=== PATIENT | female | born 1935 | race Caucasian/White ===

== ENCOUNTER 2020-04-02 10:42 | Inpatient (IN) | payer MEDICARE, SELFPAY ==
[2020-04-02] VITALS (7 sets, daily range): BP systolic 108–185; BP diastolic 61–108; PULSE 68–91; RESP 15–19; TEMP 36.6–37.2; O2SAT 91–98; BMI 17.7
--- NOTE | 2020-04-02 11:45 | CT_ITS ---
WS: [id number] CT HEAD NONCONTRAST HISTORY: hypertensive crisis TECHNIQUE: Contiguous axial imaging performed through the brain in 2.5 mm imaging. Bone and soft tiss ue windows. Sagittal and coronal reformats reviewed. All CT scans at [facility] use at ast one of these dose optimization techniques: automated exposure control; mA and/or kV adjustment pe r patient size (includes targeted exams where dose is matched to clinical indication); or iterative r econstruction. DLP: 862.72 mGy.cm COMPARISON: None available. No acute intracranial hemorrhage, midline shift or mass effect. Moderate to severe atrophy and chronic ischemic disease. Scattered areas of decreased attenuation in the white matter are probably from microvascular disease. Ventricles: Ventricles and extra-axial spaces are prominent on the basis of atrophy. Paranasal sinuses: As visualized are clear. Mastoid air cells: Well pneumatized. Calvarium and scalp: Skull is intact with no soft tissue edema or swelling. CT/CT head wo con* [id number] IMPRESSION: 1. No acute intracranial hemorrhage or edema. 2. Moderate to severe atrophy and chronic ischemic disease.
--- NOTE | 2020-04-02 11:46 | ECG_ITS ---
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1935 Requested By: Russell Chavez I Order Number: [id number] Reading MD: JETT MOLINA Measurements Intervals [place] Rate: 75 P: 60 FL: 118 QRS: 54 QRSD: 104 T: 67 QT: 371 QTc: 415 Interpretive Statements SINUS RHYTHM WITH SHORT FL INTERVAL WITH OCCASIONAL SUPRAVENTRICULAR PREMATURE COMPLEXES VOLTAGE CRITERIA FOR LVH [MEETS CRITERIA IN ONE OF: R(aVL), S(V1), R(V5), R(V5/V6)+S(V1)] Compared to ECG 07/04/2014 20:06:51 Short FL interval now present Left ventricular hypertrophy now present Prolonged QT interval no longer present Possible ischemia no longer present Left anterior fascicular block no longer present Electronically Signed On 04-02-2020 19:37:16 MANAGER WIND by JETT MOLINA [id number]
--- NOTE | 2020-04-02 11:46 | XR_ITS ---
WS: [id number] Exam: XR chest 2V* [id number] Date/Time of Exam: 04/02/2020 11:46 AM Reason For Exam: elevated BP Comparison 07/04/2014. The lungs are clear and hyperinflated. Normal cardiomediastinal silhouette. No pleural effusions. Exa ggerated thoracic kyphosis with numerous insufficiency compression deformities of the thoracic and alexandra mbar spine. XR/XR chest 2V* [id number] IMPRESSION: 1. No acute cardiopulmonary finding. 2. Pulmonary hyperinflation.
--- NOTE | 2020-04-02 11:47 | W.ED.RECABL ---
HPI - Recheck/Abnormal Lab/Rx General: Chief Complaint: Recheck/Abnormal Lab/Rx Stated Complaint: BP IS 208/196 Time Seen by Provider: 04/02/20 11:21 Source: patient and family (daughter) Mode of arrival: ambulatory History of Present Illness: HPI narrative: 85-year-old female patient who was brought in by her daughter with concerns for elevated blood pressure. According to her daughter her blood pressure has been elevated over the last few days going as high as 208 systolic. She also had some shortness of breath and chest pain yesterday but those have resolved now. The patient is currently asymptomatic. She denies a headache, dizziness, neck pain. She also denies chest pain, difficulty breathing. Denies urinary symptoms. Because her blood pressure was still elevated they called her primary care provider who advised her to come to the emergency department for evaluation. Review of Systems General: Reports: 10 or more systems reviewed and unremarkable except in HPI and below Const: Denies: fever(s), chills or body aches Eyes: Denies: change in vision or blurry vision ENMT: Denies: throat pain, enlarged tonsils, odynophagia, hoarseness, mouth pain or swelling of lips/tongue Card: Denies: palpitations, irregular heart rhythm, edema or swelling of feet/ankles Resp: Denies: dyspnea, productive cough or non-productive cough GI: Denies: abdominal pain, nausea or vomiting : Denies: flank pain, difficulty voiding, dysuria, urinary frequency, urinary urgency or urinary hesitancy Musc: Denies: neck pain, back pain or extremity swelling Skin/Breast: Denies: rash, pruritus or erythema Neuro: Denies: headache(s), numbness in extremities or weakness in extremities Endo: Denies: polyuria, polydipsia or tired all the time PFSH ED PFSH: Medical History CAD (coronary artery disease) Chronic back pain HTN (hypertension) Kyphosis deformity of spine Surgical History H/O coronary angiogram Family History Mother CAD (coronary artery disease) Father CAD (coronary artery disease) Social History Smoking and tobacco status: former smoker Quit status (tobacco): has quit using tobacco Former quit date comment: 25 ya Alcohol intake: never Substance/Drug Use: never Lives independently: Yes Household members: children and other Details: Son Current occupational status: retired Physical Exam Const: COMMON NORMALS: no acute distress, average body habitus, patient oriented x3, no limitations, healthy appearing, alert and well nourished HENMT: COMMON NORMALS: normocephalic, atraumatic and moist oral mucous membranes HEAD & SCALP: normocephalic and atraumatic Eye: COMMON NORMALS: Equal, round and reactive pupils present, EOMs intact bilaterally, conjunctivae normal and no scleral icterus CONJUNCTIVA: Yes conjunctivae normal PUPIL: Yes Equal, round and reactive pupils present Neck/C-Spine: COMMON NORMALS: full ROM, supple, no meningeal signs, no JVD and No carotid bruits Resp: COMMON NORMALS: normal respiratory effort, No retractions, No use of accessory muscles, clear to auscultation bilaterally and percussion normal AUSCULTATION: clear to auscultation bilaterally PERCUSSION: percussion normal Cardio: COMMON NORMALS: no JVD, regular rate, regular rhythm, S1 normal heart sound present, S2 normal heart sound present, No gallops present (Cardio), No clicks present (Cardio), No murmurs present (Cardio), No rub (Cardio) and Peripheral pulses 2+ throughout RATE: regular rate RHYTHM: regular rhythm HEART SOUNDS: S1 normal heart sound present and S2 normal heart sound present PERIPHERAL PULSES: Peripheral pulses 2+ throughout GI: COMMON NORMALS: Normal to inspection, nondistended, normoactive bowel sounds present, Soft to palpation, non-tender, No hepatosplenomegaly present, no masses and no bruits PALPATION: Yes Soft to palpation and Yes No hepatosplenomegaly present Extremity: COMMON NORMALS: normal to inspection, full ROM, capillary refill normal, no calf tenderness and no pedal edema Neuro: COMMON NORMALS: patient oriented x3 SENSORIUM/ORIENTATION: Yes alert MENINGEAL SIGNS: Yes no meningeal signs Skin: COMMON NORMALS: no rashes or lesions noted, no wounds, turgor normal, no jaundice, no petechiae and no mottling GENERAL SKIN EXAM: no rashes or lesions noted and turgor normal Course Reevaluation(s): Reevaluation #1: Discussed the patient's lab and imaging findings with her and her daughter. Advised that with her delta troponin she likely has had a non-STEMI and would benefit from hospital admission. She will likely need further work-up including a stress test. They voiced understanding and are in agreement with the plan. Time: 15:00 Consultations: Consultation #1: Discussed the patient with Dr. Murillo, hospitalist. He kindly accepted the patient to his service. Time: 15:10 Vital Signs: Vital signs: Vital Signs Temperature 98 F 04/02/20 19:37 Pulse Rate 80 04/02/20 19:37 Respiratory Rate 15 04/02/20 19:37 Blood Pressure 130/76 04/02/20 19:37 Pulse Oximetry 96 04/02/20 19:37 MDM - Recheck/Abnormal Lab/Rx MDM Narrative: Medical decision making narrative: This 85 year old female patient presents to the ED with markedly elevated BP. She also had chest pain and shortness of breath yesterday. In the emergency department she was asymptomatic, however 2-hour delta troponin was significantly elevated, delta was more than 100. Because of this she is admitted to the hospital for acute coronary syndrome. Medical Records: Attestation: I reviewed the patient's medical records. Lab Data: Attestation: I reviewed the patient's lab results. Labs: Lab Results 04/02/20 04/02/20 04/02/20 Range/Units 11:34 11:34 11:34 WBC 6.9 (4.0-10.0) 10^3/ uL RBC 4.97 (4.1-5.3) 10^6/u L Hgb 14.6 (11.5-15.3) g/dL Hct 45.6 (37.0-47.0) % MCV 91.8 (81-99) fL MCH 29.4 (28.0-34.0) pg MCHC 32.0 (30.0-36.0) g/dL RDW 13.1 (12.1-15.1) % Plt Count 189 (130-400) 10^3/c mm MPV 10.4 (7.4-10.4) fL Neut % (Auto) 63.7 % Lymph % (Auto) 28.8 % Gaston % (Auto) 6.2 % Eos % (Auto) 0.4 % Baso % (Auto) 0.6 % Neut # (Auto) 4.39 (1.8-7.7) 10^3/u L Lymph # (Auto) 2.0 (0.8-4.8) 10^3/u L Gaston # (Auto) 0.4 (0.2-0.9) 10^3/u L Eos # (Auto) 0.0 (0.0-0.8) 10^3/u L Baso # (Auto) 0.0 (0.0-0.1) 10^3/u L Nucleated RBC % (a uto) 0 % Nucleated RBCs # 0.0 /100WBC Sodium 136 (136-145) mmol/L Potassium 4.6 (3.5-5.1) mmol/L Chloride 100 (98-107) mmol/L Carbon Dioxide 27 (22-29) mmol/L Anion Gap 13.6 (5-19) BUN 12 (8-23) mg/dL Creatinine 0.4 L (0.5-0.9) mg/dL GFR Calculation Not Reportable Glucose 106 (65-115) mg/dL Calculated Osmolal ity 282 L (285-295) mOsm/k g Calcium 9.4 (8.5-10.5) mg/dL Total Bilirubin 0.3 (0.15-1.2) mg/dL AST 22 (0-32) U/L ALT 13 (0-33) U/L Alkaline Phosphata se 117 H (35-105) IU/L Troponin T Baselin e 12 H (0-10) ng/L Troponin T 120 Min knik (0-10) ng/L Delta Troponin T (0-10) ABS# NT-Pro-B Natriuret Pep 586 H (0-450) pg/mL Total Protein 6.8 (6.6-8.7) g/dL Albumin 4.2 (3.5-5.2) g/dL Globulin 2.6 (1.3-4.6) g/dL TSH 1.47 (0.27-4.20) uIU/ mL Urine Color (Yellow) Urine Appearance (CLEAR) Urine pH (5-7) Ur Specific Gravit y (1.005-1.030) Urine Protein (Negative) Urine Glucose (UA) (Normal) Urine Ketones (Negative) Urine Blood (Negative) Urine Nitrate (Negative) Urine Bilirubin (Negative) Urine Urobilinogen (Negative) mg/dL Ur Leukocyte Mikaela ase (Negative) Urine RBC (0-2) /hpf Urine WBC (0-5) /hpf Ur Squamous Epith Cells (0-5) /hpf Amorphous Sediment Urine Bacteria (NONE) /hpf 04/02/20 04/02/20 Range/Units 13:09 13:45 WBC (4.0-10.0) 10^3/ uL RBC (4.1-5.3) 10^6/u L Hgb (11.5-15.3) g/dL Hct (37.0-47.0) % MCV (81-99) fL MCH (28.0-34.0) pg MCHC (30.0-36.0) g/dL RDW (12.1-15.1) % Plt Count (130-400) 10^3/c mm MPV (7.4-10.4) fL Neut % (Auto) % Lymph % (Auto) % Gaston % (Auto) % Eos % (Auto) % Baso % (Auto) % Neut # (Auto) (1.8-7.7) 10^3/u L Lymph # (Auto) (0.8-4.8) 10^3/u L Gaston # (Auto) (0.2-0.9) 10^3/u L Eos # (Auto) (0.0-0.8) 10^3/u L Baso # (Auto) (0.0-0.1) 10^3/u L Nucleated RBC % (a uto) % Nucleated RBCs # /100WBC Sodium (136-145) mmol/L Potassium (3.5-5.1) mmol/L Chloride (98-107) mmol/L Carbon Dioxide (22-29) mmol/L Anion Gap (5-19) BUN (8-23) mg/dL Creatinine (0.5-0.9) mg/dL GFR Calculation Glucose (65-115) mg/dL Calculated Osmolal ity (285-295) mOsm/k g Calcium (8.5-10.5) mg/dL Total Bilirubin (0.15-1.2) mg/dL AST (0-32) U/L ALT (0-33) U/L Alkaline Phosphata se (35-105) IU/L Troponin T Baselin e (0-10) ng/L Troponin T 120 Min knik 126.1 H (0-10) ng/L Delta Troponin T 114.1 H* (0-10) ABS# NT-Pro-B Natriuret Pep (0-450) pg/mL Total Protein (6.6-8.7) g/dL Albumin (3.5-5.2) g/dL Globulin (1.3-4.6) g/dL TSH (0.27-4.20) uIU/ mL Urine Color Yellow (Yellow) Urine Appearance Sl hazy (CLEAR) Urine pH 7.0 (5-7) Ur Specific Gravit y 1.015 (1.005-1.030) Urine Protein Neg (Negative) Urine Glucose (UA) Norm (Normal) Urine Ketones 1+ H (Negative) Urine Blood 2+ H (Negative) Urine Nitrate Negative (Negative) Urine Bilirubin Neg (Negative) Urine Urobilinogen Norm (Negative) mg/dL Ur Leukocyte Mikaela ase Negative (Negative) Urine RBC 5-10 H (0-2) /hpf Urine WBC 0-4 H (0-5) /hpf Ur Squamous Epith Cells 0-4 H (0-5) /hpf Amorphous Sediment Not Reportable Urine Bacteria 2+ H (NONE) /hpf Imaging Data^: CXR: Attestation: I personally reviewed and interpreted this imaging study as follows: Radiologist's impression: [address] [address] XRay Report Signed Patient: Aguilar Rodrigez #: [id number] : 7Acct#:[id number] Age/Sex: 85 / FADM Date: 04/02/20 Loc: ERRoom/Bed: Attending Dr: Ordering Provider/Ordering MD: Russell Chavez [place], [facility] [place] of Service: 04/02/20 Procedure(s): XR chest 2V* [id number] Accession Number(s): [id number] Report Number: [id number] WS: [id number] Exam: XR chest 2V* [id number] Date/Time of Exam: 04/02/2020 11:46 AM Reason For Exam: elevated BP Comparison 07/04/2014. The lungs are clear and hyperinflated. Normal cardiomediastinal silhouette. No pleural effusions. Exaggerated thoracic kyphosis with numerous insufficiency compression deformities of the thoracic and lumbar spine. XR/XR chest 2V* [id number] IMPRESSION: 1. No acute cardiopulmonary finding. 2. Pulmonary hyperinflation. Dictated By:Bill Chase DO Signed By:Carmen Ferreira Date/Time:04/02/20 1221 DD/ 1220 CT Head: Attestation: I personally reviewed and interpreted this imaging study as follows: Radiologist's impression: [address] [place] [address] CT Scan Report Signed Patient: Aguilar Rodrigez #: [id number] : 1935cct#:[id number] Age/Sex: 85 / FADM Date: 04/02/20 Loc: ERRoom/Bed: Attending Dr: Ordering Provider/Ordering MD: Russell Chavez MD, [facility] [place] of Service: 04/02/20 Procedure(s): CT head wo con* [id number] Accession Number(s): [id number] Report Number: [id number] WS: [id number] CT HEAD NONCONTRAST HISTORY: hypertensive crisis TECHNIQUE: Contiguous axial imaging performed through the brain in 2.5 mm imaging. Bone and soft tissue windows. Sagittal and coronal reformats reviewed. All CT scans at [facility] use at least one of these dose optimization techniques: automated exposure control; mA and/or kV adjustment per patient size (includes targeted exams where dose is matched to clinical indication); or iterative reconstruction. DLP: 862.72 mGy.cm COMPARISON: None available. No acute intracranial hemorrhage, midline shift or mass effect. Moderate to severe atrophy and chronic ischemic disease. Scattered areas of decreased attenuation in the white matter are probably from microvascular disease. Ventricles: Ventricles and extra-axial spaces are prominent on the basis of atrophy. Paranasal sinuses: As visualized are clear. Mastoid air cells: Well pneumatized. Calvarium and scalp: Skull is intact with no soft tissue edema or swelling. CT/CT head wo con* [id number] IMPRESSION: 1. No acute intracranial hemorrhage or edema. 2. Moderate to severe atrophy and chronic ischemic disease. Dictated By:Ayah Sherman DO Signed By:Ayah Sherman DOSigned Date/Time:04/02/20 1223 DD/ 1222 EKG Data^: EKG 1: Attestation: I personally reviewed and interpreted this EKG as follows: EKG interpretation date: 04/02/20 EKG interpretation time: 12:20 Prior EKG tracings: not available for review Interpretation: Sinus rhythm with short IN interval. Heart rate 75 bpm. Occasional supraventricular premature complexes. No ST changes. LVH. Discharge Plan Discharge Patient Disposition: Admitted As Inpatient Admit Provider: Kevin Eden Clinical Impression: ACS (acute coronary syndrome), NSTEMI (non-ST elevated myocardial infarction) Condition: Stable Coding Level of Care Code ED Physical Biochemist for Chg Fwd Exam Comprehensive
[2020-04-02 11:57] LABS: Basophils % 0.6 %; Eosinophils % 0.4 %; Hematocrit 45.6 % (37.0-47.0); Hemoglobin 14.6 g/dL (11.5-15.3); Lymphocytes % 28.8 %; Mean Corpuscular Hemoglobin 29.4 pg (28.0-34.0); Mean Corpuscular Volume 91.8 fL (81-99); Mean Platelet Volume 10.4 fL (7.4-10.4); Monocytes # 0.4 10^3/uL (0.2-0.9); Monocytes % 6.2 %; Neutrophils # 4.39 10^3/uL (1.8-7.7); Neutrophils % 63.7 %; Nucleated Red Blood Cells % 0 %; Platelet Count 189 10^3/cmm (130-400); Red Blood Count 4.97 10^6/uL (4.1-5.3); Red Cell Distribution Width 13.1 % (12.1-15.1); White Blood Count 6.9 10^3/uL (4.0-10.0)
[2020-04-02 12:08] LABS: Troponin(5th) Baseline 12 ng/L (0-10)
[2020-04-02 12:18] LABS: Alanine Aminotransferase 13 U/L (0-33); Albumin Level 4.2 g/dL (3.5-5.2); Alkaline Phosphatase 117 IU/L (35-105); Anion Gap 13.6 (5-19); Aspartate Amino Transferase 22 U/L (0-32); Blood Urea Nitrogen 12 mg/dL (8-23); Calcium 9.4 mg/dL (8.5-10.5); Carbon Dioxide 27 mmol/L (22-29); Chloride 100 mmol/L (98-107); Creatinine Clr Calc Pharmacy 33.5752; Globulin 2.6 g/dL (1.3-4.6); Glucose 106 mg/dL (65-115); NT Pro B Type Natriuretic Pept 586 pg/mL (0-450); Osmolality Calculated 282 mOsm/kg (285-295); Potassium 4.6 mmol/L (3.5-5.1); Sodium 136 mmol/L (136-145); Total Bilirubin 0.3 mg/dL (0.15-1.2); Total Protein 6.8 g/dL (6.6-8.7)
[2020-04-02 12:19] LABS: Thyroid Stimulating Hormone 1.47 uIU/mL (0.27-4.20)
[2020-04-02 13:28] LABS: Add Urine Culture? Yes; Add Urine Microscopic? YES; Bacteria Urine 2+ /hpf; Bilirubin Urine Neg (Negative); Blood Urine 2+ (Negative); Glucose Urine UA Norm (Normal); Ketones Urine 1+ (Negative); Leukocyte Esterase Urine Negative (Negative); Nitrate Urine Negative (Negative); Protein Urine Neg (Negative); Specific Gravity, Urine 1.015 (1.005-1.030); Squamous Epithelial Cell Urine 0-4 /hpf (0-5); Urine Appearance SL Hazy (CLEAR); Urine Color Yellow (Yellow); Urobilinogen Urine Norm (Negative); WBC Urine 0-4 /hpf (0-5)
[2020-04-02 14:30] LABS: Troponin 5 2HR 126.1 ng/L (0-10); Troponin 5 2HR Delta 114.1 ABS# (0-10)
[2020-04-02] MEDS: aspirin 81 mg Chew Tablet 324 MG PO (15:58)
[2020-04-02] MEDS: enoxaparin 40 mg/0.4 mL Syringe SUBCUT (15:58)
--- NOTE | 2020-04-02 17:46 | ECG_ITS ---
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1935 Requested By: Russell Chavez I Order Number: [id number] Reading MD: JETT MOLINA Measurements Intervals [place] Rate: 88 P: 48 [place]: 125 QRS: -48 QRSD: 94 T: 66 QT: 377 QTc: 458 Interpretive Statements SINUS RHYTHM WITH OCCASIONAL SUPRAVENTRICULAR PREMATURE COMPLEXES POSSIBLE RIGHT VENTRICULAR CONDUCTION DELAY [RSR (QR) IN V1/V2] LEFT ANTERIOR FASCICULAR BLOCK [QRS AXIS <= -45, QR IN I, RS IN II] SEPTAL MYOCARDIAL INFARCTION [40+ ms Q WAVE IN V1/V2], OF INDETERMINATE AGE Compared to ECG 04/02/2020 12:20:09 Left anterior fascicular block now present Myocardial infarct finding now present Short [place] interval no longer present Left ventricular hypertrophy no longer present Electronically Signed On 04-02-2020 19:39:32 CYLINDER MACHINE OPERATOR PULP DRIER by JETT MOLINA [id number]
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
[2020-04-02 19:10] LABS: Troponin 5 6HR 296.1 ng/L (0-10); Troponin 5 6HR Delta 284.1 ng/L (0-12)
--- NOTE | 2020-04-02 19:16 | PC.NURSE ---
Received report from SILVIA Lynne. Patient resting in bed with eyes closed. Eyes open spontaneously with touch. Patient is [place]. Patient has dinner tray at bedside and wanted it removed. Patient stated, I am just not hungry. I usually eat dinner at 3:00pm . Milk on tray was open with very small amount gone. Patient appears very frail and emaciated. Denies pain or other needs at this time. No other distress observed. Instructed patient on medication times and plan for the night. Patient verbalized complete understanding.
--- NOTE | 2020-04-02 19:56 | P.CONIM_ITS ---
Providers/Reason For Consult Consulting Physican/Specialty*: MARIA E Khan MD/cardiology Reason for Consult*: Patient with uncontrolled blood pressure/elevated troponin T Attending Physician: Kevin Eden Primary Care Provider: Romeo Anaya History of Present Illness History of Present Illness Rosemary Rodrigez is a 85 year old female who is admitted to the hospital through the emergency room where she presented with complaints of uncontrolled blood pressure. She was found to have elevated troponin T. Had a 2-hour delta was 114 and the 6-hour delta was 284. She is admitted to the hospital for further evaluation management. Patient is a poor historian. According to her, her blood pressure was found to be elevated in the 180-200 range yesterday. She might have had some shortness of breath. This morning, as she woke up, she was not feeling that great. Her blood pressure was still found to be elevated in the 180 range. Her daughter told her to call her primary care provider. So she was evaluated by the primary care provider today. Subsequently she was sent to the emergency room, for further evaluation. Patient denies any chest pain or chest tightness. She denies any nausea vomiting. No dizziness. No other specific complaints. She has a history of high blood pressure for the last many years. She had possibly 2 cardiac catheterization in the past, the most recent one was done at the [facility]. This was done approximately 7 or 8 years ago. She was complaining of nausea, vomiting, right arm numbness and some weakness at that time. After the cardiac catheterization, she was told to continue medical treatment. She never had any coronary intervention. Prior to this, she was evaluated at the [facility] and had the first cardiac catheterization. Details of these are not available. She lives alone. She has no previous history for any CVA or peripheral arterial disease. She has a history of chronic back pain. Currently she is being followed by a optical manufacturing technician, once a year, from the [facility] in [place]. Review of Systems Narrative: CONSTITUTIONAL: No fever or chills. EYES: No blurring of vision or other visual disturbances lately. ENT: No hoarseness of voice, auditory disturbances or sore throat. CARDIOVASCULAR: As mentioned above. RESPIRATORY: No significant cough. GASTROINTESTINAL: No hematemesis or melena. GENITOURINARY: No dysuria or hematuria. INTEGUMENTARY: No skin rashes or history of skin cancer. NEURO: No transient ischemic attacks or amaurosis. PSYCHIATRIC: No history of psychosis or major depression. HEMATOLOGIC: No bleeding disorders or significant anemia. ENDOCRINE: No history of polyuria or polydipsia. MUSCULOSKELETAL: No recent joint pain or swelling. ALLERGY/IMMUNOLOGY: As mentioned above. Meds/Allergies Home Medications and Allergies Home Medications Medication Instructions Recorded Confirmed Last Taken Type ascorbic acid (vitamin C) [Vitamin 1,000 mg PO DAILY 04/02/20 04/02/20 04/01/20 History C] aspirin 81 mg PO DAILY 04/02/20 04/02/20 04/01/20 History carvedilol 6.25 mg PO BID 04/02/20 04/02/20 04/01/20 History lisinopril 10 mg PO DAILY 04/02/20 04/02/20 04/01/20 History multivitamin 1 tab PO DAILY 04/02/20 04/02/20 04/01/20 History omeprazole 20 mg PO DAILY PRN 04/02/20 04/02/20 Unknown History potassium gluconate 600 mg PO DAILY 04/02/20 04/02/20 04/01/20 History Allergies Allergy/AdvReac Type Severity Reaction Status Date / Time No Known Allergies Allergy Verified 04/02/20 11:13 PFSH Acute PFSH: Medical History CAD (coronary artery disease) Chronic back pain HTN (hypertension) Kyphosis deformity of spine Surgical History H/O coronary angiogram Family History Mother CAD (coronary artery disease) Father CAD (coronary artery disease) Social History Smoking and tobacco status: former smoker Quit status (tobacco): has quit using tobacco Former quit date comment: 25 ya Alcohol intake: never Substance/Drug Use: never Lives independently: Yes Household members: children and other Details: Son Current occupational status: retired Vitals/I&O/Wt Last Vital Signs Temp 98 F 04/02/20 19:37 Pulse 80 04/02/20 19:37 Resp 15 04/02/20 19:37 BP 130/76 04/02/20 19:37 Pulse Ox 96 04/02/20 19:37 Weight last 48 hrs Weight 88 lb Physical Exam Narrative: EXAM NARRATIVE: GENERAL: The patient is alert and oriented times three. Not in any acute distress. Patient is lean and short frame HEENT: No significant pallor, icterus or lymphadenopathy. The pupils are symmetrical. Oral cavity: There are no mucous membrane lesions. Funduscopic examination: Fundus is not visualized NECK: Trachea appears to be central. No masses noted. No JVD or thyromegaly appreciated. No carotid bruit. RESPIRATORY: Chest is symmetrical. Emphysematous/barrel-shaped chest. No intercostals muscle retraction or any accessory muscle activation. There is no chest wall tenderness. Breath sounds are heard bilaterally. No rales or rhonchi heard. No evidence of any consolidation. BREASTS: Deferred. HEART: T PMI could not be palpated. No other palpable precordial events. First and second heart sounds are normal. Short systolic murmur at the base of the heart. No diastolic murmurs. No pericardial rub. ABDOMEN: No vessel pulsations or distention. No tenderness. No organomegaly appreciated. No abdominal bruit. Bowel sounds are normally heard. : Deferred. RECTAL: Deferred. LYMPHATIC: No lymphadenopathy noted in the neck or groin. EXTREMITIES: No edema or cyanosis. No clubbing. The pulses are symmetrical bilaterally. The radial, femoral, dorsalis pedis and the posterior tibial pulses are palpated and found to be in good volume and amplitude. Bilateral spider veins. MUSCULOSKELETAL: No acute joint deformities or swelling SKIN: There are no significant scars or skin rash noted. NEUROPSYCHIATRIC: The patient is alert and oriented x3. Appears to be in a good mood. The higher functions are grossly within normal limits. No tremors or rigidity noted. Data Labs: Other Labs: Laboratory Last Values WBC 6.9 10^3/uL (4.0- 10.0) 04/02/20 11:34 RBC 4.97 10^6/uL (4.1 -5.3) 04/02/20 11:34 Hgb 14.6 g/dL (11.5-1 5.3) 04/02/20 11:34 Hct 45.6 % (37.0-47.0 ) 04/02/20 11:34 MCV 91.8 fL (81-99) 04/02/20 11:34 MCH 29.4 pg (28.0-34. 0) 04/02/20 11:34 MCHC 32.0 g/dL (30.0-3 6.0) 04/02/20 11:34 RDW 13.1 % (12.1-15.1 ) 04/02/20 11:34 Plt Count 189 10^3/cmm (130 -400) 04/02/20 11:34 MPV 10.4 fL (7.4-10.4 ) 04/02/20 11:34 Neut % (Auto) 63.7 % 04/02/20 11:34 Lymph % (Auto) 28.8 % 04/02/20 11:34 Upson % (Auto) 6.2 % 04/02/20 11:34 Eos % (Auto) 0.4 % 04/02/20 11:34 Baso % (Auto) 0.6 % 04/02/20 11:34 Neut # (Auto) 4.39 10^3/uL (1.8 -7.7) 04/02/20 11:34 Lymph # (Auto) 2.0 10^3/uL (0.8- 4.8) 04/02/20 11:34 Upson # (Auto) 0.4 10^3/uL (0.2- 0.9) 04/02/20 11:34 Eos # (Auto) 0.0 10^3/uL (0.0- 0.8) 04/02/20 11:34 Baso # (Auto) 0.0 10^3/uL (0.0- 0.1) 04/02/20 11:34 Nucleated RBC % (a uto) 0 % 04/02/20 11:34 Nucleated RBCs # 0.0 /100WBC 04/02/20 11:34 Sodium 136 mmol/L (136-1 45) 04/02/20 11:34 Potassium 4.6 mmol/L (3.5-5 .1) 04/02/20 11:34 Chloride 100 mmol/L (98-10 7) 04/02/20 11:34 Carbon Dioxide 27 mmol/L (22-29) 04/02/20 11:34 Anion Gap 13.6 (5-19) 04/02/20 11:34 BUN 12 mg/dL (8-23) 04/02/20 11:34 Creatinine 0.4 mg/dL (0.5-0. 9) L 04/02/20 11:34 GFR Calculation Not Reportable 04/02/20 11:34 Glucose 106 mg/dL (65-115 ) 04/02/20 11:34 Calculated Osmolal ity 282 mOsm/kg (285- 295) L 04/02/20 11:34 Calcium 9.4 mg/dL (8.5-10 .5) 04/02/20 11:34 Total Bilirubin 0.3 mg/dL (0.15-1 .2) 04/02/20 11:34 AST 22 U/L (0-32) 04/02/20 11:34 ALT 13 U/L (0-33) 04/02/20 11:34 Alkaline Phosphata se 117 IU/L (35-105) H 04/02/20 11:34 Troponin T Baselin e 12 ng/L (0-10) H 04/02/20 11:34 Troponin T 120 Min [place] 126.1 ng/L (0-10) H 04/02/20 13:45 Delta Troponin T 114.1 ABS# (0-10) H* 04/02/20 13:45 Troponin T Hi Sens 6Hr 296.1 ng/L (0-10) H 04/02/20 17:43 Troponin T Hi Sens 6Hr Delta 284.1 ng/L (0-12) H* 04/02/20 17:43 NT-Pro-B Natriuret Pep 586 pg/mL (0-450) H 04/02/20 11:34 Total Protein 6.8 g/dL (6.6-8.7 ) 04/02/20 11:34 Albumin 4.2 g/dL (3.5-5.2 ) 04/02/20 11:34 Globulin 2.6 g/dL (1.3-4.6 ) 04/02/20 11:34 TSH 1.47 uIU/mL (0.27 -4.20) 04/02/20 11:34 Urine Color Yellow (Yellow) 04/02/20 13:09 Urine Appearance Sl hazy (CLEAR) 04/02/20 13:09 Urine pH 7.0 (5-7) 04/02/20 13:09 Ur Specific Gravit y 1.015 (1.005-1.0 30) 04/02/20 13:09 Urine Protein Neg (Negative) 04/02/20 13:09 Urine Glucose (UA) Norm (Normal) 04/02/20 13:09 Urine Ketones 1+ (Negative) H 04/02/20 13:09 Urine Blood 2+ (Negative) H 04/02/20 13:09 Urine Nitrate Negative (Negati ve) 04/02/20 13:09 Urine Bilirubin Neg (Negative) 04/02/20 13:09 Urine Urobilinogen Norm mg/dL (Negat milana) 04/02/20 13:09 Ur Leukocyte Mikaela ase Negative (Negati ve) 04/02/20 13:09 Urine RBC 5-10 /hpf (0-2) H 04/02/20 13:09 Urine WBC 0-4 /hpf (0-5) H 04/02/20 13:09 Ur Squamous Epith Cells 0-4 /hpf (0-5) H 04/02/20 13:09 Amorphous Sediment Not Reportable 04/02/20 13:09 Urine Bacteria 2+ /hpf (NONE) H 04/02/20 13:09 The EKG shows sinus rhythm PACs. Left axis deviation. Poor R wave progression with features of possible old septal NH Chest x-ray shows borderline cardiac related with no lung infiltrate. No acute pathology noted. CT of the head revealed moderate atrophy and chronic ischemic changes. A&P Assessment and plan (1) NSTEMI (non-ST elevated myocardial infarction): Patient has clinical features suggestive of a non-ST elevation myocardial infarction. EKG changes are nonspecific. No acute findings. I may go ahead and start her on subcu Lovenox. She also may be given aspirin, beta-barbara and a statin drug. Her lipid profile need to be checked on the blood in the lab. An echocardiogram be helpful to evaluate LV function and rule out other pathology. Status: Acute (2) HTN (hypertension): Patient may be continued on her home medication. Also may start her on topical nitrates. We will optimize the antihypertensives by titrating up on the current medications. Status: Acute Qualifiers: Hypertension type: essential hypertension Qualified Code(s): I10 - Essential (primary) hypertension Additional A&P Information Her other problems are Chronic back pain Possible UTI Kyphosis Emphysema Consult Attestations Medical Necessity Statement: Based on the patient's clinical progress and the results of the above, further recommendations will be made. Since she has no chest pain, in the absence of any acute ischemic changes, it may be appropriate to do a myocardial perfusion imaging, if the troponin T is trending down. Coding Level of Care Code Acute Manager Power for [facility] Diagnoses NSTEMI (non-ST elevated myocardial infarction) I21.4 HTN (hypertension) I10 Hypertension type: essential hypertension
[2020-04-02] MEDS: metoprolol tartrate 25 mg Tablet 12.5 MG PO (20:15)
[2020-04-02] MEDS: atorvastatin 40 mg Tablet PO (20:15)
--- NOTE | 2020-04-02 20:18 | PC.NURSE ---
Dr Khan in to see patient. Plan to proceed with scheduled stress test in the am. Patient expressed understanding.
[2020-04-03] VITALS (7 sets, daily range): BP systolic 91–142; BP diastolic 52–89; PULSE 64–100; RESP 18–29; TEMP 35.9–37.3; O2SAT 94–98
[2020-04-03] MEDS: enoxaparin 100 mg/mL Syringe 40 MG SUBCUT ×2 (03:48→17:07)
[2020-04-03 05:05] LABS: Basophils % 0.6 %; Eosinophils % 0.4 %; Hematocrit 42.9 % (37.0-47.0); Hemoglobin 13.9 g/dL (11.5-15.3); Lymphocytes # 1.8 10^3/uL (0.8-4.8); Lymphocytes % 26.6 %; Mean Corpuscular HGB Conc 32.4 g/dL (30.0-36.0); Mean Corpuscular Hemoglobin 29.5 pg (28.0-34.0); Mean Corpuscular Volume 91.1 fL (81-99); Monocytes # 0.5 10^3/uL (0.2-0.9); Monocytes % 7.3 %; Neutrophils # 4.38 10^3/uL (1.8-7.7); Nucleated Red Blood Cells % 0 %; Platelet Count 172 10^3/cmm (130-400); Red Blood Count 4.71 10^6/uL (4.1-5.3); White Blood Count 6.7 10^3/uL (4.0-10.0)
[2020-04-03 05:24] LABS: Alanine Aminotransferase 10 U/L (0-33); Albumin Level 3.3 g/dL (3.5-5.2); Alkaline Phosphatase 92 IU/L (35-105); Anion Gap 14.1 (5-19); Aspartate Amino Transferase 22 U/L (0-32); Blood Urea Nitrogen 10 mg/dL (8-23); Calcium 9.1 mg/dL (8.5-10.5); Carbon Dioxide 26 mmol/L (22-29); Chloride 103 mmol/L (98-107); Globulin 2.6 g/dL (1.3-4.6); Glucose 84 mg/dL (65-115); Osmolality Calculated 286 mOsm/kg (285-295); Potassium 4.1 mmol/L (3.5-5.1); Sodium 139 mmol/L (136-145); Total Bilirubin 0.5 mg/dL (0.15-1.2); Total Protein 5.9 g/dL (6.6-8.7)
--- NOTE | 2020-04-03 07:30 | PC.NURSE ---
Patient off unit for nuclear stress test.
[2020-04-03] MEDS: regadenoson 0.4 Mg/5 ml Syringe IVP (08:18)
[2020-04-03] MEDS: aminophylline 25 mg/mL SDV 10 mL IVP (08:20)
--- NOTE | 2020-04-03 09:00 | ECG_ITS ---
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 Interpretive Statements NAME OF STUDY: LEXISCAN SESTAMIBI STRESS TEST INDICATION: Chest Pain, PROCEDURE: At the baseline, the EKG revealed sinus rhythm with nonspecific T wave changes. Possible old lateral wall MT. Poor R wave progression.. The baseline blood pressure was 141/87 mm Hg with a heart rate of 75 beats/min. Lexiscan was infused over a period of 20 seconds. A total of 0.4 milligrams of Lexiscan was infused. The stress phase was continued for a total of 5 minutes. Heart rate at the end of the stress phase was 112 with a blood pressure 141/93. The EKG at the peak infusion revealed no significant changes. Sestamibi was injected 20 seconds after the Lexiscan infusion. Blood pressure at the end of the recovery phase was 127/89 with a heart rate of 100 per minute. CONCLUSION: 1. No significant EKG changes with the LexiScan infusion 2. No LexiScan induced chest pain or cardiac arrhythmia 3. Normal blood pressure and heart rate response 4. Sestamibi/sestamibi perfusion scan pending; see separate report. Electronically Signed On 04-03-2020 20:03:16 SPECIAL SERVICE REPRESENTATIVE by Evelina Khan M.D. [email or web address]
--- NOTE | 2020-04-03 09:38 | P.PN_ITS ---
Subjective Subjective: Interval history: Meeting today. She was found to have small areas of reversible defect in the mid inferior, inferolateral and anterolateral segments.Patient is doing okay. Arrival echocardiogram revealed some features of apical ballooning and an ejection fraction of 30%. Medications: Reviewed: Yes Medication Review Details: Current Medications Acetaminophen (Acetaminophen 325 Mg Tablet) 650 mg PO Q6H PRN PRN Reason: Mild/Mod Pain Or Temp >/= 101 Aminophylline (Aminophylline 25 Mg/Ml Sdv 10 Ml) 25 mg IVP Q2M PRN PRN Reason: see dose instructions Stop: 04/04/20 05:52 Last Admin: 04/03/20 08:20 Dose: 25 mg Documented by: Aspirin (Aspirin 325 Mg Tablet) 325 mg PO DAILY [facility] Atorvastatin Calcium (Atorvastatin 40 Mg Tablet) 40 mg PO BEDTIME [facility] Last Admin: 04/02/20 20:15 Dose: 40 mg Documented by: Enoxaparin Sodium (Enoxaparin 100 Mg/Ml Syringe) 40 mg 1 mg/kg (40 mg) SUBCUT Q12H [facility] Last Admin: 04/03/20 03:48 Dose: 40 mg Documented by: Lisinopril (Lisinopril 10 Mg Tablet) 10 mg PO DAILY [facility] Metoprolol Tartrate (Metoprolol Tartrate 25 Mg Tablet) 12.5 mg PO BID [facility] Last Admin: 04/02/20 20:15 Dose: 12.5 mg Documented by: Nitroglycerin (Nitroglycerin 0.4 Mg Sublingual Tablet) 0.4 mg SUBLINGUAL Q5M PRN PRN Reason: CHEST PAIN Stop: 04/04/20 05:52 Ondansetron HCl (Ondansetron 2 Mg/Ml Sdv 2 Ml) 4 mg IVP Q2M PRN PRN Reason: NAUSEA Pantoprazole Sodium (Pantoprazole Dr 40 Mg Tablet) 40 mg PO DAILY PRN PRN Reason: ACID REFLUX Vitals/I&O/Wt Last Vital Signs Temp 99.2 F 04/03/20 07:03 Pulse 100 04/03/20 08:20 Resp 29 H 04/03/20 07:03 BP 111/89 04/03/20 08:20 Pulse Ox 98 04/03/20 07:03 04/02/20 04/03/20 04/03/20 22:59 06:59 14:59 Intake Total 120 / 120 Balance 120 / 120 Weight last 48 hrs Weight 90 lb Weight 88 lb Physical Exam Narrative: EXAM NARRATIVE: GENERAL: The patient is alert and oriented times three. Not in any acute distress. Patient is lean and short frame HEENT: No significant pallor, icterus or lymphadenopathy. T NECK: Trachea appears to be central. No masses noted. No JVD or thyromegaly appreciated. No carotid bruit. RESPIRATORY: Chest is symmetrical. Emphysematous/barrel-shaped chest. No intercostals muscle retraction or any accessory muscle activation. There is no chest wall tenderness. Breath sounds are heard bilaterally. No rales or rhonchi heard. No evidence of any consolidation. BREASTS: Deferred. HEART: T PMI could not be palpated. No other palpable precordial events. First and second heart sounds are normal. Short systolic murmur at the base of the heart. No diastolic murmurs. No pericardial rub. ABDOMEN: No vessel pulsations or distention. No tenderness. No organomegaly appreciated. No abdominal bruit. Bowel sounds are normally heard. : Deferred. RECTAL: Deferred. LYMPHATIC: No lymphadenopathy noted in the neck or groin. EXTREMITIES: No edema or cyanosis. No clubbing. The pulses are symmetrical bilaterally. The radial, femoral, dorsalis pedis and the posterior tibial pulses are palpated and found to be in good volume and amplitude. Bilateral spider veins. MUSCULOSKELETAL: No acute joint deformities or swelling SKIN: There are no significant scars or skin rash noted. NEUROPSYCHIATRIC: The patient is alert and oriented x3. Appears to be in a good mood. The higher functions are grossly within normal limits. No tremors or rigidity noted. Data : 04/03/20 04:39 04/03/20 04:39 Other Labs: Laboratory Last Values WBC 6.7 10^3/uL (4.0-10.0) 04/03/20 04:39 RBC 4.71 10^6/uL (4.1-5.3) 04/03/20 04:39 Hgb 13.9 g/dL (11.5-15.3) 04/03/20 04:39 Hct 42.9 % (37.0-47.0) 04/03/20 04:39 MCV 91.1 fL (81-99) 04/03/20 04:39 MCH 29.5 pg (28.0-34.0) 04/03/20 04:39 MCHC 32.4 g/dL (30.0-36.0) 04/03/20 04:39 RDW 13.0 % (12.1-15.1) 04/03/20 04:39 Plt Count 172 10^3/cmm (130-400) 04/03/20 04:39 MPV 10.0 fL (7.4-10.4) 04/03/20 04:39 Neut % (Auto) 65.0 % 04/03/20 04:39 Lymph % (Auto) 26.6 % 04/03/20 04:39 [place] % (Auto) 7.3 % 04/03/20 04:39 Eos % (Auto) 0.4 % 04/03/20 04:39 Baso % (Auto) 0.6 % 04/03/20 04:39 Neut # (Auto) 4.38 10^3/uL (1.8-7.7) 04/03/20 04:39 Lymph # (Auto) 1.8 10^3/uL (0.8-4.8) 04/03/20 04:39 [place] # (Auto) 0.5 10^3/uL (0.2-0.9) 04/03/20 04:39 Eos # (Auto) 0.0 10^3/uL (0.0-0.8) 04/03/20 04:39 Baso # (Auto) 0.0 10^3/uL (0.0-0.1) 04/03/20 04:39 Nucleated RBC % (auto) 0 % 04/03/20 04:39 Nucleated RBCs # 0.0 /100WBC 04/03/20 04:39 Sodium 139 mmol/L (136-145) 04/03/20 04:39 Potassium 4.1 mmol/L (3.5-5.1) 04/03/20 04:39 Chloride 103 mmol/L (98-107) 04/03/20 04:39 Carbon Dioxide 26 mmol/L (22-29) 04/03/20 04:39 Anion Gap 14.1 (5-19) 04/03/20 04:39 BUN 10 mg/dL (8-23) 04/03/20 04:39 Creatinine 0.4 mg/dL (0.5-0.9) L 04/03/20 04:39 GFR Calculation Not Reportable 04/03/20 04:39 Glucose 84 mg/dL (65-115) 04/03/20 04:39 Calculated Osmolality 286 mOsm/kg (285-295) 04/03/20 04:39 Calcium 9.1 mg/dL (8.5-10.5) 04/03/20 04:39 Total Bilirubin 0.5 mg/dL (0.15-1.2) 04/03/20 04:39 AST 22 U/L (0-32) 04/03/20 04:39 ALT 10 U/L (0-33) 04/03/20 04:39 Alkaline Phosphatase 92 IU/L (35-105) 04/03/20 04:39 Troponin T Baseline 12 ng/L (0-10) H 04/02/20 11:34 Troponin T 120 Minute 126.1 ng/L (0-10) H 04/02/20 13:45 Delta Troponin T 114.1 ABS# (0-10) H* 04/02/20 13:45 Troponin T Hi Sens 6Hr 296.1 ng/L (0-10) H 04/02/20 17:43 Troponin T Hi Sens 6Hr Delta 284.1 ng/L (0-12) H* 04/02/20 17:43 NT-Pro-B Natriuret Pep 586 pg/mL (0-450) H 04/02/20 11:34 Total Protein 5.9 g/dL (6.6-8.7) L 04/03/20 04:39 Albumin 3.3 g/dL (3.5-5.2) L 04/03/20 04:39 Globulin 2.6 g/dL (1.3-4.6) 04/03/20 04:39 TSH 1.47 uIU/mL (0.27-4.20) 04/02/20 11:34 Urine Color Yellow (Yellow) 04/02/20 13:09 Urine Appearance Sl hazy (CLEAR) 04/02/20 13:09 Urine pH 7.0 (5-7) 04/02/20 13:09 Ur Specific [place] 1.015 (1.005-1.030) 04/02/20 13:09 Urine Protein Neg (Negative) 04/02/20 13:09 Urine Glucose (UA) Norm (Normal) 04/02/20 13:09 Urine Ketones 1+ (Negative) H 04/02/20 13:09 Urine Blood 2+ (Negative) H 04/02/20 13:09 Urine Nitrate Negative (Negative) 04/02/20 13:09 Urine Bilirubin Neg (Negative) 04/02/20 13:09 Urine Urobilinogen Norm mg/dL (Negative) 04/02/20 13:09 Ur Leukocyte Esterase Negative (Negative) 04/02/20 13:09 Urine RBC 5-10 /hpf (0-2) H 04/02/20 13:09 Urine WBC 0-4 /hpf (0-5) H 04/02/20 13:09 Ur Squamous Epith Cells 0-4 /hpf (0-5) H 04/02/20 13:09 Amorphous Sediment Not Reportable 04/02/20 13:09 Urine Bacteria 2+ /hpf (NONE) H 04/02/20 13:09 A&P Assessment and plan (1) NSTEMI (non-ST elevated myocardial infarction): Patient has clinical features suggestive of a non-ST elevation myocardial infarction. EKG changes are nonspecific. No acute findings. The echocardiogram revealed severe diffuse hypokinesia of the LV apex. Myocardial perfusion imaging revealing small areas of ischemia in the distribution of all the 3 coronary arteries. I discussed with the patient in detail the implications of the test findings. For further evaluation of her coronary status, a cardiac catheterization would be appropriate.The option of continuing the medical treatment versus the in vasive strategy were discussed. The patient and the family want to go ahead with the cardiac colorization to find out the coronary status and that decide on further management. The risk of bleeding, hematoma, vascular injury, myocardial infarction, CVA, renal failure and other concomitant complications were explained in detail. Patient understood this well and consented to proceed. Status: Acute (2) HTN (hypertension): The blood pressure seems to be under control at this time. Continue monitoring the blood pressure and optimize the medical treatment. Status: Acute Qualifiers: Hypertension type: essential hypertension Qualified Code(s): I10 - Essential (primary) hypertension (3) Cardiomyopathy: Possibly ischemic. 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 After reviewing the cardiac catheterization data, further recommendations will be made. Status: Acute Qualifiers: Cardiomyopathy type: other Qualified Code(s): I42.8 - Other ca rdiomyopathies Additional A&P Information Her other problems are Chronic back pain Possible UTI Kyphosis Emphysema Based on the clinical response and the results of the above, further management decisions will be made. I may go ahead and give her 300 mg of Plavix today. Subcu Lovenox may be continued Attestations Medical Necessity Statement*: Patient requires continued hospital stay for close monitoring and further management Coding Level of Care Code Acute Home Day Care Provider for [facility] Fwd Diagnoses NSTEMI (non-ST elevated myocardial infarction) I21.4 HTN (hypertension) I10 Hypertension type: essential hypertension Cardiomyopathy I42.8 Cardiomyopathy type: other
--- NOTE | 2020-04-03 10:03 | PC.CHAP ---
Pastoral Care Encounter/Spiritual Assessment Type of Contact [] Declined manager of case visit [] Patient/Family/Request visit [] Outpatient visit [X] Follow-up visit [] Physician referral [] Code/Alert [] Routine visit [] Staff referral [] Actively dying [] Patient sleeping [] Family support [] [] Out of room [] Palliative care [] [] Receiving care in room [] Pre-surgical visit [] Trauma [] Long length of stay [] ICU visit [] Other: Relational/Emotional Strength [] Patient feels connected with others/family/visitors/staff [] Distress [] Loneliness/isolation [] Abandonment Spirituality of Patient [] Person of Marry [] Attends Restorationism of their Marry [] Believes in Prayer [] Reads Bible or Roman Catholic materials [] There are 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 [] Prayer [] Active listening [] Non-anxious presence [] Spiritual/emotional support [] Crisis/trauma care [] Spiritual counseling [] Bereavement support [] Provided bereavement packet [] Provided Bible/devotional materials [] Provided toy/stuffed animal, coloring book to patient or family member [] Provided Communion [] Anointing/[place] [] Salvation [] Completed spiritual assessment [] Other: Impact on Illness or Injury [] Angry [] Fearful [] Anxious [] Often cries [] Exhaustion [] Unable to work [] Unable to attend scientology [] Unable to walk/stand [] Unable to read [] Unable to drive [] Unable to eat/drink [] Unable to sleep [] Unable to be with family [] Patient intubated [] Other: Summary Follow-up visit Time spent with patient 5 mins
--- NOTE | 2020-04-03 10:08 | PC.CHAP ---
Pastoral Care Encounter/Spiritual Assessment Type of Contact [] Declined physical therapy supervisor visit [] Patient/Family/Request visit [] Outpatient visit [x] Follow-up visit [] Physician referral [] Code/Alert [] Routine visit [] Staff referral [] Actively dying [] Patient sleeping [] Family support [] [] Out of room [] Palliative care [] [] Receiving care in room [] Pre-surgical visit [] Trauma [] Long length of stay [] ICU visit [] Other: Relational/Emotional Strength [] Patient feels connected with others/family/visitors/staff [] Distress [] Loneliness/isolation [] Abandonment Spirituality of Patient [] Person of Marry [] Attends Alevism of their Marry [] Believes in Prayer [] Reads Bible or Lutheran materials [] There are Spiritual issues 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 [] Prayer [] Active listening [] Non-anxious presence [] Spiritual/emotional support [] Crisis/trauma care [] Spiritual counseling [] Bereavement support [] Provided bereavement packet [] Provided Bible/devotional materials [] Provided toy/stuffed animal, coloring book to patient or family member [] Provided Communion [] Anointing/[place] [] Salvation [] Completed spiritual assessment [] Other: Impact on Illness or Injury [] Angry [] Fearful [] Anxious [] Often cries [] Exhaustion [] Unable to work [] Unable to attend taoist [] Unable to walk/stand [] Unable to read [] Unable to drive [] Unable to eat/drink [] Unable to sleep [] Unable to be with family [] Patient intubated [] Other: Summary Follow-up visit Time spent with patient 5 mins
--- NOTE | 2020-04-03 10:15 | PC.NURSE ---
Patient back in room.
[2020-04-03] MEDS: metoprolol tartrate 25 mg Tablet 12.5 MG PO ×2 (10:44→17:52)
[2020-04-03] MEDS: lisinopril 10 mg Tablet PO (10:44)
[2020-04-03] MEDS: aspirin 325 mg Tablet PO (10:44)
--- NOTE | 2020-04-03 12:00 | NMCV_ITS ---
NM shelley perf SPECT r/s* [id number] Rosemary Rodrigez Age: 85 Gender: F : 1935 Exam Date: 04/03/2020 06:06 Ordering Phys: Kevin Eden MD Technologist: IVELISSE Stewart Exam Location: [facility] Indications: ELEVATED BLOOD PRESSURE STRESS TEST Please [facility] IMAGE PROTOCOL Rest/Stress 1 Lexiscan Day Radiopharmaceutical Dose (mCi) Administration Site Administered by Rest: Tc-99m 10.7 IV IVELISSE Nieto Sestamibi Stress:Tc-99m 32.4 IV IVELISSE Nieto Sestamibi Rest: 03-Apr-2020 60 Discovery 630 Stress: 03-Apr-2020 30 Discovery 630 0.4mg Lexiscan. Supine position only as patient was unable to lay prone. SPECT RESULTS Technical Quality: Good Raw Data Analysis: Normal Image Corrections: No attenuation or motion correction applied Summed Stress Score: 7 Summed Rest Score: 4 Summed Difference Score: 3 PERFUSION FINDINGS Moderate area of moderately severe decreased tracer uptake in the mid anterior, anterolateral, inferolateral and inferior regions. Some reversibility was noted in these regions at rest FUNCTIONAL RESULTS (calculated via Gated SPECT) Stress Image LV EF (%): 41 Stress EDV (mL):71 TID: 1 Stress ESV (mL):42 FUNCTIONAL FINDINGS: Segmental wall motion analysis revealed diffuse hypokinesia of the septum and LV apex IMPRESSIONS 1. Myocardial perfusion imaging revealing moderate area of persistent decreases uptake in the anterior, anterolateral, inferolateral and inferior regions with some reversibility, suggestive of myocardial scarring in the distribution of all the 3 coronary arteries some small areas of kathia-infarction ischemia 2. Diminished LV ejection fraction 41%. 3. LV wall motion analysis revealing diffuse hypokinesia of the septum and the LV apex. 4. Mildly dilated LV cavity. 5. The LV volume, upper limit of normal No similar previous studies are available for comparison Dr Evelina Khan MD LOCATED WITHIN [facility] (Electronically Signed) Final Date: 03 April 2020 14:59 S
--- NOTE | 2020-04-03 17:37 | PC.NURSE ---
Patient states she is still not quite ready to get up to commode r to eat dinner. Patient did alow nrse to check pressure. Patient replies are coherent and appropriate to conversation. Patient does become irritable when questioned about lack of urination durig this shift.
--- NOTE | 2020-04-03 18:21 | USCV_ITS ---
Elia Rosemary Age: 85 Gender: F : 1935 Exam Date: 04/03/2020 06:14 Ordering Phys: Evelina Khan MD ([email or web address]) Technologist: Kemal Kumar Exam Location: [facility] Indication: VT BP: 120 / 75 HR: 76 Rhythm: Sinus Technical Quality: Good MEASUREMENTS (Male / Female) Normal Values 2D ECHO LV Diastolic Diameter PLAX 3.5 cm 4.2 - 5.9 / 3.9 - 5.3 cm LV Systolic Diameter PLAX 3.5 cm IVS Diastolic Thickness 0.9 cm 0.6 - 1.0 / 0.6 - 0.9 cm IVS Systolic Thickness 1.1 cm LVPW Diastolic Thickness 0.9 cm 0.6 - 1.0 / 0.6 - 0.9 cm LVPW Systolic Thickness 1.0 cm LVOT Diameter 2.0 cm LV Ejection Fraction 2D Teich 4.9 % LV Ejection Fraction MOD 2C 38.6 % LV Ejection Fraction 2C AL 38.5 % LA Diameter 3.6 cm LA Width 3.2 cm LA Height 4.2 cm RA Width 3.5 cm RA Height 4.3 cm M-MODE LV Diastolic Diameter MM 3.5 cm 4.2 - 5.9 / 3.9 - 5.3 cm LV Systolic Diameter MM 2.7 cm LV Ejection Fraction MM Teich 47.3 % IVS Diastolic Thickness MM 0.8 cm 0.6 - 1.0 / 0.6 - 0.9 cm IVS Systolic Thickness MM 0.9 cm LVPW Diastolic Thickness MM 0.9 cm 0.6 - 1.0 / 0.6 - 0.9 cm LVPW Systolic Thickness MM 1.2 cm RV Diastolic Diameter MM 1.8 cm Aortic Annulus Diameter 3.3 cm LA Ao Ratio MM 1.1 MV E Point Septal Separation 1.5 cm DOPPLER AV Peak Velocity 158.0 cm/s LVOT Peak Velocity 103.0 cm/s AV Area Cont Eq vti 2.2 cm squared AV Area Cont Eq pk 2.1 cm squared MV Area PHT 5.0 cm squared Mitral E to A Ratio 0.8 MV E' Velocity 41.0 cm/s Mitral E to MV E' Ratio 4.0 Mitral E to LV E' Lateral Ratio 4.8 Mitral E to LV E' Septal Ratio 3.5 TR Peak Velocity 270.3 cm/s TR Peak Gradient 29.2 mmHg TV Peak E Velocity 80.0 cm/s Right Atrial Pressure 3.0 mmHg Pulmonary Artery Systolic Pressu 32.2 mmHg FINDINGS Left Ventricle Severe diffuse hypokinesia of the LV apex with apical ballooning. Ejection fraction around 38%.Grade I/IV diastolic dysfunction (abnormal relaxation filling pattern), normal to mildly elevated filling pressures. Right Ventricle The right ventricle is normal in size and function. Right Atrium The right atrium is normal in size. Left Atrium The left atrium is normal in size. Mitral Valve Thickened mitral valve. Trace mitral valve regurgitation. Aortic Valve Thickened aortic valve. Tricuspid Valve Moderate tricuspid valve regurgitation. Estimated pulmonary artery peak systolic pressure of 32 mmHg Pulmonic Valve No gross abnormalities noted Pericardium Normal pericardium without effusion. Aorta Normal ascending aorta dimension. CONCLUSIONS Severe diffuse hypokinesia of the LV apex with apical ballooning. Features suggestive of Takotsubo syndrome Ejection fraction around 38%. Grade I/IV diastolic dysfunction (abnormal relaxation filling pattern), normal to mildly elevated filling pressures. Moderate tricuspid valve regurgitation. Estimated pulmonary artery peak systolic pressure of 32 mmHg. Thickened mitral valve. Trace mitral valve regurgitation. Thickened aortic valve, with features of aortic valve sclerosis There is no pericardial effusion. There are no intracardiac masses. No previous study is available for comparison. Dr Evelina Khan MD FAC (Electronically Signed) Final Date: 03 April 2020 08:25 S
--- NOTE | 2020-04-03 18:54 | PM.PN ---
Subjective Subjective: Interval history: Feeling cold, otherwise denying chest pain or pressure. Denies trouble breathing. Vitals/I&O/Wt Last Vital Signs Temp 98.4 F 04/03/20 14:59 Pulse 66 04/03/20 14:59 Resp 18 04/03/20 14:59 BP 104/60 04/03/20 14:59 Pulse Ox 97 04/03/20 14:59 04/03/20 04/03/20 04/03/20 06:59 14:59 22:59 Intake Total 120 / 120 120 / 240 Balance 120 / 120 120 / 240 Weight last 48 hrs Weight 40.823 kg Weight 39.916 kg Physical Exam Const: COMMON NORMALS: no acute distress, patient oriented x3 and alert GENERAL APPEARANCE: comfortable ORIENTATION/CONSCIOUSNESS: Yes awake OTHER: Pleasant elderly lady. Conversant. HENMT: COMMON NORMALS: oropharynx normal Neck/C-Spine: COMMON NORMALS: no JVD Resp: COMMON NORMALS: normal respiratory effort and clear to auscultation bilaterally AUSCULTATION: clear to auscultation bilaterally Cardio: COMMON NORMALS: no JVD, regular rhythm, S1 normal heart sound present, S2 normal heart sound present and No murmurs present (Cardio) RHYTHM: regular rhythm HEART SOUNDS: S1 normal heart sound present and S2 normal heart sound present GI: COMMON NORMALS: Normal to inspection, nondistended, normoactive bowel sounds present, Soft to palpation and non-tender PALPATION: Yes Soft to palpation Extremity: COMMON NORMALS: no joint enlargement and no pedal edema Neuro: COMMON NORMALS: patient oriented x3 and moves all extremities SENSORIUM/ORIENTATION: Yes alert Skin: COMMON NORMALS: no rashes or lesions noted GENERAL SKIN EXAM: no rashes or lesions noted Data : 04/03/20 04:39 04/03/20 04:39 Micro: Microbiology 04/02/20 13:09 Urine Culture - Preliminary Urine,Clean Catch Gram Negative Rods A&P Assessment and plan (1) NSTEMI (non-ST elevated myocardial infarction): Myocardial perfusion imaging with moderate area of persistent decreased tracer uptake in anterior, anterolateral, inferior lateral and inferior regions with some reversibility, suggestive of myocardial scarring and distribution of all 3 coronary arteries with small areas of kathia-infarction ischemia. With decreased ejection fraction, 38%, possible Takotsubo morphology. With abnormal stress test, history of coronary disease, symptoms and abnormal troponin cardiology had extensive discussion with patient and family resulting in decision for additional evaluation by coronary angiography tomorrow. Continue aspirin, beta-barbara, statin. Plavix. Lovenox. Lisinopril. Monitor on telemetry. N.p.o. after midnight. Status: Acute (2) Poorly-controlled hypertension: Blood pressure no longer elevated. Currently soft. Monitor. Discussed with her to monitor blood pressure at least 3 times daily. She may have episodic hypertension. Daughter is wondering whether her chronic back pain episodes may be contributing to hypertension. Currently blood pressure is better, 143/98. Beta-barbara started. Otherwise for now hold off on additional intervention. Status: Acute (3) CAD (coronary artery disease): History of CAD, reported prior stent. Daughter reports [place] about 5-6 years ago. Continue aspirin, beta-barbara, statin. Lisinopril. Additional assessment and management of non-STEMI as above. Status: Acute (4) HTN (hypertension): Status: Acute Qualifiers: Hypertension type: essential hypertension Qualified Code(s): I10 - Essential (primary) hypertension (5) Chronic back pain: Daughter reports chronic back pain. Noted kyphosis with multiple insufficiency fractures on chest x-ray. Symptomatic management at this time. Currently not in pain. If having any severe pain, persistent hypertension, especially association of upper back or chest pain, low threshold for additional imaging with CT angiogram to exclude dissection, etc. Status: Acute (6) Kyphosis deformity of spine: As discussed with daughter she would benefit from bone density scan if this has not been done to assess for osteoporosis, and may need treatment if this is found. If pain is persistent, discussed also speaking with primary care provider about referral to pain clinic, possible consideration of vertebral augmentation. Status: Acute (7) Microscopic hematuria: Incidentally noted on UA, minimal, 5-10 RBC. Possibly related to hypertension, perhaps postural. Will need follow-up to document resolution, or additional assessment if persistent. Has history of smoking but very remote, about 25 years ago. Status: Acute Attestations Medical Necessity Statement*: Continue admission for assessment management of non-STEMI. 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
[2020-04-03] MEDS: clopidogrel 300 mg Tablet PO (20:06)
[2020-04-03] MEDS: atorvastatin 40 mg Tablet PO (20:06)
[2020-04-04] VITALS (66 sets, daily range): BP systolic 91–152; BP diastolic 55–102; PULSE 62–105; RESP 0–38; TEMP 36.4–36.8; O2SAT 84–100
[2020-04-04 03:54] LABS: Basophils % 0.6 %; Eosinophils % 0.4 %; Hematocrit 42.4 % (37.0-47.0); Hemoglobin 13.9 g/dL (11.5-15.3); Lymphocytes # 2.4 10^3/uL (0.8-4.8); Lymphocytes % 32.9 %; Mean Corpuscular HGB Conc 32.8 g/dL (30.0-36.0); Mean Corpuscular Hemoglobin 29.4 pg (28.0-34.0); Mean Corpuscular Volume 89.8 fL (81-99); Mean Platelet Volume 10.5 fL (7.4-10.4); Monocytes # 0.6 10^3/uL (0.2-0.9); Monocytes % 7.7 %; Neutrophils # 4.19 10^3/uL (1.8-7.7); Neutrophils % 58.3 %; Nucleated Red Blood Cells % 0 %; Platelet Count 176 10^3/cmm (130-400); Red Blood Count 4.72 10^6/uL (4.1-5.3); Red Cell Distribution Width 12.8 % (12.1-15.1); White Blood Count 7.2 10^3/uL (4.0-10.0)
[2020-04-04 04:25] LABS: Alanine Aminotransferase 10 U/L (0-33); Albumin Level 3.2 g/dL (3.5-5.2); Alkaline Phosphatase 86 IU/L (35-105); Anion Gap 12.7 (5-19); Aspartate Amino Transferase 22 U/L (0-32); Blood Urea Nitrogen 12 mg/dL (8-23); Calcium 8.9 mg/dL (8.5-10.5); Carbon Dioxide 26 mmol/L (22-29); Chloride 100 mmol/L (98-107); Globulin 2.4 g/dL (1.3-4.6); Glucose 83 mg/dL (65-115); Osmolality Calculated 279 mOsm/kg (285-295); Potassium 3.7 mmol/L (3.5-5.1); Sodium 135 mmol/L (136-145); Total Bilirubin 0.6 mg/dL (0.15-1.2); Total Protein 5.6 g/dL (6.6-8.7)
[2020-04-04] MEDS: enoxaparin 100 mg/mL Syringe 40 MG SUBCUT (04:29)
[2020-04-04] MEDS: sodium chloride 0.9% 1,000 ML 50 ML IV (04:40)
[2020-04-04] MEDS: clopidogrel 75 mg Tablet PO (08:49)
[2020-04-04] MEDS: aspirin 325 mg Tablet PO (08:58)
--- NOTE | 2020-04-04 09:13 | XACV_ITS ---
Exam Room: [facility] Ht: 150 cm Wt: 40 kg BSA: 1.28 m2 Gender: Female : 1935 Any Known Allergies: No known allergies Exam Priority: Routine Procedure(s): Procedure Description: Diagnostic procedure Diagnostic Cath Status: Urgent Diagnostic Findings * The left main is a medium caliber vessel with no significant stenotic lesions. * The left anterior descending artery is a medium caliber vessel which appears to have mild to moderate diffuse calcification in the proximal segment. The artery appears to wrap around the LV apex. The mid segment of the artery was found to have mild diffuse narrowing. The first diagonal branch was found to have around 50% narrowing of the mid segment. The first and the second diagonal branches were found to have around 50% ostial narrowing. No other significant stenotic lesions were noted. * The left circumflex artery is a medium caliber vessel which has around 40% segmental narrowing, after the second obtuse marginal branch. No other significant stenotic lesions were noted.. * The right coronary artery was found to be a medium caliber vessel which has a long stented segment proximally which was widely open. Just beyond the stented segment, there was a napkin ring type of lesion of around 50%. The PLV branch of the right coronary artery was found to have around 50% stenosis in the proximal segment. Conclusions 1. No significant disease noted in the Left Main, LAD, Circumflex, or RCA coronary arteries. 2. Mild left ventricular systolic dysfunction. Ejection fraction of 40%. 3. This is an 85-year-old white female, is admitted to the hospital with complaints of atypical chest pain and uncontrolled blood pressure. She was found to have significantly elevated troponin T. The echocardiogram revealed severe diffuse hypokinesia of the LV apex. The myocardial perfusion imaging revealed small areas of ischemia in the distribution of the right coronary artery and left circumflex artery predominantly. In view of her clinical presentation and the abnormal objective findings, in order to further evaluate the coronary status, a cardiac catheterization was recommended. Patient underwent left heart catheterization with a left and right coronary angiogram and LV angiogram today. The findings are as follows.. 4. Patent stented segment of the right coronary artery. Around 50% peristent stenosis in the right coronary artery. Mild to moderate diffuse disease in the other vessels. Mild to moderate proximal coronary artery calcification LV ejection fraction of 40%. Wall motion abnormality of the left ventricle is suggestive of a variant of Takotsubo syndrome. LVEDP of 3 mmHg. Recommendations * Continue current medical management and risk factor modification. Diagnostic RX Recommendation: medical therapy and/or counseling LV EDP: 3 mmHg Ventriculography Ejection Fraction: 40.0 % Left Ventriculography Findings: * LV gram was performed in the GIL projection. The left ventricle has a vertical disposition. The mid segment of the ventricle was found to be hypokinetic and somewhat dilated. There was mild hypokinesia of the apex. No filling defects were noted. No severe mitral valve prolapse or mitral regurgitation. * The thoracic and abdominal aorta were found to be very tortuous. Pressures Phase:Rest AO : 141 / 73 ( 98 ) @ 6:55:00 AM 134 / 68 ( 93 ) @ 7:01:00 AM 148 / 59 ( 97 ) @ 7:11:00 AM 143 / 56 ( 96 ) @ 7:11:00 AM LV : 137 / -17 / @ 7:10:00 AM 133 / -22 / @ 7:11:00 AM 133 / -19 / @ 7:11:00 AM Valves Phase:DefaultPhase AV : 0.0 @ 1:18:39 PM AV Mean Gradient: 0.0 @ 1:18:39 PM Clinical Evaluation EBL: 5mL-10mL Procedural Details Procedure Consent Obtained. Pre-Procedure Time Out. Identified patient by full name and date of as verbalized by the patient/guarantor. Does the consent match the physician's order: Yes. Accurate & Complete Informed Consent: Yes. Inpatient/Outpatient History & Physical on Chart: Yes. If H&P is completed, is and addenduem needed: No; If yes, is the addendum complete: N/A. Visualize and Verify Site with Patient/Guarantor: N/A. Relevant Radiology Images available: N/A. Pre-op teaching completed and patient verbalized understanding. The risks, benefits, and alternatives of sedation and/or procedure were discussed by physician. The patient agrees to continue. Procedure started. [facility] Clinical Fraility Score: 4: Vulnerable. Lacquer Coater Indications: Worsening Angina. Chest Pain Symptom Assessment: Typical Angina Symptoms. Cardiovascular Instability: No. Correct patient, site and procedure confirmed by cath team. PERRLA. Strong, equal hand desktop analyst bilaterally. Lungs clear x 5 lobes. IV Site on Arrival: 20 gauge in the right anticubital. IV Fluids: 0.9% NaCl at KVO. 500 mL infused prior to parking lot laborer. Pre Procedural Pulses: bilateral dorsalis pedis was Doppled. Pre Procedural Pulses: bilateral posterior tibial was Doppled. Oxygen started at 2liters/min via nasal canula. bilateral groins was prepped with chloroprep then draped in the usual sterile fashion. Baseline sample Acquired. HR: 94 BPM. Equipment: 6F - Femoral. Cardiac Cath Pack. ACIST Manifold Kit Model BT 2000. Heparinized Saline (2 units/mL), 1000 mL bag. Kit, Micropuncture. Physician notified. Physician arrived. Physician scrubbed in. Immediate Pre-Procedure Time Out. Correct Patient: Yes; Correct Procedure: Yes; Correct Site: Yes; Correct Patient Position: Yes; Correct Supplies: Yes; Dried Flammable Prep: Yes; Blood Products Available: N/A;. Lidocaine 1% infiltrated to the right groin. Arterial access obtained with micropuncture set. A 5 ukrainian JL4 catheter in over wire. Multiple views taken of left coronary artery. Catheter out. A 5 ukrainian JR4 catheter in over wire. Multiple views taken of right coronary artery. Catheter out. A 5 ukrainian Angled Pig catheter in over wire. EDP Sample taken: LV 137/-18,3; HR: 87 BPM; SpO2: 99%. EDP Sample taken: LV 133/-23,-5; HR: 89 BPM; SpO2: 96%. Pullback taken: LV 133/-20,-7; AO 148/59(97); Mean: 0mmHg, Peak to Peak: 0mmHg, SEP: 9sec/min; HR: 87 BPM; SpO2: 98%. Catheter out. Physician scrubbed out. A Suture was successful obtaining hemostatsis at the Right Femoral artery insertion site. Sheath(s) sutured into position with 2-0 silk and sterile 4x4's and Op-site applied over the site. No oozing or signs and symptoms of hematoma noted. Arterial sheath flushed and connected to tranducer and pressure bag with heparinized saline. Post Procedure: Pulses reassessed and unchanged. PERRLA. Strong, equal hand desktop analyst bilaterally. No VTE prophylaxis required. Medication's Wasted: Lidocaine 1% = 10 mg. Total IV fluids: 250 mL. Post-op diagnosis: patent RCA stent, takotsubo. Complications: none. Estimated blood loss: 5mL-10mL. Procedure completed. Patient transferred by bed to 1st floor. Vital chart was stopped. Access Site Site: Right Femoral artery Sheath Size: 5 Fr Hemostasis Method: Suture Hemostasis Success: Successful Procedure Medications Start: 12:46 PM Stop: 12:46 PM Medication: Versed Amount: 1 mg Route: I.V. Start: 12:47 PM Stop: 12:47 PM Medication: Fentanyl Amount: 25 mcg Route: I.V. Start: 1:10 PM Stop: 1:10 PM Medication: 0.9% Saline Amount: 250 ml Route: I.V. bolus I, the attending physician, have reviewed and verified all procedure medications. Yes, all medications given per verbal order History/Risk Factors Hypertension: No Dyslipidemia: No Peripheral Arterial Disease (PAD): No Myocardial Infarction (MN): No Obesity: No Renal Disease: No Tobacco Use: Former Prior Interventions PCI: No CABG: No Valve Surgery: No Report Signatures Finalized by Dr Evelina Khan MD [facility] on 04/04/2020 06:26 PM
--- NOTE | 2020-04-04 09:56 | P.PN_ITS ---
Subjective Subjective: Interval history: She is feeling well this morning. Currently no chest pain. No shortness of breath. Vitals/I&O/Wt Last Vital Signs Temp 97.6 F 04/04/20 07:50 Pulse 86 04/04/20 07:50 Resp 16 04/04/20 07:50 BP 143/78 04/04/20 07:50 Pulse Ox 91 04/04/20 07:50 04/03/20 04/04/20 04/04/20 22:59 06:59 14:59 Intake Total 130 / 250 Balance 130 / 250 Weight last 48 hrs Weight 40.098 kg Weight 40.823 kg Weight 39.916 kg Physical Exam 2 Const: COMMON NORMALS: no acute distress, patient oriented x3 and alert GENERAL APPEARANCE: cooperative and comfortable ORIENTATION/CONSCIOUSNESS: Yes awake OTHER: She is asleep, wakes up easily, pleasant, conversant. HENMT: COMMON NORMALS: oropharynx normal Neck/C-Spine: COMMON NORMALS: no JVD Resp: COMMON NORMALS: normal respiratory effort and clear to auscultation bilaterally AUSCULTATION: clear to auscultation bilaterally Cardio: COMMON NORMALS: no JVD, regular rhythm, S1 normal heart sound present, S2 normal heart sound present and No murmurs present (Cardio) RHYTHM: regular rhythm HEART SOUNDS: S1 normal heart sound present and S2 normal heart sound present GI: COMMON NORMALS: Normal to inspection, nondistended, normoactive bowel sounds present, Soft to palpation and non-tender PALPATION: Yes Soft to palpation Extremity: COMMON NORMALS: no joint enlargement and no pedal edema Neuro: COMMON NORMALS: patient oriented x3 and moves all extremities SENSORIUM/ORIENTATION: Yes alert Skin: COMMON NORMALS: no rashes or lesions noted GENERAL SKIN EXAM: no rashes or lesions noted Data : 04/04/20 03:30 04/04/20 03:30 Micro: Microbiology 04/02/20 13:09 Urine Culture - Preliminary Urine,Clean Catch Gram Negative Rods A&P Assessment and plan (1) NSTEMI (non-ST elevated myocardial infarction): Coronary angiogram planned for today per discussion of patient and family with cardiology. Myocardial perfusion imaging with moderate area of persistent decreased tracer uptake in anterior, anterolateral, inferior lateral and inferior regions with some reversibility, suggestive of myocardial scarring and distribution of all 3 coronary arteries with small areas of kathia-infarction ischemia. With decreased ejection fraction, 38%, possible Takotsubo morphology. Continue aspirin, beta-barbara at minimal dose due to slow heart rates down into 50s occasionally, statin. Plavix. Lovenox. Lisinopril. Monitor on telemetry. N.p.o. after midnight. Status: Acute (2) Poorly-controlled hypertension: Blood pressure is better. 143/78. Discussed with her to monitor blood pressure at least 3 times daily. She may have episodic hypertension. Daughter is wondering whether her chronic back pain episodes may be contributing to hypertension. Status: Acute (3) CAD (coronary artery disease): History of CAD, reported prior stent. Daughter reports [place] about 5-6 years ago. Continue aspirin, beta-barbara, statin. Lisinopril. Additional assessment and management of non-STEMI as above. Status: Acute (4) HTN (hypertension): Status: Acute Qualifiers: Hypertension type: essential hypertension Qualified Code(s): I10 - Essential (primary) hypertension (5) Chronic back pain: Daughter reports chronic back pain. Noted kyphosis with multiple insufficiency fractures on chest x-ray. Symptomatic management at this time. Currently not in pain. If having any severe pain, persistent hypertension, especially association of upper back or chest pain, low threshold for additional imaging with CT angiogram to exclude dissection, etc. Status: Acute (6) Kyphosis deformity of spine: As discussed with daughter she would benefit from bone density scan if this has not been done to assess for osteoporosis, and may need treatment if this is found. If pain is persistent, discussed also speaking with primary care provider about referral to pain clinic, possible consideration of vertebral augmentation. Status: Acute (7) Microscopic hematuria: Incidentally noted on UA, minimal, 5-10 RBC. Possibly related to hypertension, perhaps postural. Will need follow-up to document resolution, or additional assessment if persistent. Has history of smoking but very remote, about 25 years ago. Status: Acute Attestations Medical Necessity Statement*: Continue admission for assessment management of non-STEMI. 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
--- NOTE | 2020-04-04 10:45 | PC.CHAP ---
Pastoral Care Encounter/Spiritual Assessment Type of Contact [] Declined hims manager visit [] Patient/Family/Request visit [] Outpatient visit [xx] Follow-up visit [] Physician referral [] Code/Alert [xx] Routine visit [] Staff referral [] Actively dying [] Patient sleeping [] Family support [] [] Out of room [] Palliative care [] [] Receiving care in room [] Pre-surgical visit [] Trauma [] Long length of stay [] ICU visit [] Other: Relational/Emotional Strength [xx] Patient feels connected with others/family/visitors/staff [] Distress [] Loneliness/isolation [] Abandonment Spirituality of Patient [xx] Person of Marry [] Attends Synagogue of their Marry [xx] Believes in Prayer [] Reads Bible or Denominational materials [] There are Spiritual issues to be addressed Lead Military Analyst Interventions [xx] Prayer [xx] Active listening [xx] Non-anxious presence [] Spiritual/emotional support [] Crisis/trauma care [] Spiritual counseling [] Bereavement support [] Provided bereavement packet [] Provided Bible/devotional materials [] Provided toy/stuffed animal, coloring book to patient or family member [] Provided Communion [] Anointing/[place] [] Salvation [xx] Completed spiritual assessment [] Other: Impact on Illness or Injury [] Angry [] Fearful [] Anxious [] Often cries [] Exhaustion [] Unable to work [] Unable to attend protestant [] Unable to walk/stand [] Unable to read [] Unable to drive [] Unable to eat/drink [] Unable to sleep [] Unable to be with family [] Patient intubated [] Other: Summary Elderly lady with limited mobility. She was very pleasant to talk to about her son going deer hunting this week but has not yet got one. Time spent with patient 8 minutes
--- NOTE | 2020-04-04 10:53 | P.PN_ITS ---
Subjective Subjective: Interval history: Patient is feeling okay with no chest pain or shortness of breath. No palpitation or dizziness. Telemetry shows sinus rhythm. No new arrhythmias. Vital signs remained stable. Blood pressure is in the low normal side. Remains afebrile. Medications: Reviewed: Yes Medication Review Details: Current Medications Acetaminophen (Acetaminophen 325 Mg Tablet) 650 mg PO Q6H PRN PRN Reason: Mild/Mod Pain Or Temp >/= 101 Aspirin (Aspirin 325 Mg Tablet) 325 mg PO DAILY [facility] Last Admin: 04/04/20 08:58 Dose: 325 mg Documented by: Atorvastatin Calcium (Atorvastatin 40 Mg Tablet) 40 mg PO BEDTIME [facility] Last Admin: 04/03/20 20:06 Dose: 40 mg Documented by: Clopidogrel Bisulfate (Clopidogrel 75 Mg Tablet) 75 mg PO DAILY [facility] Last Admin: 04/04/20 08:49 Dose: 75 mg Documented by: Enoxaparin Sodium (Enoxaparin 100 Mg/Ml Syringe) 40 mg 1 mg/kg (40 mg) SUBCUT Q12H [facility] Last Admin: 04/04/20 04:29 Dose: 40 mg Documented by: Sodium Chloride (Sodium Chloride 0.9%) 1,000 mls @ 50 mls/hr IV .Q20H ONE Stop: 04/04/20 13:56 Last Admin: 04/04/20 04:40 Dose: 50 mls/hr Documented by: Lisinopril (Lisinopril 10 Mg Tablet) 10 mg PO DAILY [facility] Last Admin: 04/04/20 08:57 Dose: Not Given Documented by: Metoprolol Tartrate (Metoprolol Tartrate 25 Mg Tablet) 12.5 mg PO BID [facility] Last Admin: 04/04/20 08:57 Dose: Not Given Documented by: Ondansetron HCl (Ondansetron 2 Mg/Ml Sdv 2 Ml) 4 mg IVP Q2M PRN PRN Reason: NAUSEA Pantoprazole Sodium (Pantoprazole Dr 40 Mg Tablet) 40 mg PO DAILY PRN PRN Reason: ACID REFLUX Vitals/I&O/Wt Last Vital Signs Temp 97.6 F 04/04/20 07:50 Pulse 86 04/04/20 07:50 Resp 16 04/04/20 07:50 BP 143/78 04/04/20 07:50 Pulse Ox 91 04/04/20 07:50 04/03/20 04/04/20 04/04/20 22:59 06:59 14:59 Intake Total 130 / 250 Balance 130 / 250 Weight last 48 hrs Weight 88 lb 6.4 oz Weight 90 lb Weight 88 lb Physical Exam Narrative: EXAM NARRATIVE: GENERAL: The patient is alert and oriented times three. Not in any acute distress. Patient is lean and short frame HEENT: No significant pallor, icterus or lymphadenopathy. NECK: Trachea appears to be central. No masses noted. No JVD or thyromegaly ap preciated. No carotid bruit. RESPIRATORY: Chest is symmetrical. Emphysematous/barrel-shaped chest. No intercostals muscle retraction or any accessory muscle activation. There is no chest wall tenderness. Breath sounds are heard bilaterally. No rales or rhonchi heard. No evidence of any consolidation. BREASTS: Deferred. HEART: T PMI could not be palpated. No other palpable precordial events. First and second heart sounds are normal. Short systolic murmur at the base of the heart. No diastolic murmurs. No pericardial rub. ABDOMEN: No vessel pulsations or distention. No tenderness. No organomegaly appreciated. No abdominal bruit. Bowel sounds are normally heard. : Deferred. RECTAL: Deferred. LYMPHATIC: No lymphadenopathy noted in the neck or groin. EXTREMITIES: No edema or cyanosis. No clubbing. The pulses are symmetrical bilaterally. The radial, femoral, dorsalis pedis and the posterior tibial pulses are palpated and found to be in good volume and amplitude. Bilateral spider ve ins. MUSCULOSKELETAL: No acute joint deformities or swelling SKIN: There are no significant scars or skin rash noted. NEUROPSYCHIATRIC: The patient is alert and oriented x3. Appears to be in a good mood. The higher functions are grossly within normal limits. No tremors or rigidity noted. Data : 04/04/20 03:30 04/04/20 03:30 Micro: Microbiology 04/02/20 13:09 Urine Culture - Final Urine,Clean Catch Escherichia coli A&P Assessment and plan (1) NSTEMI (non-ST elevated myocardial infarction): Patient has clinical features suggestive of a non-ST elevation myocardial infarction. EKG changes are nonspecific. No acute findings. The echocardiogram revealed severe diffuse hypokinesia of the LV apex. Myocardial perfusion imaging revealing small areas of ischemia in the distribution of all the 3 coronary arteries. I discussed with the patient in detail the implications of the test findings. For further evaluation of her coronary status, a cardiac catheterization would be appropriate.The option of continuing the medical treatment versus the invasive strategy were discussed. The patient and the family want to go ahead with the cardiac colorization to find out the coronary status and that decide on further management. The risk of bleeding, hematoma, vascular injury, myocardial infarction, CVA, renal failure and other concomitant complications were explained in detail. Patient understood this well and consented to proceed. We are planning to have this angiogram done this afternoon. Patient will be kept n.p.o. Status: Acute (2) HTN (hypertension): The blood pressure seems to be somewhat low this morning, in the upper 90s. Continue monitoring the blood pressure and optimize the medical treatment. Status: Acute Qualifiers: Hypertension type: essential hypertension Qualified Code(s): I10 - Essential (primary) hypertension (3) Cardiomyopathy: Possibly ischemic. 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 After reviewing the cardiac catheterization data, further recommendations will be made. Status: Acute Qualifiers: Cardiomyopathy type: other Qualified Code(s): I42.8 - Other cardiomyopathies Additional A&P Information Her other problems are Chronic back pain Possible UTI Kyphosis Emphysema After reviewing the cardiac colorization data, further recommendations will be made. 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
[2020-04-04 11:41] LABS: Troponin T (5th) Once 58 ng/L (0-10)
--- NOTE | 2020-04-04 12:08 | PC.NURSE ---
Patient transfers to Disability Rater for [facility]
--- NOTE | 2020-04-04 12:23 | W.PM.OPSUD ---
Surgery/Procedure H&P Update DATE OF PROCEDURE: April 04, 2020 DATE H&P PERFORMED: 04/02/20 H&P UPDATE INFORMATION: I have reviewed H&P completed within last 30 days, I have examined patient prior to procedure and No changes to prior documentation PRIMARY INDICATION FOR PROCEDURE: Non-ST relation myocardial infarction/abnormal stress test/cardiomyopathy PLANNED PROCEDURE: Left heart catheterization with left and right coronary angiogram and possible PCI PATIENT REASSESSED PRIOR TO SEDATION, WITH NO CHANGE NOTED: Yes PHYSICAL EXAM: alert, oriented x 3, clear to auscultation bilaterally and regular rate & rhythm AIRWAY EVAL/ANESTHESIA PLAN: normal airway, see other exam findings, ASA III, Monitored Anesthesia, Local Anesthesia, Risks, benefits & alternatives of sedation and/or procedure discussed and Patient agrees to continue as planned
--- NOTE | 2020-04-04 16:32 | PC.NURSE ---
fern lai per order. pressure applied.
--- NOTE | 2020-04-04 17:15 | PC.NURSE ---
bleeding persist to right groin site.with pressure being appled. called for assit of charge Nurse Silvia. Dr Harvey notified and arrived. Bleeding stopped at 1715. wound cleaned and dressed with 2x2 gauze with tegraderm. Small hematoma but soft noted distal to sheath wound site. Dr Harvey aware.
--- NOTE | 2020-04-04 17:31 | PC.NURSE ---
Sheath dc'd to right groin. pressure held for 20 min.
[2020-04-04] MEDS: metoprolol tartrate 25 mg Tablet 12.5 MG PO (17:59)
[2020-04-04] MEDS: sodium chlor 0.45% +KCl 20 mEq 20 MEQ/1,000 ML BAG 100 MEQ IV ×2 (17:59→23:25)
--- NOTE | 2020-04-04 18:49 | PC.NURSE ---
Dr Khan notified of patient bleeding and pressure held for 45 min as well as Dr Blackmon arrived at bedside to assist. Small hematoma noted distal to sheath insertion site.
--- NOTE | 2020-04-04 19:01 | PC.NURSE ---
5lb sand bag applied to right groin per Dr Bill cabral.
[2020-04-04] MEDS: atorvastatin 40 mg Tablet PO (20:24)
--- NOTE | 2020-04-04 23:26 | PC.NURSE ---
pt ambulated to restroom, groin site soft, no bleeding or hematoma noted
[2020-04-05 03:40] LABS: Basophils % 0.3 %; Eosinophils % 0.4 %; Hematocrit 37.7 % (37.0-47.0); Hemoglobin 12.3 g/dL (11.5-15.3); Lymphocytes # 1.9 10^3/uL (0.8-4.8); Lymphocytes % 25.4 %; Mean Corpuscular HGB Conc 32.6 g/dL (30.0-36.0); Mean Corpuscular Hemoglobin 29.4 pg (28.0-34.0); Mean Corpuscular Volume 90.2 fL (81-99); Mean Platelet Volume 10.8 fL (7.4-10.4); Monocytes # 0.6 10^3/uL (0.2-0.9); Monocytes % 7.5 %; Neutrophils # 4.92 10^3/uL (1.8-7.7); Neutrophils % 66.1 %; Nucleated Red Blood Cells % 0 %; Platelet Count 148 10^3/cmm (130-400); Red Blood Count 4.18 10^6/uL (4.1-5.3); Red Cell Distribution Width 13.2 % (12.1-15.1); White Blood Count 7.4 10^3/uL (4.0-10.0)
[2020-04-05 04:00] VITALS: BP 119/63; PULSE 74; RESP 19; TEMP 37; O2SAT 97
[2020-04-05 04:11] LABS: Anion Gap 12.9 (5-19); Blood Urea Nitrogen 7 mg/dL (8-23); Calcium 8.5 mg/dL (8.5-10.5); Carbon Dioxide 25 mmol/L (22-29); Chloride 100 mmol/L (98-107); Glucose 75 mg/dL (65-115); Osmolality Calculated 273 mOsm/kg (285-295); Potassium 4.9 mmol/L (3.5-5.1); Sodium 133 mmol/L (136-145)
[2020-04-05 07:24] VITALS: BP 100/57; PULSE 89; RESP 16; TEMP 37.1; O2SAT 97
[2020-04-05] MEDS: metoprolol tartrate 25 mg Tablet 12.5 MG PO (09:40)
[2020-04-05] MEDS: aspirin 325 mg Tablet PO (09:40)
[2020-04-05] MEDS: clopidogrel 75 mg Tablet PO (09:40)
[2020-04-05] MEDS: lisinopril 10 mg Tablet PO (09:40)
[2020-04-05] MEDS: sodium chlor 0.45% +KCl 20 mEq 20 MEQ/1,000 ML BAG 100 MEQ IV (09:41)
[2020-04-05 10:46] VITALS: BP 111/57; PULSE 75; RESP 10; TEMP 36.7; O2SAT 95
--- NOTE | 2020-04-05 11:12 | P.PN_ITS ---
Subjective Subjective: Interval history: Patient is feeling well. Denies complaints of chest pain, shortness of breath or palpitations.She underwent cardiac cath yesterday that showed non obstructive CAD and patent RCA stent. ECHO pattern consistent with Takotsubo cardiomyopathy. Vitals/I&O/Wt Last Vital Signs Temp 98.1 F 04/05/20 10:46 Pulse 75 04/05/20 10:46 Resp 10 L 04/05/20 10:46 BP 111/57 04/05/20 10:46 Pulse Ox 95 04/05/20 10:46 04/04/20 04/05/20 04/05/20 22:59 06:59 14:59 Intake Total 696 / 696 1286.333 / 5128.375 2214 / 1240 Balance 696 / 696 1286.333 / 4639.389 7464 / 1240 Weight last 48 hrs Weight 94 lb 4.8 oz Weight 88 lb 6.4 oz Physical Exam Narrative: EXAM NARRATIVE: GENERAL: The patient is alert and oriented times three. Not in any acute distress. Patient is lean and short frame HEENT: No significant pallor, icterus or lymphadenopathy. NECK: Trachea appears to be central. No masses noted. No JVD or thyromegaly appreciated. No carotid bruit. RESPIRATORY: Chest is symmetrical. Emphysematous/barrel-shaped chest. No intercostals muscle retraction or any accessory muscle activation. There is no chest wall tenderness. Breath sounds are heard bilaterally. No rales or rhonchi heard. No evidence of any consolidation. BREASTS: Deferred. HEART: T PMI could not be palpated. No other palpable precordial events. First and second heart sounds are normal. Short systolic murmur at the base of the heart. No diastolic murmurs. No pericardial rub. ABDOMEN: No vessel pulsations or distention. No tenderness. No organomegaly appreciated. No abdominal bruit. Bowel sounds are normally heard. : Deferred. RECTAL: Deferred. LYMPHATIC: No lymphadenopathy noted in the neck or groin. EXTREMITIES: No edema or cyanosis. No clubbing. The pulses are symmetrical bilaterally. The radial, femoral, dorsalis pedis and the posterior tibial pulses are palpated and found to be in good volume and amplitude. Bilateral spider veins. MUSCULOSKELETAL: No acute joint deformities or swelling SKIN: There are no significant scars or skin rash noted. NEUROPSYCHIATRIC: The patient is alert and oriented x3. Appears to be in a good mood. The higher functions are grossly within normal limits. No tremors or rigidity noted. Data : 04/05/20 02:50 04/05/20 02:50 Micro: Microbiology 04/02/20 13:09 Urine Culture - Final Urine,Clean Catch Escherichia coli A&P Assessment and plan (1) NSTEMI (non-ST elevated myocardial infarction): Troponin elevation likely secondary to Takotsubo and demand ischemia from hypertension. The echocardiogram revealed severe diffuse hypokinesia of the LV apex. Myocardial perfusion imaging revealing small areas of ischemia in the distribution of all the 3 coronary arteries. Patient's cardiac cath showed non obstructive coronary artery disease with patent prior RCA stent. Continue aspirin, plavix, atorvastatin, Coreg and Lisinopril. Patient is stable to be discharged from cardiology standpoint. Status: Resolved (2) HTN (hypertension): The blood pressure seems to be somewhat low this morning, in the upper 90s. Continue monitoring the blood pressure and optimize the medical treatment. Qualifiers: Hypertension type: essential hypertension Qualified Code(s): I10 - Essential (primary) hypertension (3) Cardiomyopathy: There is an appearance of Takotsubo syndrome. After reviewing the cardiac catheterization data, further recommendations will be made. Status: Acute Qualifiers: Cardiomyopathy type: other Qualified Code(s): I42.8 - Other cardiomyopathies Additional A&P Information Her other problems are Chronic back pain Possible UTI Kyphosis Emphysema After reviewing the cardiac colorization data, further recommendations will be made. Attestations Medical Necessity Statement*: Care expected to cross 2 midnights Coding Level of Care Code Acute [place] for [facility] Diagnoses NSTEMI (non-ST elevated myocardial infarction) I21.4 HTN (hypertension) I10 Hypertension type: essential hypertension Cardiomyopathy I42.8 Cardiomyopathy type: other
--- NOTE | 2020-04-05 21:09 | P.DS_ITS ---
Discharge Providers Date of Admission: 04/02/20 15:16 Date of Discharge: April 05, 2020 Attending Provider at Admission: Kevin Eden Attending Provider at Discharge: Kevin Eden Primary Care Provider: Romeo Anaya Diagnoses at Discharge Discharge Diagnosis (1) NSTEMI (non-ST elevated myocardial infarction): Status: Acute (2) HTN (hypertension): Status: Acute Qualifiers: Hypertension type: essential hypertension Qualified Code(s): I10 - Essential (primary) hypertension (3) Cardiomyopathy: Status: Acute Qualifiers: Cardiomyopathy type: other Qualified Code(s): I42.8 - Other cardiomyopathies Reason for Visit Reason for Visit: SAYS BP IS 208/196 Hospital Course Hospital Course Pleasant 85-year-old lady was brought in for assessment by her daughter due to elevated blood pressure and episode of chest pain night prior to admission. Blood pressure remained elevated, and with history of OR and chest pain she and her family were concerned about possibly another OR. On presentation she initially had very high blood pressure, as high as 280 systolic, which subsequently spontaneously improved to 143/98. Subsequently remained more on the soft side. He did not show any focal abnormalities. CT of the head showed severe atrophy and microvascular volume loss. UA showed microscopic hematuria, not suggestive of UTI. This will need to be followed up for resolution. Her troponin in ER initially was normal at 12, however, janes quite significantly with positive delta initially up to 126, and subsequently up to 296. She re ceived treatment for non-STEMI, was assessed by cardiology. Was assessed by coronary angiography with finding of patent coronary arteries and patent RCA stent. Her echocardiogram did reveal cardiomyopathy with Takotsubo morphology, and without acute coronary ischemia/significant blockage noted on angiography her symptoms may likely be explained by Takotsubo syndrome. She was monitored in the hospital, was not found to be in heart failure. She is discharged home on medications for coronary artery disease, Lasix as needed. She is asked to follow-up with cardiology in office. Cardiology recommend she continue aspirin, Plavix, atorvastatin, lisinopril, carvedilol. Please discuss with her also referral for bone mineral density testing given progressive kyphosis and chronic back pain. Chest x-ray in the hospital showed pulmonary hyperinflation, as well as exaggerated thoracic kyphosis with numerous insufficiency compression deformities of the thoracic and lumbar spine. Perhaps referral for vertebral augmentation may be considered. Please follow-up microscopic hematuria for resolution. This may be secondary to UTI for which she receives a course of cefdinir on discharge due to finding of pansensitive E. coli more than 100,000 CFU in urine culture. Physical Exam Const: COMMON NORMALS: no acute distress, patient oriented x3 and alert GENERAL APPEARANCE: cooperative and comfortable ORIENTATION/CONSCIOUSNESS: Yes awake OTHER: Pleasant, conversant, reports she is feeling very well, and eager to return home. HENMT: COMMON NORMALS: oropharynx normal Neck/C-Spine: COMMON NORMALS: no JVD Resp: COMMON NORMALS: normal respiratory effort and clear to auscultation bilaterally AUSCULTATION: clear to auscultation bilaterally Cardio: COMMON NORMALS: no JVD, regular rhythm, S1 normal heart sound present, S2 normal heart sound present and No murmurs present (Cardio) RHYTHM: regular rhythm HEART SOUNDS: S1 normal heart sound present and S2 normal heart sound present GI: COMMON NORMALS: Normal to inspection, nondistended, normoactive bowel sounds present, Soft to palpation and non-tender PALPATION: Yes Soft to palpation Extremity: COMMON NORMALS: no joint enlargement and no pedal edema Neuro: COMMON NORMALS: patient oriented x3 and moves all extremities SENSORIUM/ORIENTATION: Yes alert Skin: COMMON NORMALS: no rashes or lesions noted GENERAL SKIN EXAM: no rashes or lesions noted Discharge Data Data Completed and Pending: Completed Studies During Hospitalization Category Date Time Status CT head wo con* 7 0450 Urgent Cat Scan 04/02/20 11:45 Completed OPERATING SYSTEMS PROGRAMMER request for service Routin e Exams 04/04/20 09:13 Completed Sestamibi Stress Test Request Routi ne Exams 04/03/20 09:00 Completed XR chest 2V* [id number] Urgent Exams 04/02/20 11:46 Completed NM shelley perf SPECT r/s* [id number] Routin e Nuc Med 04/03/20 12:00 Completed CV echo complete* [id number] Routine Ultrasound 04/03/20 18:21 Completed Pending at discharge Category Date Time Status Sestamibi Stress Test Request Routi ne Exams 04/03/20 12:00 Stop Req Labs from last 24 hours 04/05/20 04/05/20 02:50 02:50 WBC 7.4 RBC 4.18 Hgb 12.3 Hct 37.7 MCV 90.2 MCH 29.4 MCHC 32.6 RDW 13.2 Plt Count 148 MPV 10.8 H Neut % (Auto) 66.1 Lymph % (Auto) 25.4 [place] % (Auto) 7.5 Eos % (Auto) 0.4 Baso % (Auto) 0.3 Neut # (Auto) 4.92 Lymph # (Auto) 1.9 [place] # (Auto) 0.6 Eos # (Auto) 0.0 Baso # (Auto) 0.0 Nucleated RBC % (a uto) 0 Nucleated RBCs # 0.0 Sodium 133 L Potassium 4.9 Chloride 100 Carbon Dioxide 25 Anion Gap 12.9 BUN 7 L Creatinine 0.4 L GFR Calculation Not Reportable Glucose 75 Calculated Osmolal ity 273 L Calcium 8.5 Vitals: Last Vital Signs Temp 98.1 F 04/05/20 10:46 Pulse 75 04/05/20 10:46 Resp 10 L 04/05/20 10:46 BP 111/57 04/05/20 10:46 Pulse Ox 95 04/05/20 10:46 Discharge Plan Discharge Patient Disposition: Home Condition: Stable Prescriptions: New atorvastatin 40 mg Tablet 40 mg PO BEDTIME Qty: 30 RF: 0 amlodipine 5 mg tablet 5 mg PO DAILY PRN (Reason: blood pressure) Qty: 30 RF: 0 Lasix 20 mg tablet 20 mg PO DAILY PRN (Reason: edema) Qty: 30 RF: 0 cefdinir 300 mg capsule 300 mg PO BID 5 Days Qty: 10 RF: 0 Plavix 75 mg tablet 75 mg PO DAILY Qty: 30 RF: 0 Continued multivitamin Tablet 1 tab PO DAILY RF: 0 Vitamin C 1,000 mg Tablet 1,000 mg PO DAILY RF: 0 carvedilol 6.25 mg tablet 6.25 mg PO BID RF: 0 lisinopril 10 mg tablet 10 mg PO DAILY RF: 0 omeprazole 20 mg capsule,delayed release(DR/EC) 20 mg PO DAILY PRN (Reason: ACID REFLUX) RF: 0 aspirin 81 mg Tablet 81 mg PO DAILY RF: 0 potassium gluconate 600 mg (99 mg) Tablet 600 mg PO DAILY RF: 0 Discharge Orders: Discharge Order (Routine); Ordered 04/05/20 Ordered By: Kevin Eden Referrals: Romeo Anaya [Primary Care Provider] - 4-7 days (Dr. Mcdowell's office will be calling to set up a hospital followup to be seen in 4 to 7 days. If you don't hear from them by Tuesday afternoon, please give them a call. Thank you) Mary Ricks FNP [Nurse Practitioner] - 7-10 days Discharge Diet: Cardiac Discharge Activity: Increase activity as tolerated Patient Instructions: Furosemide (By mouth), Amlodipine (By mouth), Atorvastatin (By mouth), Cefdinir (By mouth), Dilated Cardiomyopathy (GEN), [place] [facility] Pain Stoplight, Post Angiogram Home Care Instructions Activity Restrictions/Additional Instructions: Please discuss with your primary care doctor regarding Takotsubo cardiomyopathy. Take Lasix as needed in case you develop lower extremity edema, shortness of breath while lying flat or on exertion. If you experience any severe chest pain, any progressive shortness of breath, or other concerning symptoms, please seek medical attention without delay. Please monitor your blood pressures 3 times daily, record values to bring to your appointment. In case your blood pressure is elevated after you already have taken your usual medications including carvedilol, lisinopril, and blood pressure is still above 150 top number or 90 bottom number, please take amlodipine 5 mg and recheck in several hours. If blood pressure is very high, higher than 190 systolic or 110 diastolic persistently, please seek medical attention without delay. You are given a prescription of cefdinir for urinary tract infection. Please discuss with your primary care doctor regarding microscopic hematuria (small amount of blood found in your urine), have your primary care doctor recheck your urine to make sure that this resolves since this may be due to the urinary tract infection, or your primary care doctor may refer you for additional assessment if this continues to exclude any more dangerous causes including malignancy with history of smoking. Please discuss with your primary care doctor with regards to chronic back pain. Please request referral for bone density scan to assess for osteoporosis or osteopenia. Please discuss also in case you continue having back pain referral to pain clinic, consideration of possible vertebral augmentation. Discharge Attestations Time Spent in Discharge Care*: greater than 30 min Quality Metrics Clinical Quality Measures During this hospital stay, did patient experience: None Coding Level of Care Code Acute Bad Work Gatherer for [facility] Diagnoses NSTEMI (non-ST elevated myocardial infarction) I21.4 HTN (hypertension) I10 Hypertension type: essential hypertension Cardiomyopathy I42.8 Cardiomyopathy type: other
== END 2020-04-05 12:10 | disposition home or self-care (01) | DRG 281 ==
LOC: ER 11:21 → CSU 16:23
PROVIDERS: Internal Medicine Cardiovascular Disease; Admitting Provider Internal Medicine; Emergency Provider Family Medicine; PCP Family Medicine; Visit Provider Internal Medicine
PROC: 4A023N7 Measurement of Cardiac Sampling and Pressure, Left Heart, Percutaneous Approach (ICD-10-PCS; principal; 2020-04-04 12:00)
DX: I21.4 Non-ST elevation (NSTEMI) myocardial infarction (principal); I51.81 Takotsubo syndrome; I25.10 Atherosclerotic heart disease of native coronary artery without angina pectoris; Z95.5 Presence of coronary angioplasty implant and graft; G89.29 Other chronic pain; M54.9 Dorsalgia, unspecified; I10 Essential (primary) hypertension; Z87.891 Personal history of nicotine dependence; M40.209 Unspecified kyphosis, site unspecified; R31.29 Other microscopic hematuria; J43.9 Emphysema, unspecified; I25.2 Old myocardial infarction; Z79.82 Long term (current) use of aspirin
CPT/HCPCS: 12345; 36415; 70450; 71046; 78452; 80048; 80053; 81001; 83880; 84443; 84484; 85025; 87077; 87086; 87186; 93005; 93017; 93306; 93452; 96372; 99283; A9500; C1769; C1887; C1894; J0280; J1644; J1650; J2250; J2785; J3010; J7030; Q9967

== ENCOUNTER 2020-07-24 12:15 | Outpatient (CLI) | payer MEDICARE, SELFPAY ==
--- NOTE | 2020-07-24 12:28 | USCV_ITS ---
Rosemary Rodrigez Age: 85 Gender: F : 1935 Exam Date: 07/24/2020 12:49 Ordering Phys: Evelina Khan MD ([email or web address]) Technologist: Kemal Kumar Exam Location: [facility] [place] Indication: CARDIOMYOPATHIES BP: 135 / 70 HR: 60 Rhythm: Sinus Technical Quality: Adequate MEASUREMENTS (Male / Female) Normal Values 2D ECHO LV Diastolic Diameter PLAX 2.6 cm 4.2 - 5.9 / 3.9 - 5.3 cm LV Systolic Diameter PLAX 2.2 cm IVS Diastolic Thickness 1.6 cm 0.6 - 1.0 / 0.6 - 0.9 cm IVS Systolic Thickness 1.9 cm LVPW Diastolic Thickness 1.4 cm 0.6 - 1.0 / 0.6 - 0.9 cm LVPW Systolic Thickness 1.5 cm LVOT Diameter 2.1 cm LV Ejection Fraction 2D Teich 33.9 % LV Ejection Fraction MOD 2C 67.3 % LV Ejection Fraction 2C AL 65.0 % LA Diameter 3.1 cm LA Width 3.5 cm LA Height 3.7 cm RA Width 3.9 cm RA Height 3.6 cm Aorta at Sinotubular Diameter 2.6 cm M-MODE LV Diastolic Diameter MM 4.4 cm 4.2 - 5.9 / 3.9 - 5.3 cm LV Systolic Diameter MM 2.9 cm LV Ejection Fraction MM Teich 64.2 % IVS Diastolic Thickness MM 0.9 cm 0.6 - 1.0 / 0.6 - 0.9 cm IVS Systolic Thickness MM 1.3 cm LVPW Diastolic Thickness MM 1.3 cm 0.6 - 1.0 / 0.6 - 0.9 cm LVPW Systolic Thickness MM 1.7 cm Aortic Annulus Diameter 2.8 cm LA Ao Ratio MM 1.1 MV E Point Septal Separation 0.8 cm DOPPLER Right Atrial Pressure 3.0 mmHg FINDINGS Left Ventricle Normal left ventricular size with a borderline normal ejection fraction of 50 to 55%. Mild left ventricular hypertrophy. Mild hypokinesia of the mid and apical septum Right Ventricle The right ventricle is normal in size and function. Right Atrium The right atrium is normal in size. Left Atrium Normal left atrial size. Mitral Valve Minimally thickened mitral valve Aortic Valve Thickened noncoronary cusp of the aortic valve Tricuspid Valve No gross abnormalities noted Pulmonic Valve No gross abnormalities noted . Pericardium Normal pericardium without effusion. Aorta Normal ascending aorta dimension. CONCLUSIONS Normal left ventricular size with a borderline normal ejection fraction of 50 to 55%. Mild left ventricular hypertrophy. Mild hypokinesia of the mid and apical septum. Minimally thickened aortic and mitral valves. There is no pericardial effusion. There are no intracardiac masses. Compared to the previous study from 04/03/2020, there is significant improvement of the LV ejection fraction Dr Evelina Khan MD [facility] (Electronically Signed) Final Date: 24 July 2020 17:28 S
== END 2020-07-24 12:16 | disposition home or self-care (01) ==
LOC: RAD 12:22
PROVIDERS: PCP Nurse Practitioner; Visit Provider Internal Medicine Cardiovascular Disease
DX: I42.8 Other cardiomyopathies (principal); I08.0 Rheumatic disorders of both mitral and aortic valves
CPT/HCPCS: 93308

== ENCOUNTER 2021-02-07 10:35 | Emergency (ER) | payer MEDICARE, SELFPAY ==
[2021-02-07 10:35] VITALS: BP 111/79; PULSE 84; RESP 16; TEMP 36.5; O2SAT 96; BMI 17.4
--- NOTE | 2021-02-07 10:46 | ECG_ITS ---
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 Measurements Intervals [place] Rate: 99 P: MS: QRS: -26 QRSD: 97 T: 80 QT: 360 QTc: 462 Interpretive Statements ATRIAL FIBRILLATION SEPTAL MYOCARDIAL INFARCTION , OF INDETERMINATE AGE [40+ ms Q WAVE IN V1/V2] Compared to ECG 04/02/2020 18:04:36 Sinus rhythm no longer present Left anterior fascicular block no longer present Myocardial infarct finding still present Electronically Signed On 02-07-2021 21:07:54 CDT by Andrew Kaye M.D. [email or web address]
--- NOTE | 2021-02-07 10:46 | XRR_ITS ---
PROCEDURE INFORMATION: Exam: XR Chest Exam date and time: 02/07/2021 10:46 AM Age: 85 years old Clinical indication: Cough and dyspnea; Additional info: Dyspnea/cough TECHNIQUE: Imaging protocol: XR of the chest. Views: 1 view. COMPARISON: CR XR chest 2V* [id number] 04/02/2020 12:04 PM FINDINGS: Lungs: There is bibasilar opacity consistent with lower lobe infiltration/atelectasis and pleural effusions. Pleural spaces: Small bilateral pleural effusions. No pneumothorax. Heart/Mediastinum: The cardiac silhouette is enlarged. There is calcification and tortuosity of the aorta. Bones/joints: Unremarkable. XR/XR chest 1V portable [id number] IMPRESSION: There is opacification of the lung bases greater on the right side consistent with lower lobe infiltration/atelectasis and pleural effusions.
--- NOTE | 2021-02-07 10:50 | CTR_ITS ---
PROCEDURE INFORMATION: Exam: CT Abdomen And Pelvis With Contrast Exam date and time: 02/07/2021 10:50 AM Age: 85 years old Clinical indication: Abdominal pain; Generalized; Additional info: Abd mass TECHNIQUE: Imaging protocol: Computed tomography of the abdomen and pelvis with contrast. Radiation optimization: All CT scans at this facility use at least one of these dose optimization techniques: automated exposure control; mA and/or kV adjustment per patient size (includes targeted exams where dose is matched to clinical indication); or iterative reconstruction. Contrast material: OMNIPAQUE 300; Contrast volume: 95 ml; Contrast route: INTRAVENOUS (IV); COMPARISON: CT abdomen pelvis w con* [id number] 07/04/2014 9:51 PM RADIATION DOSE METRICS: Total DLP (mGy-cm): 580.2 FINDINGS: Lungs: There is compressive atelectasis in the lung bases. Pleural spaces: There are bilateral pleural effusions larger on the right side. Heart: The heart is enlarged. There is prominent right atrial dilatation. There is calcification of the coronary arteries. Liver: Hepatomegaly. No liver masses. The inferior vena cava and hepatic veins are distended which can be seen with heart failure. Gallbladder and bile ducts: Normal. No calcified stones. No ductal dilation. Pancreas: Normal. No ductal dilation. Spleen: Normal. No splenomegaly. Adrenal glands: Normal. No mass. Kidneys and ureters: Normal. No hydronephrosis. Stomach and bowel: Unremarkable. No obstruction. No mucosal thickening. Appendix: No evidence of appendicitis. Intraperitoneal space: There is small ascites with some fluid in these subhepatic region and in the cul-de-sac of the pelvis. No free air seen. Vasculature: The abdominal aorta and iliac arteries are calcified. There is no aneurysm. Lymph nodes: Unremarkable. No enlarged lymph nodes. Urinary bladder: Unremarkable as visualized. Reproductive: Unremarkable as visualized. Bones/joints: There are multiple compression fractures in the visible spine which are probably old. No significant spinal stenosis is seen. Soft tissues: Unremarkable. CT/CT abdomen pelvis w con* [id number] IMPRESSION: 1. There findings consistent with congestive heart failure with cardiomegaly, bilateral pleural effusions and dilatation of the inferior vena cava and hepatic veins. 2. Coronary artery calcification. 3. Hepatomegaly. 4. Calcified atherosclerotic aorta. 5. Minimal ascites. 6. No abdominal masses are seen. Radiation Dose CTDIVOL = (mGy): DLP = 580.2 (mGy-cm)
[2021-02-07 10:52] LABS: Basophils % 0.2 %; Eosinophils % 0.4 %; Hematocrit 39.8 % (37.0-47.0); Hemoglobin 12.6 g/dL (11.5-15.3); Lymphocytes # 2.8 10^3/uL (0.8-4.8); Lymphocytes % 32.6 %; Mean Corpuscular HGB Conc 31.7 g/dL (30.0-36.0); Mean Corpuscular Hemoglobin 27.8 pg (28.0-34.0); Mean Corpuscular Volume 87.9 fl (81-99); Mean Platelet Volume 11.1 fL (7.4-10.4); Monocytes # 0.6 10^3/uL (0.2-0.9); Monocytes % 7.4 %; Neutrophils # 4.99 10^3/uL (1.8-7.7); Neutrophils % 59.2 %; Nucleated Red Blood Cells % 0 %; Platelet Count 193 10^3/cmm (130-400); Red Blood Count 4.53 10^6/uL (4.1-5.3); Red Cell Distribution Width 15.7 % (12.1-15.1); White Blood Count 8.4 10^3/uL (4.0-10.0)
--- NOTE | 2021-02-07 11:06 | PC.NURSE ---
Received report from SILVIA Menjivar. Provider at bedside
[2021-02-07 11:21] LABS: Alanine Aminotransferase 18 U/L (0-33); Albumin Level 3.8 g/dL (3.5-5.2); Alkaline Phosphatase 126 IU/L (35-105); Anion Gap 17.4 (5-19); Aspartate Amino Transferase 29 U/L (0-32); Blood Urea Nitrogen 16 mg/dL (8-23); Carbon Dioxide 22 mmol/L (22-29); Chloride 97 mmol/L (98-107); Globulin 3.3 g/dL (1.3-4.6); Glucose 112 mg/dL (65-115); Osmolality Calculated 276 mOsm/kg (285-295); Potassium 4.4 mmol/L (3.5-5.1); Sodium 132 mmol/L (136-145); Total Bilirubin 0.4 mg/dL (0.15-1.2); Total Protein 7.1 g/dL (6.6-8.7)
[2021-02-07 11:27] VITALS: BP 128/95; PULSE 87; RESP 15; O2SAT 97
[2021-02-07 11:30] VITALS: PULSE 63
[2021-02-07 11:34] LABS: Troponin(5th) Baseline 16 ng/L (0-10)
--- NOTE | 2021-02-07 11:50 | ED_ITS ---
HPI - Arrhythmia/Palpitations General: Chief Complaint: Shortness of Breath/Dyspnea Stated Complaint: AFIB WITH RVR; SOB Time Seen by Provider: 02/07/21 10:38 History of Present Illness: HPI narrative: 85-year-old female came in complaining of shortness of breath. She had shortness of breath while at rest. On arrival EMS found her to be in atrial fibrillation with a single dose of Cardizem she converted on arrival here her rate was well controlled. She is not having any further symptoms have completely resolved. She denies any chest pain she is usually on carvedilol 6.25 mg twice daily. She is not sure if she took it last night but she knows she did not take it this morning. No fever sweats chills myalgias. complaint: rapid heart beat, heart racing and palpitations Onset (ago): hour(s) Duration: intermittent Severity: moderate Context: occurred during rest Arrhythmia history: atrial fibrillation Associated symptoms: Deny anxiety, cough, diaphoresis, muscle cramps, nausea, paresthesias, pre-syncope, sense of impending doom, short of breath, syncope or vomiting Treatments prior to arrival: calcium channel barbara Review of Systems Const: Denies: diaphoresis ENMT: Denies: throat pain, ear or mastoid pain, nasal discharge or nasal congestion Card: Denies: syncope or pre-syncope Resp: Denies: dyspnea, productive cough or non-productive cough GI: Denies: nausea or vomiting : Denies: flank pain, difficulty voiding, dysuria, urinary frequency or urinary urgency Musc: Denies: muscle cramps Skin/Breast: Denies: rash or pruritus Psych: Denies: anxiety FORMERLY [facility], 1928–1983 ED PFSH: Medical History (Updated 02/08/21 @ 13:58 by Scott Upton MD) Atherosclerotic heart disease of [place] coronary artery without angina pectoris CAD (coronary artery disease) Chronic back pain COPD (chronic obstructive pulmonary disease) Dyslipidemia (high LDL; low HDL) HTN (hypertension) Hx of completed stroke Hx of myocardial infarction Kyphosis deformity of spine Takotsubo syndrome Surgical History H/O coronary angiogram Family History Mother CAD (coronary artery disease) Father CAD (coronary artery disease) Daughter CAD (coronary artery disease) Denies family history of Diabetes Clotting disorder Dementia Chronic kidney disease (CKD) Suicide Anesthesia complication Bleeding disorder Lung disease Cancer Stroke Social History Smoking and tobacco status: former smoker Quit status (tobacco): has quit using tobacco Former quit date comment: 25 ya Alcohol intake: never Lives independently: Yes Household members: children and other Details: Son Current occupational status: retired Physical Exam Const: COMMON NORMALS: no acute distress GENERAL APPEARANCE: cooperative and comfortable ORIENTATION/CONSCIOUSNESS: Yes awake, Yes oriented to person, Yes oriented to place and Yes oriented to time HENMT: COMMON NORMALS: normocephalic, atraumatic and hearing grossly normal bilaterally HEAD & SCALP: normocephalic and atraumatic Neck/C-Spine: COMMON NORMALS: no JVD Resp: COMMON NORMALS: normal respiratory effort, No retractions, No use of accessory muscles and clear to auscultation bilaterally AUSCULTATION: clear to auscultation bilaterally Cardio: COMMON NORMALS: no JVD, regular rate, regular rhythm and No murmurs present (Cardio) RATE: regular rate RHYTHM: regular rhythm GI: COMMON NORMALS: Soft to palpation and No hepatosplenomegaly present AUSCULTATION: Yes normoactive bowel sounds PALPATION: Yes Soft to palpation, No Tenderness to palpation present (GI), No Guarding due to palpation present (GI), Yes No hepatosplenomegaly present and Yes Palpable mass present RLQ mobile and firm; nontender Extremity: COMMON NORMALS: normal to inspection, capillary refill normal, no clubbing, cyanosis or edema, no calf tenderness and no pedal edema Neuro: SENSORIUM/ORIENTATION: Yes oriented to person, Yes oriented to place and Yes oriented to time Skin: COMMON NORMALS: no rashes or lesions noted GENERAL SKIN EXAM: no rashes or lesions noted Course Vital Signs: Vital signs: Vital Signs Temperature 97.8 F 02/07/21 12:00 Pulse Rate 104 H 02/07/21 12:00 Respiratory Rate 20 H 02/07/21 12:00 Blood Pressure 140/88 02/07/21 12:00 Pulse Oximetry 95 02/07/21 12:00 MDM - Arrhythmia/Palpitations MDM Narrative: Medical decision making narrative: Atrial fibrillation prior to arrival on arrival here she is in A. fib with a rate is well controlled we gave her oral Cardizem started to bump up a little bit again we are going to go ahead and still discharge her home she is asymptomatic we will increase her carvedilol to 9.375 twice daily. She will take 1-1/2 tablets of the 6-1/4 mg twice a day and then follow-up with cardiology early next week if she has any recurrence or change symptoms return to the emergency Lab Data: Labs: Lab Results 02/07/21 02/07/21 02/07/21 10:43 10:43 10:43 WBC 8.4 10^3/uL 10^3/ uL (4.0-10.0) RBC 4.53 10^6/uL 10^6 /uL (4.1-5.3) Hgb 12.6 g/dL g/dL (11.5-15.3) Hct 39.8 % % (37.0-47.0) MCV 87.9 fl fl (81-99) MCH 27.8 pg L pg (28.0-34.0) MCHC 31.7 g/dL g/dL (30.0-36.0) RDW 15.7 % H % (12.1-15.1) Plt Count 193 10^3/cmm 10^3 /cmm (130-400) MPV 11.1 fL H fL (7.4-10.4) Neut % (Auto) 59.2 % % Lymph % (Auto) 32.6 % % [place] % (Auto) 7.4 % % Eos % (Auto) 0.4 % % Baso % (Auto) 0.2 % % Neut # (Auto) 4.99 10^3/uL 10^3 /uL (1.8-7.7) Lymph # (Auto) 2.8 10^3/uL 10^3/ uL (0.8-4.8) [place] # (Auto) 0.6 10^3/uL 10^3/ uL (0.2-0.9) Eos # (Auto) 0.0 10^3/uL 10^3/ uL (0.0-0.8) Baso # (Auto) 0.0 10^3/uL 10^3/ uL (0.0-0.1) Nucleated RBC % (a uto) 0 % % Nucleated RBCs # 0.0 /100WBC /100W BC Sodium 132 mmol/L L mmol /L (136-145) Potassium 4.4 mmol/L mmol/L (3.5-5.1) Chloride 97 mmol/L L mmol/ L (98-107) Carbon Dioxide 22 mmol/L mmol/L (22-29) Anion Gap 17.4 (5-19) BUN 16 mg/dL mg/dL (8-23) Creatinine 0.5 mg/dL mg/dL (0.5-0.9) GFR Calculation Not Reportable Glucose 112 mg/dL mg/dL (65-115) Calculated Osmolal ity 276 mOsm/kg L mOs m/kg (285-295) Calcium 9.0 mg/dL mg/dL (8.5-10.5) Magnesium 2.0 mg/dL mg/dL (1.7-2.3) Total Bilirubin 0.4 mg/dL mg/dL (0.15-1.2) AST 29 U/L U/L (0-32) ALT 18 U/L U/L (0-33) Alkaline Phosphata se 126 IU/L H IU/L (35-105) Troponin T Baselin e 16 ng/L H ng/L (0-10) Troponin T 120 Min [place] Delta Troponin T Total Protein 7.1 g/dL g/dL (6.6-8.7) Albumin 3.8 g/dL g/dL (3.5-5.2) Globulin 3.3 g/dL g/dL (1.3-4.6) 02/07/21 13:24 WBC RBC Hgb Hct MCV MCH MCHC RDW Plt Count MPV Neut % (Auto) Lymph % (Auto) [place] % (Auto) Eos % (Auto) Baso % (Auto) Neut # (Auto) Lymph # (Auto) [place] # (Auto) Eos # (Auto) Baso # (Auto) Nucleated RBC % (a uto) Nucleated RBCs # Sodium Potassium Chloride Carbon Dioxide Anion Gap BUN Creatinine GFR Calculation Glucose Calculated Osmolal ity Calcium Magnesium Total Bilirubin AST ALT Alkaline Phosphata se Troponin T Baselin e Troponin T 120 Min [place] 15.19 ng/L H ng/L (0-10) Delta Troponin T -0.81 ABS# L ABS# (0-10) Total Protein Albumin Globulin Discharge Plan Discharge Patient Disposition: Home Clinical Impression: Atrial fibrillation Condition: Stable Prescriptions: New carvedilol [Coreg] 6.25 mg tablet 9.375 mg PO BID Qty: 90 RF: 0 Discontinued carvedilol 6.25 mg tablet 6.25 mg PO BID RF: 0 No Action lisinopril 20 mg tablet 20 mg PO DAILY Qty: 90 RF: 3 multivitamin Tablet 1 tab PO DAILY RF: 0 ascorbic acid (vitamin C) [Vitamin C] 1,000 mg Tablet 1,000 mg PO DAILY RF: 0 aspirin 81 mg Tablet 81 mg PO DAILY RF: 0 potassium gluconate 600 mg (99 mg) Tablet 600 mg PO DAILY RF: 0 atorvastatin 40 mg Tablet 40 mg PO BEDTIME Qty: 30 RF: 0 Discharge Orders: Discharge ED (Routine); Ordered 02/07/21 Ordered By: James Macias Referrals: Huyen Thompson APN [Primary Care Provider] - Discharge Diet: Usual diet Discharge Activity: Limit activity as instructed Patient Instructions: Opioid Safety Activity Restrictions/Additional Instructions: Follow-up with your director project management early next week. Coding Level of Care Code ED Denture Technician for Meghann Fwd Exam Comprehensive
[2021-02-07] MEDS: iohexol 300 mg/mL 100 mL Btl IV (11:53)
[2021-02-07 12:00] VITALS: BP 140/88; PULSE 104; RESP 20; TEMP 36.6; O2SAT 95
[2021-02-07] MEDS: carvedilol 6.25 mg Tablet PO (12:07)
--- NOTE | 2021-02-07 12:46 | ECG_ITS ---
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 Measurements Intervals [place] Rate: 114 P: [place]: QRS: -27 QRSD: 93 T: 81 QT: 327 QTc: 452 Interpretive Statements ATRIAL FIBRILLATION WITH RAPID VENTRICULAR RESPONSE POSSIBLE ANTERIOR MYOCARDIAL INFARCTION , OF INDETERMINATE AGE [30 ms Q WAVE IN V3/V4, OR R < 0.2 mV IN V4] Compared to ECG 02/07/2021 10:54:02 No significant changes Electronically Signed On 02-07-2021 21:12:49 CDT by Andrew Kaye M.D. [id number]
[2021-02-07 13:57] LABS: Troponin 5 2HR 15.19 ng/L (0-10)
[2021-02-07 14:02] LABS: Troponin 5 2HR Delta -0.81 ABS# (0-10)
== END 2021-02-07 14:09 | disposition home or self-care (01) ==
PROVIDERS: Emergency Provider Family Medicine; PCP Nurse Practitioner
DX: I48.91 Unspecified atrial fibrillation (principal); Z79.82 Long term (current) use of aspirin; I25.10 Atherosclerotic heart disease of native coronary artery without angina pectoris; J44.9 Chronic obstructive pulmonary disease, unspecified; E78.5 Hyperlipidemia, unspecified; I10 Essential (primary) hypertension; I25.2 Old myocardial infarction; Z87.891 Personal history of nicotine dependence
CPT/HCPCS: 36415; 71045; 74177; 80053; 83735; 84484; 85025; 93005; 99284; Q9967

== ENCOUNTER 2021-02-07 19:58 | Inpatient (IN) | payer MEDICARE, SELFPAY ==
[2021-02-07 19:25] VITALS: BP 119/83; PULSE 169; RESP 24; O2SAT 95; BMI 17.4
[2021-02-07 20:00] VITALS: BP 120/70; PULSE 88; RESP 20; O2SAT 96
[2021-02-07 20:54] VITALS: BP 118/71; PULSE 100; RESP 21; O2SAT 93
--- NOTE | 2021-02-07 21:05 | ECG_ITS ---
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 Measurements Intervals [place] Rate: 117 P: [place]: QRS: -9 QRSD: 94 T: 47 QT: 329 QTc: 460 Interpretive Statements ATRIAL FIBRILLATION WITH RAPID VENTRICULAR RESPONSE WITH ABERRANT CONDUCTION OR VENTRICULAR PREMATURE COMPLEXES POSSIBLE ANTERIOR MYOCARDIAL INFARCTION , OF INDETERMINATE AGE [30 ms Q WAVE IN V3/V4, OR R < 0.2 mV IN V4] Compared to ECG 02/07/2021 13:29:17 Aberrant conduction of supraventricular beat(s) now present Ventricular premature complex(es) now present Myocardial infarct finding still present Electronically Signed On 02-08-2021 21:43:27 CDT by Andrew Kaye M.D. [id number] f
[2021-02-07 21:26] LABS: Troponin(5th) Baseline 14 ng/L (0-10)
--- NOTE | 2021-02-07 21:50 | ED_ITS ---
HPI - Chest Pain General: Chief Complaint: Chest Pain Stated Complaint: Afib History of Present Illness: HPI narrative: The patient is an 85-year-old female seen here earlier today for A. fib with RVR. She comes in today complaining of episodes of shortness of breath after she was discharged she got home and had episodes of A. fib with RVR. EMS brought her in and they noticed her heart rate on scene was 140s to 170s. They gave her 5 of Cardizem in route with good lowering of her heart rate to the 110s. She was given another 5 on arrival and is now asymptomatic in the ED. Timing of current episode: episodic Onset: during rest and during exertion Severity: moderate Associated symptoms: Reports dyspnea; Deny abdominal pain or palpitations Review of Systems General: Reports: 10 or more systems reviewed and unremarkable except in HPI and below Const: Denies: fatigue Eyes: Denies: change in vision, blurry vision or eye redness ENMT: Denies: throat pain, swelling of lips/tongue, ear or mastoid pain or nasal congestion Card: Denies: chest pain, palpitations, irregular heart rhythm, edema, dyspnea on exertion or orthopnea Resp: Reports: dyspnea GI: Denies: abdominal pain, diarrhea or GI cramping : Denies: flank pain, difficulty voiding, urinary frequency or urinary urgency Musc: Denies: neck pain, back pain, extremity pain, joint pain, joint redness, limited range of motion or muscle weakness Skin/Breast: Denies: rash, pruritus, erythema, skin pain or skin tenderness Neuro: Denies: headache(s), numbness in extremities, weakness in extremities, sensory changes, difficulty walking, dizziness, confusion or Slurred speech present Psych: Denies: anxiety or depression Endo: Denies: polyuria All/Imm: Denies: urticaria, throat swelling or tongue swelling PFSH ED PFSH: Medical History Atherosclerotic heart disease of [place] coronary artery without angina pectoris CAD (coronary artery disease) Chronic back pain Dyslipidemia (high LDL; low HDL) HTN (hypertension) Kyphosis deformity of spine Takotsubo syndrome Surgical History H/O coronary angiogram Family History Mother CAD (coronary artery disease) Father CAD (coronary artery disease) Daughter CAD (coronary artery disease) Denies family history of Diabetes Clotting disorder Dementia Chronic kidney disease (CKD) Suicide Anesthesia complication Bleeding disorder Lung disease Cancer Stroke Social History Smoking and tobacco status: former smoker Quit status (tobacco): has quit using tobacco Former quit date comment: 25 ya Alcohol intake: never Lives independently: Yes Household members: children and other Details: Son Current occupational status: retired Physical Exam Const: COMMON NORMALS: no acute distress, average body habitus, patient oriented x3, no limitations, healthy appearing, alert and well nourished GENERAL APPEARANCE: cooperative, comfortable, well kempt and well developed ORIENTATION/CONSCIOUSNESS: Yes awake, Yes oriented to person, Yes oriented to place and Yes oriented to time HENMT: COMMON NORMALS: normocephalic, external ears normal and Normal external nose present HEAD & SCALP: normal to inspection and normocephalic NOSE: Normal external nose present EXTERNAL EAR: Yes external ears normal MOUTH: Normal oral and palatal mucosa present THROAT: posterior oropharynx normal Eye: COMMON NORMALS: Equal, round and reactive pupils present and EOMs intact bilaterally GENERAL EYE: appearance normal, both eyes and all related structures PUPIL: Yes Equal, round and reactive pupils present Neck/C-Spine: COMMON NORMALS: full ROM, no lymphadenopathy, no meningeal signs and no JVD GENERAL: Yes normal visual inspection Lymph: LYMPHATIC: no lymphadenopathy noted Chest: COMMONS NORMALS: normal inspection of the chest and normal palpation of entire chest wall Resp: COMMON NORMALS: normal respiratory effort, No retractions, No use of accessory muscles, clear to auscultation bilaterally and percussion normal EFFORT & INSPECTION: Yes able to speak in complete sentences AUSCULTATION: clear to auscultation bilaterally PERCUSSION: percussion normal Cardio: COMMON NORMALS: no JVD, S1 normal heart sound present, S2 normal heart sound present and Peripheral pulses 2+ throughout RATE: tachycardic RHYTHM: abnormal rhythm irregularly irregular HEART SOUNDS: S1 normal heart sound present and S2 normal heart sound present PERIPHERAL PULSES: Peripheral pulses 2+ throughout GI: COMMON NORMALS: Normal to inspection, nondistended, normoactive bowel sounds present, Soft to palpation, non-tender and no masses INSPECTION: Yes normal to inspection PALPATION: Yes Soft to palpation : COMMON NORMALS: Yes no CVA tenderness BLADDER/KIDNEY EXAM: Yes no CVA tenderness Back/Pelvis: COMMON NORMALS: no CVA tenderness, thoracic and lumbar spine normal to inspection, no thoracic nor lumbar tenderness and thoraco-lumbar ROM normal Extremity: COMMON NORMALS: normal to inspection, full ROM, capillary refill normal, no joint enlargement and no pedal edema GENERAL: Yes normal exam except as noted Neuro: COMMON NORMALS: patient oriented x3, CN's II-XII intact bilaterally, moves all extremities, no focal motor deficits, no sensory deficits noted and gait normal SENSORIUM/ORIENTATION: Yes alert, Yes oriented to person, Yes oriented to place and Yes oriented to time MENINGEAL SIGNS: Yes no meningeal signs Psych: COMMON NORMALS: mental status grossly normal, Normal thought process present, cooperative, normal affect and speech normal APPEARANCE: Yes well kempt ATTITUDE: Yes calm SPEECH: Yes normal speech THOUGHT PROCESS: Normal thought process present Skin: COMMON NORMALS: no rashes or lesions noted GENERAL SKIN EXAM: no rashes or lesions noted Course Vital Signs: Vital signs: Vital Signs Pulse Rate 100 02/07/21 20:54 Respiratory Rate 21 H 02/07/21 20:54 Blood Pressure 118/71 02/07/21 20:54 Pulse Oximetry 93 02/07/21 20:54 MDM - Chest Pain MDM Narrative: Medical decision making narrative: The patient return to the ED soon after she was discharged again with Isra arceo RVR. She was given diltiazem with good effect and admitted to the [facility] on a drip. Dr. Velázquez accepted. 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
--- NOTE | 2021-02-07 22:12 | PM.HP ---
Providers/Chief Complaint Admitting Physician: Joie Velázquez MD Primary Care Provider: Huyen Thompson APN Chief Complaint: Afib History of Present Illness Rosemary Rodrigez is a 85 year old female, CAD, Takosubo cardiomyopathy, hypertension, follows with cardiology as outpatient, presenting today with 3 weeks of worsening dyspnea on exertion. Patient states initially dyspnea started on walking less than usual distances, however now she is unable to go to the bathroom without getting short of breath. Associated symptoms include dizziness, which he describes as a feeling of lightheadedness, almost as if she is about to fall, which has restricted her activity. Also associated with palpitations and chest discomfort. Patient attributed these symptoms to COVID initially, was tested by her PCP on Tuesday (today is tuesday), reportedly negative on rapid test. She has completed 2 dose mRNA vaccine series in August/September 2020. Diagnostic sin ER today notable for A fib with RVR, HR 170s-180s, 02 sat 93% on RA, CXR with signs of pulmonary congestion. no fever, cough, sputum production, URI symptoms, NVD. Review of Systems General: Reports: 10 or more systems reviewed and unremarkable except in HPI and below Const: Denies: fever(s), chills or body aches Eyes: Denies: change in vision, blurry vision or photophobia ENMT: Reports: hoarseness; Denies: throat pain, enlarged tonsils, odynophagia or nasal congestion Card: Denies: chest pain, palpitations, irregular heart rhythm, edema, swelling of feet/ankles, lightheadedness, pre-syncope, dyspnea on exertion or orthopnea Resp: Denies: dyspnea, productive cough, non-productive cough, wheezing, stridor, pain on inspiration, change in phlegm color, hemoptysis or chest congestion GI: Denies: abdominal pain, nausea, vomiting, hematemesis, coffee ground emesis, dysphagia, heartburn, diarrhea, constipation, GI cramping, change in stool character, hematochezia or melena : Denies: flank pain, difficulty voiding, dysuria, urinary frequency, urinary urgency, urinary hesitancy or hematuria Musc: Denies: neck pain, back pain, extremity pain, joint swelling, joint warmth or deformity Neuro: Denies: headache(s), numbness in extremities, weakness in extremities, sensory changes, difficulty walking, frequent falls, dizziness, vertigo, behavioral changes, Slurred speech present or seizure-like activity Psych: Denies: anxiety, depression, suicidal ideation or homicidal ideation Endo: Denies: polyuria, polydipsia, tired all the time, cold intolerance or hot flashes Dheeraj/Lymph: Denies: easy bruising or easy bleeding Medications/Allergies Home Medications Medication Instructions Recorded Confirmed Last Taken Type ascorbic acid (vitamin C) [Vitamin 1,000 mg PO DAILY 04/02/20 02/07/21 02/06/21 History C] aspirin 81 mg PO DAILY 04/02/20 02/07/21 02/07/21 History 4 tabs multivitamin 1 tab PO DAILY 04/02/20 02/07/21 02/06/21 History potassium gluconate 600 mg PO DAILY 04/02/20 02/07/21 02/06/21 History atorvastatin 40 mg PO BEDTIME #30 tab 04/05/20 02/07/21 02/06/21 Rx lisinopril 20 mg tablet 20 mg PO DAILY #90 tab 10/15/20 02/07/21 02/06/21 Rx carvedilol [Coreg] 9.375 mg PO BID #90 tab 02/07/21 Unknown Rx Allergies Allergy/AdvReac Type Severity Reaction Status Date / Time No Known Allergies Allergy Verified 10/15/20 09:14 PFSH Acute PFSH: Medical History (Updated 02/08/21 @ 01:25 by Joie Velázquez MD) Atherosclerotic heart disease of [place] coronary artery without angina pectoris CAD (coronary artery disease) Chronic back pain Dyslipidemia (high LDL; low HDL) HTN (hypertension) Hx of completed stroke Hx of myocardial infarction Kyphosis deformity of spine Takotsubo syndrome Surgical History H/O coronary angiogram Family History Mother CAD (coronary artery disease) Father CAD (coronary artery disease) Daughter CAD (coronary artery disease) Denies family history of Diabetes Clotting disorder Dementia Chronic kidney disease (CKD) Suicide Anesthesia complication Bleeding disorder Lung disease Cancer Stroke Social History Smoking and tobacco status: former smoker Quit status (tobacco): has quit using tobacco Former quit date comment: 25 ya Alcohol intake: never Lives independently: Yes Household members: children and other Details: Son Current occupational status: retired Vitals/I&O/Wt Last Vital Signs Pulse 100 02/07/21 20:54 Resp 21 H 02/07/21 20:54 BP 118/71 02/07/21 20:54 Pulse Ox 93 02/07/21 20:54 Weight last 48 hrs Weight 39.009 kg Physical Exam Narrative: EXAM NARRATIVE: General: No acute distress, AO x3 HEENT: PERRLA, pupils bilaterally equal and reactive, pallors not present Chest: Normal vesicular breath sounds, no added sounds, equal good air entry bilaterally CVS: S1-S2 regular, no murmurs, no tachycardia, no gallops, no rubs Abdomen: Soft, nontender, no organomegaly, bowel sounds present Neuro: No focal deficits, no facial deformity, AO x3, power 5/5 in all limbs Extremities: 1+ pitting edema B/l LE A&P Assessment and plan (1) Atrial fibrillation: Patient presenting today with A. fib with RVR with heart rate 170s to 180s. Thus far she has received Cardizem 10 mg IV push after which heart rate is between 1 20-1 30, thereafter started on Cardizem infusion. At home takes carvedilol 6.25 twice daily, will increase this to 12.5 mg p.o. twice daily Atrial fibrillation appears to be new per review of patient's chart, however suspect this to be going on at least 3-4 weeks per patient's description if symptoms. May be related to underlying Takotsubo cardiomyopathy. We will additionally screen with D-dimer to evaluate for possibility of PE. She has received a contrast abdomen study earlier today, avoiding CTA for now. Status: Acute (2) CHF (congestive heart failure): Likely precipitated by rapid A fib Lasix 20mg iv now , lower dose as lasix naive monitor I/O, urine output Status: Acute (3) Cardiomyopathy: Last known EF 50% Status: Acute Qualifiers: Cardiomyopathy type: other Qualified Code(s): I42.8 - Other cardiomyopathies Additional A&P Information DVT ppx: lovenox FUll code Attestations Medical Necessity Statement*: >2midnight admission anticipated for above care Coding Level of Care Code Acute Government Relations Analyst for Chg Fwd Diagnoses Atrial fibrillation I48.91 CHF (congestive heart failure) I50.9 Cardiomyopathy I42.8 Cardiomyopathy type: other
[2021-02-07 22:21] LABS: NT Pro B Type Natriuretic Pept 4525 pg/mL (0-450)
[2021-02-07 22:24] VITALS: BP 101/58; PULSE 107; PULSE 94; RESP 25; O2SAT 97
--- NOTE | 2021-02-07 23:05 | ECG_ITS ---
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 Measurements Intervals [place] Rate: 133 P: [place]: QRS: -22 QRSD: 92 T: 60 QT: 319 QTc: 476 Interpretive Statements ATRIAL FIBRILLATION WITH RAPID VENTRICULAR RESPONSE BORDERLINE LEFT AXIS DEVIATION [QRS AXIS < -20] NONSPECIFIC T-WAVE ABNORMALITY ABNORMAL RHYTHM ECG Compared to ECG 02/07/2021 19:34:28 T-wave abnormality now present Aberrant conduction of supraventricular beat(s) no longer present Ventricular premature complex(es) no longer present Myocardial infarct finding no longer present Electronically Signed On 02-08-2021 21:50:32 CDT by Andrew Kaye M.D. [id number]
[2021-02-07 23:06] VITALS: BP 115/67; PULSE 108; RESP 29; O2SAT 96
[2021-02-07 23:20] VITALS: BP 101/65; PULSE 90; RESP 21; O2SAT 97
[2021-02-07 23:20] LABS: Thyroid Stimulating Hormone 2.07 uIU/mL (0.27-4.20)
[2021-02-07] MEDS: FUROsemide 10 mg/mL SDV 2mL 20 MG IVP (23:26)
[2021-02-07] MEDS: enoxaparin 40 mg/0.4 mL Syringe SUBCUT (23:29)
[2021-02-08] VITALS (14 sets, daily range): BP systolic 90–138; BP diastolic 56–90; PULSE 75–120; RESP 17–25; TEMP 36.6–37.2; O2SAT 93–100
[2021-02-08 01:19] LABS: D Dimer 1.98 ug/mIFEU (0-0.59)
[2021-02-08] MEDS: carvedilol 6.25 mg Tablet PO (02:08)
[2021-02-08 02:10] LABS: Troponin 5 6HR 15.15 ng/L (0-10); Troponin 5 6HR Delta 1.15 ng/L (0-12)
[2021-02-08 02:12] LABS: Alanine Aminotransferase 17 U/L (0-33); Albumin Level 3.1 g/dL (3.5-5.2); Alkaline Phosphatase 112 IU/L (35-105); Anion Gap 14.8 (5-19); Aspartate Amino Transferase 23 U/L (0-32); Blood Urea Nitrogen 11 mg/dL (8-23); Calcium 8.3 mg/dL (8.5-10.5); Carbon Dioxide 21 mmol/L (22-29); Chloride 101 mmol/L (98-107); Globulin 2.5 g/dL (1.3-4.6); Glucose 99 mg/dL (65-115); Magnesium 1.7 mg/dL (1.7-2.3); Osmolality Calculated 275 mOsm/kg (285-295); Potassium 3.8 mmol/L (3.5-5.1); Sodium 133 mmol/L (136-145); Total Bilirubin 0.3 mg/dL (0.15-1.2); Total Protein 5.6 g/dL (6.6-8.7)
--- NOTE | 2021-02-08 03:05 | ECG_ITS ---
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 Measurements Intervals [place] Rate: 103 P: MI: QRS: -20 QRSD: 104 T: 72 QT: 358 QTc: 470 Interpretive Statements ATRIAL FIBRILLATION WITH RAPID VENTRICULAR RESPONSE POSSIBLE ANTERIOR MYOCARDIAL INFARCTION , OF INDETERMINATE AGE [30 ms Q WAVE IN V3/V4, OR R < 0.2 mV IN V4] Compared to ECG 02/07/2021 21:20:10 Myocardial infarct finding now present T-wave abnormality no longer present Electronically Signed On 02-08-2021 21:50:00 CDT by Andrew Kaye M.D. [id number]
--- NOTE | 2021-02-08 08:05 | PC.NURSE ---
Initial Rounding Pt stated it is hard to breath. HR in 120s to 130s. BP 138/90, Spo2- 89-95% on room air. 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 Cardizem drip restarted at 10 mls/hr.
--- NOTE | 2021-02-08 08:45 | USCV_ITS ---
Elia Rosemary Age: 85 Gender: F : 1935 Exam Date: 02/08/2021 12:39 Ordering Phys: Scott Upton MD Technologist: Rin Snider Exam Location: [facility] Indication: Takotsubo, cad, afib, chf BP: 138 / 90 HR: 37 Rhythm: Sinus Technical Quality: Adequate MEASUREMENTS (Male / Female) Normal Values 2D ECHO LV Diastolic Diameter PLAX 2.9 cm 4.2 - 5.9 / 3.9 - 5.3 cm LV Systolic Diameter PLAX 1.9 cm LV Chamber Size 3.8 cm IVS Diastolic Thickness 1.1 cm 0.6 - 1.0 / 0.6 - 0.9 cm IVS Systolic Thickness 1.4 cm LVPW Diastolic Thickness 0.8 cm 0.6 - 1.0 / 0.6 - 0.9 cm LVPW Systolic Thickness 1.1 cm RV Chamber Size 3.3 cm LVOT Diameter 2.0 cm LV Ejection Fraction 2D Teich 65.8 % LV Ejection Fraction MOD 2C 47.3 % LV Ejection Fraction 2C AL 49.4 % LA Diameter 3.0 cm LA Width 3.5 cm LA Height 5.5 cm RA Width 3.5 cm RA Height 4.9 cm Aorta at Sinotubular Diameter 2.1 cm M-MODE LV Diastolic Diameter MM 3.3 cm 4.2 - 5.9 / 3.9 - 5.3 cm LV Systolic Diameter MM 2.5 cm LV Ejection Fraction MM Teich 52.9 % IVS Diastolic Thickness MM 0.8 cm 0.6 - 1.0 / 0.6 - 0.9 cm IVS Systolic Thickness MM 1.0 cm LVPW Diastolic Thickness MM 0.8 cm 0.6 - 1.0 / 0.6 - 0.9 cm LVPW Systolic Thickness MM 1.1 cm RV Diastolic Diameter MM 1.8 cm Aortic Annulus Diameter 2.8 cm LA Ao Ratio MM 1.2 MV E Point Septal Separation 0.6 cm DOPPLER AV Peak Velocity 113.0 cm/s LVOT Peak Velocity 65.0 cm/s AV Area Cont Eq vti 1.7 cm squared AV Area Cont Eq pk 1.7 cm squared MV Area PHT 4.5 cm squared MV E' Velocity 106.0 cm/s TR Peak Velocity 236.8 cm/s TR Peak Gradient 22.4 mmHg TR Mean Velocity 167.9 cm/s TR Mean Gradient 11.6 mmHg TR Velocity Time Integral 62.3 cm TV Peak E Velocity 53.0 cm/s Right Atrial Pressure 8.0 mmHg Pulmonary Artery Systolic Pressu 30.4 mmHg PV Peak Velocity 48.0 cm/s RV Acceleration Time 0.1 s RV Ejection Time 0.2 s RV AcT/ET 0.4 FINDINGS Left Ventricle Normal left ventricular size.LV systolic function is borderline normal with EF of 50%. Borderline global hypokinesis is noted. Diastolic function is indeterminate Right Ventricle The right ventricle is normal in size and function. Right Atrium The right atrium is severely dilated Left Atrium The left atrium is dilated Mitral Valve Thickened mitral valve without significant stenosis or prolapse. There is moderate mitral regurgitation. Aortic Valve Thickened aortic valve without stenosis. There is no aortic regurgitation. Tricuspid Valve Structurally normal tricuspid valve without significant stenosis. Moderate tricuspid regurgitation. RVSP is 45-50mmHg. This is consistent with moderate pulmonary hypertension Pulmonic Valve Structurally normal pulmonic valve without significant stenosis. There is mild to moderate pulmonic regurgitation. Pericardium Normal pericardium without effusion. Aorta Normal ascending aorta dimension. CONCLUSIONS LV systolic function is borderline normal with EF of 50% Moderate mitral regurgitation Moderate tricuspid regurgitation. Moderate pulmonary hypertension is noted Biatrial enlargement Mild to moderate pulmonic regurgitation Compared to prior echocardiogram from 03/2020, LV systolic function has improved and mitral and tricuspid regurgitation has worsened. Andrew Kaye MD (Electronically Signed) Final Date: 09 February 2021 08:26 S
--- NOTE | 2021-02-08 08:50 | USR_ITS ---
PROCEDURE INFORMATION: Exam: US Duplex Lower Extremity Veins, Bilateral Exam date and time: 02/08/2021 8:50 AM Age: 85 years old Clinical indication: Abnormal findings; Abnormal lab test; Elevated d-dimer; Additional info: R/O dvt TECHNIQUE: Imaging protocol: Real-time duplex ultrasound of the extremities with 2-D dhaliwal scale, color Doppler flow and spectral waveform analysis with image documentation. Complete exam focused on the bilateral lower extremity veins. COMPARISON: CT abdomen pelvis w con* [id number] 02/07/2021 11:50 AM FINDINGS: Right deep veins: Unremarkable. The common femoral, femoral, proximal profunda femoral and popliteal veins are patent without thrombus. Normal Doppler waveforms. Normal compressibility and/or augmentation response. Right superficial veins: Saphenofemoral junction is patent without thrombus. Left deep veins: Unremarkable. The common femoral, femoral, proximal profunda femoral and popliteal veins are patent without thrombus. Normal Doppler waveforms. Normal compressibility and/or augmentation response. Left superficial veins: Saphenofemoral junction is patent without thrombus. Soft tissues: Unremarkable. US/CV venous duplex [facility] [id number] IMPRESSION: No evidence of deep vein thrombosis.
[2021-02-08] MEDS: pantoprazole DR 40 mg Tablet PO (08:54)
[2021-02-08] MEDS: metoprolol tartrate 50 mg Tablet PO (08:54)
[2021-02-08] MEDS: FUROsemide 40 mg Tablet PO (08:54)
[2021-02-08] MEDS: aspirin 81 mg EC Tablet PO (08:54)
[2021-02-08] MEDS: lisinopril 10 mg Tablet PO (08:54)
[2021-02-08] MEDS: apixaban 5 mg Tablet PO ×2 (09:05→21:03)
[2021-02-08] MEDS: metoprolol tartrate 1 mg/1 mL SDV 5 mL 5 MG IVP ×2 (09:05→16:53)
[2021-02-08 09:30] LABS: Iron 28 ug/dL (37-145); Percent Saturation 8.6 % (20-50); Total Iron Binding Capacity 325 mcg/dl; Unsaturated Iron Binding 297 ug/dL (112-347)
--- NOTE | 2021-02-08 11:51 | PC.CHAP ---
Pastoral Care Encounter/Spiritual Assessment Type of Contact [] Declined naturopathic oncology provider visit [] Patient/Family/Request visit [] Outpatient visit [] Follow-up visit [] Physician referral [] Code/Alert [XX] Routine visit [] Staff referral [] Actively dying [] Patient sleeping [] Family support [] [] Out of room [] Palliative care [] [] Receiving care in room [] Pre-surgical visit [] Trauma [] Long length of stay [] ICU visit [] Other: Relational/Emotional Strength [XX] Patient feels connected with others/family/visitors/staff [] Distress [] Loneliness/isolation [] Abandonment Spirituality of Patient [] Person of Marry [] Attends Taoism of their Marry [XX] Believes in Prayer [] Reads Bible or Adventism materials [] There are Spiritual issues to be addressed Archeologist Classical Interventions [XX] Prayer [XX] Active listening [XX] Non-anxious presence [] Spiritual/emotional support [] Crisis/trauma care [] Spiritual counseling [] Bereavement support [] Provided bereavement packet [] Provided Bible/devotional materials [] Provided toy/stuffed animal, coloring book to patient or family member [] Provided Communion [] Anointing/[place] [] Salvation [XX] Completed spiritual assessment [] Other: Impact on Illness or Injury [] Angry [] Fearful [] Anxious [] Often cries [XX] Exhaustion [] Unable to work [] Unable to attend mormonism [] Unable to walk/stand [] Unable to read [] Unable to drive [] Unable to eat/drink [] Unable to sleep [] Unable to be with family [] Patient intubated [] Other: Summary: Pt has several children who are supporting her. Pt is frustrated at being sick and so worn out. Pt welcomed prayer. Time spent with patient: 10 mins
--- NOTE | 2021-02-08 13:53 | PM.PN ---
Subjective Subjective: Interval history: Admitted last night. H&P and labs appreciated. Examination today patient on 2 L oxygen supplementation up in bed. Stating she is extremely short of breath and feels as if not able to get too much air into her lungs. Saturating 94%. Denies any nausea vomiting, headache. Denies any palpitations at home. Currently on pain off IV Cardizem drip. Heart rate running in 110s to 114 bpm. Complaining of swelling in her legs. States she has been anxious at home and she has been hearing the news regarding Covid. Vitals/I&O/Wt Last Vital Signs Temp 97.9 F 02/08/21 12:00 Pulse 75 02/08/21 12:00 Resp 20 H 02/08/21 12:00 BP 100/66 02/08/21 12:00 Pulse Ox 93 02/08/21 12:00 02/07/21 02/08/21 02/08/21 22:59 06:59 14:59 Intake Total 174.5 / 174.5 515.008 / 515.008 Output Total 650 / 650 1000 / 1000 Balance -475.5 / -475.5 -484.992 / -484.992 Weight last 48 hrs Weight 45.541 kg Weight 39.009 kg Physical Exam Narrative: EXAM NARRATIVE: General: No acute distress, AO x3, anxious, on 2 L oxygen supplementation HEENT: PERRLA, pupils bilaterally equal and reactive Chest: Bronchial breath sounds, occasional rhonchi all over the lung leon, fine crackles in lower zones, equal good air entry bilaterally CVS: S1-S2 irregularly irregular, pansystolic murmur in fourth intercostal space left parasternal region, 2/6,, S3 gallop, no tachycardia, JVP elevated Abdomen: Soft, nontender, no organomegaly, bowel sounds present Neuro: No focal deficits, no facial deformity, AO x3, power 5/5 in all limbs Urinary Catheter Management^: Forbes: Cath Placed During This Visit: yes Urinary Catheter Date of Insertion: 02/08/21 Urinary Catheter Time of Insertion: 10:30 Data : 02/08/21 01:35 A&P Assessment and plan (1) Atrial fibrillation: Status: Acute (2) CHF (congestive heart failure): Status: Acute (3) Cardiomyopathy: Last known EF 50% Status: Acute Qualifiers: Cardiomyopathy type: other Qualified Code(s): I42.8 - Other cardiomyopathies (4) Takotsubo syndrome: Status: Acute (5) Atherosclerotic heart disease of [place] coronary artery without angina pectoris: Status: Acute Qualifiers: [place] vs. transplanted heart: [place] heart Qualified Code(s): I25.10 - Atherosclerotic heart disease of [place] coronary artery without angina pectoris (6) COPD (chronic obstructive pulmonary disease): Status: Acute Additional A&P Information Atrial fibrillation with rapid ventricular response: New diagnosis. Continue with Cardizem drip. We will try to wean keeping her heart rate less than 100. Switch from oral Coreg to metoprolol 50 mg twice daily. For now hold off on oral Cardizem. Pierre vas score: 6. Patient agreeable for anticoagulation. Switch to Eliquis 5 mg twice daily. Hypoxia: Most likely is a combination of COPD exacerbation and congestive heart failure. Cannot rule out PE. D-dimer elevated. Patient did have a CTA abdomen pelvis done yesterday so for now hold off on CTA chest. We will plan for CTA chest tomorrow. Lower limb Dopplers. Start patient on oral Lasix 40 mg daily. Patient is Lasix na?ve. Strict input output charting. Daily weights. Forbes catheterization. Fluid restriction up to 1500 cc. Start patient on Advair, Spiriva. For now hold off on starting steroids. Last echocardiogram done in July shows an EF 50% which is an improvement from echo in March 2020 which had an EF 38% with grade 1 diastolic dysfunction, moderate TR, moderate pulmonary hypertension. Repeat complete echocardiogram. Echo EF low again might consider stress test given history of CAD. History of Takotsubo. History of CAD: Questionable history of chest pain. Continue with statin, aspirin. Check HbA1c, lipid panel. Hypertension: Goal blood pressure less than 140/90 mmHg. Switching Coreg to metoprolol for better rate control. Lisinopril 10 mg oral daily. DVT ppx: Eliquis will help with DVT prophylaxis. Cardiac diet. CODE STATUS: Discussed in detail again. Patient would not want any kind of chest compressions or heroic measures like intubation but is okay with medical treatment. Limited resuscitation Attestations Medical Necessity Statement*: management of hypoxia secondary congestive heart failure, COPD exacerbation, atrial fibrillation with rapid ventricular response in setting of baseline Takotsubo and CAD Time Spent in Patient Care: Greater than 35 minutes (>than 50% of time spent in counselling and/or direct pt care on unit). Coding Level of Care Code Acute Field Mechanic/Site Lead for Chg Fwd Diagnoses Atrial fibrillation I48.91 CHF (congestive heart failure) I50.9 Cardiomyopathy I42.8 Cardiomyopathy type: other Takotsubo syndrome I51.81 Atherosclerotic heart disease of [place] coronary artery without angina pectoris I25.10 [place] vs. transplanted heart: [place] heart COPD (chronic obstructive pulmonary disease) J44.9
[2021-02-08] MEDS: ALPRAZolam 0.5 mg Tablet PO (16:53)
--- NOTE | 2021-02-08 19:51 | PC.NURSE ---
Shift Note Frequent safety and comfort rounds continue. Orders and/or nursing care completed as indicated. Patient monitored for response to intervention and treatment(s). Education provided includes new meds, breathing treatments and wills catheter placement reason and education on cauti. Patient and/or contact representative verbalizes understanding. Informed and discuss to doctor that pt gets very short of breath when she is up and ambulating to bathroom. HR- ranges between 120s to 130s during activity, left lung diminished upon auscultation, at rest pt is in between 80s to 100s. Will continue to monitor.
[2021-02-08] MEDS: metoprolol tartrate 50 mg Tablet 75 MG PO (19:54)
[2021-02-08] MEDS: atorvastatin 40 mg Tablet PO (21:03)
[2021-02-09] VITALS (17 sets, daily range): BP systolic 79–105; BP diastolic 48–67; PULSE 60–130; RESP 18–24; TEMP 36.5–37.1; O2SAT 91–99
[2021-02-09 05:14] LABS: Basophils % 0.3 %; Eosinophils % 0.4 %; Hematocrit 37.1 % (37.0-47.0); Hemoglobin 11.8 g/dL (11.5-15.3); Lymphocytes # 1.2 10^3/uL (0.8-4.8); Lymphocytes % 16.6 %; Mean Corpuscular HGB Conc 31.8 g/dL (30.0-36.0); Mean Corpuscular Hemoglobin 27.6 pg (28.0-34.0); Mean Corpuscular Volume 86.9 fl (81-99); Mean Platelet Volume 11.4 fL (7.4-10.4); Monocytes # 0.5 10^3/uL (0.2-0.9); Neutrophils # 5.51 10^3/uL (1.8-7.7); Neutrophils % 75.4 %; Nucleated Red Blood Cells % 0 %; Platelet Count 143 10^3/cmm (130-400); Red Blood Count 4.27 10^6/uL (4.1-5.3); Red Cell Distribution Width 15.6 % (12.1-15.1); White Blood Count 7.3 10^3/uL (4.0-10.0)
[2021-02-09 05:39] LABS: Alanine Aminotransferase 15 U/L (0-33); Albumin Level 2.8 g/dL (3.5-5.2); Alkaline Phosphatase 102 IU/L (35-105); Blood Urea Nitrogen 12 mg/dL (8-23); Calcium 8.4 mg/dL (8.5-10.5); Carbon Dioxide 26 mmol/L (22-29); Chloride 97 mmol/L (98-107); Globulin 2.7 g/dL (1.3-4.6); Glucose 79 mg/dL (65-115); Osmolality Calculated 271 mOsm/kg (285-295); Sodium 131 mmol/L (136-145); Total Bilirubin 0.6 mg/dL (0.15-1.2); Total Protein 5.5 g/dL (6.6-8.7)
[2021-02-09 05:45] LABS: Chol HDL Ratio 3.03 mg/dL (0.0-4.40); Cholesterol 118 mg/dL (0-200); HDL Cholesterol 39 mg/dL (60-100); LDL Cholesterol Calculated 66 mg/dL (50-129); Triglycerides 64 mg/dL (0-150); VLDL Cholestrol Calculation 13 mg/dL (0-30)
[2021-02-09 05:48] LABS: Estmated Average Glucose 111; Hemoglobin A1C 5.5 % (4.0-6.0)
[2021-02-09] MEDS: metoprolol tartrate 50 mg Tablet 75 MG PO (06:12)
[2021-02-09 06:20] LABS: Anion Gap 11.8 (5-19); Aspartate Amino Transferase 19 U/L (0-32); Potassium 3.8 mmol/L (3.5-5.1)
[2021-02-09] MEDS: lisinopril 10 mg Tablet PO (08:31)
[2021-02-09] MEDS: FUROsemide 40 mg Tablet PO (08:31)
[2021-02-09] MEDS: apixaban 5 mg Tablet PO ×2 (08:31→20:22)
[2021-02-09] MEDS: aspirin 81 mg EC Tablet PO (08:31)
[2021-02-09] MEDS: pantoprazole DR 40 mg Tablet PO (08:31)
--- NOTE | 2021-02-09 11:40 | XR_ITS ---
WS: [id number] Exam: XR chest 1V portable [id number] Date/Time of Exam: 02/09/2021 11:57 AM Reason For Exam: for V/Q scan Comparison 02/07/2021. Increasing consolidating infiltrates noted in the mid and lower right lung and the left lung base. Bi basal pleural effusions. The heart is enlarged. Pulmonary vascularity is increased. The mediastinum i s not widened. Regional bony structures are intact. Bilateral carotid artery calcifications noted. XR/XR chest 1V portable [id number] IMPRESSION: 1. Increasing bibasal pulmonary infiltrates and pleural effusions since prior s tudy. 2. Cardiac enlargement with pulmonary vascular congestion suggesting superimpos ed CHF.
--- NOTE | 2021-02-09 12:10 | PC.NUTR ---
Rosemary does not open her boost nutritional drinks and says she does not plan to. She asked if you guys can not send them again because she hates for them to keep going to waste.
[2021-02-09] MEDS: digoxin 250 mcg/ml INJ 2 mL IVP ×2 (12:30→15:48)
--- NOTE | 2021-02-09 14:55 | PC.RESP ---
PULMONARY REHAB INFORMATION SENT TO PATIENT.
--- NOTE | 2021-02-09 15:29 | PM.PN ---
Subjective Subjective: Interval history: States she is doing all right today. Denies chest pain or pressure. Is not short of breath. She is currently on room air. Has walked to the restroom today. Heart rates for the most part stayed in the 90s, occasionally to low 100s, however, later in the morning reported to have heart rates 120s-130s. Soft blood pressure. Vitals/I&O/Wt Last Vital Signs Temp 98.8 F 02/09/21 11:29 Pulse 130 H 02/09/21 11:29 Resp 24 H 02/09/21 11:29 BP 86/54 02/09/21 11:29 Pulse Ox 95 02/09/21 11:29 02/09/21 02/09/21 02/09/21 06:59 14:59 22:59 Intake Total 60 / 706.500 360 / 360 Output Total 550 / 1550 650 / 650 Balance -490 / -843.500 -290 / -290 Weight last 48 hrs Weight 44.497 kg Weight 45.541 kg Weight 39.009 kg Physical Exam Const: COMMON NORMALS: no acute distress and patient oriented x3 GENERAL APPEARANCE: cooperative and comfortable HENMT: COMMON NORMALS: oropharynx normal Neck/C-Spine: COMMON NORMALS: no JVD Resp: COMMON NORMALS: normal respiratory effort and clear to auscultation bilaterally AUSCULTATION: clear to auscultation bilaterally Cardio: COMMON NORMALS: no JVD, regular rhythm, S1 normal heart sound present, S2 normal heart sound present and No murmurs present (Cardio) RHYTHM: regular rhythm HEART SOUNDS: S1 normal heart sound present and S2 normal heart sound present GI: COMMON NORMALS: Normal to inspection, nondistended, normoactive bowel sounds present, Soft to palpation and non-tender PALPATION: Yes Soft to palpation Extremity: COMMON NORMALS: no joint enlargement and no pedal edema Neuro: COMMON NORMALS: patient oriented x3 and moves all extremities Skin: COMMON NORMALS: no rashes or lesions noted GENERAL SKIN EXAM: no rashes or lesions noted Urinary Catheter Management^: Forbes: Cath Placed During This Visit: yes Reason for Continuing Indwelling Catheter: Accurate Measurement of Urinary Output in Critically Ill Patients Urinary Catheter Date of Insertion: 02/08/21 Urinary Catheter Time of Insertion: 10:30 Data : 02/09/21 04:02/09/21 04:22 A&P Assessment and plan (1) Atrial fibrillation: Overnight did better, this morning heart rates mostly 90s, up to low 100s, was feeling well because her consideration was that it may be possible for her to return home, however, later in the morning heart rates 120s-130s, blood pressure soft. She is off Cardizem drip. Received metoprolol earlier in the morning. Unable to give more Cardizem due to soft blood pressure. Received 0.25 digoxin IV push, monitor heart rate. Repeat additional 0.25mg IV. Eliquis. Status: Acute (2) CHF (congestive heart failure): Acute diastolic congestive heart failure, low normal ejection fraction, also with underlying MVR, TVR, pulmonary hypertension. Lasix 40 mg daily Status: Acute (3) Cardiomyopathy: Last known EF 50% Status: Acute Qualifiers: Cardiomyopathy type: other Qualified Code(s): I42.8 - Other cardiomyopathies (4) Takotsubo syndrome: Improving. Status: Acute (5) Atherosclerotic heart disease of [place] coronary artery without angina pectoris: Status: Acute Qualifiers: [place] vs. transplanted heart: [place] heart Qualified Code(s): I25.10 - Atherosclerotic heart disease of [place] coronary artery without angina pectoris (6) COPD (chronic obstructive pulmonary disease): Status: Acute Additional A&P Information Hypoxia: Most likely is a combination of COPD exacerbation and congestive heart failure. Improved. Continue Lasix p.o. 40 mg daily. Will assess VQ scan. Continue Eliquis. Lower limb Dopplers negative. No chest pain, no hemoptysis. Hypoxia resolving. Strict input output charting. Daily weights. Forbes catheterization. Fluid restriction up to 1500 cc. For COPD started on Advair, Spiriva. Hypertension: Hold lisinopril as blood pressure is soft with metoprolol Attestations Medical Necessity Statement*: Continue admission for optimization of control of A. fib with RVR. Coding Level of Care Code Acute Kinesiologist for Chg Fwd Diagnoses Atrial fibrillation I48.91 CHF (congestive heart failure) I50.9 Cardiomyopathy I42.8 Cardiomyopathy type: other Takotsubo syndrome I51.81 Atherosclerotic heart disease of [place] coronary artery without angina pectoris I25.10 [place] vs. transplanted heart: [place] heart COPD (chronic obstructive pulmonary disease) J44.9
--- NOTE | 2021-02-09 18:30 | PC.NURSE ---
Dr Montero called, holding dose of 75 mg metoprolol due to low bp and pulse of 84 sinus rhythm. Order received for one time dose of 25mg metoprolol.
[2021-02-09] MEDS: metoprolol tartrate 25 mg Tablet PO (18:59)
[2021-02-09] MEDS: atorvastatin 40 mg Tablet PO (20:22)
[2021-02-10] VITALS (11 sets, daily range): BP systolic 120–138; BP diastolic 61–83; PULSE 63–87; RESP 18–24; TEMP 36.2–36.6; O2SAT 89–97
[2021-02-10 04:46] LABS: Basophils % 0.3 %; Eosinophils # 0.1 10^3/uL (0.0-0.8); Eosinophils % 0.9 %; Hematocrit 36.1 % (37.0-47.0); Hemoglobin 11.6 g/dL (11.5-15.3); Lymphocytes # 1.5 10^3/uL (0.8-4.8); Lymphocytes % 22.8 %; Mean Corpuscular HGB Conc 32.1 g/dL (30.0-36.0); Mean Corpuscular Hemoglobin 27.7 pg (28.0-34.0); Mean Corpuscular Volume 86.2 fl (81-99); Mean Platelet Volume 11.1 fL (7.4-10.4); Monocytes # 0.6 10^3/uL (0.2-0.9); Monocytes % 9.1 %; Neutrophils # 4.27 10^3/uL (1.8-7.7); Neutrophils % 66.7 %; Nucleated Red Blood Cells % 0 %; Platelet Count 150 10^3/cmm (130-400); Red Blood Count 4.19 10^6/uL (4.1-5.3); Red Cell Distribution Width 15.5 % (12.1-15.1); White Blood Count 6.4 10^3/uL (4.0-10.0)
[2021-02-10 05:08] LABS: Anion Gap 11.6 (5-19); Blood Urea Nitrogen 12 mg/dL (8-23); Carbon Dioxide 26 mmol/L (22-29); Chloride 101 mmol/L (98-107); Glucose 81 mg/dL (65-115); Magnesium 1.6 mg/dL (1.7-2.3); Osmolality Calculated 279 mOsm/kg (285-295); Potassium 3.6 mmol/L (3.5-5.1); Sodium 135 mmol/L (136-145)
[2021-02-10 06:10] LABS: Digoxin 1.4 ng/mL (0.6-1.2)
[2021-02-10] MEDS: metoprolol tartrate 50 mg Tablet 75 MG PO (06:12)
[2021-02-10] MEDS: pantoprazole DR 40 mg Tablet PO (09:34)
[2021-02-10] MEDS: aspirin 81 mg EC Tablet PO (09:34)
[2021-02-10] MEDS: apixaban 5 mg Tablet PO (09:35)
[2021-02-10] MEDS: FUROsemide 40 mg Tablet PO (09:35)
--- NOTE | 2021-02-10 09:50 | PC.SOCIAL ---
IMM Update Pg. 2 of IMM updated and reviewed with patient, who verbalized understanding. Copy provided.
--- NOTE | 2021-02-10 10:08 | NM_ITS ---
WS: [id number] NUCLEAR MEDICINE VENTILATION/PERFUSION LUNG SCAN HISTORY: dyspnea, tachycardia, assess for PE COMPARISON: Chest radiograph 02/09/2021 TECHNIQUE: Ventilation: 31.1 mCi of Technetium 99 DTPA aerosol inhaled. Perfusion: 4.7 mCi of technetium 99m MAA IV. Significant heterogeneous deposition of radionuclide on the ventilatory portion of the examination du e to underlying lung disease. Lungs are hyperexpanded. Poor visualization of the lower lung leon on the perfusion examination is matched. Heart is enlarged. Mediastinal widening is matched. NM/NM pul vent and perfus* [id number] IMPRESSION: Extensive matched defects bilaterally with slightly better perfusion than aerat ion. Findings are indeterminate for pulmonary embolism. Quality of this examina tion is limited due to extensive opacifications in the lungs and chronic emphys north.
[2021-02-10] MEDS: magnesium sulfate premix 2 GM/50 ML PIGGYBACK IV (10:42)
[2021-02-10 15:09] LABS: Procalcitonin 0.05 ng/mL (0-0.5)
--- NOTE | 2021-02-10 22:22 | P.DS_ITS ---
Discharge Providers Date of Admission: 02/07/21 21:47 Date of Discharge: February 10, 2021 Attending Provider at Admission: Joie Velázquez MD Attending Provider at Discharge: Kevin Eden Primary Care Provider: Huyen Thompson APN Diagnoses at Discharge Discharge Diagnosis (1) Atrial fibrillation: Status: Acute (2) CHF (congestive heart failure): Status: Acute (3) Cardiomyopathy: Status: Acute Qualifiers: Cardiomyopathy type: other Qualified Code(s): I42.8 - Other cardiomyopathies (4) Takotsubo syndrome: Status: Acute (5) Atherosclerotic heart disease of [place] coronary artery without angina pectoris: Status: Acute Qualifiers: [place] vs. transplanted heart: [place] heart Qualified Code(s): I25.10 - Atherosclerotic heart disease of [place] coronary artery without angina pectoris (6) COPD (chronic obstructive pulmonary disease): Status: Acute Reason for Visit Reason for Visit: Afib Hospital Course Hospital Course 85-year-old lady with history of Takotsubo cardiomyopathy with low ejection fraction, was admitted for assessment management due to worsening shortness of breath with exertion, PND, lower extremity edema, noted to be in atrial fibrillation with RVR on presentation, with also known underlying COPD, dyspnea was found to be combination secondary to CHF, also with underlying MVR, TVR, pulmonary hypertension as per echo, as well as COPD. She was treated with diuretics, rate control achieved with Cardizem drip, subsequently transitioned to metoprolol, required addition of digoxin due to recurrence of A. fib with RVR with soft blood pressures, not able to tolerate additional Cardizem. On r eassessment echocardiography overall noted improvement in ejection fraction up to 50%, noted moderate MVR, noted moderate TVR, moderate pulmonary hypertension. Given improvement in EF, significant provement in volume status, Lasix at discharge discontinued as needed as per discussion with her and her daughter. She is asked to maintain fluid restriction of 1500 mL/day. With dyspnea, A. fib with RVR, was assessed additionally by venous duplex which was negative for DVT, as well as VQ scan which was indeterminate for pulmonary embolism. Due to atrial fibrillation she is started on anticoagulation, but as per discussion with her and her daughter due to difficulty to exclude possibility of PE, although certainly not large hemodynamically significant clot given normal right ventricle on echo, they are agreeable with discussion of risks of bleeding for empiric anticoagulation with 10 mg Eliquis initially as per possible presence of PE. Subsequently she is to transition to continue 5 mg twice daily for stroke prevention with atrial fibrillation which will give her coverage for possible PE as well. She is otherwise asked for follow-up with cardiology for reassessment of cardiomyopathy as well as assessment of new atrial fibrillation. Hypomagnesemia was replaced. She started on supplement. Please follow-up volume status, renal function, please reassess digoxin level. She did not need home oxygen on home O2 evaluation. Physical Exam Narrative: EXAM NARRATIVE: She reports she is feeling well today. She ambulated. Denies any complaints. Feels ready to return home. Const: COMMON NORMALS: no acute distress and patient oriented x3 GENERAL APPEARANCE: cooperative and comfortable HENMT: COMMON NORMALS: oropharynx normal Neck/C-Spine: COMMON NORMALS: no JVD Resp: COMMON NORMALS: normal respiratory effort and clear to auscultation bilaterally AUSCULTATION: clear to auscultation bilaterally Cardio: COMMON NORMALS: no JVD, regular rhythm, S1 normal heart sound present, S2 normal heart sound present and No murmurs present (Cardio) RHYTHM: regular rhythm HEART SOUNDS: S1 normal heart sound present and S2 normal heart sound present GI: COMMON NORMALS: Normal to inspection, nondistended, normoactive bowel sounds present, Soft to palpation and non-tender PALPATION: Yes Soft to palpation Extremity: COMMON NORMALS: no joint enlargement and no pedal edema Neuro: COMMON NORMALS: patient oriented x3 and moves all extremities Skin: COMMON NORMALS: no rashes or lesions noted GENERAL SKIN EXAM: no rashes or lesions noted Urinary Catheter Management^: Forbes: Cath Placed During This Visit: yes Reason for Continuing Indwelling Catheter: Accurate Measurement of Urinary Output in Critically Ill Patients Urinary Catheter Date of Insertion: 02/08/21 Urinary Catheter Time of Insertion: 10:30 Discharge Data Data Completed and Pending: Completed Studies During Hospitalization Category Date Time Status CXRP [XR chest 1V portable [id number]] R outine Exams 02/09/21 11:40 Completed NM pul vent and p erfus* [id number] Routi ne Nuc Med 02/10/21 10:08 [place] [id number] Urgent Ultrasound 02/08/21 08:50 Completed CV. echo complete * [id number] Routine Ultrasound 02/08/21 08:45 Completed Labs from last 24 hours 02/10/21 02/10/21 02/10/21 04:02 04:02 04:02 WBC 6.4 RBC 4.19 Hgb 11.6 Hct 36.1 L MCV 86.2 MCH 27.7 L MCHC 32.1 RDW 15.5 H Plt Count 150 MPV 11.1 H Neut % (Auto) 66.7 Lymph % (Auto) 22.8 [place] % (Auto) 9.1 Eos % (Auto) 0.9 Baso % (Auto) 0.3 Neut # (Auto) 4.27 Lymph # (Auto) 1.5 [place] # (Auto) 0.6 Eos # (Auto) 0.1 Baso # (Auto) 0.0 Nucleated RBC % (a uto) 0 Nucleated RBCs # 0.0 Sodium 135 L Potassium 3.6 Chloride 101 Carbon Dioxide 26 Anion Gap 11.6 BUN 12 Creatinine 0.3 L GFR Calculation Not Reportable Glucose 81 Calculated Osmolal ity 279 L Calcium 8.0 L Magnesium 1.6 L Procalcitonin 0.05 Digoxin 1.4 H Vitals: Last Vital Signs Temp 97.2 F L 02/10/21 16:37 Pulse 63 02/10/21 16:37 Resp 18 02/10/21 16:37 BP 126/72 02/10/21 16:37 Pulse Ox 94 02/10/21 16:37 Discharge Plan Discharge Patient Disposition: Home Condition: Stable Prescriptions: New metoprolol tartrate 50 mg Tablet 75 mg PO Q12H Qty: 90 RF: 0 apixaban 5 mg tablet 5 mg PO BID@0900,2100 Qty: 60 RF: 0 digoxin 125 mcg (0.125 mg) Tablet 125 mcg PO EVERY OTHER DAY Qty: 30 RF: 0 Spiriva with HandiHaler 18 mcg Capsule, W/Inhalation Device 18 mcg inhalation DAILY.RESPIRATORY Qty: 90 RF: 0 albuterol sulfate 90 mcg/actuation HFA aerosol inhaler 2 inh inhalation Q6H PRN (Reason: shortness of breath or wheezing) Qty: 8.5 RF: 0 Eliquis DVT-PE Treat 30D Start 5 mg (74 tabs) tablets,dose pack See Rx Instructions .ROUTE .COMPLEX Qty: 74 RF: 0 magnesium oxide 250 mg magnesium tablet 250 mg PO DAILY Qty: 90 RF: 0 Continued multivitamin Tablet 1 tab PO DAILY RF: 0 ascorbic acid (vitamin C) [Vitamin C] 1,000 mg Tablet 1,000 mg PO DAILY RF: 0 aspirin 81 mg Tablet 81 mg PO DAILY RF: 0 potassium gluconate 600 mg (99 mg) Tablet 600 mg PO DAILY RF: 0 atorvastatin 40 mg Tablet 40 mg PO BEDTIME Qty: 30 RF: 0 Discontinued lisinopril 20 mg tablet 20 mg PO DAILY Qty: 90 RF: 3 carvedilol [Coreg] 6.25 mg tablet 9.375 mg PO BID Qty: 90 RF: 0 Discharge Orders: Discharge Order (Routine); Ordered 02/10/21 Ordered By: Kevin Eden Referrals: Huyen Thompson APN [Primary Care Provider] - 4-7 days (Please follow-up with Huyen Thompson on Feb.18 at 9:00A.M. If youhave any questions or need to reschedule. Please call ) Evelina Khan MD [Physician] - (Please follow-up with Dr. Khan on Apr.16 at 10:00A.M. If you have any questions or need to reschedule. Please call ) Mary Ricks FNP [Nurse Practitioner] - 1 week (Please follow-up with Mary Ricks on Feb.17 at 1:45P.M. If youhave any questions or need to reschedule. Please call ) Discharge Diet: Cardiac Discharge Activity: Increase activity as tolerated Patient Instructions: Metoprolol (By mouth), Digoxin (By mouth), Albuterol (By breathing), Tiotropium (By breathing), Apixaban (By mouth), Atrial Fibrillation (GEN) Activity Restrictions/Additional Instructions: Please follow-up with your primary care doctor to discuss the problems that have been found in the hospital. Please discuss atrial fibrillation. For this you are started on metoprolol and digoxin, as well as Eliquis to help reduce risk of stroke. Please also discuss congestive heart failure. Please continue Lasix only on as- needed basis in case you notice leg swelling, gain more than 3 pounds in 2 days, or noticed worsening shortness of breath with lying down flat. Do not take Lasix otherwise. Maintain fluid restriction of total fluid of 1500 mL/day or less. Please have your primary care doctor recheck your volume status, as well as kidney function and digoxin level at next appointment. 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 Please take magnesium supplements daily, have your primary doctor recheck your magnesium level. Please note also due to indeterminate result on the nuclear lung scan (V/Q) for pulmonary embolism with concern for possible pulmonary embolism this should also be covered by the blood thinner as above. Temporarily this blood thinner dose will be 10 mg twice a day for a week, subsequently will continue 5 mg twice a day just as you would for atrial fibrillation. Please note blood thinner medications increase your risk of bleeding alongside aspirin as well, so please be extra cautious to avoid any injury or bleeding. If you notice bleeding stop the medication and seek medical attention. Similarly seek medical attention in case you notice worrisome symptoms including chest pain, worsening shortness of breath, low oxygen saturation (measured oxygen saturation with goal saturations at 90-92% on room air), or if you experience high fever, productive cough, or any other concerning symptoms, please seek medical attention immediately. Discharge Attestations Time Spent in Discharge Care*: greater than 30 min Quality Metrics Clinical Quality Measures During this hospital stay, did patient experience: VTE Contraindication to Overlap Therapy: Overlap therapy prescribed VTE Discharge Education: Education about anticoagulant therapy/Care Notes given and None Coding Level of Care Code Acute [facility] [place] note Diagnoses Atrial fibrillation I48.91 CHF (congestive heart failure) I50.9 Cardiomyopathy I42.8 Cardiomyopathy type: other Takotsubo syndrome I51.81 Atherosclerotic heart disease of [place] coronary artery without angina pectoris I25.10 [place] vs. transplanted heart: [place] heart COPD (chronic obstructive pulmonary disease) J44.9
--- NOTE | 2021-02-11 13:53 | PC.SOCIAL ---
discharge follow up call made, spoke with pts daughter, Zahra who cares for patient. she reports all medications were picked up from the pharmacy and patient is taking as prescribed. discussed the reasonings for taking eliquis to help reduce the chances of stroke and eliquis for the afib along with metroprolol and digoxin. daughter reports pt is taking lasix prn for swelling, or any increased shortness of breath. daughter is aware of follow up appointment dates and times and will transport patient to appointments.
== END 2021-02-10 17:20 | disposition home or self-care (01) | DRG 308 ==
LOC: ER 21:52 → CSU 21:55
PROVIDERS: Student in an Organized Health Care Education/Training Program; Admitting Provider Student in an Organized Health Care Education/Training Program; Emergency Provider Family Medicine; PCP Nurse Practitioner; Visit Provider Internal Medicine
DX: I48.91 Unspecified atrial fibrillation (principal); I50.31 Acute diastolic (congestive) heart failure; J44.1 Chronic obstructive pulmonary disease with (acute) exacerbation; I11.0 Hypertensive heart disease with heart failure; I42.8 Other cardiomyopathies; I25.10 Atherosclerotic heart disease of native coronary artery without angina pectoris; I27.20 Pulmonary hypertension, unspecified; I34.0 Nonrheumatic mitral (valve) insufficiency; I07.1 Rheumatic tricuspid insufficiency; E83.42 Hypomagnesemia; R09.02 Hypoxemia; E78.5 Hyperlipidemia, unspecified; I25.2 Old myocardial infarction; Z86.73 Personal history of transient ischemic attack (TIA), and cerebral infarction without residual deficits; Z82.49 Family history of ischemic heart disease and other diseases of the circulatory system; Z87.891 Personal history of nicotine dependence; Z86.79 Personal history of other diseases of the circulatory system
CPT/HCPCS: 36415; 51702; 71045; 74177; 78014; 80048; 80053; 80061; 80162; 83036; 83540; 83550; 83735; 83880; 84145; 84443; 84484; 85025; 85378; 85610; 93005; 93306; 93970; 94640; 96374; 96376; 99284; 99285; A9540; A9567; J1160; J1650; J1940; J3475; J3490; Q9967

== ENCOUNTER → 2021-04-16 11:15 | Outpatient (BNVA) | payer MEDICARE, SELFPAY | PROVIDERS: PCP Nurse Practitioner; Visit Provider Internal Medicine Cardiovascular Disease | DX: I50.33 Acute on chronic diastolic (congestive) heart failure (principal); I50.9 Heart failure, unspecified; R06.02 Shortness of breath | CPT/HCPCS: 80048; 80162; 83880 ==

== ENCOUNTER → 2021-09-08 09:22 | Outpatient (BNVA) | payer MEDICARE, SELFPAY | PROVIDERS: PCP Nurse Practitioner; Visit Provider Nurse Practitioner Family | DX: I48.0 Paroxysmal atrial fibrillation (principal); Z79.01 Long term (current) use of anticoagulants; I42.8 Other cardiomyopathies; Z87.891 Personal history of nicotine dependence | CPT/HCPCS: 99214 ==

== ENCOUNTER 2021-11-29 15:42 | Observation (INO) | payer MEDICARE, SELFPAY ==
[2021-11-29] VITALS (7 sets, daily range): BP systolic 130–200; BP diastolic 69–97; PULSE 63–86; RESP 15–16; TEMP 36.2–36.6; O2SAT 96–98; BMI 17.4
--- NOTE | 2021-11-29 16:08 | ECG_ITS ---
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 Measurements Intervals [place] Rate: 77 P: 79 [place]: 147 QRS: -30 QRSD: 96 T: 82 QT: 344 QTc: 390 Interpretive Statements SINUS RHYTHM WITH MARKED SINUS ARRHYTHMIA BORDERLINE LEFT AXIS DEVIATION [QRS AXIS < -20] LEFT VENTRICULAR HYPERTROPHY AND ST-T CHANGE [VOLTAGE CRITERIA PLUS ST/T ABNORMALITY] Compared to ECG 02/08/2021 00:31:25 Left ventricular hypertrophy now present ST (T wave) deviation now present Atrial fibrillation no longer present Myocardial infarct finding no longer present Electronically Signed On 11-30-2021 8:08:50 CDT by Andrew Kaye M.D. [email or web address]
--- NOTE | 2021-11-29 16:08 | XRR_ITS ---
PROCEDURE INFORMATION: Exam: XR Chest Exam date and time: 11/29/2021 4:17 PM Age: 86 years old Clinical indication: Pain; Angina pectoris; Additional info: Chest pain TECHNIQUE: Imaging protocol: Radiologic exam of the chest. Views: 1 view. COMPARISON: CR XR chest 1V portable [id number] 02/09/2021 11:54 AM FINDINGS: Lungs: Lungs are clear. Pleural spaces: There is no pleural effusion or pneumothorax. Heart/Mediastinum: Cardiomediastinal contours are unremarkable. Bones/joints: Bones are unremarkable. XR/XR chest 1V portable [id number] IMPRESSION: No acute findings.
[2021-11-29 16:30] LABS: Basophils % 0.4 %; Eosinophils % 0.1 %; Hematocrit 42.8 % (37.0-47.0); Hemoglobin 14.6 g/dL (11.5-15.3); Lymphocytes # 1.6 10^3/uL (0.8-4.8); Lymphocytes % 19.1 %; Mean Corpuscular HGB Conc 34.1 g/dL (30.0-36.0); Mean Corpuscular Hemoglobin 29.4 pg (28.0-34.0); Mean Corpuscular Volume 86.1 fl (81-99); Mean Platelet Volume 10.8 fL (7.4-10.4); Monocytes # 0.5 10^3/uL (0.2-0.9); Monocytes % 6.2 %; Neutrophils # 6.21 10^3/uL (1.8-7.7); Neutrophils % 73.8 %; Nucleated Red Blood Cells % 0 %; Platelet Count 188 10^3/cmm (130-400); Red Blood Count 4.97 10^6/uL (4.1-5.3); White Blood Count 8.4 10^3/uL (4.0-10.0)
--- NOTE | 2021-11-29 16:44 | ED_ITS ---
HPI - Chest Pain General: Chief Complaint: Chest Pain Stated Complaint: chest pain Time Seen by Provider: 11/29/21 16:08 PFSH ED PFSH: Medical History Atherosclerotic heart disease of [place] coronary artery without angina pectoris Atrial fibrillation CAD (coronary artery disease) Cardiomyopathy CHF (congestive heart failure) Chronic back pain COPD (chronic obstructive pulmonary disease) Dyslipidemia (high LDL; low HDL) HTN (hypertension) Hx of completed stroke Hx of myocardial infarction Kyphosis deformity of spine Takotsubo syndrome Surgical History H/O coronary angiogram Family History Mother CAD (coronary artery disease) Father CAD (coronary artery disease) Daughter CAD (coronary artery disease) Denies family history of Diabetes Clotting disorder Dementia Chronic kidney disease (CKD) Suicide Anesthesia complication Bleeding disorder Lung disease Cancer Stroke Social History Smoking and tobacco status: former smoker Quit status (tobacco): has quit using tobacco Former quit date comment: 25 ya Alcohol intake: never Lives independently: Yes Household members: children and other Details: Son Current occupational status: retired Course Vital Signs: Vital signs: Vital Signs Temperature 97.8 F 11/29/21 15:47 Pulse Rate 76 11/29/21 15:47 Respiratory Rate 16 11/29/21 15:47 Blood Pressure 200/91 11/29/21 15:47 Pulse Oximetry 96 11/29/21 15:47 MDM - Chest Pain Lab Data : 11/29/21 16:20 11/29/21 16:20 Laboratory Results WBC 8.4 10^3/uL (4.0-10.0) 11/29/21 16:20 RBC 4.97 10^6/uL (4.1-5.3) 11/29/21 16:20 Hgb 14.6 g/dL (11.5-15.3) 11/29/21 16:20 Hct 42.8 % (37.0-47.0) 11/29/21 16:20 MCV 86.1 fl (81-99) 11/29/21 16:20 MCH 29.4 pg (28.0-34.0) 11/29/21 16:20 MCHC 34.1 g/dL (30.0-36.0) 11/29/21 16:20 RDW 14.0 % (12.1-15.1) 11/29/21 16:20 Plt Count 188 10^3/cmm (130-400) 11/29/21 16:20 MPV 10.8 fL (7.4-10.4) H 11/29/21 16:20 Neut % (Auto) 73.8 % 11/29/21 16:20 Lymph % (Auto) 19.1 % 11/29/21 16:20 [place] % (Auto) 6.2 % 11/29/21 16:20 Eos % (Auto) 0.1 % 11/29/21 16:20 Baso % (Auto) 0.4 % 11/29/21 16:20 Neut # (Auto) 6.21 10^3/uL (1.8-7.7) 11/29/21 16:20 Lymph # (Auto) 1.6 10^3/uL (0.8-4.8) 11/29/21 16:20 [place] # (Auto) 0.5 10^3/uL (0.2-0.9) 11/29/21 16:20 Eos # (Auto) 0.0 10^3/uL (0.0-0.8) 11/29/21 16:20 Baso # (Auto) 0.0 10^3/uL (0.0-0.1) 11/29/21 16:20 Nucleated RBC % (auto) 0 % 11/29/21 16:20 Nucleated RBCs # 0.0 /100WBC 11/29/21 16:20 Discharge Plan Discharge Condition: Stable Prescriptions: No Action Eliquis 2.5 mg tablet 2.5 mg PO BID Qty: 60 5RF multivitamin Tablet 1 tab PO DAILY 0RF ascorbic acid (vitamin C) [Vitamin C] 1,000 mg Tablet 1,000 mg PO DAILY 0RF atorvastatin 40 mg Tablet 40 mg PO BEDTIME Qty: 30 0RF metoprolol tartrate 50 mg Tablet 75 mg PO Q12H Qty: 90 0RF digoxin 125 mcg (0.125 mg) Tablet 125 mcg PO EVERY OTHER DAY Qty: 30 0RF Spiriva with HandiHaler 18 mcg Capsule, W/Inhalation Device 18 mcg inhalation DAILY.RESPIRATORY Qty: 90 0RF albuterol sulfate 90 mcg/actuation HFA aerosol inhaler 2 inh inhalation Q6H PRN (Reason: shortness of breath or wheezing) Qty: 8.5 0RF magnesium oxide 250 mg magnesium tablet 250 mg PO DAILY Qty: 90 0RF aspirin 81 mg Tablet,Delayed Release (Dr/Ec) 81 mg PO DAILY 0RF Referrals: Huyen Thompson APN [Primary Care Provider] - Coding Level of Care Code ED Cost Accountant for Chg Marcie
--- NOTE | 2021-11-29 16:48 | W.ED.GENADLT ---
HPI - General Adult General: Chief complaint: Chest Pain Stated complaint: chest pain Time Seen by Provider: 11/29/21 16:08 History of Present Illness: CC: Chest Pain HPI: This is a [86] yo patient hx of [place]o cardiomyopathy with low EF, COPD, afib on eliquis, presenting to the ED complaining of acute sudden onset intermittent chest ache x 3 days she reports mild chest pressure with exertion. Pain is not tearing in nature and does not radiate to the back. Pain not associated with vomiting or PO intake. Denies any recent sympathomimetic drug use. Patient denies any cough. Denies palpitations, dysphagia, diaphoresis, radiation of pain to bilateral arms, jaw. Denies F/N/V/D. Patient has no any recent immobility, surgery, unilateral leg swelling, or prior PE. Patient denies any orthopnea. Onset: 3 days ago Duration: ongoing for the last 3 days Location: home Severity: moderate Associated symptoms: Reports chest pain and dyspnea; Deny nausea, rash, palpitations or vomiting Review of Systems Const: Denies: fever(s) or chills Eyes: Denies: change in vision ENMT: Denies: mouth pain Card: Reports: chest pain and dyspnea on exertion; Denies: palpitations Resp: Reports: dyspnea; Denies: non-productive cough GI: Denies: abdominal pain, nausea, vomiting or diarrhea : Denies: dysuria Musc: Denies: extremity pain Skin/Breast: Denies: rash or new lesions Neuro: Denies: weakness in extremities Psych: Reports: other (Normal mood) Dheeraj/Lymph: Denies: easy bruising PFS ED PFSH: Medical History Atherosclerotic heart disease of [place] coronary artery without angina pectoris Atrial fibrillation CAD (coronary artery disease) Cardiomyopathy CHF (congestive heart failure) Chronic back pain COPD (chronic obstructive pulmonary disease) Dyslipidemia (high LDL; low HDL) HTN (hypertension) Hx of completed stroke Hx of myocardial infarction Kyphosis deformity of spine Takotsubo syndrome Surgical History H/O coronary angiogram Family History Mother CAD (coronary artery disease) Father CAD (coronary artery disease) Daughter CAD (coronary artery disease) Denies family history of Diabetes Clotting disorder Dementia Chronic kidney disease (CKD) Suicide Anesthesia complication Bleeding disorder Lung disease Cancer Stroke Social History Smoking and tobacco status: former smoker Quit status (tobacco): has quit using tobacco Former quit date comment: 25 ya Alcohol intake: never Lives independently: Yes Household members: children and other Details: Son Current occupational status: retired Physical Exam Const: COMMON NORMALS: alert HENMT: COMMON NORMALS: atraumatic HEAD & SCALP: atraumatic MOUTH: moist mucous membranes not abnormal Eye: COMMON NORMALS: EOMs intact bilaterally and conjunctivae normal CONJUNCTIVA: Yes conjunctivae normal Neck/C-Spine: COMMON NORMALS: full ROM and supple Resp: COMMON NORMALS: normal respiratory effort and clear to auscultation bilaterally AUSCULTATION: clear to auscultation bilaterally Cardio: OTHER: 2+ radial pulses b/l +irregular irregular rhythm GI: COMMON NORMALS: Soft to palpation and non-tender PALPATION: Yes Soft to palpation OTHER: No focal TTP. NO guarding rebound, guarding, rigidity. No CVA tenderness to percussion. Neg Peace/Neg McBurney's point tenderness, no suprabupic tenderness to palpation. Extremity: COMMON NORMALS: full ROM Neuro: SENSORIUM/ORIENTATION: Yes alert MOTOR EXAM: No Abnormal motor strength present and Other motor observations present (no focal motor deficits) Psych: COMMON NORMALS: speech normal SPEECH: Yes normal speech MOOD & AFFECT: Yes euthymic mood Course Vital Signs: Vital signs: Vital Signs Temperature 98.5 F 12/04/21 04:00 Pulse Rate 72 12/04/21 12:05 Respiratory Rate 12 12/04/21 12:05 Blood Pressure 114/56 12/04/21 12:05 Pulse Oximetry 99 12/04/21 12:05 MDM - General Adult Medical Decision Making [86]yo patient w/ hx of CAD, afib presenting to the ED with evaluation of new onset of chest sore x 3 days. HDS, pulse 2+ radially bilaterally, no signs of fluid overload, AAOx3, neuro exam intact. Patient is currently chest pain free. Workup: ECG x 2, CXR, CBC, BMP, Troponin x 2 Interventions: ASA 325mg Findings: ECG: No overt evidence of STEMI, hyperacute T waves, localizable STD or T wave inversions. No evidence of Brugada?s sign, delta wave, epsilon wave, significantly prolonged QTc, or malignant arrhythmia. No Q waves. Troponin of 20. On reassessment, patient continues to have intermittent chest pain. Patient had 1 episode of emesis in the ED. Patient will be admitted to the hospital for chest pain work-up. Disposition: admission Lab Data : 12/04/21 10:27 12/04/21 04:10 Radiology Impressions Chest X-Ray 11/29/21 16:08 IMPRESSION: No acute findings. Laboratory Results WBC 8.4 10^3/uL (4.0-10.0) 11/29/21 16:20 RBC 4.97 10^6/uL (4.1-5.3) 11/29/21 16:20 Hgb 14.6 g/dL (11.5-15.3) 11/29/21 16:20 Hct 42.8 % (37.0-47.0) 11/29/21 16:20 MCV 86.1 fl (81-99) 11/29/21 16:20 MCH 29.4 pg (28.0-34.0) 11/29/21 16:20 MCHC 34.1 g/dL (30.0-36.0) 11/29/21 16:20 RDW 14.0 % (12.1-15.1) 11/29/21 16:20 Plt Count 188 10^3/cmm (130-400) 11/29/21 16:20 MPV 10.8 fL (7.4-10.4) H 11/29/21 16:20 Neut % (Auto) 73.8 % 11/29/21 16:20 Lymph % (Auto) 19.1 % 11/29/21 16:20 [place] % (Auto) 6.2 % 11/29/21 16:20 Eos % (Auto) 0.1 % 11/29/21 16:20 Baso % (Auto) 0.4 % 11/29/21 16:20 Neut # (Auto) 6.21 10^3/uL (1.8-7.7) 11/29/21 16:20 Lymph # (Auto) 1.6 10^3/uL (0.8-4.8) 11/29/21 16:20 [place] # (Auto) 0.5 10^3/uL (0.2-0.9) 11/29/21 16:20 Eos # (Auto) 0.0 10^3/uL (0.0-0.8) 11/29/21 16:20 Baso # (Auto) 0.0 10^3/uL (0.0-0.1) 11/29/21 16:20 Nucleated RBC % (auto) 0 % 11/29/21 16:20 Nucleated RBCs # 0.0 /100WBC 11/29/21 16:20 Sodium 132 mmol/L (136-145) L 11/29/21 16:20 Potassium 3.9 mmol/L (3.5-5.1) 11/29/21 16:20 Chloride 95 mmol/L (98-107) L 11/29/21 16:20 Carbon Dioxide 25 mmol/L (22-29) 11/29/21 16:20 Anion Gap 15.9 (5-19) 11/29/21 16:20 BUN 10 mg/dL (8-23) 11/29/21 16:20 Creatinine 0.4 mg/dL (0.5-0.9) L 11/29/21 16:20 GFR Calculation Not Reportable 11/29/21 16:20 Glucose 91 mg/dL (65-115) 11/29/21 16:20 Calculated Osmolality 273 mOsm/kg (285-295) L 11/29/21 16:20 Calcium 10.2 mg/dL (8.5-10.5) 11/29/21 16:20 Troponin T Baseline 7 ng/L (0-10) 11/29/21 16:20 Troponin T 120 Minute 10.08 ng/L (0-10) H 11/29/21 18:10 Delta Troponin T 3.08 ABS# (0-10) 11/29/21 18:10 Imaging Data Other Imaging: Radiologist's impression: [address] [place] [address] XRay Report Signed Patient: Rosemary Rodrigez Unit #: [id number] : 1935 Age/Sex: 86 / F ADM Date: 11/29/21 Loc: ER Room/Bed: Attending Dr: Ordering Provider/Ordering MD: Forrest Black MD Date of Service: 11/29/21 Procedure(s): XR chest 1V portable [id number] Accession Number(s): [id number] Report Number: [id number] PROCEDURE INFORMATION: Exam: XR Chest Exam date and time: 11/29/2021 4:17 PM Age: 86 years old Clinical indication: Pain; Angina pectoris; Additional info: Chest pain TECHNIQUE: Imaging protocol: Radiologic exam of the chest. Views: 1 view. COMPARISON: CR XR chest 1V portable [id number] 02/09/2021 11:54 AM FINDINGS: Lungs: Lungs are clear. Pleural spaces: There is no pleural effusion or pneumothorax. Heart/Mediastinum: Cardiomediastinal contours are unremarkable. Bones/joints: Bones are unremarkable. XR/XR chest 1V portable [id number] IMPRESSION: No acute findings. ? Dictated By: Gilberto Conrad MD Signed By: Gilberto Conrad MD Signed Date/Time: 11/29/21 1735 DD/ 1617 Discharge Plan Discharge Patient Disposition: Admitted As Inpatient Admit Provider: Joie Velázquez Clinical Impression: Chest pain Condition: Stable Discharge Diet: Cardiac Discharge Activity: Resume usual activity Coding Level of Care Code ED Sales Training Coordinator for Chg Fwd Exam Comprehensive
[2021-11-29 17:02] LABS: Troponin(5th) Baseline 7 ng/L (0-10)
[2021-11-29 17:05] LABS: Digoxin 0.8 ng/mL (0.6-1.2)
[2021-11-29 17:05] LABS: Blood Urea Nitrogen 10 mg/dL (8-23); Calcium 10.2 mg/dL (8.5-10.5); Carbon Dioxide 25 mmol/L (22-29); Chloride 95 mmol/L (98-107); Glucose 91 mg/dL (65-115); Osmolality Calculated 273 mOsm/kg (285-295); Sodium 132 mmol/L (136-145)
[2021-11-29 17:11] LABS: Anion Gap 15.9 (5-19); Potassium 3.9 mmol/L (3.5-5.1)
[2021-11-29] MEDS: aspirin 325 mg Tablet PO (17:15)
[2021-11-29] MEDS: amlodipine 5 mg Tablet PO (17:15)
--- NOTE | 2021-11-29 18:08 | ECG_ITS ---
[facility] Test Date: 2021-11-29 Pat Name: Rosemary Rodrigez Department: Room: Gender: Female Folder Operator: : 1935 Requested By: Forrest Black Order Number: [id number] Rach MD: Andrew Kaye M.D. Measurements Intervals [place] Rate: 71 P: 70 ME: 167 QRS: -35 QRSD: 105 T: 80 QT: 377 QTc: 411 Interpretive Statements SINUS RHYTHM WITH OCCASIONAL SUPRAVENTRICULAR PREMATURE COMPLEXES LEFT AXIS DEVIATION [QRS AXIS < -30] LEFT VENTRICULAR HYPERTROPHY AND ST-T CHANGE [VOLTAGE CRITERIA PLUS ST/T ABNORMALITY] POSSIBLE ANTERIOR MYOCARDIAL INFARCTION , OF INDETERMINATE AGE [30 ms Q WAVE IN V3/V4, OR R < 0.2 mV IN V4] Compared to ECG 11/29/2021 18:30:09 Left ventricular hypertrophy now present ST (T wave) deviation now present Sinus arrhythmia no longer present Incomplete right bundle-branch block no longer present Myocardial infarct finding still present Electronically Signed On 11-30-2021 18:12:42 CDT by Andrew Kaye M.D. [id number]
[2021-11-29 18:36] LABS: Troponin 5 2HR 10.08 ng/L (0-10)
[2021-11-29 18:42] LABS: Troponin 5 2HR Delta 3.08 ABS# (0-10)
--- NOTE | 2021-11-29 22:08 | ECG_ITS ---
[facility] Test Date: 2021-11-29 Pat Name: Rosemary Rodrigez Department: Room: Gender: Female Tattoo Designer: : 1935 Requested By: Forrest Black Order Number: [id number] Rach MD: Andrew Kaye M.D. Measurements Intervals [place] Rate: 81 P: 62 KS: 159 QRS: -39 QRSD: 98 T: 83 QT: 353 QTc: 410 Interpretive Statements SINUS RHYTHM WITH MARKED SINUS ARRHYTHMIA LEFT AXIS DEVIATION [QRS AXIS < -30] INCOMPLETE RIGHT BUNDLE BRANCH BLOCK [90+ ms QRS DURATION, TERMINAL R IN V1/V2, 40+ ms S IN I/aVL/V4/V5/V6] PROBABLE SEPTAL MYOCARDIAL INFARCTION , PROBABLY OLD [35 ms Q WAVE IN V1/V2] Compared to ECG 11/29/2021 15:46:13 Incomplete right bundle-branch block now present Myocardial infarct finding now present Left ventricular hypertrophy no longer present ST (T wave) deviation no longer present Electronically Signed On 11-30-2021 18:13:02 CDT by Andrew Kaye M.D. [id number]
[2021-11-29 23:12] LABS: Troponin 5 6HR 9.19 ng/L (0-10)
[2021-11-29 23:17] LABS: Troponin 5 6HR Delta 2.19 ng/L (0-12)
[2021-11-30] VITALS (12 sets, daily range): BP systolic 110–177; BP diastolic 62–97; PULSE 56–119; RESP 16–24; TEMP 36.3–36.7; O2SAT 95–99
--- NOTE | 2021-11-30 00:55 | ECG_ITS ---
[facility] Test Date: 2021-11-30 Pat Name: Rosemary Rodrigez Department: Room: 251 Gender: Female Visual Merchandiser: Alecia Cloud : 1935 Requested By: Joie Velázquez Order Number: [id number] Rach MD: Eevlina Khan M.D. Interpretive Statements NAME OF STUDY: LEXISCAN SESTAMIBI STRESS TEST INDICATION: Chest Pain, PROCEDURE: At the baseline, the EKG revealed normal sinus rhythm with nonspecific ST changes. Poor R wave progression. The baseline blood pressure was 178/98 mm Hg with a heart rate of 100 beats/min. Lexiscan was infused over a period of 20 seconds. A total of 0.4 milligrams of Lexiscan was infused. The stress phase was continued for a total of 5 minutes. Heart rate at the end of the stress phase was 148 with a blood pressure 166/99. The EKG at the peak infusion revealed [address] depression in leads 2, 3, aVF, V4 to V6. Sestamibi was injected 20 seconds after the Lexiscan infusion. Blood pressure at the end of the recovery phase was 168/93 with a heart rate of 108 per minute. The EKG reverted almost back to the baseline during the recovery phase CONCLUSION: 1. EKG changes with the Lexiscan infusion suggestive of inferolateral wall ischemia 2. No LexiScan induced chest pain or cardiac arrhythmia 3. Normal blood pressure and heart rate response 4. Sestamibi/sestamibi perfusion scan pending; see separate report. Electronically Signed On 11-30-2021 13:37:52 CDT by Evelina Khan M.D. [email or web address] [facility].[employer]/store/[id number]
--- NOTE | 2021-11-30 00:57 | NMCV_ITS ---
NM shelley perf SPECT r/s* [id number] Rosemary Rodrigez Age: 86 Gender: F : 1935 Exam Date: 11/30/2021 00:57 Ordering Phys: Joie Velázquez MD Technologist: IVELISSE Stewart Exam Location: [facility] Indications: CHEST PAIN STRESS TEST Please see separate stress test report in [facility] for full findings IMAGE PROTOCOL Rest/Stress 1 Lexiscan Day Radiopharmaceutical Dose (mCi) Administration Site Administered by Rest: Tc-99m 10.8 IV IVELISSE Nieto Sestamibi Stress:Tc-99m 32.6 IV IVELISSE Nieto Sestamibi Rest: 30-Nov-2021 60 Discovery 630 Stress: 30-Nov-2021 30 Discovery 630 0.4mg Lexiscan. Supine position only as patient was unable to lay prone. SPECT RESULTS Technical Quality: Excellent Raw Data Analysis: Normal Image Corrections: No attenuation or motion correction applied Summed Stress Score: 1 Summed Rest Score: 0 Summed Difference Score: 1 PERFUSION FINDINGS Small area of slightly decreased tracer uptake was noted in the basal inferior wall region with significant reversibility FUNCTIONAL RESULTS (calculated via Gated SPECT) Stress Image LV EF (%): 73 Stress EDV (mL):40 TID: 0.86 Stress ESV (mL):11 FUNCTIONAL FINDINGS: Segmental wall motion analysis revealing no gross wall motion abnormalities IMPRESSIONS 1. Myocardial perfusion imaging revealing a small area of reversible defect in the basal inferior wall region, suggestive of ischemia in the distribution of the right coronary artery. 2. Normal LV ejection fraction 73%. 3. LV wall motion analysis revealing no gross wall motion abnormalities. 4. Normal LV volume. No similar previous studies are available for comparison Dr Evelina Khan MD [facility] (Electronically Signed) Final Date: 30 November 2021 13:14 S
--- NOTE | 2021-11-30 01:02 | P.HP_ITS ---
Providers/Chief Complaint Admitting Physician: Joie Velázquez MD Primary Care Provider: Huyen Thompson APN Chief Complaint: chest pain History of Present Illness Rosemary Rodrigez is a 86 year old female with PMH non ischemic cardiomyopathy, A fib, CHF presented with chest pain, left sided non radiating, 3 out of 10 intensity relieved currently . denies dyspnea, NVD, abdominal pain, palpitations, syncope Review of Systems General: Reports: 10 or more systems reviewed and unremarkable except in HPI and below Const: Denies: fever(s), chills or body aches Eyes: Denies: change in vision, blurry vision or photophobia ENMT: Reports: hoarseness; Denies: throat pain, enlarged tonsils, odynophagia or nasal congestion Card: Denies: chest pain, palpitations, irregular heart rhythm, edema, swelling of feet/ankles, lightheadedness, pre-syncope, dyspnea on exertion or orthopnea Resp: Denies: dyspnea, productive cough, non-productive cough, wheezing, s tridor, pain on inspiration, change in phlegm color, hemoptysis or chest congestion GI: Denies: abdominal pain, nausea, vomiting, hematemesis, coffee ground emesis, dysphagia, heartburn, diarrhea, constipation, GI cramping, change in stool character, hematochezia or melena : Denies: flank pain, difficulty voiding, dysuria, urinary frequency, urinary urgency, urinary hesitancy or hematuria Musc: Denies: neck pain, back pain, extremity pain, joint swelling, joint warmth or deformity Neuro: Denies: headache(s), numbness in extremities, weakness in extremities, sensory changes, difficulty walking, frequent falls, dizziness, vertigo, behavioral changes, Slurred speech present or seizure-like activity Psych: Denies: anxiety, depression, suicidal ideation or homicidal ideation Endo: Denies: polyuria, polydipsia, tired all the time, cold intolerance or hot flashes Dheeraj/Lymph: Denies: easy bruising or easy bleeding Medications/Allergies Home Medications Medication Instructions Recorded Confirmed Last Taken Type ascorbic acid (vitamin C) 1,000 mg 1,000 mg PO DAILY 04/02/20 11/29/21 11/29/21 History tablet (Vitamin C) multivitamin 1 tab PO DAILY 04/02/20 11/29/21 11/29/21 History atorvastatin 40 mg tablet 40 mg PO BEDTIME #30 tab 04/05/20 11/29/21 11/28/21 Rx albuterol sulfate 90 mcg/actuation 2 inh INHALATION Q6H PRN #8.5 g 02/10/21 11/29/21 Unknown Rx aerosol inhaler digoxin 125 mcg (0.125 mg) tablet 125 mcg PO EVERY OTHER DAY #30 tab 02/10/21 11/29/21 11/28/21 Rx magnesium oxide 250 mg PO DAILY #90 tab 02/10/21 11/29/21 11/29/21 Rx metoprolol tartrate 50 mg tablet 75 mg PO Q12H #90 tab 02/10/21 11/29/21 11/29/21 Rx tiotropium bromide 18 mcg capsule 18 mcg INHALATION 02/10/21 11/29/21 11/29/21 Rx with inhalation device (Spiriva DAILY.RESPIRATORY #90 inh with HandiHaler) apixaban 2.5 mg tablet (Eliquis) 2.5 mg PO BID #60 tab 04/16/21 11/29/21 11/29/21 Rx aspirin 81 mg tablet,delayed 81 mg PO DAILY 11/29/21 11/29/21 11/29/21 History release Allergies Allergy/AdvReac Type Severity Reaction Status Date / Time No Known Allergies Allergy Verified 09/08/21 08:40 PFSH Acute PFSH: Medical History Atherosclerotic heart disease of [place] coronary artery without angina pectoris Atrial fibrillation CAD (coronary artery disease) Cardiomyopathy CHF (congestive heart failure) Chronic back pain COPD (chronic obstructive pulmonary disease) Dyslipidemia (high LDL; low HDL) HTN (hypertension) Hx of completed stroke Hx of myocardial infarction Kyphosis deformity of spine Takotsubo syndrome Surgical History H/O coronary angiogram Family History Mother CAD (coronary artery disease) Father CAD (coronary artery disease) Daughter CAD (coronary artery disease) Denies family history of Diabetes Clotting disorder Dementia Chronic kidney disease (CKD) Suicide Anesthesia complication Bleeding disorder Lung disease Cancer Stroke Social History Smoking and tobacco status: former smoker Quit status (tobacco): has quit using tobacco Former quit date comment: 25 ya Alcohol intake: never Lives independently: Yes Household members: children and other Details: Son Current occupational status: retired Vitals/I&O/Wt Last Vital Signs Temp 97.4 F L 11/30/21 00:00 Pulse 70 11/30/21 00:00 Resp 16 11/30/21 00:00 BP 129/70 11/30/21 00:00 Pulse Ox 95 11/30/21 00:00 Weight last 48 hrs Weight 39.054 kg Weight 38.102 kg Physical Exam Narrative: General: No acute distress, AO x3 HEENT: PERRLA, pupils bilaterally equal and reactive, pallors not present Chest: Normal vesicular breath sounds, no added sounds, equal good air entry bilaterally CVS: S1-S2 regular, no murmurs, no tachycardia, no gallops, no rubs Abdomen: Soft, nontender, no organomegaly, bowel sounds present Neuro: No focal deficits, no facial deformity, AO x3, power 5/5 in all limbs Data : 11/29/21 16:20 11/29/21 16:20 A&P Assessment and plan (1) Chest pain: 85-year-old lady with history of Takotsubo cardiomyopathy with low ejection fraction, h/o A fib admitted [facility] with c/o chest pain. No acute St- T wave changes on EKG Trop 7 at baseline, 10 at 2 hrs, delta of 3, awaiting 6 hr troponin Aspirin 325mg given Currently chest pain free Overnight episode may be related to angina cardiac stress test in am Status: Acute Attestations Medical Necessity Statement*: anticipate less than 2 midnight stay for evaluation of chest pain, possible stress test Coding Level of Care Code Acute Public Speaker for [facility] Marcie Diagnoses Chest pain R07.9
[2021-11-30] MEDS: regadenoson 0.4 Mg/5 ml Syringe IVP (07:44)
[2021-11-30] MEDS: ondansetron 2 mg/ML SDV 2 mL 4 MG IVP (07:45)
[2021-11-30] MEDS: aminophylline 25 mg/mL SDV 10 mL IVP (08:16)
--- NOTE | 2021-11-30 09:48 | P.MISC_ITS ---
Miscellaneous Note Purpose of Documentation: Mini progress note Note: Seen this AM. Daughter and son present at bedside. Patient states that she had a soreness in her chest. Patient's daughter is quite worried about her and states that patient lives with them at home. She has been complaining of chest pain and mid lower chest around epigastric region. Patient also complains of leg cramps. They state that she is on a blood thinner at this time. They follow with Dr. 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 Daughter states patient has had 2 heart attacks 1 last year March in the 1 year before that in March. Within the last 1 week she has been reporting on and off chest pain. Patient was seen after she was back from her stress test. Final result is pending at this time. Chest clear to auscultation bilaterally no wheezes no rhonchi Normal S1-S2, irregular irregular rhythm Abdomen soft, right calf mildly tender to palpation. Bilateral lower extremities symmetric #Chest pain most likely cardiac Stress test pending at this time Check echo If stress test abnormal will consult cardiology DNR/DNI If needs to be intubated for procedure patient is okay with it but otherwise does not want to be resuscitated. Daughter present at bedside and is in agreement. Rest of management as per history physical document from this morning.
--- NOTE | 2021-11-30 10:24 | USCV_ITS ---
Rosemary Rodrigez Age: 86 Gender: F : 1935 Exam Date: 11/30/2021 13:24 Ordering Phys: Trinidad Gonzalez MD Technologist: Kemal Kumar Exam Location: [facility] Indication: ? dvt PROCEDURES: The venous duplex Doppler examination of both lower extremities was performed in the standard fashion. The following venous structures were evaluated: common femoral vein, profunda vein, proximal portion of the greater saphenous vein, superficial femoral vein, and the popliteal vein. In addition, the posterior tibial and peroneal trunk were evaluated. FINDINGS: Normal 2-D Doppler and augmentation and compressibility throughout the lower extremity venous structures. Additional imaging through the proximal calf veins also reveals no thrombus. Limited evaluation of the greater saphenous vein is patent with no thrombus.. CONCLUSIONS No evidence of right lower extremity DVT. No evidence of left lower extremity DVT. Stevie Mcdonough MD (Electronically Signed) Final Date: 30 November 2021 15:17 S
[2021-11-30] MEDS: aspirin 81 mg EC Tablet PO (10:30)
[2021-11-30] MEDS: metoprolol tartrate 50 mg Tablet 75 MG PO ×2 (10:30→19:34)
[2021-11-30] MEDS: apixaban 5 mg Tablet 2.5 MG PO (10:31)
[2021-11-30] MEDS: digoxin 125 mcg Tablet PO (10:32)
--- NOTE | 2021-11-30 10:37 | PC.CHAP ---
Pastoral Care Encounter/Spiritual Assessment Type of Contact [] Declined military nurse visit [] Patient/Family/Request visit [] Outpatient visit [] Follow-up visit [] Physician referral [] Code/Alert [x] Routine visit [] Staff referral [] Actively dying [] Patient sleeping [] Family support [] [x] Out of room [] Palliative care [] [] Receiving care in room [] Pre-surgical visit [] Trauma [] Long length of stay [] ICU visit [] Other: Relational/Emotional Strength [] Patient feels connected with others/family/visitors/staff [] Distress [] Loneliness/isolation [] Abandonment Spirituality of Patient [] Person of Marry [] Attends Hinduism of their Marry [] Believes in Prayer [] Reads Bible or Synagogue materials [] There are Spiritual issues to be addressed Online Education Manager Interventions [] Prayer [] Active listening [] Non-anxious presence [] Spiritual/emotional support [] Crisis/trauma care [] Spiritual counseling [] Bereavement support [] Provided bereavement packet [] Provided Bible/devotional materials [] Provided toy/stuffed animal, coloring book to patient or family member [] Provided Communion [] Anointing/[place] [] Salvation [] Completed spiritual assessment [] Other: Impact on Illness or Injury [] Angry [] Fearful [] Anxious [] Often cries [] Exhaustion [] Unable to work [] Unable to attend protestant [] Unable to walk/stand [] Unable to read [] Unable to drive [] Unable to eat/drink [] Unable to sleep [] Unable to be with family [] Patient intubated [] Other: Summary Time spent with patient
--- NOTE | 2021-11-30 10:42 | PC.CHAP ---
Pastoral Care Encounter/Spiritual Assessment Type of Contact [] Declined an/sqq 89(v)15 sonar system journeyman visit [] Patient/Family/Request visit [] Outpatient visit [] Follow-up visit [] Physician referral [] Code/Alert [x] Routine visit [] Staff referral [] Actively dying [] Patient sleeping [] Family support [] [] Out of room [] Palliative care [] [] Receiving care in room [] Pre-surgical visit [] Trauma [] Long length of stay [] ICU visit [] Other: Relational/Emotional Strength [x] Patient feels connected with others/family/visitors/staff [] Distress [] Loneliness/isolation [] Abandonment Spirituality of Patient [x] Person of Marry [] Attends Christian of their Marry [x]x Believes in Prayer [] Reads Bible or Christianity materials [] There are Spiritual issues to be addressed Plant Anatomist Interventions [x] Prayer [x] Active listening [x] Non-anxious presence [x] Spiritual/emotional support [] Crisis/trauma care [] Spiritual counseling [] Bereavement support [] Provided bereavement packet [] Provided Bible/devotional materials [] Provided toy/stuffed animal, coloring book to patient or family member [] Provided Communion [] Anointing/[place] [] Salvation [x] Completed spiritual assessment [] Other: Impact on Illness or Injury [] Angry [] Fearful [] Anxious [] Often cries [] Exhaustion [] Unable to work [] Unable to attend scientology [] Unable to walk/stand [] Unable to read [] Unable to drive [] Unable to eat/drink [] Unable to sleep [] Unable to be with family [] Patient intubated [] Other: Summary Time spent with patient 10 mmin
[2021-11-30] MEDS: lidocaine 5% Patch 2 PATCH TOPICAL (11:00)
[2021-11-30 11:15] LABS: D Dimer 0.91 ug/mIFEU (0-0.59)
--- NOTE | 2021-11-30 13:54 | USCV_ITS ---
Rosemary Rodrigez Age: 86 Gender: F : 1935 Exam Date: 11/30/2021 14:27 Ordering Phys: Trinidad Gonzalez MD Technologist: Kemal Kumar Exam Location: [place] Indication: chest pain BP: 132 / 74 HR: 61 Rhythm: Sinus Technical Quality: Adequate MEASUREMENTS (Male / Female) Normal Values 2D ECHO LV Diastolic Diameter PLAX 4.1 cm 4.2 - 5.9 / 3.9 - 5.3 cm LV Systolic Diameter PLAX 2.4 cm IVS Diastolic Thickness 0.8 cm 0.6 - 1.0 / 0.6 - 0.9 cm IVS Systolic Thickness 1.4 cm LVPW Diastolic Thickness 1.0 cm 0.6 - 1.0 / 0.6 - 0.9 cm LVPW Systolic Thickness 1.3 cm LVOT Diameter 2.1 cm LV Ejection Fraction 2D Teich 72.3 % LV Ejection Fraction MOD 2C 64.6 % LV Ejection Fraction 2C AL 64.6 % LA Diameter 3.5 cm Aorta at Sinotubular Diameter 1.9 cm M-MODE Aortic Annulus Diameter 3.5 cm LA Ao Ratio MM 1.1 MV E Point Septal Separation 1.2 cm DOPPLER AV Peak Velocity 182.7 cm/s LVOT Peak Velocity 106.0 cm/s AV Area Cont Eq vti 2.3 cm squared AV Area Cont Eq pk 1.9 cm squared MV Area PHT 5.0 cm squared Mitral E to A Ratio 0.5 MV E' Velocity 29.5 cm/s Mitral E to MV E' Ratio 10.4 Mitral E to LV E' Lateral Ratio 7.7 Mitral E to LV E' Septal Ratio 16.2 TR Peak Velocity 326.3 cm/s TR Peak Gradient 42.6 mmHg TV Peak E Velocity 97.0 cm/s Right Atrial Pressure 3.0 mmHg Pulmonary Artery Systolic Pressu 45.6 mmHg PV Peak Velocity 87.0 cm/s FINDINGS Left Ventricle Normal left ventricular size. LV systolic function is normal with EF of 50-55%. No regional wall motion abnormalities. Grade 1 diastolic dysfunction Right Ventricle The right ventricle is normal in size and function. Right Atrium The right atrium is normal in size. Left Atrium The left atrium is normal in size. Mitral Valve Structurally normal mitral valve without significant stenosis or prolapse. There is mild to moderate mitral regurgitation. Aortic Valve Aortic valve is thickened without significant stenosis. There is no aortic regurgitation. Tricuspid Valve Structurally normal tricuspid valve without significant stenosis. Mild to moderate tricuspid regurgitation. RVSP is 45 to regional medical. This is consistent with moderate pulmonary hypertension Pulmonic Valve Not well visualized Pericardium Normal pericardium without effusion. Aorta Normal ascending aorta dimension. IVC CONCLUSIONS LV systolic function is normal with EF 50 to 55%. Grade 1 diastolic dysfunction. Mild mitral regurgitation. Aortic valve is thickened. Mild tricuspid regurgitation. Moderate pulmonary hypertension. Compared to prior echocardiogram from 02/08/2021, no significant changes are seen Andrew Kaye MD (Electronically Signed) Final Date: 01 December 2021 10:24 S
--- NOTE | 2021-11-30 16:41 | PM.CONSULT ---
Providers/Reason For Consult Consulting Physician/Specialty*: MARIA E Khan MD/cardiology Reason for Consult*: Patient with chest pain and abnormal Myocardial perfusion imaging Requesting Physician: Dr. Gonzalez Attending Physician: Trinidad Gonzalez MD Primary Care Provider: Huyen Thompson APN History of Present Illness History of Present Illness Rosemary Rodrigez is a 86 year old female with a history of atherosclerotic heart disease, high blood pressure, intermittent atrial fibrillation/flutter, heart failure, Takotsubo syndrome, dyslipidemia, present with complaints of chest soreness shortness of breath and weakness. According the patient, she has been doing okay, in her baseline state of health up until 3 days prior to admission when she started having the soreness in the chest and also elevated blood pressure. She had some radiation of the soreness to the left shoulder. She was feeling weak and tired. She also was getting nauseous and sick in the stomach as she tries to eat something. She was currently refusing to eat because of the symptoms. Since her symptoms were gradually getting worse, she decided to come to the hospital. She did not have any fever or chills. No cough. No palpitation, or syncopal episodes. She has some dizziness with the postural changes. She has intermittent atrial flutter/fibrillation and is on long-term oral anticoagulation. She has been taking Eliquis 2.5 mg p.o. twice daily. The last dose of this medication was around 10:00 this morning. She was admitted to the hospital in March 2020 with the features suggestive of a non-ST elevation myocardial infarction. Her clinical features turned out to be consistent with Takotsubo syndrome. She had a Myocardial perfusion imaging at that time which revealed some small areas of reversible defect. Subsequent cardiac catheterization revealed patent stented segment in the right coronary artery. She had around 50% kathia stent stenosis. Mild diffuse disease was noted in the other vessels. She has a history of accelerated hypertension. Blood pressure has been fluctuating a lot. Review of Systems Narrative: CONSTITUTIONAL: No fever or chills. Feeling lethargy/weakness and shortness of breath. EYES: No blurring of vision or other visual disturbances lately. ENT: No hoarseness of voice, auditory disturbances or sore throat. CARDIOVASCULAR: As mentioned above. RESPIRATORY: No significant cough. GASTROINTESTINAL: No hematemesis or melena. GENITOURINARY: No dysuria or hematuria. INTEGUMENTARY: No skin rashes or history of skin cancer. NEURO: No transient ischemic attacks or amaurosis. PSYCHIATRIC: No history of psychosis or major depression. HEMATOLOGIC: No bleeding disorders or significant anemia. ENDOCRINE: No history of polyuria or polydipsia. MUSCULOSKELETAL: No recent joint pain or swelling. ALLERGY/IMMUNOLOGY: As mentioned above. Medications/Allergies Home Medications Medication Instructions Recorded Confirmed Last Taken Type ascorbic acid (vitamin C) 1,000 mg 1,000 mg PO DAILY 04/02/20 11/29/21 11/29/21 History tablet (Vitamin C) multivitamin 1 tab PO DAILY 04/02/20 11/29/21 11/29/21 History atorvastatin 40 mg tablet 40 mg PO BEDTIME #30 tab 04/05/20 11/29/21 11/28/21 Rx albuterol sulfate 90 mcg/actuation 2 inh INHALATION Q6H PRN #8.5 g 02/10/21 11/29/21 Unknown Rx aerosol inhaler digoxin 125 mcg (0.125 mg) tablet 125 mcg PO EVERY OTHER DAY #30 tab 02/10/21 11/29/21 11/28/21 Rx magnesium oxide 250 mg PO DAILY #90 tab 02/10/21 11/29/21 11/29/21 Rx metoprolol tartrate 50 mg tablet 75 mg PO Q12H #90 tab 02/10/21 11/29/21 11/29/21 Rx tiotropium bromide 18 mcg capsule 18 mcg INHALATION 02/10/21 11/29/21 11/29/21 Rx with inhalation device (Spiriva DAILY.RESPIRATORY #90 inh with HandiHaler) apixaban 2.5 mg tablet (Eliquis) 2.5 mg PO BID #60 tab 04/16/21 11/29/21 11/29/21 Rx aspirin 81 mg tablet,delayed 81 mg PO DAILY 11/29/21 11/29/21 11/29/21 History release Allergies Allergy/AdvReac Type Severity Reaction Status Date / Time No Known Allergies Allergy Verified 09/08/21 08:40 Current Medications Generic Name Dose Route Start Last Admin Trade Name Freq PRN Reason Stop Dose Admin Aminophylline 25 mg 11/30/21 06:55 11/30/21 08:16 Aminophylline 25 Mg/Ml Sdv 10 Ml IVP 12/01/21 06:54 25 mg Q2M PRN Administration see dose instructions Apixaban 2.5 mg 11/30/21 09:00 11/30/21 10:31 Apixaban 5 Mg Tablet PO 2.5 mg BID MAX Administration Aspirin 81 mg 11/30/21 09:00 11/30/21 10:30 Aspirin 81 Mg Ec Tablet PO 81 mg DAILY MAX Administration Digoxin 125 mcg 11/30/21 09:00 11/30/21 10:32 Digoxin 125 Mcg Tablet PO 125 mcg EVERY OTHER DAY MAX Administration Lidocaine 2 patch 11/30/21 10:44 11/30/21 11:00 Lidocaine 5% Patch TOPICAL 2 patch [id number] MAX Administration Metoprolol Tartrate 75 mg 11/30/21 08:00 11/30/21 10:30 Metoprolol Tartrate 50 Mg Tablet PO 75 mg Q12H MAX Administration Ondansetron HCl 4 mg 11/30/21 06:55 11/30/21 07:45 Ondansetron 2 Mg/Ml Sdv 2 Ml IVP 4 mg Q2M PRN Administration NAUSEA PFSH Acute PFSH: Medical History Atherosclerotic heart disease of [place] coronary artery without angina pectoris Atrial fibrillation CAD (coronary artery disease) Cardiomyopathy CHF (congestive heart failure) Chronic back pain COPD (chronic obstructive pulmonary disease) Dyslipidemia (high LDL; low HDL) HTN (hypertension) Hx of completed stroke Hx of myocardial infarction Kyphosis deformity of spine Takotsubo syndrome Surgical History H/O coronary angiogram Family History Mother CAD (coronary artery disease) Father CAD (coronary artery disease) Daughter CAD (coronary artery disease) Denies family history of Diabetes Clotting disorder Dementia Chronic kidney disease (CKD) Suicide Anesthesia complication Bleeding disorder Lung disease Cancer Stroke Social History Smoking and tobacco status: former smoker Quit status (tobacco): has quit using tobacco Former quit date comment: 25 ya Alcohol intake: never Lives independently: Yes Household members: children and other Details: Son Current occupational status: retired Vitals/I&O/Wt Last Vital Signs Temp 98.0 F 11/30/21 15:34 Pulse 76 11/30/21 15:34 Resp 16 11/30/21 15:34 BP 177/97 11/30/21 15:34 Pulse Ox 98 11/30/21 15:34 11/30/21 11/30/21 11/30/21 06:59 14:59 22:59 Intake Total 240 / 240 Balance 240 / 240 Weight last 48 hrs Weight 86 lb 1.6 oz Weight 84 lb Physical Exam Narrative: GENERAL: The patient is alert and oriented times three. Not in any acute distress. Thin framed elderly female HEENT: No significant pallor, icterus or lymphadenopathy.Oral cavity: There are no mucous membrane lesions. NECK: Trachea appears to be central. No masses noted. No JVD or thyromegaly appreciated. RESPIRATORY: Chest is kyphotic, emphysematous; no intercostals muscle retraction or any accessory muscle activation. There is no chest wall tenderness. Breath sounds are heard bilaterally. No rales or rhonchi heard. No evidence of any consolidation. BREASTS: Deferred. HEART: The heart sounds are normal. No S3 or S4. Short systolic murmur the left sternal border. No diastolic murmurs. No pericardial rub. No pericardial rub ABDOMEN: No vessel pulsations or distention. No tenderness. No organomegaly appreciated. Bowel sounds are normally heard. : Deferred. RECTAL: Deferred. LYMPHATIC: No lymphadenopathy noted in the neck. EXTREMITIES: No edema or cyanosis. No clubbing. MUSCULOSKELETAL: No acute joint deformities or swelling SKIN: There are no significant rashes or ecchymosis NEUROPSYCHIATRIC: The patient is alert and oriented x3. Appears to be in a good mood. No tremors or rigidity noted. Data : 11/29/21 16:20 11/29/21 16:20 Other Labs: Laboratory Last Values WBC 8.4 10^3/uL (4.0-10.0) 11/29/21 16:20 RBC 4.97 10^6/uL (4.1-5.3) 11/29/21 16:20 Hgb 14.6 g/dL (11.5-15.3) 11/29/21 16:20 Hct 42.8 % (37.0-47.0) 11/29/21 16:20 MCV 86.1 fl (81-99) 11/29/21 16:20 MCH 29.4 pg (28.0-34.0) 11/29/21 16:20 MCHC 34.1 g/dL (30.0-36.0) 11/29/21 16:20 RDW 14.0 % (12.1-15.1) 11/29/21 16:20 Plt Count 188 10^3/cmm (130-400) 11/29/21 16:20 MPV 10.8 fL (7.4-10.4) H 11/29/21 16:20 Neut % (Auto) 73.8 % 11/29/21 16:20 Lymph % (Auto) 19.1 % 11/29/21 16:20 [place] % (Auto) 6.2 % 11/29/21 16:20 Eos % (Auto) 0.1 % 11/29/21 16:20 Baso % (Auto) 0.4 % 11/29/21 16:20 Neut # (Auto) 6.21 10^3/uL (1.8-7.7) 11/29/21 16:20 Lymph # (Auto) 1.6 10^3/uL (0.8-4.8) 11/29/21 16:20 [place] # (Auto) 0.5 10^3/uL (0.2-0.9) 11/29/21 16:20 Eos # (Auto) 0.0 10^3/uL (0.0-0.8) 11/29/21 16:20 Baso # (Auto) 0.0 10^3/uL (0.0-0.1) 11/29/21 16:20 Nucleated RBC % (auto) 0 % 11/29/21 16:20 Nucleated RBCs # 0.0 /100WBC 11/29/21 16:20 D-Dimer 0.91 ug/mIFEU (0-0.59) H 11/30/21 10:45 Sodium 132 mmol/L (136-145) L 11/29/21 16:20 Potassium 3.9 mmol/L (3.5-5.1) 11/29/21 16:20 Chloride 95 mmol/L (98-107) L 11/29/21 16:20 Carbon Dioxide 25 mmol/L (22-29) 11/29/21 16:20 Anion Gap 15.9 (5-19) 11/29/21 16:20 BUN 10 mg/dL (8-23) 11/29/21 16:20 Creatinine 0.4 mg/dL (0.5-0.9) L 11/29/21 16:20 GFR Calculation Not Reportable 11/29/21 16:20 Glucose 91 mg/dL (65-115) 11/29/21 16:20 Calculated Osmolality 273 mOsm/kg (285-295) L 11/29/21 16:20 Calcium 10.2 mg/dL (8.5-10.5) 11/29/21 16:20 Troponin T Baseline 7 ng/L (0-10) 11/29/21 16:20 Troponin T 120 Minute 10.08 ng/L (0-10) H 11/29/21 18:10 Delta Troponin T 3.08 ABS# (0-10) 11/29/21 18:10 Troponin T Hi Sens 6Hr 9.19 ng/L (0-10) 11/29/21 22:45 Troponin T Hi Sens 6Hr Delta 2.19 ng/L (0-12) 11/29/21 22:45 Digoxin 0.8 ng/mL (0.6-1.2) 11/29/21 Unknown Cardiac catheterization in March 2020: My impression: 1. No significant disease noted in the Left Main, LAD, Circumflex, or RCAcoronary arteries. ? 2. Mild left ventricular systolic dysfunction. Ejection fraction of 40%. ? 3. This is an 85-year-old white female, is admitted to the hospital withcomplaints of atypical chest pain and uncontrolled blood pressure.? She wasfound to have significantly elevated troponin T.? The echocardiogram revealedsevere diffuse hypokinesia of the LV apex. The myocardial perfusion imagingrevealed small areas of ischemia in the distribution of the right coronaryartery and left circumflex artery predominantly. In view of her clinicalpresentation and the abnormal objective findings, in order to further evaluatethe coronary status, a cardiac catheterization was recommended. Patient underwent left heart catheterization with a left and right coronary angiogramand LV angiogram today.? The findings are as follows.. ? 4. Patent stented segment of the right coronary artery.? Around 50%peristent stenosis in the right coronary artery.? Mild to moderate diffusedisease in the other vessels. Mild to moderate proximal coronary artery calcification LV ejection fraction of 40%.? Wall motion abnormality of theleft ventricle is suggestive of a variant of Takotsubo syndrome. LVEDP of 3 mmHg MPI: My impression: 1.? EKG changes with the Lexiscan infusion suggestive of inferolateral wall ischemia 2. No LexiScan induced chest pain or cardiac arrhythmia 3. Normal blood pressure and heart rate response 4. Sestamibi/sestamibi perfusion scan pending; see separate report. ?1.? Myocardial perfusion imaging revealing a small area of reversible defect in ?the basal inferior wall region, suggestive of ischemia in the distribution of ?the right coronary artery. ?2.? Normal LV ejection fraction 73%. ?3.? LV wall motion analysis revealing no gross wall motion abnormalities. ?4.? Normal LV volume. EKG 1: My Interpretation: The EKG revealed a sinus rhythm with occasional supraventricular ectopics. Diffuse nonspecific ST-T changes. Left axis deviation. Possible old septal myocardial infarction. EKG computer-generated impression: Chest X-Ray 11/29/21 16:08 IMPRESSION: No acute findings. A&P Assessment and plan (1) Abnormal myocardial perfusion study: The perfusion scan is suggestive of ischemia in the distribution of the right coronary artery. The area of ischemia is small. However in view of the patient's symptoms, in order to further evaluate her coronary status, she requires a cardiac catheterization. The option of optimizing medical treatment also was discussed. Patient and the family is wanting to go ahead with the angiogram and possible intervention. The risk of bleeding, hematoma, vascular injury, myocardial infarction, CVA, renal failure and other concomitant complications were explained in detail. Patient understood this well and consented to proceed. Status: Acute (2) Atherosclerotic heart disease of [place] coronary artery with other forms of angina pectoris: The patient's symptoms are somewhat atypical. However in view of the abnormal perfusion scan and the EKG changes, possibility of her having underlying coronary ischemia, causing this is a strong consideration. Based on the angiogram findings, further recommendations will be made. Status: Acute (3) Atrial fibrillation: Patient is currently in regular rhythm. May continue the current medications. Status: Acute Qualifiers: Atrial fibrillation type: paroxysmal Qualified Code(s): I48.0 - Paroxysmal atrial fibrillation (4) Cardiomyopathy: Since the patient has no evidence of any cardiac decompensation, is advised to continue on the current measures. The current medications were reviewed. I may do a repeat echocardiogram-limited 2D to further evaluate LV function and rule out any other pathology. Status: Acute Qualifiers: Cardiomyopathy type: other Qualified Code(s): I42.8 - Other cardiomyopathies (5) Dyslipidemia (high LDL; low HDL): Continue on the current management. Follow-up evaluation as scheduled. Status: Acute (6) Accelerated hypertension: I am started on amlodipine 5 mg p.o. daily for better control of the blood pressure. Her vital signs need to be closely monitored. Status: Acute Plan Based on the results of the above tests and the patient's clinical progress, further recommendations will be made. May start her on amlodipine 5 mg p.o. daily for better control of the blood pressure. I will hold off on the Eliquis at this point. Started on Lovenox 40 mg every 12 hours this evening. She may continue to assess, today and tomorrow. 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
[2021-11-30] MEDS: enoxaparin 40 mg/0.4 mL Syringe SUBCUT (18:16)
[2021-11-30] MEDS: temazepam 15 mg Capsule PO (19:36)
[2021-11-30] MEDS: atorvastatin 40 mg Tablet PO (21:06)
[2021-11-30] MEDS: acetaminophen 325 mg Tablet 650 MG PO (21:06)
[2021-12-01] VITALS (12 sets, daily range): BP systolic 91–145; BP diastolic 55–77; PULSE 54–84; RESP 12–20; TEMP 36.4–36.7; O2SAT 96–98
[2021-12-01 03:52] LABS: Anion Gap 14.9 (5-19); Blood Urea Nitrogen 45 mg/dL (8-23); Calcium 8.7 mg/dL (8.5-10.5); Carbon Dioxide 24 mmol/L (22-29); Chloride 89 mmol/L (98-107); Glucose 105 mg/dL (65-115); Magnesium 1.6 mg/dL (1.7-2.3); Osmolality Calculated 268 mOsm/kg (285-295); Potassium 4.9 mmol/L (3.5-5.1); Sodium 123 mmol/L (136-145)
[2021-12-01] MEDS: enoxaparin 40 mg/0.4 mL Syringe SUBCUT (05:11)
[2021-12-01] MEDS: amlodipine 5 mg Tablet PO (08:32)
[2021-12-01] MEDS: metoprolol tartrate 50 mg Tablet 75 MG PO ×2 (08:33→19:30)
[2021-12-01] MEDS: lidocaine 5% Patch 2 PATCH TOPICAL (08:34)
[2021-12-01] MEDS: sodium chloride 0.9% 1,000 ML 75 ML IV (08:37)
[2021-12-01] MEDS: aspirin 81 mg EC Tablet PO (08:37)
[2021-12-01 08:52] LABS: Digoxin 0.8 ng/mL (0.6-1.2)
[2021-12-01 10:10] LABS: Anion Gap 15.6 (5-19); Blood Urea Nitrogen 53 mg/dL (8-23); Calcium 8.9 mg/dL (8.5-10.5); Carbon Dioxide 23 mmol/L (22-29); Chloride 88 mmol/L (98-107); Glucose 101 mg/dL (65-115); Osmolality Calculated 269 mOsm/kg (285-295); Potassium 4.6 mmol/L (3.5-5.1); Sodium 122 mmol/L (136-145)
--- NOTE | 2021-12-01 12:46 | PM.PN ---
Subjective Subjective: Seen this morning. She says she is not had any more chest pain. However she did get trolamine topical cream yesterday on her lower extremities. Sodium 124 this AM. Test repeated sodium 122. She is asymptomatic. Mental status is okay. Alert oriented x3. Daughter at bedside. They were updated extensively. Mati is on hold. Dig level 0.8. Vitals/I&O/Wt Last Vital Signs Temp 97.5 F L 12/01/21 11:13 Pulse 58 L 12/01/21 11:13 Resp 16 12/01/21 11:13 BP 145/76 12/01/21 11:13 Pulse Ox 98 12/01/21 11:13 11/30/21 12/01/21 12/01/21 22:59 06:59 14:59 Intake Total 360 / 360 Balance 360 / 360 Weight last 48 hrs Weight 39.054 kg Weight 38.102 kg Physical Exam Narrative: General: Alert oriented x3, patient seen sitting up in recliner appearing comfortable. Frail-appearing elderly female HEENT: Normocephalic, atraumatic, EOMI, breathing normally on room air Cardio: Regular rate rhythm, normal S1-S2, no murmurs Respiratory: Good bilateral air entry, no wheezes no rhonchi appreciated GI: Abdomen soft, nontender, nondistended, bowel sounds + Extremities: Trace bilateral lower extremity edema, no cyanosis Data : 11/29/21 16:20 12/01/21 09:12 A&P Assessment and plan (1) Accelerated hypertension: Status: Acute (2) Atherosclerotic heart disease of [place] coronary artery with other forms of angina pectoris: Status: Acute (3) Abnormal myocardial perfusion study: Status: Acute (4) Chest pain: Status: Acute (5) Atrial fibrillation: Status: Acute Qualifiers: Atrial fibrillation type: paroxysmal Qualified Code(s): I48.0 - Paroxysmal atrial fibrillation (6) Cardiomyopathy: Status: Acute Qualifiers: Cardiomyopathy type: other Qualified Code(s): I42.8 - Other cardiomyopathies (7) CHF (congestive heart failure): Status: Acute Qualifiers: Heart failure type: diastolic Heart failure chronicity: acute on chronic Qualified Code(s): I50.33 - Acute on chronic diastolic (congestive) heart failure (8) COPD (chronic obstructive pulmonary disease): Status: Acute Qualifiers: COPD type: unspecified COPD Qualified Code(s): J44.9 - Chronic obstructive pulmonary disease, unspecified (9) Dyslipidemia (high LDL; low HDL): Status: Acute (10) Chronic back pain: Status: Acute (11) Poorly-controlled hypertension: Status: Acute (12) Kyphosis deformity of spine: Status: Acute Qualifiers: Kyphosis type: unspecified Spinal region: thoracolumbar Qualified Code(s): M40.205 - Unspecified kyphosis, thoracolumbar region Plan #Chest pain #History of nonischemic cardiomyopathy/Takotsubo cardiomyopathy #Atrial fibrillation?rate controlled #Hypertension #Chronic congestive heart failure, diastolic #Dyslipidemia #Acute hyponatremia, rule out SIADH, possibly drug-induced #COPD?stable not in exacerbation at this time -Troponins negative x3. Chest pain-free. Stress test abnormal. Area of reversible perfusion defect. ? Hold Eliquis in anticipation of cardiac angiogram in a.m. N.p.o. at midnight ? Continue metoprolol 75 twice daily, digoxin 125 daily, aspirin 81, atorvastatin 40, sublingual nitro as needed for chest pain. Continue newly started amlodipine 5 mg daily. ? Cardiology on board. Recommendations appreciated -Repeat echo ordered yesterday. Results pending. ? Unsure why she has acute hyponatremia. She did get trolamine topical NSAID cream yesterday for her lower extremities. There have been few instances of NSAID induced SIADH unsure if this is the case for this patient. I will place on fluid restriction check urine studies, serum osmolality, urine osmolality. We will recheck sodium in 6 to 8 hours and decide on further management. I will hold the trolamine topical NSAID cream for now. She is okay mental status brown and asymptomatic. DNR/DNI DVT prophylaxis: Lovenox 40 daily. Attestations Medical Necessity Statement*: Will need to stay in hospital for management of chest pain. Will go for cardiac angiogram in the morning. Coding Level of Care Code Acute [employer]cher for [facility] Diagnoses Accelerated hypertension I10 Atherosclerotic heart disease of [place] coronary artery with other forms of angina pectoris I25.118 Abnormal myocardial perfusion study R94.39 Chest pain R07.9 Atrial fibrillation I48.0 Atrial fibrillation type: paroxysmal Cardiomyopathy I42.8 Cardiomyopathy type: other CHF (congestive heart failure) I50.33 Heart failure type: diastolic Heart failure chronicity: acute on chronic COPD (chronic obstructive pulmonary disease) J44.9 COPD type: unspecified COPD Dyslipidemia (high LDL; low HDL) E78.5 Chronic back pain M54.9; G89.29 Poorly-controlled hypertension I10 Kyphosis deformity of spine M40.205 Kyphosis type: unspecified Spinal region: thoracolumbar
[2021-12-01] MEDS: magnesium sulfate premix 2 GM/50 ML PIGGYBACK IV (13:50)
[2021-12-01 15:50] LABS: Blood Urea Nitrogen 46 mg/dL (8-23); Calcium 8.7 mg/dL (8.5-10.5); Carbon Dioxide 22 mmol/L (22-29); Chloride 88 mmol/L (98-107); Glucose 104 mg/dL (65-115); Osmolality Calculated 266 mOsm/kg (285-295); Sodium 122 mmol/L (136-145)
[2021-12-01 15:55] LABS: Basophils % 0.2 %; Eosinophils % 0.2 %; Hematocrit 36.4 % (37.0-47.0); Lymphocytes # 2.5 10^3/uL (0.8-4.8); Lymphocytes % 21.1 %; Mean Corpuscular Hemoglobin 29.9 pg (28.0-34.0); Mean Corpuscular Volume 90.5 fl (81-99); Mean Platelet Volume 10.5 fL (7.4-10.4); Monocytes # 0.7 10^3/uL (0.2-0.9); Monocytes % 5.7 %; Neutrophils # 8.68 10^3/uL (1.8-7.7); Neutrophils % 72.3 %; Nucleated Red Blood Cells % 0 %; Platelet Count 180 10^3/cmm (130-400); Red Blood Count 4.02 10^6/uL (4.1-5.3); Red Cell Distribution Width 13.7 % (12.1-15.1)
--- NOTE | 2021-12-01 17:31 | P.PN_ITS ---
Subjective Subjective: Has episodes of soreness on the left side of the chest. She was found to have low sodium today. Etiology is not clear. She is undergoing work- up. Medications: Medication Review Details: Current Medications Acetaminophen (Acetaminophen 325 Mg Tablet) 650 mg PO Q4H PRN PRN Reason: MILD PAIN OR INCREASE TEMP Last Admin: 11/30/21 21:06 Dose: 650 mg Documented by: Albuterol Sulfate (Albuterol 8 Gm Mdi) 2 puff INHALATION Q6H PRN PRN Reason: shortness of breath or wheezing Amlodipine Besylate (Amlodipine 5 Mg Tablet) 5 mg PO DAILY MAX Last Admin: 12/01/21 08:32 Dose: 5 mg Documented by: Aspirin (Aspirin 81 Mg Ec Tablet) 81 mg PO DAILY MAX Last Admin: 12/01/21 08:37 Dose: 81 mg Documented by: Atorvastatin Calcium (Atorvastatin 40 Mg Tablet) 40 mg PO BEDTIME MAX Last Admin: 11/30/21 21:06 Dose: 40 mg Documented by: Digoxin (Digoxin 125 Mcg Tablet) 125 mcg PO EVERY OTHER DAY MAX Last Admin: 11/30/21 10:32 Dose: 125 mcg Documented by: Lidocaine (Lidocaine 5% Patch) 2 patch TOPICAL [id number] MAX Last Admin: 12/01/21 08:34 Dose: 2 patch Documented by: Metoprolol Tartrate (Metoprolol Tartrate 50 Mg Tablet) 75 mg PO Q12H MAX Last Admin: 12/01/21 08:33 Dose: 75 mg Documented by: Ondansetron HCl (Ondansetron 2 Mg/Ml Sdv 2 Ml) 4 mg IVP Q2M PRN PRN Reason: NAUSEA Last Admin: 11/30/21 07:45 Dose: 4 mg Documented by: Tiotropium [place] (Tiotropium 18 Mcg Mdi) 18 mcg INHALATION DAILY.RESPIRATORY MAX Last Admin: 12/01/21 08:36 Dose: 1 puff Documented by: Trolamine Salicylate (Trolamine Salicylate 10% 85 Gm Cream) 1 applic TOPICAL TID PRN PRN Reason: PAIN Last Admin: 11/30/21 19:35 Dose: 1 applic Documented by: Vitals/I&O/Wt Last Vital Signs Temp 97.9 F 12/01/21 15:10 Pulse 63 12/01/21 15:10 Resp 14 12/01/21 15:10 BP 129/77 12/01/21 16:09 Pulse Ox 97 12/01/21 15:10 12/01/21 12/01/21 12/01/21 06:59 14:59 22:59 Intake Total 360 / 360 50 / 410 Balance 360 / 360 50 / 410 Weight last 48 hrs Weight 86 lb 1.6 oz Physical Exam Narrative: GENERAL: The patient is alert and oriented times three. Not in any acute distress. Confirmed with the kyphosis HEENT: No significant pallor, icterus or lymphadenopathy.Oral cavity: There are no mucous membrane lesions. NECK: Trachea appears to be central. No masses noted. No JVD or thyromegaly appreciated. RESPIRATORY: Chest is symmetrical. No intercostals muscle retraction or any accessory muscle activation. There is no chest wall tenderness. Breath sounds are heard bilaterally. No rales or rhonchi heard. No evidence of any consolidation. Emphysematous chest. BREASTS: Deferred. HEART: The heart sounds are normal. No S3 or S4. No pericardial rub ABDOMEN: No vessel pulsations or distention. No tenderness. No organomegaly appreciated. Bowel sounds are normally heard. : Deferred. RECTAL: Deferred. LYMPHATIC: No lymphadenopathy noted in the neck. EXTREMITIES: No edema or cyanosis. No clubbing. MUSCULOSKELETAL: No acute joint deformities or swelling SKIN: There are no significant rashes or ecchymosis NEUROPSYCHIATRIC: The patient is alert and oriented x3. Appears to be in a good mood. No tremors or rigidity noted. Data : 12/01/21 15:49 12/01/21 15:26 Other Labs: Laboratory Last Values WBC 12.0 10^3/uL (4.0-10.0) H 12/01/21 15:49 RBC 4.02 10^6/uL (4.1-5.3) L 12/01/21 15:49 Hgb 12.0 g/dL (11.5-15.3) 12/01/21 15:49 Hct 36.4 % (37.0-47.0) L 12/01/21 15:49 MCV 90.5 fl (81-99) 12/01/21 15:49 MCH 29.9 pg (28.0-34.0) 12/01/21 15:49 MCHC 33.0 g/dL (30.0-36.0) 12/01/21 15:49 RDW 13.7 % (12.1-15.1) 12/01/21 15:49 Plt Count 180 10^3/cmm (130-400) 12/01/21 15:49 MPV 10.5 fL (7.4-10.4) H 12/01/21 15:49 Neut % (Auto) 72.3 % 12/01/21 15:49 Lymph % (Auto) 21.1 % 12/01/21 15:49 [place] % (Auto) 5.7 % 12/01/21 15:49 Eos % (Auto) 0.2 % 12/01/21 15:49 Baso % (Auto) 0.2 % 12/01/21 15:49 Neut # (Auto) 8.68 10^3/uL (1.8-7.7) H 12/01/21 15:49 Lymph # (Auto) 2.5 10^3/uL (0.8-4.8) 12/01/21 15:49 [place] # (Auto) 0.7 10^3/uL (0.2-0.9) 12/01/21 15:49 Eos # (Auto) 0.0 10^3/uL (0.0-0.8) 12/01/21 15:49 Baso # (Auto) 0.0 10^3/uL (0.0-0.1) 12/01/21 15:49 Nucleated RBC % (auto) 0 % 12/01/21 15:49 Nucleated RBCs # 0.0 /100WBC 12/01/21 15:49 D-Dimer 0.91 ug/mIFEU (0-0.59) H 11/30/21 10:45 Sodium 122 mmol/L (136-145) L 12/01/21 15:26 Potassium 4.0 mmol/L (3.5-5.1) 12/01/21 15:26 Chloride 88 mmol/L (98-107) L 12/01/21 15:26 Carbon Dioxide 22 mmol/L (22-29) 12/01/21 15:26 Anion Gap 16.0 (5-19) 12/01/21 15:26 BUN 46 mg/dL (8-23) H 12/01/21 15:26 Creatinine 0.4 mg/dL (0.5-0.9) L 12/01/21 15:26 GFR Calculation Not Reportable 12/01/21 15:26 Glucose 104 mg/dL (65-115) 12/01/21 15:26 Calculated Osmolality 266 mOsm/kg (285-295) L 12/01/21 15:26 Calcium 8.7 mg/dL (8.5-10.5) 12/01/21 15:26 Magnesium 1.6 mg/dL (1.7-2.3) L 12/01/21 03:21 Troponin T Baseline 7 ng/L (0-10) 11/29/21 16:20 Troponin T 120 Minute 10.08 ng/L (0-10) H 11/29/21 18:10 Delta Troponin T 3.08 ABS# (0-10) 11/29/21 18:10 Troponin T Hi Sens 6Hr 9.19 ng/L (0-10) 11/29/21 22:45 Troponin T Hi Sens 6Hr Delta 2.19 ng/L (0-12) 11/29/21 22:45 Digoxin 0.8 ng/mL (0.6-1.2) 12/01/21 03:21 MPI: My impression: 1.? Myocardial perfusion imaging revealing a small area of reversible defect in ?the basal inferior wall region, suggestive of ischemia in the distribution of ?the right coronary artery. ?2.? Normal LV ejection fraction 73%. ?3.? LV wall motion analysis revealing no gross wall motion abnormalities. ?4.? Normal LV volume. Echo: My impression: LV systolic function is normal with EF 50 to 55%. ?Grade 1 diastolic dysfunction. ?Mild mitral regurgitation. ?Aortic valve is thickened. ?Mild tricuspid regurgitation. ?Moderate pulmonary hypertension. ?Compared to prior echocardiogram from 02/08/2021, no significant ?changes are seen A&P Assessment and plan (1) Abnormal myocardial perfusion study: The perfusion scan is suggestive of ischemia in the distribution of the right coronary artery. The area of ischemia is small. However in view of the patient's symptoms, in order to further evaluate her coronary status, she requires a cardiac catheterization. The option of optimizing medical treatment also was discussed. Patient and the family is wanting to go ahead with the angiogram and possible intervention. The risk of bleeding, hematoma, vascular i njury, myocardial infarction, CVA, renal failure and other concomitant complications were explained in detail. Patient understood this well and consented to proceed. Because of the Eliquis, we had to postpone the test. We might be able to do it tomorrow. We will keep her n.p.o. after midnight Status: Acute (2) Atherosclerotic heart disease of [place] coronary artery with other forms of angina pectoris: The patient's symptoms are somewhat atypical. However in view of the abnormal perfusion scan and the EKG changes, possibility of her having underlying coronary ischemia, causing this is a strong consideration. Based on the angiogram findings, further recommendations will be made. Status: Acute (3) Atrial fibrillation: Patient is currently in regular rhythm. May continue the current medications. Status: Acute Qualifiers: Atrial fibrillation type: paroxysmal Qualified Code(s): I48.0 - Paroxysmal atrial fibrillation (4) Cardiomyopathy: Since the patient has no evidence of any cardiac decompensation, is advised to continue on the current measures. The current medications were reviewed. I may do a repeat echocardiogram-limited 2D to further evaluate LV function and rule out any other pathology. Status: Acute Qualifiers: Cardiomyopathy type: other Qualified Code(s): I42.8 - Other cardiomyopathies (5) Dyslipidemia (high LDL; low HDL): Continue on the current management. Follow-up evaluation as scheduled. Status: Acute (6) Accelerated hypertension: The blood pressure is under control at this time. We will continue on the current medications. Status: Acute (7) Hyponatremia: Etiology is not clear. Management as per Dr. Gonzalez Status: Acute Plan Based on the results of the above tests and the patient's clinical progress, further recommendations will be made. We will keep her n.p.o. after midnight. Possible cardiac catheterization in the morning. We will check the labs in the morning and then decide Attestations Medical Necessity Statement*: Patient requires continued hospital stay for close monitoring and further management Coding Level of Care Code Acute Mental Health Associate for Meghann Jack History Detailed Exam Detailed Medical Decision Making Moderate Complexity Diagnoses Abnormal myocardial perfusion study R94.39 Atherosclerotic heart disease of [place] coronary artery with other forms of angina pectoris I25.118 Atrial fibrillation I48.0 Atrial fibrillation type: paroxysmal Cardiomyopathy I42.8 Cardiomyopathy type: other Dyslipidemia (high LDL; low HDL) E78.5 Accelerated hypertension I10 Hyponatremia E87.1
--- NOTE | 2021-12-01 17:42 | PM.CONSULT ---
Providers/Reason For Consult Consulting Physician/Specialty*: diana kumar md /telenephrology Reason for Consult*: hyponatremia Requesting Physician: DR Gonzalez Attending Physician: Trinidad Gonzalez MD Primary Care Provider: Huyen Thompson APN History of Present Illness History of Present Illness Rosemary Rodrigez is a 86 year old female w/ h/o non-ischemic CM, a fib, HTN, takotsubo syndrome. Pt presented w/ weakness, cp, and SOB. Her sodium at baseline is approx 132. She presented on 11-29-21 w/ a sodium of 132. Today na was 122 and renal was called for hyponatremia. Review of Systems Narrative: weak, light headed, dizzy, palps, edema Medications/Allergies Home Medications Medication Instructions Recorded Confirmed Last Taken Type ascorbic acid (vitamin C) 1,000 mg 1,000 mg PO DAILY 04/02/20 11/29/21 11/29/21 History tablet (Vitamin C) multivitamin 1 tab PO DAILY 04/02/20 11/29/21 11/29/21 History atorvastatin 40 mg tablet 40 mg PO BEDTIME #30 tab 04/05/20 11/29/21 11/28/21 Rx albuterol sulfate 90 mcg/actuation 2 inh INHALATION Q6H PRN #8.5 g 02/10/21 11/29/21 Unknown Rx aerosol inhaler digoxin 125 mcg (0.125 mg) tablet 125 mcg PO EVERY OTHER DAY #30 tab 02/10/21 11/29/21 11/28/21 Rx magnesium oxide 250 mg PO DAILY #90 tab 02/10/21 11/29/21 11/29/21 Rx metoprolol tartrate 50 mg tablet 75 mg PO Q12H #90 tab 02/10/21 11/29/21 11/29/21 Rx tiotropium bromide 18 mcg capsule 18 mcg INHALATION 02/10/21 11/29/21 11/29/21 Rx with inhalation device (Spiriva DAILY.RESPIRATORY #90 inh with HandiHaler) apixaban 2.5 mg tablet (Eliquis) 2.5 mg PO BID #60 tab 04/16/21 11/29/21 11/29/21 Rx aspirin 81 mg tablet,delayed 81 mg PO DAILY 11/29/21 11/29/21 11/29/21 History release Allergies Allergy/AdvReac Type Severity Reaction Status Date / Time No Known Allergies Allergy Verified 09/08/21 08:40 Current Medications Generic Name Dose Route Start Last Admin Trade Name Freq PRN Reason Stop Dose Admin Acetaminophen 650 mg 11/30/21 09:47 11/30/21 21:06 Acetaminophen 325 Mg Tablet PO 650 mg Q4H PRN Administration MILD PAIN OR INCREASE TEMP Amlodipine Besylate 5 mg 12/01/21 09:00 12/01/21 08:32 Amlodipine 5 Mg Tablet PO 5 mg DAILY MAX Administration Aspirin 81 mg 11/30/21 09:00 12/01/21 08:37 Aspirin 81 Mg Ec Tablet PO 81 mg DAILY MAX Administration Atorvastatin Calcium 40 mg 11/30/21 21:00 11/30/21 21:06 Atorvastatin 40 Mg Tablet PO 40 mg BEDTIME MAX Administration Digoxin 125 mcg 11/30/21 09:00 11/30/21 10:32 Digoxin 125 Mcg Tablet PO 125 mcg EVERY OTHER DAY MXA Administration Lidocaine 2 patch 11/30/21 10:44 12/01/21 08:34 Lidocaine 5% Patch TOPICAL 2 patch [id number] MAX Administration Metoprolol Tartrate 75 mg 11/30/21 08:00 12/01/21 08:33 Metoprolol Tartrate 50 Mg Tablet PO 75 mg Q12H MAX Administration Ondansetron HCl 4 mg 11/30/21 06:55 11/30/21 07:45 Ondansetron 2 Mg/Ml Sdv 2 Ml IVP 4 mg Q2M PRN Administration NAUSEA Tiotropium [place] 18 mcg 11/30/21 08:00 12/01/21 08:36 Tiotropium 18 Mcg Mdi INHALATION 1 puff DAILY.RESPIRATORY MAX Administration Trolamine Salicylate 1 applic 11/30/21 17:15 11/30/21 19:35 Trolamine Salicylate 10% 85 Gm Cream TOPICAL 1 applic TID PRN Administration PAIN PFSH Acute PFSH: Medical History Atherosclerotic heart disease of [place] coronary artery without angina pectoris Atrial fibrillation CAD (coronary artery disease) Cardiomyopathy CHF (congestive heart failure) Chronic back pain COPD (chronic obstructive pulmonary disease) Dyslipidemia (high LDL; low HDL) HTN (hypertension) Hx of completed stroke Hx of myocardial infarction Kyphosis deformity of spine Takotsubo syndrome Surgical History H/O coronary angiogram Family History Mother CAD (coronary artery disease) Father CAD (coronary artery disease) Daughter CAD (coronary artery disease) Denies family history of Diabetes Clotting disorder Dementia Chronic kidney disease (CKD) Suicide Anesthesia complication Bleeding disorder Lung disease Cancer Stroke Social History Smoking and tobacco status: former smoker Quit status (tobacco): has quit using tobacco Former quit date comment: 25 ya Alcohol intake: never Lives independently: Yes Household members: children and other Details: Son Current occupational status: retired Vitals/I&O/Wt Last Vital Signs Temp 97.9 F 12/01/21 15:10 Pulse 63 12/01/21 15:10 Resp 14 12/01/21 15:10 BP 129/77 12/01/21 16:09 Pulse Ox 97 12/01/21 15:10 12/01/21 12/01/21 12/01/21 06:59 14:59 22:59 Intake Total 360 / 360 50 / 410 Balance 360 / 360 50 / 410 Weight last 48 hrs Weight 39.054 kg Physical Exam Narrative: seen and examined w/ rN- telehealth visit uncomfortable, NARD in bed vs noted and stable heent- nc/at, eomi, anicteric neck supple lungs wheezes heart irreg abd soft, nt, Nd, + bs ext 1+ edema neuro a,a, o x 2+ Data : 12/01/21 15:49 12/01/21 15:26 A&P Assessment and plan (1) Hyponatremia: 86 yr old female CP, +trop 1. chronic hyponatremia- na approx 132 2. acute hyponatremia, high bun/ cr ratio- fluid restrict check urine lytes, osm, cr start ns ivf -check tsh and am cortisol levels -normal cxr on admission seen and examined w/ rN- telehealth visit consent for telehealth obtained from pt. Status: Acute Consult Attestations Medical Necessity Statement: hyponatremia, + trop Time Spent in Patient Care: Greater than 35 minutes (>than 50% of time spent in counselling and/or direct pt care on unit). Coding Level of Care Code Acute Educational Paraprofessional for Chg Fwd Diagnoses Hyponatremia E87.1
[2021-12-01 18:34] LABS: Glucose Urine UA Norm (Normal); Ketones Urine Negative (Negative); Protein Urine Neg (Negative); Specific Gravity, Urine 1.015 (1.005-1.030); Urine Appearance Clear (CLEAR); Urine Color Yellow (Yellow); pH Urine 6 (5-7)
[2021-12-01 18:35] LABS: Add Urine Culture? No; Bilirubin Urine Neg (Negative); Blood Urine Trace (Negative); Leukocyte Esterase Urine Negative (Negative); Nitrate Urine Negative (Negative); RBC Urine 0-4 /hpf (0-2); Squamous Epithelial Cell Urine 0-4 /hpf (0-5); Urobilinogen Urine Norm (Negative); WBC Urine 0-4 /hpf (0-5)
[2021-12-01 18:52] LABS: Potassium, Radom Urine 22 mmol/L; Urine Creatinine 34 mg/dL (28-217)
[2021-12-01 19:19] LABS: Urine Random Sodium < 10 mmol/L
[2021-12-01 19:20] LABS: Urine Random Chloride < 10 mmol/L
[2021-12-01] MEDS: acetaminophen 325 mg Tablet 650 MG PO (19:29)
[2021-12-01] MEDS: atorvastatin 40 mg Tablet PO (21:42)
[2021-12-01] MEDS: cyclobenzaprine 10 mg Tablet 5 MG PO (21:42)
[2021-12-01] MEDS: HYDROcodone-acetaminophen 5-325 mg Tablet 1 TAB PO (23:55)
[2021-12-01] MEDS: sodium chloride 0.9% 1,000 ML 90 ML IV (23:56)
[2021-12-02] VITALS (14 sets, daily range): BP systolic 82–146; BP diastolic 44–78; PULSE 54–91; RESP 12–18; TEMP 36.3–36.7; O2SAT 95–99
[2021-12-02 02:55] LABS: Anion Gap 10.8 (5-19); Blood Urea Nitrogen 32 mg/dL (8-23); Calcium 7.8 mg/dL (8.5-10.5); Carbon Dioxide 23 mmol/L (22-29); Chloride 91 mmol/L (98-107); Glucose 88 mg/dL (65-115); Osmolality Calculated 258 mOsm/kg (285-295); Potassium 3.8 mmol/L (3.5-5.1); Sodium 121 mmol/L (136-145)
[2021-12-02] MEDS: sodium chloride 0.9% 1,000 ML 50 ML IV (05:09)
[2021-12-02] MEDS: diphenhydrAMINE 50 mg Capsule PO (05:10)
[2021-12-02 07:06] LABS: Basophils % 0.3 %; Eosinophils % 0.3 %; Hematocrit 31.1 % (37.0-47.0); Hemoglobin 10.6 g/dL (11.5-15.3); Lymphocytes # 2.1 10^3/uL (0.8-4.8); Lymphocytes % 22.1 %; Mean Corpuscular HGB Conc 34.1 g/dL (30.0-36.0); Mean Corpuscular Hemoglobin 29.8 pg (28.0-34.0); Mean Corpuscular Volume 87.4 fl (81-99); Mean Platelet Volume 10.9 fL (7.4-10.4); Monocytes # 0.6 10^3/uL (0.2-0.9); Monocytes % 6.1 %; Neutrophils # 6.54 10^3/uL (1.8-7.7); Neutrophils % 70.7 %; Nucleated Red Blood Cells % 0 %; Platelet Count 152 10^3/cmm (130-400); Red Blood Count 3.56 10^6/uL (4.1-5.3); Red Cell Distribution Width 13.8 % (12.1-15.1); White Blood Count 9.3 10^3/uL (4.0-10.0)
--- NOTE | 2021-12-02 07:08 | P.PN_ITS ---
Subjective Subjective: comfortable. no n/v/f/c/diaz/d/sob in bed Medications: Reviewed: Yes Medication Review Details: Current Medications Acetaminophen (Acetaminophen 325 Mg Tablet) 650 mg PO Q4H PRN PRN Reason: MILD PAIN OR INCREASE TEMP Last Admin: 12/01/21 19:29 Dose: 650 mg Documented by: Hydrocodone Bitart/Acetaminophen (Hydrocodone-Acetaminophen 5-325 Mg Tablet) 1 tab PO TID PRN PRN Reason: SEVERE PAIN Last Admin: 12/01/21 23:55 Dose: 1 tab Documented by: Albuterol Sulfate (Albuterol 8 Gm Mdi) 2 puff INHALATION Q6H PRN PRN Reason: shortness of breath or wheezing Amlodipine Besylate (Amlodipine 5 Mg Tablet) 5 mg PO DAILY [facility] Last Admin: 12/01/21 08:32 Dose: 5 mg Documented by: Aspirin (Aspirin 81 Mg Ec Tablet) 81 mg PO DAILY [facility] Last Admin: 12/01/21 08:37 Dose: 81 mg Documented by: Atorvastatin Calcium (Atorvastatin 40 Mg Tablet) 40 mg PO BEDTIME [facility] Last Admin: 12/01/21 21:42 Dose: 40 mg Documented by: Cyclobenzaprine HCl (Cyclobenzaprine 10 Mg Tablet) 5 mg PO TID PRN PRN Reason: MUSCLE SPASMS Last Admin: 12/01/21 21:42 Dose: 5 mg Documented by: Digoxin (Digoxin 125 Mcg Tablet) 125 mcg PO EVERY OTHER DAY [facility] Last Admin: 11/30/21 10:32 Dose: 125 mcg Documented by: Sodium Chloride (Sodium Chloride 0.9%) 1,000 mls @ 90 mls/hr IV .Q11H7M [facility] Last Infusion: 12/02/21 05:13 Dose: 0 mls/hr Documented by: Sodium Chloride (Sodium Chloride 0.9%) 1,000 mls @ 100 mls/hr IV .Q10H ONE Stop: 12/02/21 09:59 Last Admin: 12/02/21 05:09 Dose: 50 mls/hr Documented by: Lidocaine (Lidocaine 5% Patch) 2 patch TOPICAL [id number] [facility] Last Admin: 12/01/21 21:44 Dose: Not Given Documented by: Metoprolol Tartrate (Metoprolol Tartrate 50 Mg Tablet) 75 mg PO Q12H [facility] Last Admin: 12/01/21 19:30 Dose: 75 mg Documented by: Ondansetron HCl (Ondansetron 2 Mg/Ml Sdv 2 Ml) 4 mg IVP Q2M PRN PRN Reason: NAUSEA Last Admin: 11/30/21 07:45 Dose: 4 mg Documented by: Tiotropium [place] (Tiotropium 18 Mcg Mdi) 18 mcg INHALATION DAILY.RESPIRATORY MXA Last Admin: 12/01/21 08:36 Dose: 1 puff Documented by: Trolamine Salicylate (Trolamine Salicylate 10% 85 Gm Cream) 1 applic TOPICAL TID PRN PRN Reason: PAIN Last Admin: 11/30/21 19:35 Dose: 1 applic Documented by: Vitals/I&O/Wt Last Vital Signs Temp 97.4 F L 12/02/21 04:00 Pulse 54 L 12/02/21 04:00 Resp 12 12/02/21 04:00 BP 113/61 12/02/21 04:00 Pulse Ox 99 12/02/21 04:00 12/01/21 12/02/21 12/02/21 22:59 06:59 14:59 Intake Total 1147.25 / 1507.25 475.5 / 1981.75 Output Total 0 / 0 Balance 1147.25 / 1507.25 475.5 / 75 Physical Exam Narrative: seen and examined w/ rN- telehealth visit comfortable, NARD in bed vs noted a heent- nc/at, eomi, anicteric neck supple lungs clear b/l heart irreg abd soft, nt, Nd, + bs ext 1+ edema neuro a,a, o x 2+ Data : 12/02/21 06:33 12/02/21 01:50 A&P Assessment and plan (1) Hyponatremia: 86 yr old female CP, +trop 1. chronic hyponatremia- na approx 132 2. acute hyponatremia, high bun/ cr ratio- fluid restrict -low ur na and cl c/w prerenal azotemia- cont ns ivf at 100 ml/hr -check tsh and am cortisol levels -normal cxr on admission 3. bun improving w/ ivf 4. Q CAD- for cath- would want to stablize na first if possible. seen and examined w/ rN- telehealth visit time spent 30 min. Status: Acute Plan see above Attestations Medical Necessity Statement*: hyponatremia- need slow na correction. Q CAD for cardiac cath when medically optimized Time Spent in Patient Care: 16 - 35 minutes (>than 50% of time spent in counselling and/or direct pt care on unit) . Coding Level of Care Code Acute [employer]bi Profiler for Meghann Jack Diagnoses Hyponatremia E87.1
--- NOTE | 2021-12-02 07:13 | PM.PN ---
Subjective Subjective: The patient was complaining of leg cramps through the night. She responded to medications. Had a repeat electrolytes showed the sodium to be 121. Nephrology is on the case. Advised for IV hydration. Medications: Medication Review Details: Current Medications Acetaminophen (Acetaminophen 325 Mg Tablet) 650 mg PO Q4H PRN PRN Reason: MILD PAIN OR INCREASE TEMP Last Admin: 12/01/21 19:29 Dose: 650 mg Documented by: Hydrocodone Bitart/Acetaminophen (Hydrocodone-Acetaminophen 5-325 Mg Tablet) 1 tab PO TID PRN PRN Reason: SEVERE PAIN Last Admin: 12/01/21 23:55 Dose: 1 tab Documented by: Albuterol Sulfate (Albuterol 8 Gm Mdi) 2 puff INHALATION Q6H PRN PRN Reason: shortness of breath or wheezing Amlodipine Besylate (Amlodipine 5 Mg Tablet) 5 mg PO DAILY [facility] Last Admin: 12/01/21 08:32 Dose: 5 mg Documented by: Aspirin (Aspirin 81 Mg Ec Tablet) 81 mg PO DAILY [facility] Last Admin: 12/01/21 08:37 Dose: 81 mg Documented by: Atorvastatin Calcium (Atorvastatin 40 Mg Tablet) 40 mg PO BEDTIME [facility] Last Admin: 12/01/21 21:42 Dose: 40 mg Documented by: Cyclobenzaprine HCl (Cyclobenzaprine 10 Mg Tablet) 5 mg PO TID PRN PRN Reason: MUSCLE SPASMS Last Admin: 12/01/21 21:42 Dose: 5 mg Documented by: Digoxin (Digoxin 125 Mcg Tablet) 125 mcg PO EVERY OTHER DAY [facility] Last Admin: 11/30/21 10:32 Dose: 125 mcg Documented by: Sodium Chloride (Sodium Chloride 0.9%) 1,000 mls @ 90 mls/hr IV .Q11H7M [facility] Last Infusion: 12/02/21 05:13 Dose: 0 mls/hr Documented by: Sodium Chloride (Sodium Chloride 0.9%) 1,000 mls @ 100 mls/hr IV .Q10H ONE Stop: 12/02/21 09:59 Last Admin: 12/02/21 05:09 Dose: 50 mls/hr Documented by: Lidocaine (Lidocaine 5% Patch) 2 patch TOPICAL [id number] [facility] Last Admin: 12/01/21 21:44 Dose: Not Given Documented by: Metoprolol Tartrate (Metoprolol Tartrate 50 Mg Tablet) 75 mg PO Q12H MAX Last Admin: 12/01/21 19:30 Dose: 75 mg Documented by: Ondansetron HCl (Ondansetron 2 Mg/Ml Sdv 2 Ml) 4 mg IVP Q2M PRN PRN Reason: NAUSEA Last Admin: 11/30/21 07:45 Dose: 4 mg Documented by: Tiotropium [place] (Tiotropium 18 Mcg Mdi) 18 mcg INHALATION DAILY.RESPIRATORY MAX Last Admin: 12/01/21 08:36 Dose: 1 puff Documented by: Trolamine Salicylate (Trolamine Salicylate 10% 85 Gm Cream) 1 applic TOPICAL TID PRN PRN Reason: PAIN Last Admin: 11/30/21 19:35 Dose: 1 applic Documented by: Vitals/I&O/Wt Last Vital Signs Temp 97.4 F L 12/02/21 04:00 Pulse 54 L 12/02/21 04:00 Resp 12 12/02/21 04:00 BP 113/61 12/02/21 04:00 Pulse Ox 99 12/02/21 04:00 12/01/21 12/02/21 12/02/21 22:59 06:59 14:59 Intake Total 1147.25 / 1507.25 475.5 / 1981.75 Output Total 0 / 0 Balance 1147.25 / 1507.25 475.5 / Physical Exam Narrative: GENERAL: The patient is some what drowsy this morning. Not in any acute distress. Confirmed with the kyphosis HEENT: No significant pallor, icterus or lymphadenopathy.Oral cavity: There are no mucous membrane lesions. NECK: Trachea appears to be central. No masses noted. No JVD or thyromegaly appreciated. RESPIRATORY: Chest is symmetrical. No intercostals muscle retraction or any accessory muscle activation. There is no chest wall tenderness. Breath sounds are heard bilaterally. No rales or rhonchi heard. No evidence of any consolidation. Emphysematous chest. BREASTS: Deferred. HEART: The heart sounds are normal. No S3 or S4. No pericardial rub ABDOMEN: No vessel pulsations or distention. No tenderness. No organomegaly appreciated. Bowel sounds are normally heard. : Deferred. RECTAL: Deferred. LYMPHATIC: No lymphadenopathy noted in the neck. EXTREMITIES: No edema or cyanosis. No clubbing. MUSCULOSKELETAL: No acute joint deformities or swelling SKIN: There are no significant rashes or ecchymosis NEUROPSYCHIATRIC: The patient is alert and oriented x3. Appears to be in a good mood. No tremors or rigidity noted. Data : 12/02/21 06:33 12/02/21 01:50 Other Labs: Current Medications Acetaminophen (Acetaminophen 325 Mg Tablet) 650 mg PO Q4H PRN PRN Reason: MILD PAIN OR INCREASE TEMP Last Admin: 12/01/21 19:29 Dose: 650 mg Documented by: Hydrocodone Bitart/Acetaminophen (Hydrocodone-Acetaminophen 5-325 Mg Tablet) 1 tab PO TID PRN PRN Reason: SEVERE PAIN Last Admin: 12/01/21 23:55 Dose: 1 tab Documented by: Albuterol Sulfate (Albuterol 8 Gm Mdi) 2 puff INHALATION Q6H PRN PRN Reason: shortness of breath or wheezing Amlodipine Besylate (Amlodipine 5 Mg Tablet) 5 mg PO DAILY [facility] Last Admin: 12/01/21 08:32 Dose: 5 mg Documented by: Aspirin (Aspirin 81 Mg Ec Tablet) 81 mg PO DAILY [facility] Last Admin: 12/01/21 08:37 Dose: 81 mg Documented by: Atorvastatin Calcium (Atorvastatin 40 Mg Tablet) 40 mg PO BEDTIME [facility] Last Admin: 12/01/21 21:42 Dose: 40 mg Documented by: Cyclobenzaprine HCl (Cyclobenzaprine 10 Mg Tablet) 5 mg PO TID PRN PRN Reason: MUSCLE SPASMS Last Admin: 12/01/21 21:42 Dose: 5 mg Documented by: Digoxin (Digoxin 125 Mcg Tablet) 125 mcg PO EVERY OTHER DAY [facility] Last Admin: 11/30/21 10:32 Dose: 125 mcg Documented by: Sodium Chloride (Sodium Chloride 0.9%) 1,000 mls @ 90 mls/hr IV .Q11H7M [facility] Last Infusion: 12/02/21 05:13 Dose: 0 mls/hr Documented by: Sodium Chloride (Sodium Chloride 0.9%) 1,000 mls @ 100 mls/hr IV .Q10H ONE Stop: 12/02/21 09:59 Last Admin: 12/02/21 05:09 Dose: 50 mls/hr Documented by: Lidocaine (Lidocaine 5% Patch) 2 patch TOPICAL [id number] [facility] Last Admin: 12/01/21 21:44 Dose: Not Given Documented by: Metoprolol Tartrate (Metoprolol Tartrate 50 Mg Tablet) 75 mg PO Q12H MAX Last Admin: 12/01/21 19:30 Dose: 75 mg Documented by: Ondansetron HCl (Ondansetron 2 Mg/Ml Sdv 2 Ml) 4 mg IVP Q2M PRN PRN Reason: NAUSEA Last Admin: 11/30/21 07:45 Dose: 4 mg Documented by: Tiotropium [place] (Tiotropium 18 Mcg Mdi) 18 mcg INHALATION DAILY.RESPIRATORY MAX Last Admin: 12/01/21 08:36 Dose: 1 puff Documented by: Trolamine Salicylate (Trolamine Salicylate 10% 85 Gm Cream) 1 applic TOPICAL TID PRN PRN Reason: PAIN Last Admin: 11/30/21 19:35 Dose: 1 applic Documented by: A&P Assessment and plan (1) Abnormal myocardial perfusion study: Patient continues to have the hyponatremia. Her sodium is 121 this morning. For this reason, we may hold off on the cardiac catheterization for today. We may consider this tomorrow. 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 However in view of the abnormal perfusion scan and the EKG changes, possibility of her having underlying coronary ischemia, causing this is a strong consideration. Based on the angiogram findings, further recommendations will be made. Status: Acute (3) Atrial fibrillation: Patient is currently in regular rhythm. May continue the current medications. She is on Lovenox bridging because of the history of TIA Status: Acute Qualifiers: Atrial fibrillation type: paroxysmal Qualified Code(s): I48.0 - Paroxysmal atrial fibrillation (4) Cardiomyopathy: Since the patient has no evidence of any cardiac decompensation, is advised to continue on the current measures. Status: Acute Qualifiers: Cardiomyopathy type: other Qualified Code(s): I42.8 - Other cardiomyopathies (5) Dyslipidemia (high LDL; low HDL): Continue on the current management. Status: Acute (6) Accelerated hypertension: The blood pressure is under control at this time. We will continue on the current medications. Status: Acute (7) Hyponatremia: The sodium level was 121 early this morning. Management as per Dr. Trotter/Dr. Gonzalez Status: Acute Plan Based on the results of the above tests and the patient's clinical progress, further recommendations will be made. BMP in the morning We will keep her n.p.o. after midnight. 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
[2021-12-02 07:57] LABS: Alanine Aminotransferase 8 U/L (0-33); Albumin Level 3.2 g/dL (3.5-5.2); Alkaline Phosphatase 63 IU/L (35-105); Blood Urea Nitrogen 26 mg/dL (8-23); Calcium 8.2 mg/dL (8.5-10.5); Carbon Dioxide 22 mmol/L (22-29); Chloride 90 mmol/L (98-107); Globulin 1.9 g/dL (1.3-4.6); Glucose 73 mg/dL (65-115); Magnesium 1.9 mg/dL (1.7-2.3); Osmolality Calculated 257 mOsm/kg (285-295); Sodium 122 mmol/L (136-145); Thyroid Stimulating Hormone 2.02 uIU/mL (0.27-4.20); Total Bilirubin 0.4 mg/dL (0.15-1.2); Total Protein 5.1 g/dL (6.6-8.7); Uric Acid 2.2 mg/dL (2.4-5.7)
[2021-12-02 08:07] LABS: Anion Gap 14.1 (5-19); Aspartate Amino Transferase 20 U/L (0-32); Potassium 4.1 mmol/L (3.5-5.1)
--- NOTE | 2021-12-02 09:02 | P.PN_ITS ---
Subjective Subjective: seen today. no acute events overnight chest pain free family at bedside leg pain better after flexeril and hydrocodone sodium 124 this AM. on IV hydration Vitals/I&O/Wt Last Vital Signs Temp 97.6 F 12/02/21 15:46 Pulse 61 12/02/21 15:46 Resp 16 12/02/21 15:46 BP 128/66 12/02/21 15:46 Pulse Ox 98 12/02/21 15:46 12/02/21 12/02/21 12/02/21 06:59 14:59 22:59 Intake Total 475.5 / 240 / 240 Balance 475.5 240 / 240 Physical Exam Narrative: General: Alert oriented x3, patient seen laying in bed.? Frail- appearing elderly female HEENT: Normocephalic, atraumatic, EOMI, breathing normally on room air Cardio: Regular rate rhythm, normal S1-S2, no murmurs Respiratory: Good bilateral air entry, no wheezes no rhonchi appreciated GI: Abdomen soft, nontender, nondistended, bowel sounds + Extremities: Trace bilateral lower extremity edema, no cyanosis Data : 12/02/21 06:33 12/02/21 09:58 A&P Assessment and plan (1) Hyponatremia: Status: Acute (2) Accelerated hypertension: Status: Acute (3) Abnormal myocardial perfusion study: Status: Acute (4) Chest pain: Status: Acute (5) Atrial fibrillation: Status: Acute Qualifiers: Atrial fibrillation type: paroxysmal Qualified Code(s): I48.0 - Paroxysmal atrial fibrillation (6) COPD (chronic obstructive pulmonary disease): Status: Acute Qualifiers: COPD type: unspecified COPD Qualified Code(s): J44.9 - Chronic obstructive pulmonary disease, unspecified (7) CHF (congestive heart failure): Status: Acute Qualifiers: Heart failure type: diastolic Heart failure chronicity: acute on chronic Qualified Code(s): I50.33 - Acute on chronic diastolic (congestive) heart failure (8) Dyslipidemia (high LDL; low HDL): Status: Acute (9) Chronic back pain: Status: Acute (10) Kyphosis deformity of spine: Status: Acute Qualifiers: Kyphosis type: unspecified Spinal region: thoracolumbar Qualified Code(s): M40.205 - Unspecified kyphosis, thoracolumbar region Plan #Chest pain #History of nonischemic cardiomyopathy/Takotsubo cardiomyopathy #Atrial fibrillation?rate controlled #Hypertension #Chronic congestive heart failure, diastolic #Dyslipidemia #Acute hyponatremia, rule out SIADH, possibly drug-induced #COPD?stable not in exacerbation at this time -Troponins negative x3.? Chest pain-free.? Stress test abnormal.? Area of reversible perfusion defect. ? Hold Eliquis in anticipation of cardiac angiogram in a.m.? N.p.o. at midnight ? Continue metoprolol 75 twice daily, digoxin 125 daily, aspirin 81, atorvastatin 40, sublingual nitro as needed for chest pain.? Continue newly started amlodipine 5 mg daily. ? Cardiology on board.? Recommendations appreciated -Repeat echo ordered yesterday.? Results pending. ? Na 124, continue ns at 100 cc/hr. Nephro recs appreaciated - Plan for cath in AM if Na > 125. DNR/DNI DVT prophylaxis: Lovenox 40 daily. Attestations Medical Necessity Statement*: Cardiac cath in AM. 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
[2021-12-02] MEDS: enoxaparin 40 mg/0.4 mL Syringe SUBCUT (09:10)
[2021-12-02] MEDS: aspirin 81 mg EC Tablet PO (09:15)
[2021-12-02] MEDS: digoxin 125 mcg Tablet PO (09:15)
[2021-12-02] MEDS: amlodipine 5 mg Tablet PO (09:15)
[2021-12-02] MEDS: metoprolol tartrate 50 mg Tablet 75 MG PO (09:17)
[2021-12-02] MEDS: lidocaine 5% Patch 2 PATCH TOPICAL (09:24)
[2021-12-02 10:52] LABS: Alanine Aminotransferase 7 U/L (0-33); Alkaline Phosphatase 59 IU/L (35-105); Anion Gap 10.8 (5-19); Aspartate Amino Transferase 16 U/L (0-32); Blood Urea Nitrogen 18 mg/dL (8-23); Calcium 7.8 mg/dL (8.5-10.5); Carbon Dioxide 24 mmol/L (22-29); Chloride 93 mmol/L (98-107); Globulin 2.1 g/dL (1.3-4.6); Glucose 78 mg/dL (65-115); Osmolality Calculated 259 mOsm/kg (285-295); Potassium 3.8 mmol/L (3.5-5.1); Sodium 124 mmol/L (136-145); Total Bilirubin 0.4 mg/dL (0.15-1.2); Total Protein 5.1 g/dL (6.6-8.7)
[2021-12-02] MEDS: atorvastatin 40 mg Tablet PO (21:24)
[2021-12-02] MEDS: sodium chloride 0.9% 1,000 ML 90 ML IV (23:38)
[2021-12-03] VITALS (35 sets, daily range): BP systolic 89–155; BP diastolic 53–84; PULSE 51–108; RESP 9–29; TEMP 36.6–36.7; O2SAT 93–98
[2021-12-03 05:09] LABS: Basophils % 0.5 %; Eosinophils % 0.6 %; Hematocrit 26.8 % (37.0-47.0); Hemoglobin 9.1 g/dL (11.5-15.3); Lymphocytes # 1.5 10^3/uL (0.8-4.8); Lymphocytes % 23.4 %; Mean Corpuscular Hemoglobin 29.4 pg (28.0-34.0); Mean Corpuscular Volume 86.5 fl (81-99); Mean Platelet Volume 10.4 fL (7.4-10.4); Monocytes # 0.5 10^3/uL (0.2-0.9); Neutrophils # 4.28 10^3/uL (1.8-7.7); Neutrophils % 66.9 %; Nucleated Red Blood Cells % 0 %; Platelet Count 143 10^3/cmm (130-400); Red Cell Distribution Width 14.1 % (12.1-15.1); White Blood Count 6.4 10^3/uL (4.0-10.0)
--- NOTE | 2021-12-03 05:23 | XACV_ITS ---
Exam Room: 2 Ht: 150 cm Wt: 39 kg BSA: 1.27 m2 Gender: Female : 1935 Any Known Allergies: No known allergies Exam Priority: Routine Procedure(s): Procedure Description: Diagnostic procedure Procedure Description: Coronary Angiography Diagnostic Cath Status: Elective Diagnostic Findings * The left main is a medium caliber vessel with no significant stenotic lesions. * Left anterior descending artery is a medium caliber vessel which appears to wrap around the LV apex. The artery appears to be tortuous throughout its course. The proximal segment of the artery was found to have 20 to 30% diffuse narrowing. Mild to moderate coronary calcification was noted in the proximal segment of the artery. The second diagonal branch was found to have around 50% ostial stenosis. Minimal intimal irregularities were noted in the distal segment of the artery. * The left circumflex artery is a medium caliber vessel with no significant stenosis. Minimal coronary calcification was noted in the proximal segment. * The right coronary artery is a medium caliber dominant vessel which was found to have a long stented segment proximally. Right after the stented segment, there was a napkin ring type of lesion causing around 50% luminal narrowing. The distal artery patient had no significant external lesions. PCI Status: Elective Conclusions 1. This is an 86-year-old white female with a history of coronary disease and previous PCI of the RCA, is presenting with complaints of recurrent episodes of chest pain. She had a Myocardial perfusion imaging which revealed an area of ischemia in distribution of the right coronary artery. In view of the patient's recurrent episodes of the symptoms, in order to further evaluate her coronary status, a cardiac catheterization was recommended. Patient underwent left heart catheterization with a left and right coronary angiogram today. The findings are as follows.. 2. Mild disease in the left artery descending artery and circumflex artery. Patent stented segment of the right coronary artery with a 50% concentric lesion just below the stented segment. Normal LVEDP of 7 mmHg. The thoracic aorta was was found to be very tortuous . 3. In view of the patient's ongoing symptoms and the abnormal objective findings, it was thought to be appropriate to consider an IFR of the RCA lesion. I discussed and reviewed the cardiac catheterization data with the Dr. Kaye. Dr. Kaye concurred with this plan. At this point, took over further management of this patient.. Diagnostic RX Recommendation: other cardiac therapy w/o CABG/PCI LV EDP: 7 mmHg Left Ventriculography Findings: * LV gram was not performed because of the restrictions on the dye usage. Pressures Phase:Rest AO : 106 / 63 ( 79 ) @ 8:25:00 AM 144 / 62 ( 95 ) @ 8:39:00 AM 144 / 56 ( 94 ) @ 8:39:00 AM 139 / 79 ( 107 ) @ 8:55:00 AM 173 / 73 ( 115 ) @ 9:01:00 AM LV : 135 / -22 / 7 @ 8:38:00 AM 138 / -22 / 7 @ 8:39:00 AM Valves Phase:DefaultPhase AV : 2.0 @ 8:08:41 AM AV Mean Gradient: 0.0 @ 8:08:41 AM Clinical Evaluation EBL: 5mL-10mL Procedural Details Procedure Consent Obtained. Pre-Procedure Time Out. Identified patient by full name and date of as verbalized by the patient/guarantor. Does the consent match the physician's order: Yes. Accurate & Complete Informed Consent: Yes. Inpatient/Outpatient History & Physical on Chart: Yes. If H&P is completed, is and addenduem needed: No. Visualize and Verify Site with Patient/Guarantor: N/A. Relevant Radiology Images available: Yes. The risks, benefits, and alternatives of sedation and/or procedure were discussed by physician. The patient agrees to continue. Procedure started. [facility] Clinical Fraility Score: 5: Mildly Frail. Forensics Analyst Indications: New Onset Angina. Chest Pain Symptom Assessment: Typical Angina Symptoms/Abnormal stress test. Cardiovascular Instability: No. Correct patient, site and procedure confirmed by cath team. PERRLA. Strong, equal hand produce laborer bilaterally. Lungs clear x 5 lobes. IV Site on Arrival: 20 gauge in the left forearm. IV Fluids: 0.9% NaCl at KVO. 400 mL infused prior to geotechnical laboratory technician. Pre Procedural Pulses: bilateral radial was 3+. Pre Procedural Pulses: bilateral posterior tibial was Doppled. Pre Procedural Pulses: bilateral posterior tibial was Doppled. Oxygen started at 2liters/min via nasal canula. bilateral groins was prepped with chloroprep then draped in the usual sterile fashion. Physician notified. Baseline sample Acquired. HR: 99 BPM. Physician arrived. Physician scrubbed in. Immediate Pre-Procedure Time Out. Correct Patient: Yes; Correct Procedure: Yes; Correct Site: Yes; Correct Patient Position: Yes; Correct Supplies: Yes; Dried Flammable Prep: Yes; Blood Products Available: N/A. Lidocaine 1% infiltrated to the right groin. Arterial access obtained with micropuncture set. Add Inventory: 5 fr, 11cm cordis sheath. A 5 pakistani JL4 catheter in over the standard J wire. Multiple views taken of left coronary artery. Catheter removed over the standard J wire. A 5 [place]akistani JR3.5 catheter in over the standard J wire. Multiple views taken of right coronary artery. Dr. Kaye called to view cine. Catheter redirected to the LV. EDP Sample taken: LV 135/-23,7; HR: 86 BPM; SpO2: 98%. EDP Sample taken: LV 138/-23,7; HR: 90 BPM; SpO2: 97%. Pullback taken: LV Off; AO 144/62(95); Mean: 0mmHg, Peak to Peak: 2mmHg, SEP: 52sec/min; HR: 91 BPM; SpO2: 97%. Catheter removed over the standard J wire. Dr. Khan scrubbed out. Patient's family updated. Dr. Kaye scrubbed in to perform intervention. 6 pakistani JR 3.5 guide catheter was inserted over the J wire. iFR guidewire was advanced through the guide catheter to lesion in the mid RCA. iFR of mid RCA=0.94 with pullback of 0.95. iFR catheter out. Guide catheter out over the Standard J wire. Dr. Kaye scrubbed out. Sheath upsized to a 6 Fr. A Suture was successful obtaining hemostatsis at the Right Femoral artery insertion site. Sheath(s) sutured into position with 2-0 silk and sterile 4x4's and Op-site applied over the site. No oozing or signs and symptoms of hematoma noted. Arterial sheath flushed and connected to tranducer and pressure bag with heparinized saline. Post Procedure: Pulses reassessed and unchanged. PERRLA. Strong, equal hand produce laborer bilaterally. No VTE prophylaxis required. Medication's Wasted: Lidocaine 1% = 5 mL. Medication's Wasted: Heparin = 1500 units. Total IV fluids: 300 mL. Post-op diagnosis: iFR of mid RCA 0.94. Complications: none. Estimated blood loss: 5mL-10mL. Responsiveness - Normal response to verbal stimuli; alert and oriented, PERRLA. Airway - Unaffected, no intervention required; spontaneous ventilation. Circulation: W/N/L, pulses unchanged. Nausea/Vomiting: No. Procedure completed. Patient transferred by bed to CPRU. Vital chart was stopped. Access Site Site: Right Femoral artery Sheath Size: 5 Fr Hemostasis Method: Suture Hemostasis Success: Successful Procedure Medications Start: 7:13 AM Stop: 7:13 AM Medication: Versed Amount: 1 mg Route: I.V. Start: 7:21 AM Stop: 7:21 AM Medication: Fentanyl Amount: 25 mcg Route: I.V. Start: 7:28 AM Stop: 7:28 AM Medication: Heparin Amount: 1500 units Route: I.V. Start: 7:45 AM Stop: 7:45 AM Medication: Fentanyl Amount: 25 mcg Route: I.V. Start: 7:55 AM Stop: 7:55 AM Medication: Heparin Amount: 1000 units Route: I.V. I, the attending physician, have reviewed and verified all procedure medications. Yes, all medications given per verbal order History/Risk Factors Hypertension: Yes Dyslipidemia: Yes Peripheral Arterial Disease (PAD): No Myocardial Infarction (PR): No Obesity: No Renal Disease: No Tobacco Use: Former Prior Interventions PCI: No CABG: No Valve Surgery: No Report Signatures Finalized by Dr Evelina Khan MD [facility] on 12/04/2021 09:10 AM
[2021-12-03 05:29] LABS: Alanine Aminotransferase 10 U/L (0-33); Albumin Level 2.7 g/dL (3.5-5.2); Alkaline Phosphatase 59 IU/L (35-105); Aspartate Amino Transferase 20 U/L (0-32); Blood Urea Nitrogen 14 mg/dL (8-23); Calcium 7.9 mg/dL (8.5-10.5); Carbon Dioxide 24 mmol/L (22-29); Chloride 100 mmol/L (98-107); Glucose 88 mg/dL (65-115); Magnesium 1.7 mg/dL (1.7-2.3); Osmolality Calculated 270 mOsm/kg (285-295); Sodium 130 mmol/L (136-145); Total Bilirubin 0.3 mg/dL (0.15-1.2); Total Protein 4.7 g/dL (6.6-8.7)
[2021-12-03] MEDS: diphenhydrAMINE 25 mg Capsule PO (06:57)
--- NOTE | 2021-12-03 06:59 | PM.PN ---
Subjective Subjective: the patient is doing okay with no chest pain or palpitations. She remains afebrile. No nausea or vomiting. No abdominal pain. No dysuria. Had a hemoglobin drop to 9.1 this morning. She has no hematemesis or melena. Medications: Medication Review Details: Current Medications Acetaminophen (Acetaminophen 325 Mg Tablet) 650 mg PO Q4H PRN PRN Reason: MILD PAIN OR INCREASE TEMP Last Admin: 12/01/21 19:29 Dose: 650 mg Documented by: Hydrocodone Bitart/Acetaminophen (Hydrocodone-Acetaminophen 5-325 Mg Tablet) 1 tab PO TID PRN PRN Reason: SEVERE PAIN Last Admin: 12/01/21 23:55 Dose: 1 tab Documented by: Albuterol Sulfate (Albuterol 8 Gm Mdi) 2 puff INHALATION Q6H PRN PRN Reason: shortness of breath or wheezing Amlodipine Besylate (Amlodipine 5 Mg Tablet) 5 mg PO DAILY [facility] Last Admin: 12/02/21 09:15 Dose: 5 mg Documented by: Aspirin (Aspirin 81 Mg Ec Tablet) 81 mg PO DAILY [facility] Last Admin: 12/02/21 09:15 Dose: 81 mg Documented by: Atorvastatin Calcium (Atorvastatin 40 Mg Tablet) 40 mg PO BEDTIME [facility] Last Admin: 12/02/21 21:24 Dose: 40 mg Documented by: Cyclobenzaprine HCl (Cyclobenzaprine 10 Mg Tablet) 5 mg PO TID PRN PRN Reason: MUSCLE SPASMS Last Admin: 12/01/21 21:42 Dose: 5 mg Documented by: Digoxin (Digoxin 125 Mcg Tablet) 125 mcg PO EVERY OTHER DAY [facility] Last Admin: 12/02/21 09:15 Dose: 125 mcg Documented by: Sodium Chloride (Sodium Chloride 0.9%) 1,000 mls @ 90 mls/hr IV .Q11H7M [facility] Last Admin: 12/02/21 23:54 Dose: Not Given Documented by: Lidocaine (Lidocaine 5% Patch) 2 patch TOPICAL [id number] [facility] Last Admin: 12/02/21 21:27 Dose: Not Given Documented by: Metoprolol Tartrate (Metoprolol Tartrate 50 Mg Tablet) 75 mg PO Q12H [facility] Last Admin: 12/02/21 22:29 Dose: Not Given Documented by: Ondansetron HCl (Ondansetron 2 Mg/Ml Sdv 2 Ml) 4 mg IVP Q2M PRN PRN Reason: NAUSEA Last Admin: 11/30/21 07:45 Dose: 4 mg Documented by: Tiotropium [place] (Tiotropium 18 Mcg Mdi) 18 mcg INHALATION DAILY.RESPIRATORY MAX Last Admin: 12/02/21 09:53 Dose: 1 puff Documented by: Trolamine Salicylate (Trolamine Salicylate 10% 85 Gm Cream) 1 applic TOPICAL TID PRN PRN Reason: PAIN Last Admin: 11/30/21 19:35 Dose: 1 applic Documented by: Vitals/I&O/Wt Last Vital Signs Temp 98.1 F 12/03/21 04:00 Pulse 67 12/03/21 05:51 Resp 15 12/03/21 04:00 BP 89/53 12/03/21 04:00 Pulse Ox 96 12/03/21 04:00 12/02/21 12/02/21 12/03/21 14:59 22:59 06:59 Intake Total 240 / 240 1944.5 / 2184.5 0 / 2184.5 Output Total 0 / 0 Balance 240 / 240 1944.5 / 2184.5 0 / 2184.5 Physical Exam Narrative: GENERAL: The patient is some what drowsy this morning. Not in any acute distress. Confirmed with the kyphosis HEENT: No significant pallor, icterus or lymphadenopathy.Oral cavity: There are no mucous membrane lesions. NECK: Trachea appears to be central. No masses noted. No JVD or thyromegaly appreciated. RESPIRATORY: Chest is symmetrical. No intercostals muscle retraction or any accessory muscle activation. There is no chest wall tenderness. Breath sounds are heard bilaterally. No rales or rhonchi heard. No evidence of any consolidation. Emphysematous chest. BREASTS: Deferred. HEART: The heart sounds are normal. No S3 or S4. No pericardial rub ABDOMEN: No vessel pulsations or distention. No tenderness. No organomegaly appreciated. Bowel sounds are normally heard. : Deferred. RECTAL: Deferred. LYMPHATIC: No lymphadenopathy noted in the neck. EXTREMITIES: No edema or cyanosis. No clubbing. MUSCULOSKELETAL: No acute joint deformities or swelling SKIN: There are no significant rashes or ecchymosis NEUROPSYCHIATRIC: The patient is alert and oriented x3. Appears to be in a good mood. No tremors or rigidity noted. Data : 12/03/21 04:25 12/03/21 04:25 Other Labs: Laboratory Last Values WBC 6.4 10^3/uL (4.0-10.0) 12/03/21 04:25 RBC 3.10 10^6/uL (4.1-5.3) L 12/03/21 04:25 Hgb 9.1 g/dL (11.5-15.3) L 12/03/21 04:25 Hct 26.8 % (37.0-47.0) L 12/03/21 04:25 MCV 86.5 fl (81-99) 12/03/21 04:25 MCH 29.4 pg (28.0-34.0) 12/03/21 04:25 MCHC 34.0 g/dL (30.0-36.0) 12/03/21 04:25 RDW 14.1 % (12.1-15.1) 12/03/21 04:25 Plt Count 143 10^3/cmm (130-400) 12/03/21 04:25 MPV 10.4 fL (7.4-10.4) 12/03/21 04:25 Neut % (Auto) 66.9 % 12/03/21 04:25 Lymph % (Auto) 23.4 % 12/03/21 04:25 [place] % (Auto) 8.0 % 12/03/21 04:25 Eos % (Auto) 0.6 % 12/03/21 04:25 Baso % (Auto) 0.5 % 12/03/21 04:25 Neut # (Auto) 4.28 10^3/uL (1.8-7.7) 12/03/21 04:25 Lymph # (Auto) 1.5 10^3/uL (0.8-4.8) 12/03/21 04:25 [place] # (Auto) 0.5 10^3/uL (0.2-0.9) 12/03/21 04:25 Eos # (Auto) 0.0 10^3/uL (0.0-0.8) 12/03/21 04:25 Baso # (Auto) 0.0 10^3/uL (0.0-0.1) 12/03/21 04:25 Nucleated RBC % (auto) 0 % 12/03/21 04:25 Nucleated RBCs # 0.0 /100WBC 12/03/21 04:25 D-Dimer 0.91 ug/mIFEU (0-0.59) H 11/30/21 10:45 Sodium 130 mmol/L (136-145) L 12/03/21 04:25 Potassium 4.0 mmol/L (3.5-5.1) 12/03/21 04:25 Chloride 100 mmol/L (98-107) 12/03/21 04:25 Carbon Dioxide 24 mmol/L (22-29) 12/03/21 04:25 Anion Gap 10.0 (5-19) 12/03/21 04:25 BUN 14 mg/dL (8-23) 12/03/21 04:25 Creatinine 0.2 mg/dL (0.5-0.9) L 12/03/21 04:25 GFR Calculation Not Reportable 12/03/21 04:25 Glucose 88 mg/dL (65-115) 12/03/21 04:25 Calculated Osmolality 270 mOsm/kg (285-295) L 12/03/21 04:25 Uric Acid 2.2 mg/dL (2.4-5.7) L 12/02/21 06:33 Calcium 7.9 mg/dL (8.5-10.5) L 12/03/21 04:25 Magnesium 1.7 mg/dL (1.7-2.3) 12/03/21 04:25 Total Bilirubin 0.3 mg/dL (0.15-1.2) 12/03/21 04:25 AST 20 U/L (0-32) 12/03/21 04:25 ALT 10 U/L (0-33) 12/03/21 04:25 Alkaline Phosphatase 59 IU/L (35-105) 12/03/21 04:25 Troponin T Baseline 7 ng/L (0-10) 11/29/21 16:20 Troponin T 120 Minute 10.08 ng/L (0-10) H 11/29/21 18:10 Delta Troponin T 3.08 ABS# (0-10) 11/29/21 18:10 Troponin T Hi Sens 6Hr 9.19 ng/L (0-10) 11/29/21 22:45 Troponin T Hi Sens 6Hr Delta 2.19 ng/L (0-12) 11/29/21 22:45 Total Protein 4.7 g/dL (6.6-8.7) L 12/03/21 04:25 Albumin 2.7 g/dL (3.5-5.2) L 12/03/21 04:25 Globulin 2.0 g/dL (1.3-4.6) 12/03/21 04:25 TSH 2.02 uIU/mL (0.27-4.20) 12/02/21 06:33 Random Cortisol 7.80 ug/dL (2.47-19.5) 12/02/21 06:33 Urine Color Yellow (Yellow) 12/01/21 17:34 Urine Appearance Clear (CLEAR) 12/01/21 17:34 Urine pH 6 (5-7) 12/01/21 17:34 Ur Specific [place] 1.015 (1.005-1.030) 12/01/21 17:34 Urine Protein Neg (Negative) 12/01/21 17:34 Urine Glucose (UA) Norm (Normal) 12/01/21 17:34 Urine Ketones Negative (Negative) 12/01/21 17:34 Urine Blood Trace (Negative) H 12/01/21 17:34 Urine Nitrate Negative (Negative) 12/01/21 17:34 Urine Bilirubin Neg (Negative) 12/01/21 17:34 Urine Urobilinogen Norm mg/dL (Negative) 12/01/21 17:34 Ur Leukocyte Esterase Negative (Negative) 12/01/21 17:34 Urine RBC 0-4 /hpf (0-2) H 12/01/21 17:34 Urine WBC 0-4 /hpf (0-5) H 12/01/21 17:34 Ur Squamous Epith Cells 0-4 /hpf (0-5) H 12/01/21 17:34 Amorphous Sediment Not Reportable 12/01/21 17:34 Urine Bacteria None /hpf (NONE) 12/01/21 17:34 Ur Random Sodium < 10 mmol/L 12/01/21 17:34 Ur Random Potassium 22 mmol/L 12/01/21 17:34 Ur Random Chloride < 10 mmol/L 12/01/21 17:34 Urine Creatinine 34 mg/dL (28-217) 12/01/21 17:34 Digoxin 0.8 ng/mL (0.6-1.2) 12/01/21 03:21 A&P Assessment and plan (1) Abnormal myocardial perfusion study: The Myocardial perfusion imaging findings suggestive of ischemia in the right coronary artery distribution. For further evaluation of the coronary status, she requires a cardiac catheterization. The risk of bleeding, hematoma, vascular injury, myocardial infarction, CVA, renal failure and other concomitant complications were explained in detail. Patient understood this well and consented to proceed. Because of the patient's advanced age and poor physical condition, she carries a high risk. This was explained to the patient and the family in detail which they understood Status: Acute (2) Atherosclerotic heart disease of [place] coronary artery with other forms of angina pectoris: The patient's symptoms are somewhat atypical. However in view of the abnormal perfusion scan and the EKG changes, possibility of her having underlying coronary ischemia, causing this is a strong consideration. Based on the angiogram findings, further recommendations will be made. Status: Acute (3) Atrial fibrillation: Patient is currently in regular rhythm. May continue the current medications. She is on Lovenox bridging because of the history of TIA Status: Acute Qualifiers: Atrial fibrillation type: paroxysmal Qualified Code(s): I48.0 - Paroxysmal atrial fibrillation (4) Cardiomyopathy: Since the patient has no evidence of any cardiac decompensation, is advised to continue on the current measures. The LV ejection fraction was 50 to 55% based on the echocardiogram on 718 Status: Acute Qualifiers: Cardiomyopathy type: other Qualified Code(s): I42.8 - Other cardiomyopathies (5) Dyslipidemia (high LDL; low HDL): Continue on the current management. Status: Acute (6) Accelerated hypertension: The blood pressure is under control at this time. We will continue on the current medications. Status: Acute (7) Hyponatremia: The sodium level was 1301 early this morning. Just advised by Dr. Trotter to go ahead with the procedure, if the sodium level is more than 125 Status: Acute Plan Because of the drop in the hemoglobin the patient carries a high risk for bleeding. Currently she has no obvious source of bleeding. I explained the bleeding risk with the patient and the family they understood this well and he is wanting to go ahead with the angiogram. Will go ahead and do the procedure this morning. 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
--- NOTE | 2021-12-03 07:07 | W.PM.OPSUD ---
Surgery/Procedure H&P Update DATE OF PROCEDURE: December 03, 2021 DATE H&P PERFORMED: 11/30/21 H&P UPDATE INFORMATION: I have reviewed H&P completed within last 30 days, I have examined patient prior to procedure and No changes to prior documentation PREOP DIAGNOSIS: ASHD PRIMARY INDICATION FOR PROCEDURE: chest pain and abnormal Myocardial perfusion imaging PLANNED PROCEDURE: Left heart catheterization with coronary angiogram and possible PCI PATIENT REASSESSED PRIOR TO SEDATION, WITH NO CHANGE NOTED: Yes PHYSICAL EXAM: alert, oriented x 3, clear to auscultation bilaterally and regular rate & rhythm AIRWAY EVAL/ANESTHESIA PLAN: normal airway, see other exam findings, ASA III, Monitored Anesthesia, Local Anesthesia, Risks, benefits & alternatives of sedation and/or procedure discussed and Patient agrees to continue as planned
--- NOTE | 2021-12-03 07:49 | PC.NURSE ---
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
--- NOTE | 2021-12-03 08:10 | PC.NURSE ---
received pt from laborer high density press post diagnostic c. pt alert and oriented. pt complains of no pain. right femoral sheath connected to pressure bag. no bruising or hematoma noted. ok to pull sheath per act result in laborer high density press. pt connected to vitals and will be monitored per protocol.
--- NOTE | 2021-12-03 09:30 | PC.NURSE ---
successful sheath pull. no brusing or hematoma noted post pull. pt states she isnt in pain. pt does want bedpan to urinate. will attempt that with another nurse in room.
--- NOTE | 2021-12-03 10:49 | P.PN_ITS ---
Subjective Subjective: Seen this morning. No acute events overnight. Just returned from cardiac catheterization. Vitals/I&O/Wt Last Vital Signs Temp 98.1 F 12/03/21 04:00 Pulse 74 12/03/21 12:00 Resp 29 H 12/03/21 12:00 BP 138/81 12/03/21 12:00 Pulse Ox 95 12/03/21 12:00 12/02/21 12/03/21 12/03/21 22:59 06:59 14:59 Intake Total 1944.5 / 2184.5 0 / 2184.5 0 / 0 Output Total 0 / 0 Balance 1944.5 / 2184.5 0 / 2184.5 0 / 0 Physical Exam Narrative: General: Alert oriented x3, patient seen laying in bed.? Frail- appearing elderly female HEENT: Normocephalic, atraumatic, EOMI, breathing normally on room air Cardio: Regular rate rhythm, normal S1-S2, no murmurs Respiratory: Good bilateral air entry, no wheezes no rhonchi appreciated GI: Abdomen soft, nontender, nondistended, bowel sounds + Extremities: Trace bilateral lower extremity edema, no cyanosis Urinary Catheter Management: Forbes: Cath Placed During This Visit: yes Urinary Catheter Date of Insertion: 12/03/21 Urinary Catheter Time of Insertion: 10:50 Data : 12/03/21 04:25 12/03/21 04:25 A&P Assessment and plan (1) Hyponatremia: Status: Acute (2) Accelerated hypertension: Status: Acute (3) Atherosclerotic heart disease of [place] coronary artery with other forms of angina pectoris: Status: Acute (4) Chest pain: Status: Acute (5) Atrial fibrillation: Status: Acute Qualifiers: Atrial fibrillation type: paroxysmal Qualified Code(s): I48.0 - Paroxysmal atrial fibrillation (6) Cardiomyopathy: Status: Acute Qualifiers: Cardiomyopathy type: other Qualified Code(s): I42.8 - Other cardiomyopathies (7) CHF (congestive heart failure): Status: Acute Qualifiers: Heart failure type: diastolic Heart failure chronicity: acute on chronic Qualified Code(s): I50.33 - Acute on chronic diastolic (congestive) heart failure (8) COPD (chronic obstructive pulmonary disease): Status: Acute Qualifiers: COPD type: unspecified COPD Qualified Code(s): J44.9 - Chronic obstructive pulmonary disease, unspecified (9) Dyslipidemia (high LDL; low HDL): Status: Acute (10) Poorly-controlled hypertension: Status: Acute (11) Chronic back pain: Status: Acute (12) Kyphosis deformity of spine: Status: Acute Qualifiers: Kyphosis type: unspecified Spinal region: thoracolumbar Qualified Code(s): M40.205 - Unspecified kyphosis, thoracolumbar region Plan #Chest pain #History of nonischemic cardiomyopathy/Takotsubo cardiomyopathy #Atrial fibrillation?rate controlled #Hypertension #Chronic congestive heart failure, diastolic #Dyslipidemia #Acute hyponatremia, rule out SIADH, possibly drug-induced #COPD?stable not in exacerbation at this time -Troponins negative x3.? Chest pain-free.? Stress test abnormal.? Area of reversible perfusion defect. ? Hold Eliquis in anticipation of cardiac angiogram in a.m.? N.p.o. at midnight ? Continue metoprolol 75 twice daily, digoxin 125 daily, aspirin 81, atorvastatin 40, sublingual nitro as needed for chest pain.? Continue newly st arted amlodipine 5 mg daily. ? Cardiology on board.? Recommendations appreciated -Repeat echo ordered yesterday.? Results pending. ? Sodium 130 today. Nephro recommendations appreciated ? Returned from cardiac angiogram. Results pending. DNR/DNI DVT prophylaxis: Lovenox 40 daily. Attestations Medical Necessity Statement*: Monitor in hospital today status post cath. Most likely discharge by tomorrow. 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 [facility] Fwd Diagnoses Hyponatremia E87.1 Accelerated hypertension I10 Atherosclerotic heart disease of [place] coronary artery with other forms of angina pectoris I25.118 Chest pain R07.9 Atrial fibrillation I48.0 Atrial fibrillation type: paroxysmal Cardiomyopathy I42.8 Cardiomyopathy type: other CHF (congestive heart failure) I50.33 Heart failure type: diastolic Heart failure chronicity: acute on chronic COPD (chronic obstructive pulmonary disease) J44.9 COPD type: unspecified COPD Dyslipidemia (high LDL; low HDL) E78.5 Poorly-controlled hypertension I10 Chronic back pain M54.9; G89.29 Kyphosis deformity of spine M40.205 Kyphosis type: unspecified Spinal region: thoracolumbar
--- NOTE | 2021-12-03 11:08 | PC.NURSE ---
[address] Khan to report that patient is unable to void in bedpan while on post cath groin precaution bed rest. Orders for Forbes.
--- NOTE | 2021-12-03 11:13 | PC.NURSE ---
To ICU 1045 AAOx4, dressing c/d/i, no hematoma, 2+ bilateral dorsal pedal pulses. Patient complains of needing to urinate. Has tried multiple methods in CPRU without success. Forbes catheter placed.
--- NOTE | 2021-12-03 11:45 | P.PN_ITS ---
Subjective Subjective: s/p diagnostic laboratory chemist. had difficulty urinating s/p cath- improved w/ wills catheter. no n/v/f/c/diaz/d/sob. Medications: Reviewed: Yes Medication Review Details: Current Medications Acetaminophen (Acetaminophen 325 Mg Tablet) 650 mg PO Q4H PRN PRN Reason: MILD PAIN OR INCREASE TEMP Last Admin: 12/01/21 19:29 Dose: 650 mg Documented by: Hydrocodone Bitart/Acetaminophen (Hydrocodone-Acetaminophen 5-325 Mg Tablet) 1 tab PO TID PRN PRN Reason: SEVERE PAIN Last Admin: 12/01/21 23:55 Dose: 1 tab Documented by: Albuterol Sulfate (Albuterol 8 Gm Mdi) 2 puff INHALATION Q6H PRN PRN Reason: shortness of breath or wheezing Amlodipine Besylate (Amlodipine 5 Mg Tablet) 5 mg PO DAILY [facility] Last Admin: 12/02/21 09:15 Dose: 5 mg Documented by: Aspirin (Aspirin 81 Mg Ec Tablet) 81 mg PO DAILY [facility] Last Admin: 12/02/21 09:15 Dose: 81 mg Documented by: Atorvastatin Calcium (Atorvastatin 40 Mg Tablet) 40 mg PO BEDTIME [facility] Last Admin: 12/02/21 21:24 Dose: 40 mg Documented by: Cyclobenzaprine HCl (Cyclobenzaprine 10 Mg Tablet) 5 mg PO TID PRN PRN Reason: MUSCLE SPASMS Last Admin: 12/01/21 21:42 Dose: 5 mg Documented by: Digoxin (Digoxin 125 Mcg Tablet) 125 mcg PO EVERY OTHER DAY [facility] Last Admin: 12/02/21 09:15 Dose: 125 mcg Documented by: Sodium Chloride (Sodium Chloride 0.9%) 1,000 mls @ 90 mls/hr IV .Q11H7M [facility] Last Admin: 12/02/21 23:54 Dose: Not Given Documented by: Lidocaine (Lidocaine 5% Patch) 2 patch TOPICAL [id number] [facility] Last Admin: 12/02/21 21:27 Dose: Not Given Documented by: Metoprolol Tartrate (Metoprolol Tartrate 50 Mg Tablet) 75 mg PO Q12H [facility] Last Admin: 12/02/21 22:29 Dose: Not Given Documented by: Ondansetron HCl (Ondansetron 2 Mg/Ml Sdv 2 Ml) 4 mg IVP Q2M PRN PRN Reason: NAUSEA Last Admin: 11/30/21 07:45 Dose: 4 mg Documented by: Tiotropium [place] (Tiotropium 18 Mcg Mdi) 18 mcg INHALATION DAILY.RESPIRATORY MAX Last Admin: 12/02/21 09:53 Dose: 1 puff Documented by: Trolamine Salicylate (Trolamine Salicylate 10% 85 Gm Cream) 1 applic TOPICAL TID PRN PRN Reason: PAIN Last Admin: 11/30/21 19:35 Dose: 1 applic Documented by: Vitals/I&O/Wt Last Vital Signs Temp 98.1 F 12/03/21 04:00 Pulse 92 12/03/21 10:15 Resp 20 H 12/03/21 10:15 BP 134/75 12/03/21 10:15 Pulse Ox 93 12/03/21 10:15 12/02/21 12/03/21 12/03/21 22:59 06:59 14:59 Intake Total 1944.5 / 2184.5 0 / 2184.5 Output Total 0 / 0 Balance 1944.5 / 2184.5 0 / 2184.5 Physical Exam Narrative: seen and examined w/ rN- telehealth visit comfortable, NARD in bed vs noted heent- nc/at, eomi, anicteric neck supple lungs clear b/l heart irreg abd soft, nt, Nd, + bs ext 1+ edema neuro a,a, o x 2+ Urinary Catheter Management: Wills: Cath Placed During This Visit: yes Urinary Catheter Date of Insertion: 12/03/21 Urinary Catheter Time of Insertion: 10:50 Data : 12/03/21 04:25 12/03/21 04:25 A&P Assessment and plan (1) Hyponatremia: 86 yr old female CP, +trop 1. chronic hyponatremia- na approx 132 2. acute hyponatremia, high bun/ cr ratio- fluid restrict -low ur na and cl c/w prerenal azotemia- cont ns ivf at 100 ml/hr -normal tsh -low am cortisol level of 7.8- consider cosyntropin stim test -however ur na was low -monitor serum sodium off of ivf 3. bun improved w/ ivf 4. Q CAD- f/u cath results. seen and examined w/ rN- telehealth visit time spent 25 min. Status: Acute Plan see above Attestations Medical Necessity Statement*: CAD, hyponatremia Time Spent in Patient Care: 16 - 35 minutes (>than 50% of time spent in counselling and/or direct pt care on unit) . Coding Level of Care Code Acute C Consultant for Meghann Jak[facility] Diagnoses Hyponatremia E87.1
[2021-12-03 15:48] LABS: Osmolality Urine 686 mOsm/kg (50-1200)
[2021-12-03] MEDS: atorvastatin 40 mg Tablet PO (20:41)
[2021-12-03] MEDS: metoprolol tartrate 50 mg Tablet 75 MG PO (20:41)
[2021-12-03] MEDS: lidocaine 5% Patch 2 PATCH TOPICAL (20:42)
--- NOTE | 2021-12-03 20:45 | PC.NURSE ---
Lidocaine patch Lidocaine patch not applied in AM, patient requested application this evening. 2 patches applied, 1 to each leg as per directed.
[2021-12-04] VITALS (26 sets, daily range): BP systolic 114–155; BP diastolic 55–79; PULSE 51–89; RESP 12–26; TEMP 36.9; O2SAT 89–99; BMI 17.4
--- NOTE | 2021-12-04 02:31 | PC.NURSE ---
Bradycardia At 2029, patient's Hr 90 and 75 mg metoprolol tartrate PO administered as scheduled. Since then patient's HR ranging from low 50s to low 60s with brief periods of decline into the high 30s periodically. Patient asymptomatic and all other vitals stable. Dr. Eden notified and telephone order received to put metoprolol on hold. Medication placed on hold.
[2021-12-04 05:00] LABS: Alanine Aminotransferase 10 U/L (0-33); Albumin Level 2.9 g/dL (3.5-5.2); Alkaline Phosphatase 63 IU/L (35-105); Aspartate Amino Transferase 19 U/L (0-32); Blood Urea Nitrogen 7 mg/dL (8-23); Calcium 8.3 mg/dL (8.5-10.5); Carbon Dioxide 27 mmol/L (22-29); Chloride 98 mmol/L (98-107); Glucose 82 mg/dL (65-115); Osmolality Calculated 267 mOsm/kg (285-295); Sodium 130 mmol/L (136-145); Total Bilirubin 0.4 mg/dL (0.15-1.2); Total Protein 4.9 g/dL (6.6-8.7); Uric Acid 1.9 mg/dL (2.4-5.7)
[2021-12-04 05:01] LABS: Digoxin 0.5 ng/mL (0.6-1.2)
[2021-12-04] MEDS: phenazopyridine 100 mg Tablet PO (09:17)
[2021-12-04] MEDS: digoxin 125 mcg Tablet PO (09:21)
[2021-12-04] MEDS: amlodipine 5 mg Tablet PO (09:21)
[2021-12-04] MEDS: aspirin 81 mg EC Tablet PO (09:21)
[2021-12-04] MEDS: polyethylene glycol 3350 Pkt 17 gm PO (09:23)
[2021-12-04] MEDS: lidocaine 2% Urojet 20 mL 10 ML TOPICAL (09:25)
--- NOTE | 2021-12-04 10:10 | PM.PN ---
Subjective Subjective: The patient is feeling okay with no chest pain or shortness of breath. Last night her heart rate was dropping into the upper 30s. For that reason, the metoprolol was held. This morning the heart rate in the 70s. Denies any unusual shortness of breath. She has no hematoma or bleeding from the right groin. Her lesion in the right coronary artery was found to be hemodynamically not significant, based on the IFR. There was decided to treat her medically. Medications: Medication Review Details: Current Medications Acetaminophen (Acetaminophen 325 Mg Tablet) 650 mg PO Q4H PRN PRN Reason: MILD PAIN OR INCREASE TEMP Last Admin: 12/01/21 19:29 Dose: 650 mg Documented by: Hydrocodone Bitart/Acetaminophen (Hydrocodone-Acetaminophen 5-325 Mg Tablet) 1 tab PO TID PRN PRN Reason: SEVERE PAIN Last Admin: 12/01/21 23:55 Dose: 1 tab Documented by: Albuterol Sulfate (Albuterol 8 Gm Mdi) 2 puff INHALATION Q6H PRN PRN Reason: shortness of breath or wheezing Amlodipine Besylate (Amlodipine 5 Mg Tablet) 5 mg PO DAILY [facility] Last Admin: 12/04/21 09:21 Dose: 5 mg Documented by: Aspirin (Aspirin 81 Mg Ec Tablet) 81 mg PO DAILY [facility] Last Admin: 12/04/21 09:21 Dose: 81 mg Documented by: Atorvastatin Calcium (Atorvastatin 40 Mg Tablet) 40 mg PO BEDTIME [facility] Last Admin: 12/03/21 20:41 Dose: 40 mg Documented by: Bisacodyl (Bisacodyl 10 Mg Supp) 10 mg [place] DAILY [facility] Last Admin: 12/04/21 09:29 Dose: Not Given Documented by: Cyclobenzaprine HCl (Cyclobenzaprine 10 Mg Tablet) 5 mg PO TID PRN PRN Reason: MUSCLE SPASMS Last Admin: 12/01/21 21:42 Dose: 5 mg Documented by: Digoxin (Digoxin 125 Mcg Tablet) 125 mcg PO EVERY OTHER DAY [facility] Last Admin: 12/04/21 09:21 Dose: 125 mcg Documented by: Sodium Chloride (Sodium Chloride 0.9%) 1,000 mls @ 90 mls/hr IV .Q11H7M [facility] Last Admin: 12/02/21 23:54 Dose: Not Given Documented by: Lidocaine (Lidocaine 5% Patch) 2 patch TOPICAL [id number] [facility] Last Admin: 12/04/21 09:29 Dose: Not Given Documented by: Metoprolol Tartrate (Metoprolol Tartrate 50 Mg Tablet) 75 mg PO Q12H [facility] Last Admin: 12/03/21 20:41 Dose: 75 mg Documented by: Metoprolol Tartrate (Metoprolol Tartrate 50 Mg Tablet) 50 mg PO BID@0900,2100 [facility] Ondansetron HCl (Ondansetron 2 Mg/Ml Sdv 2 Ml) 4 mg IVP Q2M PRN PRN Reason: NAUSEA Last Admin: 11/30/21 07:45 Dose: 4 mg Documented by: Phenazopyridine HCl (Phenazopyridine 100 Mg Tablet) 100 mg PO TID PRN PRN Reason: DYSURIA Last Admin: 12/04/21 09:17 Dose: 100 mg Documented by: Polyethylene Glycol (Polyethylene Glycol 3350 Pkt 17 Gm) 17 gm PO BID [facility] Last Admin: 12/04/21 09:23 Dose: 17 gm Documented by: Tiotropium [place] (Tiotropium 18 Mcg Mdi) 18 mcg INHALATION DAILY.RESPIRATORY [facility] Last Admin: 12/04/21 09:30 Dose: 1 puff Documented by: Vitals/I&O/Wt Last Vital Signs Temp 98.5 F 12/04/21 04:00 Pulse 70 12/04/21 09:32 Resp 14 12/04/21 09:32 BP 142/69 12/04/21 08:00 Pulse Ox 96 12/04/21 09:32 12/03/21 12/04/21 12/04/21 22:59 06:59 14:59 Intake Total 420 / 420 240 / 240 Output Total 1000 / 1000 425 / 1425 Balance -580 / -580 -425 / -1005 240 / 240 Weight last 48 hrs Weight 86 lb 1.6 oz Physical Exam Narrative: GENERAL: The patient is some what drowsy this morning.? Not in any acute distress.? Confirmed with the kyphosis HEENT: No significant pallor, icterus or lymphadenopathy.Oral cavity: There are no mucous membrane lesions. NECK: Trachea appears to be central. No masses noted. No JVD or thyromegaly appreciated. RESPIRATORY: Chest has kyphoscoliosis. No intercostals muscle retraction or any accessory muscle activation. There is no chest wall tenderness. Breath sounds are heard bilaterally. No rales or rhonchi heard. No evidence of any consolidation.? Emphysematous chest. BREASTS: Deferred. HEART: The heart sounds are normal.? No S3 or S4.? No pericardial rub ABDOMEN: No vessel pulsations or distention. No tenderness. No organomegaly appreciated.? Bowel sounds are normally heard. : Deferred. RECTAL: Deferred. LYMPHATIC: No lymphadenopathy noted in the neck. EXTREMITIES: No hematoma bleeding from the right groin. MUSCULOSKELETAL: No acute joint deformities or swelling SKIN: There are no significant rashes or ecchymosis NEUROPSYCHIATRIC: The patient is alert and oriented x3. Appears to be in a good mood. No tremors or rigidity noted. Urinary Catheter Management: Forbes: Cath Placed During This Visit: yes, but has since been removed by the nurse Reason for Continuing Indwelling Catheter: Decision to DC Catheter Urinary Catheter Date of Insertion: 12/03/21 Urinary Catheter Time of Insertion: 10:50 Date Urinary Catheter Removed: 12/03/21 Time Urinary Catheter Discontinued: 18:17 Data : 12/03/21 04:25 12/04/21 04:10 A&P Assessment and plan (1) Atherosclerotic heart disease of [place] coronary artery with other forms of angina pectoris: Patient is status post cardiac catheterization. She was found to have patent stented segment of the right coronary artery with a moderate persistent stenosis. iFR of this lesion was found to be normal. So it was decided to treat her medically. She will be kept on the current medication. Status: Acute (2) Atrial fibrillation: Patient is currently in regular rhythm. May continue the current medications. The oral anticoagulant may be restarted tomorrow. The dose of the metoprolol may be cut back to 50 mg p.o. twice daily because of bradycardia. Continue on the amlodipine. Status: Acute Qualifiers: Atrial fibrillation type: paroxysmal Qualified Code(s): I48.0 - Paroxysmal atrial fibrillation (3) Cardiomyopathy: Since the patient has no evidence of any cardiac decompensation, is advised to continue on the current measures. The LV ejection fraction was 50 to 55% based on the echocardiogram on 11/30 Status: Acute Qualifiers: Cardiomyopathy type: other Qualified Code(s): I42.8 - Other cardiomyopathies (4) Dyslipidemia (high LDL; low HDL): Continue on the current management. Status: Acute (5) Accelerated hypertension: The blood pressure is under control at this time. We will continue on the current medications. Status: Acute (6) Hyponatremia: The sodium level remains at 130. Patient denies any specific symptoms. Status: Acute (7) Anemia: The repeat hemoglobin hematocrit from today is pending. Status: Acute Plan If the patient continues remain stable, may be discharged home from a cardiac standpoint. The dose of the metoprolol may be cut back to 50 mg p.o. twice daily. She may start taking the Eliquis tomorrow, 2.5 mg p.o. twice daily May continue on the amlodipine. Please make an appointment to be seen by the nurse practitioner next week and the [facility]. I may see her in the office as scheduled Attestations Medical Necessity Statement*: Patient requires continued hospital stay for close monitoring and further management Coding Level of Care Code Acute Keg Inspector for Meghann Fwshreya History Expanded Problem Focused Exam Detailed Medical Decision Making Moderate Complexity Diagnoses Atherosclerotic heart disease of [place] coronary artery with other forms of angina pectoris I25.118 Atrial fibrillation I48.0 Atrial fibrillation type: paroxysmal Cardiomyopathy I42.8 Cardiomyopathy type: other Dyslipidemia (high LDL; low HDL) E78.5 Accelerated hypertension I10 Hyponatremia E87.1 Anemia D64.9
[2021-12-04 10:35] LABS: Hematocrit 29.3 % (37.0-47.0); Hemoglobin 9.6 g/dL (11.5-15.3)
[2021-12-04] MEDS: metoprolol tartrate 50 mg Tablet PO (10:54)
--- NOTE | 2021-12-04 11:00 | P.DS_ITS ---
Discharge Providers Date of Admission: 11/30/21 14:16 Date of Discharge: December 04, 2021 Attending Provider at Admission: Joie Velázquez MD Attending Provider at Discharge: Trinidad Gonzalez MD Primary Care Provider: Huyen Thompson APN Diagnoses at Discharge Discharge Diagnosis (1) Atherosclerotic heart disease of [place] coronary artery with other forms of angina pectoris: Status: Acute (2) Atrial fibrillation: Status: Acute Qualifiers: Atrial fibrillation type: paroxysmal Qualified Code(s): I48.0 - Paroxysmal atrial fibrillation (3) Cardiomyopathy: Status: Acute Qualifiers: Cardiomyopathy type: other Qualified Code(s): I42.8 - Other cardiomyopathies (4) Dyslipidemia (high LDL; low HDL): Status: Acute (5) Accelerated hypertension: Status: Acute (6) Hyponatremia: Status: Acute (7) Anemia: Status: Acute Reason for Visit Reason for Visit: chest pain Brief History: As per HPI Rosemary Rodrigez is a 86 year old female with PMH non ischemic cardiomyopathy, A fib, CHF presented with chest pain, left sided non radiating, 3 out of 10 intensity relieved? currently . denies dyspnea, NVD, abdominal pain, palpitations, syncope Hospital Course Hospital Course Patient was admitted for complaint of chest pain. Troponins were negative x3. Stress test was done which showed area of reversible perfusion defect. She eventually back for cardiac angiogram and there were no stent double lesions found. Please see cardiology report. She was also severely hyponatremic during hospital stay had sodium of 120 which was acute hyponatremia on top of her chronic hyponatremia. Work-up showed prerenal cause. She was given gentle hydration and sodium improved to 130 over the course of 48 hours. Some bradycardic events noted. BB dose adjusted to 50 bid. She is stable for discharge today. F/u with cardio and pcp after discharge. Off note, did have leg cramps and pain during stay. Flexeril and hydrocodone given. Pt improved. Being sent home on flexeril. Switch to tylenol only for pain. Physical Exam Narrative: General: Alert oriented x3, patient seen laying in bed.? Frail- appearing elderly female HEENT: Normocephalic, atraumatic, EOMI, breathing normally on room air Cardio: Regular rate rhythm, normal S1-S2, no murmurs Respiratory: Good bilateral air entry, no wheezes no rhonchi appreciated GI: Abdomen soft, nontender, nondistended, bowel sounds + Extremities: Trace bilateral lower extremity edema, no cyanosis Urinary Catheter Management: Forbes: Cath Placed During This Visit: yes, but has since been removed by the nurse Reason for Continuing Indwelling Catheter: Decision to DC Catheter Urinary Catheter Date of Insertion: 12/03/21 Urinary Catheter Time of Insertion: 10:50 Date Urinary Catheter Removed: 12/03/21 Time Urinary Catheter Discontinued: 18:17 Discharge Data Studies Completed and Pending Completed Studies During Hospitalization Category Date Time Status ASSISTANT QUALITY MANAGER request for service Routine Exams 12/03/21 05:23 Completed Cardiac Stress Test MIBI [Sestamibi Stress Test Request Exams 11/30/21 00:55 Completed ] Routine XR chest 1V portable [id number] Stat Exams 11/29/21 16:08 Completed NM shelley perf SPECT r/s* [id number] Routine Nuc Med 11/30/21 00:57 [place] [id number] Routine Ultrasound 11/30/21 10:24 Completed CV. echo complete* [id number] Urgent Ultrasound 11/30/21 13:54 Completed Radiology Impressions Chest X-Ray 11/29/21 16:08 IMPRESSION: No acute findings. Laboratory Results WBC 6.4 10^3/uL (4.0-10.0) 12/03/21 04:25 RBC 3.10 10^6/uL (4.1-5.3) L 12/03/21 04:25 Hgb 9.6 g/dL (11.5-15.3) L 12/04/21 10:27 Hct 29.3 % (37.0-47.0) L 12/04/21 10:27 MCV 86.5 fl (81-99) 12/03/21 04:25 MCH 29.4 pg (28.0-34.0) 12/03/21 04:25 MCHC 34.0 g/dL (30.0-36.0) 12/03/21 04:25 RDW 14.1 % (12.1-15.1) 12/03/21 04:25 Plt Count 143 10^3/cmm (130-400) 12/03/21 04:25 MPV 10.4 fL (7.4-10.4) 12/03/21 04:25 Neut % (Auto) 66.9 % 12/03/21 04:25 Lymph % (Auto) 23.4 % 12/03/21 04:25 [place] % (Auto) 8.0 % 12/03/21 04:25 Eos % (Auto) 0.6 % 12/03/21 04:25 Baso % (Auto) 0.5 % 12/03/21 04:25 Neut # (Auto) 4.28 10^3/uL (1.8-7.7) 12/03/21 04:25 Lymph # (Auto) 1.5 10^3/uL (0.8-4.8) 12/03/21 04:25 [place] # (Auto) 0.5 10^3/uL (0.2-0.9) 12/03/21 04:25 Eos # (Auto) 0.0 10^3/uL (0.0-0.8) 12/03/21 04:25 Baso # (Auto) 0.0 10^3/uL (0.0-0.1) 12/03/21 04:25 Nucleated RBC % (auto) 0 % 12/03/21 04:25 Nucleated RBCs # 0.0 /100WBC 12/03/21 04:25 D-Dimer 0.91 ug/mIFEU (0-0.59) H 11/30/21 10:45 Sodium 130 mmol/L (136-145) L 12/04/21 04:10 Potassium 4.0 mmol/L (3.5-5.1) 12/04/21 04:10 Chloride 98 mmol/L (98-107) 12/04/21 04:10 Carbon Dioxide 27 mmol/L (22-29) 12/04/21 04:10 Anion Gap 9.0 (5-19) 12/04/21 04:10 BUN 7 mg/dL (8-23) L 12/04/21 04:10 Creatinine 0.2 mg/dL (0.5-0.9) L 12/04/21 04:10 GFR Calculation Not Reportable 12/04/21 04:10 Glucose 82 mg/dL (65-115) 12/04/21 04:10 Calculated Osmolality 267 mOsm/kg (285-295) L 12/04/21 04:10 Uric Acid 1.9 mg/dL (2.4-5.7) L 12/04/21 04:10 Calcium 8.3 mg/dL (8.5-10.5) L 12/04/21 04:10 Magnesium 1.7 mg/dL (1.7-2.3) 12/03/21 04:25 Total Bilirubin 0.4 mg/dL (0.15-1.2) 12/04/21 04:10 AST 19 U/L (0-32) 12/04/21 04:10 ALT 10 U/L (0-33) 12/04/21 04:10 Alkaline Phosphatase 63 IU/L (35-105) 12/04/21 04:10 Troponin T Baseline 7 ng/L (0-10) 11/29/21 16:20 Troponin T 120 Minute 10.08 ng/L (0-10) H 11/29/21 18:10 Delta Troponin T 3.08 ABS# (0-10) 11/29/21 18:10 Troponin T Hi Sens 6Hr 9.19 ng/L (0-10) 11/29/21 22:45 Troponin T Hi Sens 6Hr Delta 2.19 ng/L (0-12) 11/29/21 22:45 Total Protein 4.9 g/dL (6.6-8.7) L 12/04/21 04:10 Albumin 2.9 g/dL (3.5-5.2) L 12/04/21 04:10 Globulin 2.0 g/dL (1.3-4.6) 12/04/21 04:10 TSH 2.02 uIU/mL (0.27-4.20) 12/02/21 06:33 Random Cortisol 7.80 ug/dL (2.47-19.5) 12/02/21 06:33 Urine Color Yellow (Yellow) 12/01/21 17:34 Urine Appearance Clear (CLEAR) 12/01/21 17:34 Urine pH 6 (5-7) 12/01/21 17:34 Ur Specific [place] 1.015 (1.005-1.030) 12/01/21 17:34 Urine Protein Neg (Negative) 12/01/21 17:34 Urine Glucose (UA) Norm (Normal) 12/01/21 17:34 Urine Ketones Negative (Negative) 12/01/21 17:34 Urine Blood Trace (Negative) H 12/01/21 17:34 Urine Nitrate Negative (Negative) 12/01/21 17:34 Urine Bilirubin Neg (Negative) 12/01/21 17:34 Urine Urobilinogen Norm mg/dL (Negative) 12/01/21 17:34 Ur Leukocyte Esterase Negative (Negative) 12/01/21 17:34 Urine RBC 0-4 /hpf (0-2) H 12/01/21 17:34 Urine WBC 0-4 /hpf (0-5) H 12/01/21 17:34 Ur Squamous Epith Cells 0-4 /hpf (0-5) H 12/01/21 17:34 Amorphous Sediment Not Reportable 12/01/21 17:34 Urine Bacteria None /hpf (NONE) 12/01/21 17:34 Urine Osmolality 686 mOsm/kg (50-1200) 12/01/21 17:34 Ur Random Sodium < 10 mmol/L 12/01/21 17:34 Ur Random Potassium 22 mmol/L 12/01/21 17:34 Ur Random Chloride < 10 mmol/L 12/01/21 17:34 Urine Creatinine 34 mg/dL (28-217) 12/01/21 17:34 Digoxin 0.5 ng/mL (0.6-1.2) L 12/04/21 04:10 Vitals Last Vital Signs Temp 98.5 F 12/04/21 04:00 Pulse 72 12/04/21 10:30 Resp 12 12/04/21 10:30 BP 114/56 12/04/21 10:30 Pulse Ox 99 12/04/21 10:30 Discharge Plan Discharge Patient Disposition: Home Condition: Stable Prescriptions: New cyclobenzaprine 10 mg Tablet 5 mg PO TID PRN (Reason: Muscle Spasms) 5 Days Qty: 20 0RF polyethylene glycol 3350 17 gram Powder In Packet 17 g PO DAILY PRN (Reason: constipation) 5 Days Qty: 5 0RF amlodipine 5 mg Tablet 5 mg PO DAILY 30 Days Qty: 30 0RF phenazopyridine 100 mg Tablet 100 mg PO TID PRN (Reason: Dysuria) 2 Days Qty: 6 0RF lidocaine 5 % Adhesive Patch,Medicated 2 patch topical [id number] 5 Days Qty: 10 0RF Continued multivitamin Tablet 1 tab PO DAILY 0RF ascorbic acid (vitamin C) [Vitamin C] 1,000 mg Tablet 1,000 mg PO DAILY 0RF atorvastatin 40 mg Tablet 40 mg PO BEDTIME Qty: 30 0RF digoxin 125 mcg (0.125 mg) Tablet 125 mcg PO EVERY OTHER DAY Qty: 30 0RF Spiriva with HandiHaler 18 mcg Capsule, W/Inhalation Device 18 mcg inhalation DAILY.RESPIRATORY Qty: 90 0RF albuterol sulfate 90 mcg/actuation HFA aerosol inhaler 2 inh inhalation Q6H PRN (Reason: shortness of breath or wheezing) Qty: 8.5 0RF magnesium oxide 250 mg magnesium tablet 250 mg PO DAILY Qty: 90 0RF aspirin 81 mg Tablet,Delayed Release (Dr/Ec) 81 mg PO DAILY 0RF Changed metoprolol tartrate 50 mg Tablet 50 mg PO Q12H Qty: 90 0RF Held Eliquis 2.5 mg tablet 2.5 mg PO BID Qty: 60 5RF Hold Instructions: Resume on 12/05/21. start on december 05 Discharge Orders: Discharge Order (Routine); Ordered 12/04/21 Ordered By: Trinidad Gonzalez Referrals: Huyen Thompson APN [Primary Care Provider] - 4-7 days ([facility] nurse Dionne roger post follow up from hospital .scheduled December 14, 2021 at time of 10:00 ) Evelina Khan MD [Physician] - 1 month (February 03, 2022 at time of 10:00 .if any inconvience ,please call and scedule another appointment ann .) Mary Ricks FNP [Nurse Practitioner] - 1 week (Mary Ricks APN Nurse for post hospital follow up /angiogram procedure /will need lab test at this time , appointment time December 11, 2021 at time of 10:00 ) RogerDionne FNP [Referring] - ([facility] taken care from Huyen Thompson since retired . ) Discharge Diet: Cardiac Discharge Activity: Resume usual activity Patient Instructions: Phenazopyridine (By mouth), Cyclobenzaprine (By mouth) (Flexeril, Amrix, Fexmid, FusePaq Tabradol), Amlodipine (By mouth), Polyethylene Glycol 3350 (By mouth) (Miralax, Healthylax..., Lidocaine Patch (On the skin) (Lidoderm, Novaplus Lidocaine), Coronary Angioplasty (DC), CHF Stoplight, Chest Pain Stoplight, Opioid Safety, Post Angiogram Home Care Instructions Activity Restrictions/Additional Instructions: Please follow up with primary care doctor and cardiology as directed. Return to ER if worsening of symptoms or if you develop new symptoms. Discharge Attestations Time Spent in Discharge Care*: less than 30 min Quality Metrics Clinical Quality Measures [ No reported AMI, CVA or VTE this stay] Coding Level of Care Code Acute Chg FW DC note Diagnoses Atherosclerotic heart disease of [place] coronary artery with other forms of angina pectoris I25.118 Atrial fibrillation I48.0 Atrial fibrillation type: paroxysmal Cardiomyopathy I42.8 Cardiomyopathy type: other Dyslipidemia (high LDL; low HDL) E78.5 Accelerated hypertension I10 Hyponatremia E87.1 Anemia D64.9
--- NOTE | 2021-12-04 12:10 | P.PN_ITS ---
Vitals/I&O/Wt Last Vital Signs Temp 98.5 F 12/04/21 04:00 Pulse 72 12/04/21 12:05 Resp 12 12/04/21 12:05 BP 114/56 12/04/21 12:05 Pulse Ox 99 12/04/21 12:05 12/03/21 12/04/21 12/04/21 22:59 06:59 14:59 Intake Total 420 / 420 240 / 240 Output Total 1000 / 1000 425 / 1425 Balance -580 / -580 -425 / -1005 240 / 240 Weight last 48 hrs Weight 39.054 kg Physical Exam Urinary Catheter Management: Forbes: Cath Placed During This Visit: yes, but has since been removed by the nurse Reason for Continuing Indwelling Catheter: Decision to DC Catheter Urinary Catheter Date of Insertion: 12/03/21 Urinary Catheter Time of Insertion: 10:50 Date Urinary Catheter Removed: 12/03/21 Time Urinary Catheter Discontinued: 18:17 Data : 12/04/21 10:27 12/04/21 04:10 Other Labs: uric acid 1.9, albumin 2.9, calcium 8.3 A&P Assessment and plan (1) Hyponatremia: Status: Acute Plan Seen via telemedicine with assistance of RN at bedside 1. Hyponatremia - improving with IVF NSS Coding Level of Care Code Acute Car Sales Consultant for Meghann Jack Diagnoses Hyponatremia E87.1
--- NOTE | 2021-12-04 12:30 | PC.NURSE ---
Discharge instructions given to patient and family. verbal understanding. IV removed. Patient and belongings taken to front entrance via wheelchair, accompanied by family.
--- NOTE | 2021-12-04 12:45 | PC.CHAP ---
Pastoral Care Encounter/Spiritual Assessment Type of Contact [] Declined inspectors and regulatory officers visit [] Patient/Family/Request visit [] Outpatient visit [] Follow-up visit [] Physician referral [] Code/Alert [x] Routine visit [] Staff referral [] Actively dying [] Patient sleeping [x] Family support [] [] Out of room [] Palliative care [] [] Receiving care in room [] Pre-surgical visit [] Trauma [] Long length of stay [x] ICU visit [x] Other: being discharged Relational/Emotional Strength [] Patient feels connected with others/family/visitors/staff [] Distress [] Loneliness/isolation [] Abandonment Spirituality of Patient [] Person of Marry [] Attends Pentecostal of their Marry [] Believes in Prayer [] Reads Bible or Voodoo materials [] There are Spiritual issues to be addressed Manager Social Services Interventions [x] Prayer [] Active listening [] Non-anxious presence [] Spiritual/emotional support [] Crisis/trauma care [] Spiritual counseling [] Bereavement support [] Provided bereavement packet [] Provided Bible/devotional materials [] Provided toy/stuffed animal, coloring book to patient or family member [] Provided Communion [] Anointing/[place] [] Salvation [x] Completed spiritual assessment [] Other: Impact on Illness or Injury [] Angry [] Fearful [] Anxious [] Often cries [] Exhaustion [] Unable to work [] Unable to attend zoroastrian [] Unable to walk/stand [] Unable to read [] Unable to drive [] Unable to eat/drink [] Unable to sleep [] Unable to be with family [] Patient intubated [] Other: Summary Time spent with patient
== END 2021-12-04 12:45 | disposition home or self-care (01) ==
LOC: ER 17:24 → MEDSURG 20:29 → ICU 12-04 11:00
PROVIDERS: Internal Medicine; Internal Medicine Cardiovascular Disease; Internal Medicine Nephrology; Admitting Provider Student in an Organized Health Care Education/Training Program; Emergency Provider Emergency Medicine; PCP Nurse Practitioner; Visit Provider Internal Medicine
DX: I25.118 Atherosclerotic heart disease of native coronary artery with other forms of angina pectoris (principal); I48.0 Paroxysmal atrial fibrillation; I42.8 Other cardiomyopathies; E78.5 Hyperlipidemia, unspecified; I10 Essential (primary) hypertension; E87.1 Hypo-osmolality and hyponatremia; D64.9 Anemia, unspecified; M40.205 Unspecified kyphosis, thoracolumbar region; M54.9 Dorsalgia, unspecified; G89.29 Other chronic pain; J44.9 Chronic obstructive pulmonary disease, unspecified; I25.2 Old myocardial infarction; Z82.49 Family history of ischemic heart disease and other diseases of the circulatory system; Z87.891 Personal history of nicotine dependence; Z66 Do not resuscitate; Z79.82 Long term (current) use of aspirin
CPT/HCPCS: 36415; 51702; 71045; 78452; 80048; 80053; 80162; 81001; 82436; 82533; 82570; 83735; 83935; 84133; 84300; 84443; 84484; 84550; 85014; 85018; 85025; 85378; 93005; 93017; 93306; 93452; 93458; 93571; 93970; 94640; 96360; 96361; 96372; 99152; 99153; 99285; A9500; C1769; C1887; C1894; G0378; J0280; J1644; J1650; J2250; J2405; J2785; J3010; J3475; J7030; Q0163; Q3014; Q9967

== ENCOUNTER → 2021-12-17 10:36 | Outpatient (BNVA) | payer MEDICARE, SELFPAY | PROVIDERS: PCP Nurse Practitioner Family; Visit Provider Nurse Practitioner Family | DX: I25.118 Atherosclerotic heart disease of native coronary artery with other forms of angina pectoris (principal); I11.0 Hypertensive heart disease with heart failure; I50.9 Heart failure, unspecified; Z87.891 Personal history of nicotine dependence | CPT/HCPCS: 36415; 80048; 99214 ==

== ENCOUNTER → 2022-03-26 10:53 | Outpatient (BNVA) | payer MEDICARE, SELFPAY | PROVIDERS: PCP Nurse Practitioner Family; Visit Provider Internal Medicine Cardiovascular Disease | DX: I25.118 Atherosclerotic heart disease of native coronary artery with other forms of angina pectoris (principal); I42.8 Other cardiomyopathies; I48.0 Paroxysmal atrial fibrillation; J44.9 Chronic obstructive pulmonary disease, unspecified; E78.5 Hyperlipidemia, unspecified; I11.0 Hypertensive heart disease with heart failure; I50.33 Acute on chronic diastolic (congestive) heart failure; Z87.891 Personal history of nicotine dependence; I25.2 Old myocardial infarction; Z79.01 Long term (current) use of anticoagulants | CPT/HCPCS: 99213; 99214 ==

== ENCOUNTER → 2022-10-06 13:52 | Outpatient (BNVA) | payer MEDICARE, SELFPAY | PROVIDERS: PCP Nurse Practitioner Family; Visit Provider Nurse Practitioner Family | DX: I11.0 Hypertensive heart disease with heart failure (principal); I50.33 Acute on chronic diastolic (congestive) heart failure; I25.118 Atherosclerotic heart disease of native coronary artery with other forms of angina pectoris; I48.0 Paroxysmal atrial fibrillation; Z87.891 Personal history of nicotine dependence; I25.2 Old myocardial infarction; Z79.01 Long term (current) use of anticoagulants | CPT/HCPCS: 99214 ==

== ENCOUNTER 2023-05-21 09:40 | Observation (INO) | payer MEDICARE, SELFPAY ==
[2023-05-21] VITALS (16 sets, daily range): BP systolic 90–137; BP diastolic 50–75; PULSE 59–140; RESP 15–25; TEMP 36.4–36.7; O2SAT 94–99; BMI 18.1
--- NOTE | 2023-05-21 09:47 | ECG_ITS ---
[facility] Test Date: 2023-05-21 Pat Name: Rosemary Rodrigez Department: Room: Gender: Female Neuro Psych Sales Specialist: : [id number] Requested By: James Cortez Order Number: [id number] Rach MD: Andrew Kaye M.D. Measurements Intervals [place] Rate: 145 P: 0 [place]: 0 QRS: 6 QRSD: 94 T: 110 QT: 271 QTc: 422 Interpretive Statements ATRIAL FIBRILLATION WITH RAPID VENTRICULAR RESPONSE VOLTAGE CRITERIA FOR LVH [MEETS CRITERIA IN ONE OF: R(aVL), S(V1), R(V5), R(V5/V6)+S(V1)] ST DEVIATION AND MODERATE T-WAVE ABNORMALITY, CONSIDER LATERAL ISCHEMIA [-0.1+ mV T-WAVE IN I/aVL/V5/V6] Compared to ECG 11/29/2021 18:38:31 T-wave abnormality now present Possible ischemia now present Sinus rhythm no longer present Left-axis deviation no longer present ST (T wave) deviation no longer present Myocardial infarct finding no longer present Electronically Signed On 05-23-2023 10:55:12 INSIDE PLANT SUPERVISOR by Andrew Kaye M.D. [id number] f
--- NOTE | 2023-05-21 09:48 | XRR_ITS ---
PROCEDURE INFORMATION: Exam: XR Chest Exam date and time: 05/21/2023 9:52 AM Age: 88 years old Clinical indication: Cough and dyspnea; Additional info: Dyspnea/cough TECHNIQUE: Imaging protocol: Radiologic exam of the chest. Views: 1 view. COMPARISON: CR XR chest 1V portable [id number] 11/29/2021 4:17 PM FINDINGS: Lungs: Unremarkable. No consolidation. Pleural spaces: Unremarkable. No pleural effusion. No pneumothorax. Heart/Mediastinum: See Vasculature finding. Vasculature: Mild cardiomegaly and uncoiling of the thoracic aorta. Bones/joints: Unremarkable. XR/XR chest 1V portable [id number] IMPRESSION: No acute findings.
--- NOTE | 2023-05-21 09:48 | ED_ITS ---
HPI - Arrhythmia/Palpitations 2 General: Chief Complaint: Arrhythmia/Palpitations Stated Complaint: WEAKNESS Time Seen by Provider: 05/21/23 09:41 Source: patient Mode of arrival: EMS History of Present Illness: 88-year-old female known history of atri al fibrillation presents emergency room with generalized weakness and rapid heart rate she was given adenosine and amiodarone in the field with slight improvement of her rate. She is on digoxin and metoprolol as well as apixaban but she tells me that she has not been taking it she thought it was too much. She denies any chest pain at this time no shortness of breath or orthopnea. MD complaint: rapid heart beat and heart racing Onset (ago): hour(s) Duration: constant Severity: moderate Context: occurred during rest Arrhythmia history: atrial fibrillation Associated symptoms: Deny anxiety, cough, diaphoresis, muscle cramps, nausea, paresthesias, pre-syncope, sense of impending doom, short of breath, syncope or vomiting Treatments prior to arrival: adenosine and amiodarone Review of Systems 2 Const: Denies: fever(s), chills or diaphoresis Card: Denies: chest pain, syncope or pre-syncope Resp: Denies: dyspnea GI: Denies: abdominal pain, nausea or vomiting : Denies: dysuria, urinary frequency or urinary urgency Musc: Denies: neck pain, back pain or muscle cramps Skin/Breast: Denies: rash Psych: Denies: anxiety PFSH ED 2 PFSH: Medical History COPD (chronic obstructive pulmonary disease) CHF (congestive heart failure) Hx of myocardial infarction Hx of completed stroke Atrial fibrillation Takotsubo syndrome Dyslipidemia (high LDL; low HDL) Atherosclerotic heart disease of [place] coronary artery without angina pectoris Cardiomyopathy Chronic back pain Kyphosis deformity of spine HTN (hypertension) CAD (coronary artery disease) Surgical History H/O coronary angiogram Family History Mother CAD (coronary artery disease) Father CAD (coronary artery disease) Daughter CAD (coronary artery disease) Denies family history of Diabetes Clotting disorder Dementia Chronic kidney disease (CKD) Suicide Anesthesia complication Bleeding disorder Lung disease Cancer Stroke Social History Smoking and tobacco/nicotine status: former use of tobacco/nicotine Quit status (tobacco/nicotine): has quit using Former quit date comment: 25 ya Alcohol intake: never Substance/Drug Use: never Lives independently: Yes Household members: children and other Details: Son Current occupational status: retired Physical Exam 2 Const: GENERAL APPEARANCE: cooperative and comfortable O RIENTATION/CONSCIOUSNESS: Yes awake, Yes oriented to person, Yes oriented to place and Yes oriented to time HENMT: COMMON NORMALS: normocephalic, atraumatic and hearing grossly normal bilaterally HEAD & SCALP: normocephalic and atraumatic Resp: COMMON NORMALS: normal respiratory effort, No retractions, No use of accessory muscles and clear to auscultation bilaterally AUSCULTATION: clear to auscultation bilaterally Cardio: COMMON NORMALS: No murmurs present (Cardio) RATE: tachycardic R HYTHM: abnormal rhythm irregularly irregular GI: COMMON NORMALS: Soft to palpation and No hepatosplenomegaly present A USCULTATION: Yes normoactive bowel sounds PALPATION: Yes Soft to palpation, No Tenderness to palpation present (GI), No Guarding due to palpation present (GI) and Yes No hepatosplenomegaly present Extremity: COMMON NORMALS: normal to inspection, capillary refill normal, no clubbing, cyanosis or edema, no calf tenderness and no pedal edema Neuro: SENSORIUM/ORIENTATION: Yes oriented to person, Yes oriented to place and Yes oriented to time Skin: COMMON NORMALS: no rashes or lesions noted GENERAL SKIN EXAM: no rashes or lesions noted Course 2 Vital Signs: Vital signs: Vital Signs Pulse Rate 114 H 05/21/23 11:33 Respiratory Rate 16 05/21/23 11:33 Blood Pressure 120/75 05/21/23 11:33 Pulse Oximetry 94 05/21/23 11:33 Oxygen Delivery Me thod Room Air 05/21/23 11:21 MDM - Arrhythmia/Palpitations Medical Decision Making A-fib with rapid ventricular response rate is controlled on the diltiazem. We did give her digoxin and metoprolol she is on 12-/2 of diltiazem at this point. Will admit her for monitoring rate control and adjustments of medications as needed dig level is somewhat low at 0.4. Medical Records I reviewed the patient's medical records. Lab Data I reviewed the patient's lab results. 05/21/23 10:33 05/21/23 10:33 Radiology Impressions Chest X-Ray 05/21/23 09:48 IMPRESSION: No acute findings. Laboratory Results WBC 5.74 10^3/uL (3.29-11.43) 05/21/23 10:33 RBC 4.78 10^6/uL (3.85-5.65) 05/21/23 10:33 Hgb 12.20 g/dL (11.27-16.99) 05/21/23 10:33 Hct 38.7 % (36-47) 05/21/23 10:33 MCV 81.0 fl (85-98) L 05/21/23 10:33 MCH 25.5 pg (27-33) L 05/21/23 10:33 MCHC 31.5 g/dL (30-55) 05/21/23 10:33 RDW 16.8 % (12.1-15.1) H 05/21/23 10:33 Plt Count 176 10^3/cmm (157-399) 05/21/23 10:33 MPV 9.4 fL (7.4-10.4) 05/21/23 10:33 Neut % (Auto) 68.5 % 05/21/23 10:33 Lymph % (Auto) 20.7 % 05/21/23 10:33 [place] % (Auto) 7.5 % 05/21/23 10:33 Eos % (Auto) 2.6 % 05/21/23 10:33 Baso % (Auto) 0.5 % 05/21/23 10:33 Neut # (Auto) 3.93 10^3/uL (1.8-7.7) 05/21/23 10:33 Lymph # (Auto) 1.2 10^3/uL (0.8-4.8) 05/21/23 10:33 [place] # (Auto) 0.4 10^3/uL (0.2-0.9) 05/21/23 10:33 Eos # (Auto) 0.2 10^3/uL (0.0-0.8) 05/21/23 10:33 Baso # (Auto) 0.0 10^3/uL (0.0-0.1) 05/21/23 10:33 Nucleated RBC % (auto) 0 % 05/21/23 10:33 Nucleated RBCs # 0.0 /100WBC 05/21/23 10:33 Sodium 135 mmol/L (136-145) L 05/21/23 10:33 Potassium 3.8 mmol/L (3.5-5.1) 05/21/23 10:33 Chloride 100 mmol/L (98-107) 05/21/23 10:33 Carbon Dioxide 23 mmol/L (22-29) 05/21/23 10:33 Anion Gap 15.8 (5-19) 05/21/23 10:33 BUN 13 mg/dL (8-23) 05/21/23 10:33 Creatinine 0.6 mg/dL (0.5-0.9) 05/21/23 10:33 GFR Calculation Not Reportable 05/21/23 10:33 Glucose 111 mg/dL (65-115) 05/21/23 10:33 Calculated Osmolality 281 mOsm/kg (285-295) L 05/21/23 10:33 Calcium 9.0 mg/dL (8.5-10.5) 05/21/23 10:33 Total Bilirubin 0.4 mg/dL (0.15-1.2) 05/21/23 10:33 AST 20 U/L (0-32) 05/21/23 10:33 ALT 11 U/L (0-33) 05/21/23 10:33 Alkaline Phosphatase 80 U/L (35-105) 05/21/23 10:33 Total Protein 7.0 g/dL (6.6-8.7) 05/21/23 10:33 Albumin 3.7 g/dL (3.5-5.2) 05/21/23 10:33 Globulin 3.3 g/dL (1.3-4.6) 05/21/23 10:33 Digoxin 0.4 ng/mL (0.6-1.2) L 05/21/23 10:33 All radiology interpretation(s) finalized by discharge Discharge Plan Discharge Patient Disposition: Placed in Observation Clinical Impression: Atrial fibrillation with rapid ventricular response Condition: Stable Prescriptions: No Action Eliquis 2.5 mg tablet 2.5 mg PO BID Qty: 60 5RF Hold Instructions: Resume on 12/05/21. start on december 05 multivitamin Tablet 1 tab PO DAILY ascorbic acid (vitamin C) [Vitamin C] 1,000 mg Tablet 1,000 mg PO QAM atorvastatin 40 mg Tablet 40 mg PO BEDTIME Qty: 30 0RF albuterol sulfate 90 mcg/actuation HFA aerosol inhaler 2 inh inhalation Q6H PRN (Reason: shortness of breath or wheezing) Qty: 8.5 0RF aspirin 81 mg Tablet,Delayed Release (Dr/Ec) 81 mg PO QAM metoprolol tartrate 50 mg Tablet 50 mg PO Q12H Qty: 90 0RF amlodipine 5 mg tablet 5 mg PO QAM tramadol 50 mg tablet 25 - 50 mg PO BID PRN (Reason: Pain, Severe) furosemide 20 mg tablet 20 mg PO DAILY PRN (Reason: Edema) digoxin 125 mcg (0.125 mg) tablet 125 mcg PO .EVERY 2 DAYS magnesium oxide 250 mg magnesium tablet 250 mg PO QAM Spiriva with HandiHaler 18 mcg capsule, w/inhalation device 1 cap inhalation DAILY Referrals: Roger,NOE TruongP [Primary Care Provider] - Patient Instructions: Opioid Safety, Pain Management Coding Level of Care Code ED Staple Fiber Washer for Meghann Jack
[2023-05-21] MEDS: dilTIAZem 5 mg/mL SDV 5 mL 10 MG IVP (09:56)
[2023-05-21] MEDS: dilTIAZem 100 MG in sodium chloride 0.9% (add-van) 100 ML IV (10:00)
[2023-05-21 10:47] LABS: Basophils % 0.5 %; Eosinophils # 0.2 10^3/uL (0.0-0.8); Eosinophils % 2.6 %; Hematocrit 38.7 % (36-47); Lymphocytes # 1.2 10^3/uL (0.8-4.8); Lymphocytes % 20.7 %; Mean Corpuscular HGB Conc 31.5 g/dL (30-55); Mean Corpuscular Hemoglobin 25.5 pg (27-33); Mean Platelet Volume 9.4 fL (7.4-10.4); Monocytes # 0.4 10^3/uL (0.2-0.9); Monocytes % 7.5 %; Neutrophils # 3.93 10^3/uL (1.8-7.7); Neutrophils % 68.5 %; Nucleated Red Blood Cells % 0 %; Platelet Count 176 10^3/cmm (157-399); Red Blood Count 4.78 10^6/uL (3.85-5.65); Red Cell Distribution Width 16.8 % (12.1-15.1); White Blood Count 5.74 10^3/uL (3.29-11.43)
[2023-05-21 11:08] LABS: Alanine Aminotransferase 11 U/L (0-33); Albumin Level 3.7 g/dL (3.5-5.2); Alkaline Phosphatase 80 U/L (35-105); Anion Gap 15.8 (5-19); Aspartate Amino Transferase 20 U/L (0-32); Blood Urea Nitrogen 13 mg/dL (8-23); Carbon Dioxide 23 mmol/L (22-29); Chloride 100 mmol/L (98-107); Globulin 3.3 g/dL (1.3-4.6); Glucose 111 mg/dL (65-115); Osmolality Calculated 281 mOsm/kg (285-295); Potassium 3.8 mmol/L (3.5-5.1); Sodium 135 mmol/L (136-145); Total Bilirubin 0.4 mg/dL (0.15-1.2)
--- NOTE | 2023-05-21 11:18 | PC.PHAR ---
Addendum entered by Miriam Rogers 05/21/23 11:28: last filled for 75mg (one and one-half tab) q12h Original Note: pts daughter verified pts medications-states the pt is still taking metoprolol tartrate 50mg q12h ext shows last filled 01/27/23 30d/s-
[2023-05-21] MEDS: digoxin 125 mcg Tablet PO (11:29)
[2023-05-21] MEDS: metoprolol tartrate 50 mg Tablet PO ×2 (11:29→16:20)
[2023-05-21 11:40] LABS: Digoxin 0.4 ng/mL (0.6-1.2)
--- NOTE | 2023-05-21 13:58 | USCV_ITS ---
Rosemary Rodrigez Age: 88 Gender: F : 1935 Exam Date: 05/21/2023 17:19 Ordering Phys: Brent Jaquez MD Technologist: Armin Llamas Exam Location: [facility] [place] Indication: sob BP: 137 / 65 HR: 83 Rhythm: Atrial fibrillation Technical Quality: Adequate MEASUREMENTS (Male / Female) Normal Values 2D ECHO LVOT Diameter 2.1 cm LV Ejection Fraction MOD 2C 57.2 % LV Ejection Fraction 2C AL 58.2 % LA Diameter 3.0 cm LA Width 2.8 cm LA Height 3.1 cm RA Width 2.7 cm RA Height 3.1 cm Aorta at Sinotubular Diameter 2.1 cm IVC Diameter 1.6 cm M-MODE Aortic Annulus Diameter 2.7 cm LA Ao Ratio MM 1.1 MV E Point Septal Separation 0.5 cm DOPPLER AV Peak Velocity 179.0 cm/s LVOT Peak Velocity 96.0 cm/s AV Area Cont Eq vti 1.7 cm squared AV Area Cont Eq pk 1.9 cm squared MV Peak Velocity 115.0 cm/s MV Area PHT 4.6 cm squared Mitral E to A Ratio 4.9 MV E' Velocity 54.0 cm/s Mitral E to MV E' Ratio 11.4 Mitral E to LV E' Lateral Ratio 10.6 Mitral E to LV E' Septal Ratio 12.6 TR Peak Velocity 272.1 cm/s TR Peak Gradient 29.6 mmHg TR Mean Velocity 206.1 cm/s TR Mean Gradient 18.6 mmHg TR Velocity Time Integral 79.2 cm Right Atrial Pressure 3.0 mmHg Pulmonary Artery Systolic Pressu 32.6 mmHg PV Peak Velocity 55.0 cm/s RV Acceleration Time 0.1 s RV Ejection Time 0.2 s RV AcT/ET 0.3 FINDINGS Left Ventricle Technically limited quality echocardiogram because of poor ultrasonic windows. Left ventricle is normal in size. LV systolic function is normal with EF of 55 to 60%. No regional wall motion abnormalities are seen. Right Ventricle Normal in size and function Right Atrium Normal in size Left Atrium Normal in size Mitral Valve Structurally normal mitral valve. Mild mitral regurgitation. Aortic Valve Aortic valve is thickened. Mild aortic stenosis with aortic valve area 1.45 cm squared and mean gradient of 8 mmHg. Tricuspid Valve Moderate tricuspid regurgitation. Mild pulmonary hypertension with RVSP of 40 to 45 mmHg. Pulmonic Valve Mild pulmonic regurgitation. Pericardium Normal Aorta Normal in size IVC Appears to be normal CONCLUSIONS LV systolic function is normal with EF 55 to 60%. Mild mitral regurgitation. Mild aortic stenosis Moderate tricuspid regurgitation Mild pulmonary hypertension Mild pulmonic regurgitation Compared to prior echocardiogram from 2021, no significant changes are seen. Andrew Kaye MD (Electronically Signed) Final Date: 22 May 2023 10:45 S
--- NOTE | 2023-05-21 14:03 | P.HP_ITS ---
Providers/Chief Complaint 2 Primary Care Provider: Dionne Roger, JYOTI Chief Complaint: WEAKNESS History of Present Illness Rosemary Rodrigez is a 88 year old female with a past medical history of atrial fibrillation, on digoxin, Eliquis, CAD, history of CHF, COPD, dyslipidemia, who presents [facility] due to dizziness and chest palpitations. Currently patient alert oriented x 3, follows all commands, she does report generalized weakness and rapid heart rate, generalized weakness for the last few days dizziness intermittently for the last few days, weakness is more generalized, no facial droop no slurring of words no focal weakness, she is ambulatory, she can take care of herself, she takes Eliquis as prescribed, no falls, when EMS was called out to her home, she was found to have a rapid heart rate, was given adenosine and amiodarone, here in the emergency room she was given Cardizem, placed on the Cardizem drip, currently it looks like her heart rates have converted to normal sinus rhythm, but at times she goes back into atrial fibrillation heart rates are well-controlled blood pressures are 90s over 60s, she is alert awake, following all commands, has no complaints Review of Systems 2 Const: Denies: fever(s) Card: Reports: palpitations and lightheadedness; Denies: chest pain Resp: Denies: dyspnea : Denies: flank pain Musc: Denies: back pain Medications/Allergies Home Medications Medication Instructions Recorded Confirmed Last Taken Type ascorbic acid (vitamin C) 1,000 mg 1,000 mg PO QAM 04/02/20 05/21/23 05/20/23 History tablet (Vitamin C) multivitamin 1 tab PO DAILY 04/02/20 05/21/23 05/20/23 History atorvastatin 40 mg tablet 40 mg PO BEDTIME #30 tabs 04/05/20 05/21/23 05/20/23 Rx albuterol sulfate 90 mcg/actuation 2 inh inhalation Q6H PRN shortness 02/10/21 05/21/23 Unknown Rx aerosol inhaler of breath or wheezing #8.5 grams aspirin 81 mg tablet,delayed 81 mg PO QAM 11/29/21 05/21/23 05/20/23 History release metoprolol tartrate 50 mg tablet 50 mg PO Q12H #90 tabs 12/04/21 05/21/23 05/20/23 Rx apixaban 2.5 mg tablet (Eliquis) 2.5 mg PO BID #60 tabs 10/04/22 05/21/23 05/20/23 Rx amlodipine 5 mg tablet 5 mg PO QAM 05/21/23 05/21/23 05/20/23 History digoxin 125 mcg (0.125 mg) tablet 125 mcg PO .EVERY 2 DAYS 05/21/23 05/21/23 05/19/23 History furosemide 20 mg tablet 20 mg PO DAILY PRN Edema 05/21/23 05/21/23 Unknown History magnesium oxide 250 mg PO QAM 05/21/23 05/21/23 05/20/23 History tiotropium bromide 18 mcg capsule 1 cap inhalation DAILY 05/21/23 05/21/23 Unknown History with inhalation device (Spiriva with HandiHaler) tramadol 50 mg tablet 25 - 50 mg PO BID PRN Pain, Severe 05/21/23 05/21/23 Unknown History Allergies Allergy/AdvReac Type Severity Reaction Status Date / Time No Known Allergies Allergy Verified 05/21/23 11:18 PFSH Acute 2 PFSH: Medical History (Updated 05/21/23 @ 14:07 by Brent Jaquez MD) Atrial fibrillation with rapid ventricular response COPD (chronic obstructive pulmonary disease) CHF (congestive heart failure) Hx of myocardial infarction Hx of completed stroke Atrial fibrillation Takotsubo syndrome Dyslipidemia (high LDL; low HDL) Atherosclerotic heart disease of [place] coronary artery without angina pectoris Cardiomyopathy Chronic back pain Kyphosis deformity of spine HTN (hypertension) CAD (coronary artery disease) Surgical History H/O coronary angiogram Family History Mother CAD (coronary artery disease) Father CAD (coronary artery disease) Daughter CAD (coronary artery disease) Denies family history of Diabetes Clotting disorder Dementia Chronic kidney disease (CKD) Suicide Anesthesia complication Bleeding disorder Lung disease Cancer Stroke Social History Smoking and tobacco/nicotine status: former use of tobacco/nicotine Quit status (tobacco/nicotine): has quit using Former quit date comment: 25 ya Alcohol intake: never Substance/Drug Use: never Lives independently: Yes Household members: children and other Details: Son Current occupational status: retired Vitals/I&O/Wt Last Vital Signs Pulse 64 05/21/23 13:37 Resp 16 05/21/23 13:37 BP 90/53 05/21/23 13:37 Pulse Ox 97 05/21/23 13:37 O2 Del Method Room Air 05/21/23 13:37 05/20/23 05/21/23 05/21/23 22:59 06:59 14:59 Intake Total 25.792 / 25.792 Balance 25.792 / 25.792 Weight last 48 hrs Weight 39.009 kg Physical Exam 2 Const: COMMON NORMALS: no acute distress and patient oriented x3 OTHER: Evidence of severe protein, malnutrition, temporal muscle wasting, bilateral calves, bilateral thighs, bilateral arm muscle wasting, anorexia HENMT: COMMON NORMALS: normocephalic HEAD & SCALP: normocephalic Neck/C-Spine: COMMON NORMALS: no JVD Lymph: LYMPHATIC: no lymphadenopathy noted Resp: COMMON NORMALS: normal respiratory effort, No retractions, No use of accessory muscles and clear to auscultation bilaterally AUSCULTATION: clear to auscultation bilaterally Cardio: COMMON NORMALS: regular rate, regular rhythm, S1 normal heart sound present and S2 normal heart sound present RATE: regular rate RHYTHM: r egular rhythm HEART SOUNDS: S1 normal heart sound present and S2 normal heart sound present GI: COMMON NORMALS: Normal to inspection, nondistended, normoactive bowel sounds present, Soft to palpation and non-tender PALPATION: Yes Soft to palpation and Yes No hepatosplenomegaly present Extremity: COMMON NORMALS: capillary refill normal, no calf tenderness and no pedal edema Neuro: COMMON NORMALS: patient oriented x3, CN's II-XII intact bilaterally, moves all extremities and no focal motor deficits Psych: COMMON NORMALS: mental status grossly normal Data 05/21/23 10:33 05/21/23 10:33 A&P Assessment and plan (1) Atrial fibrillation with rapid ventricular response: (2) Cardiomyopathy: Qualifiers: Cardiomyopathy type: other Qualified Code(s): I42.8 - Other cardiomyopathies (3) CHF (congestive heart failure): Qualifiers: Heart failure type: diastolic Heart failure chronicity: acute on chronic Qualified Code(s): I50.33 - Acute on chronic diastolic (congestive) heart failure (4) Physical deconditioning: (5) Protein calorie malnutrition: (6) Muscle wasting: (7) Anorexia: Plan A-fib with RVR, ? Will continue to monitor heart rates as inpatient - currently Cardizem drip on hold, ? Continue p.o. digoxin, Continue p.o. metoprolol, ? Continue Eliquis ? TSH, mag, cardiac echo CAD, serial EKGs, serial troponins, telemetry monitoring, Physical deconditioning, protein calorie malnutrition, muscle wasting, anorexia, consult dietary, PT OT, Ensure drinks twice daily Attestations 2 Medical Necessity Statement*: Patient requires hospitalization, outpatient observation, with A-fib with RVR Diagnoses Atrial fibrillation with rapid ventricular response I48.91 Other cardiomyopathy I42.8 Cardiomyopathy type: other Acute on chronic diastolic congestive heart failure I50.33 Heart failure type: diastolic Heart failure chronicity: acute on chronic Physical deconditioning R53.81 Protein calorie malnutrition E46 Muscle wasting M62.50 Anorexia R63.0
[2023-05-21 14:21] LABS: INR 1.02 (0.8-1.2)
--- NOTE | 2023-05-21 14:39 | ECG_ITS ---
[facility] Test Date: 2023-05-21 Pat Name: Rosemary Rodrigez Department: Room: 107 Gender: Female Vascular Surgeon: : 1935 Requested By: Brent Jaquez Order Number: [id number] Rach MD: Andrew Kaye M.D. Measurements Intervals [place] Rate: 64 P: 0 DC: 0 QRS: 71 QRSD: 98 T: -16 QT: 371 QTc: 384 Interpretive Statements ATRIAL FIBRILLATION VOLTAGE CRITERIA FOR LVH [MEETS CRITERIA IN ONE OF: R(aVL), S(V1), R(V5), R(V5/V6)+S(V1)] PROBABLE INFERIOR MYOCARDIAL INFARCTION , OF INDETERMINATE AGE [35 ms Q WAVE IN II/aVF] Compared to ECG 05/21/2023 09:47:14 Myocardial infarct finding now present T-wave abnormality no longer present Possible ischemia no longer present Electronically Signed On 05-22-2023 16:26:01 IN PROCESS INSPECTOR by Andrew Kaye M.D. [id number]
[2023-05-21 14:46] LABS: Magnesium 1.9 mg/dL (1.7-2.3); NT Pro B Type Natriuretic Pept 242 pg/mL (0-450); Thyroid Stimulating Hormone 1.27 uIU/mL (0.27-4.20)
[2023-05-21 15:39] LABS: Estmated Average Glucose 114; Hemoglobin A1C 5.6 % (4.0-6.0)
[2023-05-21 15:52] LABS: Chol HDL Ratio 2.82 mg/dL (0.0-4.40); Cholesterol 192 mg/dL (0-200); HDL Cholesterol 68 mg/dL (60-100); LDL Cholesterol Calculated 115 mg/dL (50-129); LDL HDL Ratio 1.69 RATIO (0.00-3.22); Triglycerides 45 mg/dL (0-150)
--- NOTE | 2023-05-21 15:57 | ECG_ITS ---
[facility] Test Date: 2023-05-21 Pat Name: Rosemary Rodrigez Department: Room: 107 Gender: Female Environmental Associate: : 1935 Requested By: Brent Jaquez Order Number: [id number] Rach MD: Andrew Kaye M.D. Measurements Intervals [place] Rate: 78 P: 0 SC: 0 QRS: 71 QRSD: 105 T: -18 QT: 378 QTc: 432 Interpretive Statements ATRIAL FIBRILLATION MINIMAL VOLTAGE CRITERIA FOR LVH, CONSIDER NORMAL VARIANT [MEETS CRITERIA IN ONE OF: R(aVL), S(V1), R(V5), R(V5/V6)+S(V1)] INFERIOR MYOCARDIAL INFARCTION , OF INDETERMINATE AGE [40+ ms Q WAVE AND/OR ST/T ABNORMALITY IN II/aVF] Compared to ECG 05/21/2023 14:39:06 No significant changes Electronically Signed On 05-23-2023 10:54:28 SUPERVISOR [employer]CTION [employer]OP by Andrew Kaye M.D. [id number]
[2023-05-21] MEDS: pantoprazole 40 mg SDV IVP (16:19)
[2023-05-21] MEDS: apixaban 5 mg Tablet 2.5 MG PO (16:19)
[2023-05-21 17:48] LABS: Troponin(5th) Baseline 17 ng/L (0-10)
[2023-05-21] MEDS: atorvastatin 40 mg Tablet PO (19:33)
[2023-05-21] MEDS: TRAMadol 50 mg Tablet 25 MG PO (19:33)
[2023-05-21 19:52] LABS: Troponin 5 2HR 15.72 ng/L (0-10)
[2023-05-21 19:53] LABS: Troponin 5 2HR Delta -1.28 ABS# (0-10)
[2023-05-22] VITALS (97 sets, daily range): BP systolic 98–116; BP diastolic 56–73; PULSE 59–104; RESP 9–31; TEMP 36.5–36.8; O2SAT 91–99
[2023-05-22 00:11] LABS: Troponin 5 6HR 15.41 ng/L (0-10)
[2023-05-22 00:20] LABS: Troponin 5 6HR Delta -1.59 ng/L (0-12)
[2023-05-22 04:02] LABS: Basophils % 0.7 %; Eosinophils # 0.1 10^3/uL (0.0-0.8); Hematocrit 38.8 % (36-47); Lymphocytes # 1.9 10^3/uL (0.8-4.8); Lymphocytes % 31.7 %; Mean Corpuscular HGB Conc 31.2 g/dL (30-55); Mean Corpuscular Hemoglobin 25.5 pg (27-33); Mean Corpuscular Volume 81.7 fl (85-98); Mean Platelet Volume 10.2 fL (7.4-10.4); Monocytes # 0.5 10^3/uL (0.2-0.9); Monocytes % 9.3 %; Neutrophils # 3.33 10^3/uL (1.8-7.7); Neutrophils % 57.1 %; Nucleated Red Blood Cells % 0 %; Platelet Count 181 10^3/cmm (157-399); Red Blood Count 4.75 10^6/uL (3.85-5.65); White Blood Count 5.83 10^3/uL (3.29-11.43)
[2023-05-22 04:29] LABS: Alanine Aminotransferase 8 U/L (0-33); Albumin Level 3.3 g/dL (3.5-5.2); Alkaline Phosphatase 68 U/L (35-105); Anion Gap 13.2 (5-19); Aspartate Amino Transferase 17 U/L (0-32); Blood Urea Nitrogen 12 mg/dL (8-23); Carbon Dioxide 24 mmol/L (22-29); Chloride 99 mmol/L (98-107); Globulin 2.9 g/dL (1.3-4.6); Glucose 86 mg/dL (65-115); Magnesium 1.9 mg/dL (1.7-2.3); Osmolality Calculated 273 mOsm/kg (285-295); Phosphorus 3.5 mg/dL (2.5-4.5); Potassium 4.2 mmol/L (3.5-5.1); Sodium 132 mmol/L (136-145); Total Bilirubin 0.5 mg/dL (0.15-1.2); Total Protein 6.2 g/dL (6.6-8.7)
[2023-05-22] MEDS: metoprolol tartrate 50 mg Tablet PO (05:53)
[2023-05-22] MEDS: aspirin 81 mg EC Tablet PO (05:54)
[2023-05-22] MEDS: ascorbic acid 500 mg Tablet 1000 MG PO (05:54)
[2023-05-22] MEDS: apixaban 5 mg Tablet 2.5 MG PO (08:48)
[2023-05-22] MEDS: multivitamin therapeutic Tablet 1 TAB PO (08:49)
[2023-05-22] MEDS: digoxin 125 mcg Tablet PO (08:49)
--- NOTE | 2023-05-22 11:07 | PC.OT ---
OT orders received to evaluate and treat. Per weekend protocol, evaluation to be completed on Tuesday.
--- NOTE | 2023-05-22 11:47 | P.DS_ITS ---
Discharge Providers Date of Admission: 05/21/23 15:22 Date of Discharge: May 22, 2023 Attending Provider at Admission: Brent Jaquez MD Attending Provider at Discharge: Brent Jaquez MD Primary Care Provider: JYOTI Villa Diagnoses at Discharge Discharge Diagnosis (1) Atrial fibrillation with rapid ventricular response: Status: Acute (2) Cardiomyopathy: Status: Acute Qualifiers: Cardiomyopathy type: other Qualified Code(s): I42.8 - Other cardiomyopathies (3) CHF (congestive heart failure): Status: Acute Qualifiers: Heart failure type: diastolic Heart failure chronicity: acute on chronic Qualified Code(s): I50.33 - Acute on chronic diastolic (congestive) heart failure (4) Physical deconditioning: Status: Acute (5) Protein calorie malnutrition: Status: Acute (6) Muscle wasting: Status: Acute (7) Anorexia: Status: Acute Reason for Visit Reason for Visit: WEAKNESS Hospital Course Hospital Course Rosemary Rodrigez is a 88 year old female with a past medical history of atrial fibrillation, on digoxin, Eliquis, CAD, history of CHF, COPD, dyslipidemia, who presents [facility] due to dizziness and chest palpitations. Currently patient alert oriented x 3, follows all commands, she does report generalized weakness and rapid heart rate, generalized weakness for the last few days dizziness intermittently for the last few days, weakness is more generalized, no facial droop no slurring of words no focal weakness, she is ambulatory, she can take care of herself, she takes Eliquis as prescribed, no falls, when EMS was called out to her home, she was found to have a rapid heart rate, was given adenosine and amiodarone, here in the emergency room she was given Cardizem, placed on the Cardizem drip, currently it looks like her heart rates have converted to normal sinus rhythm, but at times she goes back into atrial fibrillation heart rates are well-controlled blood pressures are 90s over 60s, she is alert awake, following all commands, has no complaints Patient was admitted to [facility] for A-fib with RVR, she was started on a Cardizem drip, heart rates were under control to in the emergency room Cardizem drip was stopped, his heart rates were in the 60s, in and out of A-fib, management her home p.o. digoxin, metoprolol, have added on Cardizem 30 every 12 hours, continue home Eliquis, discharged home with close follow-up with cardiology For physical deconditioning, protein, malnutrition, muscle wasting, should follow-up with primary care, I advised her to drink Ensure or boost drinks twice a day Physical Exam Const: COMMON NORMALS: no acute distress and patient oriented x3 Resp: COMMON NORMALS: normal respiratory effort, No retractions, No use of accessory muscles and clear to auscultation bilaterally AUSCULTATION: clear to auscultation bilaterally Cardio: COMMON NORMALS: regular rate, S1 normal heart sound present and S2 normal heart sound present RATE: regular rate RHYTHM: abnormal rhythm irregularly irregular HEART SOUNDS: S1 normal heart sound present and S2 normal heart sound present GI: COMMON NORMALS: Normal to inspection, nondistended, normoactive bowel sounds present and non-tender Extremity: COMMON NORMALS: no pedal edema Neuro: COMMON NORMALS: patient oriented x3 Psych: COMMON NORMALS: mental status grossly normal Discharge Data Studies Completed and Pending Completed Studies During Hospitalization Category Date Time Status XR chest 1V portable [id number] Stat Exams 05/21/23 09:48 Completed CV. echo complete* [id number] Stat Ultrasound 05/21/23 13:58 Completed Pending at discharge Category Date Time Status Complete Blood Count w/Auto AM LABS Lab 05/23/23 04:00 Ordered Complete Blood Count w/Auto AM LABS Lab 05/24/23 04:00 Ordered Comprehensive Metabolic Panel AM LABS Lab 05/23/23 04:00 Ordered Comprehensive Metabolic Panel AM LABS Lab 05/24/23 04:00 Ordered Magnesium AM LABS Lab 05/23/23 04:00 Ordered Magnesium AM LABS Lab 05/24/23 04:00 Ordered Phosphorus AM LABS Lab 05/23/23 04:00 Ordered Phosphorus AM LABS Lab 05/24/23 04:00 Ordered Urinalysis Routine Lab 05/21/23 15:22 Ordered Radiology Impressions Chest X-Ray 05/21/23 09:48 IMPRESSION: No acute findings. Laboratory Results WBC 5.83 10^3/uL (3.29-11.43) 05/22/23 03:32 RBC 4.75 10^6/uL (3.85-5.65) 05/22/23 03:32 Hgb 12.10 g/dL (11.27-16.99) 05/22/23 03:32 Hct 38.8 % (36-47) 05/22/23 03:32 MCV 81.7 fl (85-98) L 05/22/23 03:32 MCH 25.5 pg (27-33) L 05/22/23 03:32 MCHC 31.2 g/dL (30-55) 05/22/23 03:32 RDW 17.0 % (12.1-15.1) H 05/22/23 03:32 Plt Count 181 10^3/cmm (157-399) 05/22/23 03:32 MPV 10.2 fL (7.4-10.4) 05/22/23 03:32 Neut % (Auto) 57.1 % 05/22/23 03:32 Lymph % (Auto) 31.7 % 05/22/23 03:32 [place] % (Auto) 9.3 % 05/22/23 03:32 Eos % (Auto) 1.0 % 05/22/23 03:32 Baso % (Auto) 0.7 % 05/22/23 03:32 Neut # (Auto) 3.33 10^3/uL (1.8-7.7) 05/22/23 03:32 Lymph # (Auto) 1.9 10^3/uL (0.8-4.8) 05/22/23 03:32 [place] # (Auto) 0.5 10^3/uL (0.2-0.9) 05/22/23 03:32 Eos # (Auto) 0.1 10^3/uL (0.0-0.8) 05/22/23 03:32 Baso # (Auto) 0.0 10^3/uL (0.0-0.1) 05/22/23 03:32 Nucleated RBC % (auto) 0 % 05/22/23 03:32 Nucleated RBCs # 0.0 /100WBC 05/22/23 03:32 PT 13.70 SECONDS (12.1-14.9) 05/21/23 10:33 INR 1.02 (0.8-1.2) 05/21/23 10:33 Sodium 132 mmol/L (136-145) L 05/22/23 03:32 Potassium 4.2 mmol/L (3.5-5.1) 05/22/23 03:32 Chloride 99 mmol/L (98-107) 05/22/23 03:32 Carbon Dioxide 24 mmol/L (22-29) 05/22/23 03:32 Anion Gap 13.2 (5-19) 05/22/23 03:32 BUN 12 mg/dL (8-23) 05/22/23 03:32 Creatinine 0.5 mg/dL (0.5-0.9) 05/22/23 03:32 GFR Calculation Not Reportable 05/22/23 03:32 Glucose 86 mg/dL (65-115) 05/22/23 03:32 Estimat Average Glucose 114 05/21/23 10:33 Hemoglobin A1c 5.6 % (4.0-6.0) 05/21/23 10:33 Calculated Osmolality 273 mOsm/kg (285-295) L 05/22/23 03:32 Calcium 9.0 mg/dL (8.5-10.5) 05/22/23 03:32 Phosphorus 3.5 mg/dL (2.5-4.5) 05/22/23 03:32 Magnesium 1.9 mg/dL (1.7-2.3) 05/22/23 03:32 Total Bilirubin 0.5 mg/dL (0.15-1.2) 05/22/23 03:32 AST 17 U/L (0-32) 05/22/23 03:32 ALT 8 U/L (0-33) 05/22/23 03:32 Alkaline Phosphatase 68 U/L (35-105) 05/22/23 03:32 Troponin T Baseline 17 ng/L (0-10) H 05/21/23 17:25 Troponin T 120 Minute 15.72 ng/L (0-10) H 05/21/23 19:15 Delta Troponin T -1.28 ABS# (0-10) L 05/21/23 19:15 Troponin T Hi Sens 6Hr 15.41 ng/L (0-10) H 05/21/23 23:20 Troponin T Hi Sens 6Hr Delta -1.59 ng/L (0-12) L 05/21/23 23:20 NT-Pro-B Natriuret Pep 242 pg/mL (0-450) 05/21/23 10:33 Total Protein 6.2 g/dL (6.6-8.7) L 05/22/23 03:32 Albumin 3.3 g/dL (3.5-5.2) L 05/22/23 03:32 Globulin 2.9 g/dL (1.3-4.6) 05/22/23 03:32 Triglycerides 45 mg/dL (0-150) 05/21/23 10:33 Cholesterol 192 mg/dL (0-200) 05/21/23 10:33 LDL Cholesterol, Calc 115 mg/dL (50-129) 05/21/23 10:33 HDL Cholesterol 68 mg/dL (60-100) 05/21/23 10:33 LDL/HDL Ratio 1.69 RATIO (0.00-3.22) 05/21/23 10:33 Cholesterol/HDL Ratio 2.82 mg/dL (0.0-4.40) 05/21/23 10:33 TSH 1.27 uIU/mL (0.27-4.20) 05/21/23 10:33 Digoxin 0.4 ng/mL (0.6-1.2) L 05/21/23 10:33 Vitals Last Vital Signs Temp 98.2 F 05/22/23 04:00 Pulse 72 05/22/23 09:25 Resp 15 05/22/23 09:25 BP 115/73 05/22/23 09:25 Pulse Ox 96 05/22/23 07:39 O2 Del Method Room Air 05/22/23 07:39 Discharge Plan Discharge Patient Disposition: Home Condition: Stable Prescriptions: New diltiazem HCl [Cardizem] 30 mg tablet 30 mg PO BID 30 Days Qty: 60 0RF Continued Eliquis 2.5 mg tablet 2.5 mg PO BID Qty: 60 5RF Hold Instructions: Resume on 12/05/21. start on december 05 multivitamin Tablet 1 tab PO DAILY ascorbic acid (vitamin C) [Vitamin C] 1,000 mg Tablet 1,000 mg PO QAM atorvastatin 40 mg Tablet 40 mg PO BEDTIME Qty: 30 0RF albuterol sulfate 90 mcg/actuation HFA aerosol inhaler 2 inh inhalation Q6H PRN (Reason: shortness of breath or wheezing) Qty: 8.5 0RF aspirin 81 mg Tablet,Delayed Release (Dr/Ec) 81 mg PO QAM metoprolol tartrate 50 mg Tablet 50 mg PO Q12H Qty: 90 0RF amlodipine 5 mg tablet 5 mg PO QAM tramadol 50 mg tablet 25 - 50 mg PO BID PRN (Reason: Pain, Severe) furosemide 20 mg tablet 20 mg PO DAILY PRN (Reason: Edema) digoxin 125 mcg (0.125 mg) tablet 125 mcg PO .EVERY 2 DAYS magnesium oxide 250 mg magnesium tablet 250 mg PO QAM Spiriva with HandiHaler 18 mcg capsule, w/inhalation device 1 cap inhalation DAILY Discharge Orders: Discharge Order (Routine); Ordered 05/22/23 Ordered By: Brent Jaquez Referrals: Andrew Kaye M.D [Physician] - 1 week Roger,JYOTI Truong [Primary Care Provider] - Discharge Diet: Cardiac Discharge Activity: Resume usual activity Patient Instructions: Opioid Safety, Pain Management Activity Restrictions/Additional Instructions: - If any chest pain or palpitations please go to emergency room Discharge Attestations Time Spent in Discharge Care*: greater than 30 min Quality Metrics Clinical Quality Measures [ No reported AMI, CVA or VTE this stay] Coding Level of Care Code 04424 Total time (in minutes) for Discharge: 45 Diagnoses Atrial fibrillation with rapid ventricular response I48.91 Other cardiomyopathy I42.8 Cardiomyopathy type: other Acute on chronic diastolic congestive heart failure I50.33 Heart failure type: diastolic Heart failure chronicity: acute on chronic Physical deconditioning R53.81 Protein calorie malnutrition E46 Muscle wasting M62.50 Anorexia R63.0
[2023-05-22] MEDS: dilTIAZem 30 mg Tablet PO (12:26)
--- NOTE | 2023-05-22 12:57 | PC.NURSE ---
pt ambulated in [facility] and heart rate increased to 110-140's (afib).pt became slightly sob....recovered quickly with rest.heart rate came down to 90's to 100.dr harding notified.he ordered cardizem p.o.
--- NOTE | 2023-05-22 15:46 | PC.NURSE ---
discharge instructions given and explained to pt and daughter.they verb understanding of instructions.discharged via w/c to exit at this time.daughter to drive pt home
--- NOTE | 2023-05-23 15:09 | PC.NURSE ---
Patient's daughter called in on 05-23-2023, saying that her normal pharmacy did not have the cardizem and asked to have it called into [facility] in [place]. Rx called in.
== END 2023-05-22 15:48 | disposition home or self-care (01) ==
LOC: ER 11:49 → CSU 19:17
PROVIDERS: Admitting Provider Family Medicine; Emergency Provider Family Medicine; PCP Nurse Practitioner Family; Visit Provider Family Medicine
DX: I48.91 Unspecified atrial fibrillation (principal); I42.8 Other cardiomyopathies; I11.0 Hypertensive heart disease with heart failure; I50.33 Acute on chronic diastolic (congestive) heart failure; R53.81 Other malaise; E46 Unspecified protein-calorie malnutrition; Z68.1 Body mass index [BMI] 19.9 or less, adult; M62.50 Muscle wasting and atrophy, not elsewhere classified, unspecified site; R63.0 Anorexia; Z79.01 Long term (current) use of anticoagulants; I25.10 Atherosclerotic heart disease of native coronary artery without angina pectoris; J44.9 Chronic obstructive pulmonary disease, unspecified; E78.5 Hyperlipidemia, unspecified; I25.2 Old myocardial infarction; Z87.891 Personal history of nicotine dependence
CPT/HCPCS: 36415; 71045; 80053; 80061; 80162; 83036; 83735; 83880; 84100; 84443; 84484; 85025; 85610; 93005; 93306; 94664; 96376; 97110; 97161; 99285; C9113; G0378; J3490

== ENCOUNTER 2023-05-26 08:53 | Emergency (ER) | payer MEDICARE, SELFPAY ==
[2023-05-26 08:58] VITALS: BP 153/74; PULSE 78; RESP 16; TEMP 36.4; O2SAT 100; BMI 22.2
--- NOTE | 2023-05-26 08:58 | XR_ITS ---
WS: [id number] XR chest 1V portable [id number] REASON FOR EXAM: dyspnea/cough FINDINGS: The chest appears unchanged compared to 05/21/2023. Significant tortuosity and ectasia of the thoracic aorta. Mild cardiomegaly. No acute pulmonary parenchymal or pleural abnormality. IMPRESSION: Stable chest without acute abnormality.
--- NOTE | 2023-05-26 08:58 | ECG_ITS ---
[facility] Test Date: 2023-05-26 Pat Name: Rosemary Rodrigez Department: Room: Gender: Female Gag Writer: : 1935 Requested By: James Cortez Order Number: [id number] Rach MD: Evelina Khan M.D. Measurements Intervals [place] Rate: 76 P: 80 MA: 159 QRS: -27 QRSD: 98 T: 81 QT: 362 QTc: 407 Interpretive Statements SINUS RHYTHM WITH OCCASIONAL VENTRICULAR PREMATURE COMPLEXES WITH FREQUENT SUPRAVENTRICULAR PREMATURE COMPLEXES BORDERLINE LEFT AXIS DEVIATION [QRS AXIS < -20] NONSPECIFIC T-WAVE ABNORMALITY ABNORMAL RHYTHM ECG Compared to ECG 05/21/2023 16:26:05 Ventricular premature complex(es) now present T-wave abnormality now present Atrial fibrillation no longer present Myocardial infarct finding no longer present Electronically Signed On 05-26-2023 21:48:24 FILM REPLACEMENT ORDERER by Evelina Khan M.D. [id number]
--- NOTE | 2023-05-26 08:59 | ED_ITS ---
HPI - Arrhythmia/Palpitations 2 General: Chief Complaint: Arrhythmia/Palpitations Stated Complaint: afib, high heart rate Time Seen by Provider: 05/26/23 08:56 Source: patient Mode of arrival: EMS History of Present Illness: 88-year-old female who presents emergenc y room via EMS with complaints of a rapid heart rate. She has a history of atrial fibrillation 5 days ago admitted for A-fib with RVR for medication adjustment. MD complaint: rapid heart beat and heart racing Review of Systems 2 Const: Denies: fever(s) or chills Card: Denies: chest pain Resp: Denies: dyspnea GI: Denies: abdominal pain : Denies: dysuria, urinary frequency or urinary urgency Musc: Denies: neck pain or back pain Skin/Breast: Denies: rash PFSH ED 2 PFSH: Medical History Atrial fibrillation with rapid ventricular response COPD (chronic obstructive pulmonary disease) CHF (congestive heart failure) Hx of myocardial infarction Hx of completed stroke Atrial fibrillation Takotsubo syndrome Dyslipidemia (high LDL; low HDL) Atherosclerotic heart disease of [place] coronary artery without angina pectoris Cardiomyopathy Chronic back pain Kyphosis deformity of spine HTN (hypertension) CAD (coronary artery disease) Surgical History H/O coronary angiogram Family History Mother CAD (coronary artery disease) Father CAD (coronary artery disease) Daughter CAD (coronary artery disease) Denies family history of Diabetes Clotting disorder Dementia Chronic kidney disease (CKD) Suicide Anesthesia complication Bleeding disorder Lung disease Cancer Stroke Social History Smoking and tobacco/nicotine status: former use of tobacco/nicotine Quit status (tobacco/nicotine): has quit using Former quit date comment: 25 ya Alcohol intake: never Substance/Drug Use: never Lives independently: Yes Household members: children and other Details: Son Current occupational status: retired Physical Exam 2 Const: COMMON NORMALS: no acute distress GENERAL APPEARANCE: cooperative and comfortable ORIENTATION/CONSCIOUSNESS: Yes awake, Yes oriented to person, Yes oriented to place and Yes oriented to time HENMT: COMMON NORMALS: normocephalic, atraumatic and hearing grossly normal bilaterally HEAD & SCALP: normocephalic and atraumatic Resp: COMMON NORMALS: normal respiratory effort, No retractions, No use of accessory muscles and clear to auscultation bilaterally AUSCULTATION: clear to auscultation bilaterally Cardio: COMMON NORMALS: regular rate, regular rhythm and No murmurs present (Cardio) RATE: regular rate RHYTHM: regular rhythm GI: COMMON NORMALS: Soft to palpation and No hepatosplenomegaly present A USCULTATION: Yes normoactive bowel sounds PALPATION: Yes Soft to palpation, No Tenderness to palpation present (GI), No Guarding due to palpation present (GI) and Yes No hepatosplenomegaly present Extremity: COMMON NORMALS: normal to inspection, capillary refill normal, no clubbing, cyanosis or edema, no calf tenderness and no pedal edema Neuro: SENSORIUM/ORIENTATION: Yes oriented to person, Yes oriented to place and Yes oriented to time Skin: COMMON NORMALS: no rashes or lesions noted GENERAL SKIN EXAM: no rashes or lesions noted Course 2 Vital Signs: Vital signs: Vital Signs Temperature 97.6 F 05/26/23 08:58 Pulse Rate 78 05/26/23 09:57 Respiratory Rate 16 05/26/23 09:57 Blood Pressure 145/74 05/26/23 09:57 Pulse Oximetry 97 05/26/23 09:57 Oxygen Delivery Me thod Room Air 05/26/23 09:57 MDM - Arrhythmia/Palpitations Medical Decision Making Rate well-controlled. Orthostatics are not showing significant drop. I suspect she is getting some side effects with multiple medications he is on is required to control her heart rate. She has no signs of dig toxicity limited to level was normal last week. When she was here last week we added diltiazem 30 twice daily. I suspect her symptoms are side effects of her medications. 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 She is not bradycardic at this point. Medical Records I reviewed the patient's medical records. Lab Data I reviewed the patient's lab results. 05/26/23 09:12 05/26/23 09:12 Laboratory Results WBC 6.17 10^3/uL (3.29-11.43) 05/26/23 09:12 RBC 4.79 10^6/uL (3.85-5.65) 05/26/23 09:12 Hgb 12.40 g/dL (11.27-16.99) 05/26/23 09:12 Hct 38.9 % (36-47) 05/26/23 09:12 MCV 81.2 fl (85-98) L 05/26/23 09:12 MCH 25.9 pg (27-33) L 05/26/23 09:12 MCHC 31.9 g/dL (30-55) 05/26/23 09:12 RDW 17.0 % (12.1-15.1) H 05/26/23 09:12 Plt Count 163 10^3/cmm (157-399) 05/26/23 09:12 MPV 9.9 fL (7.4-10.4) 05/26/23 09:12 Neut % (Auto) 77.9 % 05/26/23 09:12 Lymph % (Auto) 14.3 % 05/26/23 09:12 [place] % (Auto) 7.0 % 05/26/23 09:12 Eos % (Auto) 0.0 % 05/26/23 09:12 Baso % (Auto) 0.5 % 05/26/23 09:12 Neut # (Auto) 4.81 10^3/uL (1.8-7.7) 05/26/23 09:12 Lymph # (Auto) 0.9 10^3/uL (0.8-4.8) 05/26/23 09:12 [place] # (Auto) 0.4 10^3/uL (0.2-0.9) 05/26/23 09:12 Eos # (Auto) 0.0 10^3/uL (0.0-0.8) 05/26/23 09:12 Baso # (Auto) 0.0 10^3/uL (0.0-0.1) 05/26/23 09:12 Nucleated RBC % (auto) 0 % 05/26/23 09:12 Nucleated RBCs # 0.0 /100WBC 05/26/23 09:12 Sodium 136 mmol/L (136-145) 05/26/23 09:12 Potassium 4.2 mmol/L (3.5-5.1) 05/26/23 09:12 Chloride 101 mmol/L (98-107) 05/26/23 09:12 Carbon Dioxide 26 mmol/L (22-29) 05/26/23 09:12 Anion Gap 13.2 (5-19) 05/26/23 09:12 BUN 13 mg/dL (8-23) 05/26/23 09:12 Creatinine 0.4 mg/dL (0.5-0.9) L 05/26/23 09:12 GFR Calculation Not Reportable 05/26/23 09:12 Glucose 89 mg/dL (65-115) 05/26/23 09:12 Calculated Osmolality 282 mOsm/kg (285-295) L 05/26/23 09:12 Calcium 9.1 mg/dL (8.5-10.5) 05/26/23 09:12 Total Bilirubin 0.4 mg/dL (0.15-1.2) 05/26/23 09:12 AST 24 U/L (0-32) 05/26/23 09:12 ALT 12 U/L (0-33) 05/26/23 09:12 Alkaline Phosphatase 79 U/L (35-105) 05/26/23 09:12 Total Protein 7.0 g/dL (6.6-8.7) 05/26/23 09:12 Albumin 3.8 g/dL (3.5-5.2) 05/26/23 09:12 Globulin 3.2 g/dL (1.3-4.6) 05/26/23 09:12 All radiology interpretation(s) finalized by discharge Discharge Plan Discharge Patient Disposition: Home Clinical Impression: Atrial fibrillation Qualifiers: Atrial fibrillation type: paroxysmal Qualified Code(s): I48.0 - Paroxysmal atrial fibrillation Condition: Stable Prescriptions: No Action Eliquis 2.5 mg tablet 2.5 mg PO BID Qty: 60 5RF Hold Instructions: Resume on 12/05/21. start on december 05 multivitamin Tablet 1 tab PO DAILY ascorbic acid (vitamin C) [Vitamin C] 1,000 mg Tablet 1,000 mg PO QAM atorvastatin 40 mg Tablet 40 mg PO BEDTIME Qty: 30 0RF albuterol sulfate 90 mcg/actuation HFA aerosol inhaler 2 inh inhalation Q6H PRN (Reason: shortness of breath or wheezing) Qty: 8.5 0RF aspirin 81 mg Tablet,Delayed Release (Dr/Ec) 81 mg PO QAM metoprolol tartrate 50 mg Tablet 50 mg PO Q12H Qty: 90 0RF amlodipine 5 mg tablet 5 mg PO QAM tramadol 50 mg tablet 25 - 50 mg PO BID PRN (Reason: Pain, Severe) furosemide 20 mg tablet 20 mg PO DAILY PRN (Reason: Edema) digoxin 125 mcg (0.125 mg) tablet 125 mcg PO .EVERY 2 DAYS magnesium oxide 250 mg magnesium tablet 250 mg PO QAM tiotropium bromide [Spiriva with HandiHaler] 18 mcg capsule, w/inhalation device 1 cap inhalation DAILY diltiazem HCl [Cardizem] 30 mg tablet 30 mg PO BID 30 Days Qty: 60 0RF Discharge Orders: Discharge ED (Routine); Ordered 05/26/23 Ordered By: James Macias Referrals: Dionne Roger, DOCUMENT IMAGING SPECIALIST [Primary Care Provider] - Discharge Diet: Usual diet Discharge Activity: Resume usual activity Patient Instructions: Opioid Safety, Pain Management Activity Restrictions/Additional Instructions: Thank you for choosing [facility] for your healthcare needs today. Please realize this is an emergency room and that we are providing you with a medical screening exam and this may not be complete and all inclusive of all the testing and or work up that you may need to determine your ailment or severity of your illness. It is very important that you follow up as instructed or that you return to the Emergency Department should you have concerns or if your condition changes or worsens in any way. You are seen today for atrial fibrillation. Your heart rate was well-controlled while you are in the emergency room. Not recommend any medication changes. Several of the medications that you currently take can have side effects of dizziness. Coding Level of Care Code ED Weighmaster for Meghann Jack
[2023-05-26 09:19] LABS: Basophils % 0.5 %; Hematocrit 38.9 % (36-47); Lymphocytes # 0.9 10^3/uL (0.8-4.8); Lymphocytes % 14.3 %; Mean Corpuscular HGB Conc 31.9 g/dL (30-55); Mean Corpuscular Hemoglobin 25.9 pg (27-33); Mean Corpuscular Volume 81.2 fl (85-98); Mean Platelet Volume 9.9 fL (7.4-10.4); Monocytes # 0.4 10^3/uL (0.2-0.9); Neutrophils # 4.81 10^3/uL (1.8-7.7); Neutrophils % 77.9 %; Nucleated Red Blood Cells % 0 %; Platelet Count 163 10^3/cmm (157-399); Red Blood Count 4.79 10^6/uL (3.85-5.65); White Blood Count 6.17 10^3/uL (3.29-11.43)
[2023-05-26 09:38] LABS: Alanine Aminotransferase 12 U/L (0-33); Albumin Level 3.8 g/dL (3.5-5.2); Alkaline Phosphatase 79 U/L (35-105); Blood Urea Nitrogen 13 mg/dL (8-23); Calcium 9.1 mg/dL (8.5-10.5); Carbon Dioxide 26 mmol/L (22-29); Chloride 101 mmol/L (98-107); Globulin 3.2 g/dL (1.3-4.6); Glucose 89 mg/dL (65-115); Osmolality Calculated 282 mOsm/kg (285-295); Sodium 136 mmol/L (136-145); Total Bilirubin 0.4 mg/dL (0.15-1.2)
[2023-05-26 09:41] LABS: Anion Gap 13.2 (5-19); Aspartate Amino Transferase 24 U/L (0-32); Potassium 4.2 mmol/L (3.5-5.1)
[2023-05-26 09:57] VITALS: BP 145/74; PULSE 78; RESP 16; O2SAT 97
[2023-05-26 10:21] VITALS: BP 106/64; BP 117/61; BP 125/61; PULSE 65; PULSE 68; PULSE 82
== END 2023-05-26 10:32 | disposition home or self-care (01) ==
PROVIDERS: Emergency Provider Family Medicine; PCP Nurse Practitioner Family
DX: I48.0 Paroxysmal atrial fibrillation (principal); Z79.01 Long term (current) use of anticoagulants; Z79.82 Long term (current) use of aspirin; J44.9 Chronic obstructive pulmonary disease, unspecified; I11.0 Hypertensive heart disease with heart failure; I50.9 Heart failure, unspecified; I43 Cardiomyopathy in diseases classified elsewhere; I25.2 Old myocardial infarction; Z86.73 Personal history of transient ischemic attack (TIA), and cerebral infarction without residual deficits; E78.5 Hyperlipidemia, unspecified; I25.10 Atherosclerotic heart disease of native coronary artery without angina pectoris; Z87.891 Personal history of nicotine dependence
CPT/HCPCS: 36415; 71045; 80053; 85025; 93005; 99285

== ENCOUNTER 2023-08-22 23:38 | Emergency (ER) | payer MEDICARE, SELFPAY ==
--- NOTE | 2023-08-22 23:53 | XRR_ITS ---
PROCEDURE INFORMATION: Exam: XR Chest Exam date and time: 08/23/2023 12:12 AM Age: 88 years old Clinical indication: Other: Bilateral lower ext swelling; Chest pressure; Patient HX: C/O chest pain with bilateral lower ext. Swelling. History of chf and copd. ; Additional info: Cxp TECHNIQUE: Imaging protocol: Radiologic exam of the chest. Views: 1 view. COMPARISON: CR XR chest 1V portable [id number] 05/26/2023 9:01 AM FINDINGS: Lungs: There are bilateral pleural effusions with lower lobe atelectasis. Pleural spaces: See Lungs finding. Heart/Mediastinum: There is cardiomegaly. Vasculature: There are aortic arch calcifications. Bones/joints: Moderate degenerative disease of bilateral acromioclavicular joints. Mild degenerative disease of bilateral glenohumeral joints. XR/XR chest 1V portable [id number] IMPRESSION: Decompensated congestive heart failure changes with bilateral pleural effusions and bibasilar atelectasis.
[2023-08-22 23:55] VITALS: BP 100/79; PULSE 109; RESP 16; TEMP 36.6; O2SAT 94
[2023-08-23 00:04] LABS: Basophils % 0.6 %; Eosinophils % 0.4 %; Hematocrit 35.9 % (36-47); Lymphocytes # 1.9 10^3/uL (0.8-4.8); Lymphocytes % 28.1 %; Mean Corpuscular HGB Conc 31.5 g/dL (30-55); Mean Corpuscular Hemoglobin 24.7 pg (27-33); Mean Corpuscular Volume 78.4 fl (85-98); Mean Platelet Volume 10.6 fL (7.4-10.4); Monocytes # 0.6 10^3/uL (0.2-0.9); Monocytes % 8.9 %; Neutrophils # 4.24 10^3/uL (1.8-7.7); Neutrophils % 61.7 %; Nucleated Red Blood Cells % 0 %; Platelet Count 194 10^3/cmm (157-399); Red Blood Count 4.58 10^6/uL (3.85-5.65); Red Cell Distribution Width 15.7 % (12.1-15.1); White Blood Count 6.87 10^3/uL (3.29-11.43)
[2023-08-23 00:06] VITALS: BP 131/89; PULSE 113; RESP 24; O2SAT 96
[2023-08-23 00:18] LABS: INR 1.03 (0.8-1.2)
[2023-08-23 00:30] LABS: Slide Review Slide Review Perform; Troponin(5th) Baseline 12 ng/L (0-10)
[2023-08-23 00:34] LABS: Alanine Aminotransferase 22 U/L (0-33); Albumin Level 3.7 g/dL (3.5-5.2); Alkaline Phosphatase 102 U/L (35-105); Blood Urea Nitrogen 16 mg/dL (8-23); Calcium 8.9 mg/dL (8.5-10.5); Carbon Dioxide 25 mmol/L (22-29); Chloride 94 mmol/L (98-107); Globulin 2.7 g/dL (1.3-4.6); Glucose 109 mg/dL (65-115); Osmolality Calculated 270 mOsm/kg (285-295); Sodium 129 mmol/L (136-145); Total Bilirubin 0.4 mg/dL (0.15-1.2); Total Protein 6.4 g/dL (6.6-8.7)
[2023-08-23 00:35] LABS: Anion Gap 14.5 (5-19); Aspartate Amino Transferase 30 U/L (0-32); Potassium 4.5 mmol/L (3.5-5.1)
[2023-08-23 00:39] LABS: NT Pro B Type Natriuretic Pept 3406 pg/mL (0-450)
[2023-08-23 00:50] LABS: Digoxin 0.3 ng/mL (0.6-1.2)
[2023-08-23 01:00] VITALS: BP 119/102; PULSE 98; O2SAT 94
[2023-08-23 01:57] VITALS: BP 129/94; PULSE 114; RESP 16; O2SAT 94
[2023-08-23 02:00] VITALS: BP 135/96; PULSE 109; RESP 23; O2SAT 93
[2023-08-23 02:00] LABS: Add Urine Microscopic? NO; Charge for UA Resulting for Rev
[2023-08-23 02:04] LABS: Bilirubin Urine Neg (Negative); Blood Urine Neg (Negative); Glucose Urine UA Norm (Normal); Ketones Urine Negative (Negative); Leukocyte Esterase Urine Negative (Negative); Nitrate Urine Negative (Negative); Protein Urine Neg (Negative); Urine Appearance Clear (CLEAR); Urine Color Light yellow (Yellow); Urobilinogen Urine Neg (Negative); pH Urine 7 (5-7)
--- NOTE | 2023-08-23 02:24 | ED_ITS ---
HPI - Chest Pain 2 General: Chief Complaint: Chest Pain Stated Complaint: cp x 6 days, weakness , swelling of bilateral legs Time Seen by Provider: 08/22/23 23:53 History of Present Illness: 88-year-old female presents emergency de partment with complaints of intermittent chest pain for the previous 6 days. She states she also has a nonproductive cough and feels like she is having increased shortness of breath. She states she has noticed some swelling to her lower legs bilaterally. She states that she feels like today that she has 3 out of 10 chest pressure to the anterior chest. She states that she does have significant exertional dyspnea. She states she has had a previous cardiac stent placed and has a history of congestive heart failure and feels that the swelling to her legs is due to the fluid back up from her heart. Associated symptoms: Reports dyspnea Review of Systems 2 General: Reports: 10 or more systems reviewed and unremarkable except in HPI and below Const: Reports: fatigue Card: Reports: chest pain, edema and swelling of feet/ankles Resp: Reports: dyspnea and non-productive cough PFSH ED 2 PFSH: Medical History Atrial fibrillation with rapid ventricular response COPD (chronic obstructive pulmonary disease) CHF (congestive heart failure) Hx of myocardial infarction Hx of completed stroke Atrial fibrillation Takotsubo syndrome Dyslipidemia (high LDL; low HDL) Atherosclerotic heart disease of [place] coronary artery without angina pectoris Cardiomyopathy Chronic back pain Kyphosis deformity of spine HTN (hypertension) CAD (coronary artery disease) Surgical History H/O coronary angiogram Family History Mother CAD (coronary artery disease) Father CAD (coronary artery disease) Daughter CAD (coronary artery disease) Denies family history of Diabetes Clotting disorder Dementia Chronic kidney disease (CKD) Suicide Anesthesia complication Bleeding disorder Lung disease Cancer Stroke Social History Smoking and tobacco/nicotine status: former use of tobacco/nicotine Quit status (tobacco/nicotine): has quit using Former quit date comment: 25 ya Alcohol intake: never Substance/Drug Use: never Lives independently: Yes Household members: children and other Details: Son Current occupational status: retired Physical Exam 2 Narrative: EXAM NARRATIVE: General: Alert, no acute distress. Skin: Warm, dry, Intact. Head: Normocephalic, atraumatic. Neck: Supple, trachea midline. Eye: Extraocular movements are intact. PERRLA Ears, nose, mouth and throat: mucosa moist. Cardiovascular: Regular, Normal peripheral perfusion. Respiratory: Prolonged expiratory phase, scattered intermittent wheezes. Mild increased work of breathing, Symmetrical chest wall expansion. Gastrointestinal: Soft, Nontender, Non distended, Normal bowel sounds. Musculoskeletal: Normal ROM, no deformity. 1+ bilateral lower extremity edema, Neurological: Alert and oriented, No focal neurological deficit observed. Psychiatric: Cooperative, appropriate mood & affect. Course 2 Vital Signs: Vital signs: Vital Signs Temperature 97.9 F 08/22/23 23:55 Pulse Rate 112 H 08/23/23 04:27 Respiratory Rate 22 H 08/23/23 04:27 Blood Pressure 137/91 08/23/23 04:27 Pulse Oximetry 92 08/23/23 04:27 Oxygen Delivery Me thod Room Air 08/23/23 00:06 MDM - Chest Pain Medical Decision Making Physical exam completed and documented, I will obtain serial cardiac enzymes, serial twelve-lead EKGs, chest x-ray, CBC, CMP, urinalysis, B-type natriuretic peptide, PT/PTT/INR, and a chest x-ray. I have reviewed previous and pertinent medical records for assist in obtaining beneficial medical information to improved the care and treatment of the patient. Differential diagnosis, atypical chest pain, CHF exacerbation, COPD exacerbation, NSTEMI, electrolyte abnormality, bronchitis Medical Records I reviewed the patient's medical records. Lab Data I reviewed the patient's lab results. 08/22/23 23:57 08/22/23 23:57 Radiology Impressions Chest X-Ray 08/22/23 23:53 IMPRESSION: Decompensated congestive heart failure changes with bilateral pleural effusions and bibasilar atelectasis. Laboratory Results WBC 6.87 10^3/uL (3.29-11.43) 08/22/23 23:57 RBC 4.58 10^6/uL (3.85-5.65) 08/22/23 23:57 Hgb 11.30 g/dL (11.27-16.99) 08/22/23 23:57 Hct 35.9 % (36-47) L 08/22/23 23:57 MCV 78.4 fl (85-98) L 08/22/23 23:57 MCH 24.7 pg (27-33) L 08/22/23 23:57 MCHC 31.5 g/dL (30-55) 08/22/23 23:57 RDW 15.7 % (12.1-15.1) H 08/22/23 23:57 Plt Count 194 10^3/cmm (157-399) 08/22/23 23:57 MPV 10.6 fL (7.4-10.4) H 08/22/23 23:57 Neut % (Auto) 61.7 % 08/22/23 23:57 Lymph % (Auto) 28.1 % 08/22/23 23:57 [place] % (Auto) 8.9 % 08/22/23 23:57 Eos % (Auto) 0.4 % 08/22/23 23:57 Baso % (Auto) 0.6 % 08/22/23 23:57 Neut # (Auto) 4.24 10^3/uL (1.8-7.7) 08/22/23 23:57 Lymph # (Auto) 1.9 10^3/uL (0.8-4.8) 08/22/23 23:57 [place] # (Auto) 0.6 10^3/uL (0.2-0.9) 08/22/23 23:57 Eos # (Auto) 0.0 10^3/uL (0.0-0.8) 08/22/23 23:57 Baso # (Auto) 0.0 10^3/uL (0.0-0.1) 08/22/23 23:57 Nucleated RBC % (auto) 0 % 08/22/23 23:57 Nucleated RBCs # 0.0 /100WBC 08/22/23 23:57 PT 13.80 SECONDS (12.1-14.9) 08/22/23 23:57 INR 1.03 (0.8-1.2) 08/22/23 23:57 Sodium 129 mmol/L (136-145) L 08/22/23 23:57 Potassium 4.5 mmol/L (3.5-5.1) 08/22/23 23:57 Chloride 94 mmol/L (98-107) L 08/22/23 23:57 Carbon Dioxide 25 mmol/L (22-29) 08/22/23 23:57 Anion Gap 14.5 (5-19) 08/22/23 23:57 BUN 16 mg/dL (8-23) 08/22/23 23:57 Creatinine 0.5 mg/dL (0.5-0.9) 08/22/23 23:57 GFR Calculation Not Reportable 08/22/23 23:57 Glucose 109 mg/dL (65-115) 08/22/23 23:57 Calculated Osmolality 270 mOsm/kg (285-295) L 08/22/23 23:57 Calcium 8.9 mg/dL (8.5-10.5) 08/22/23 23:57 Total Bilirubin 0.4 mg/dL (0.15-1.2) 08/22/23 23:57 AST 30 U/L (0-32) 08/22/23 23:57 ALT 22 U/L (0-33) 08/22/23 23:57 Alkaline Phosphatase 102 U/L (35-105) 08/22/23 23:57 Troponin T Baseline 12 ng/L (0-10) H 08/22/23 23:57 Troponin T 120 Minute 12.21 ng/L (0-10) H 08/23/23 02:03 Delta Troponin T 0.21 ABS# (0-10) 08/23/23 02:03 NT-Pro-B Natriuret Pep 3406 pg/mL (0-450) H 08/22/23 23:57 Total Protein 6.4 g/dL (6.6-8.7) L 08/22/23 23:57 Albumin 3.7 g/dL (3.5-5.2) 08/22/23 23:57 Globulin 2.7 g/dL (1.3-4.6) 08/22/23 23:57 Urine Color Light yellow (Yellow) 08/23/23 01:46 Urine Appearance Clear (CLEAR) 08/23/23 01:46 Urine pH 7 (5-7) 08/23/23 01:46 Ur Specific [place] 1.010 (1.005-1.030) 08/23/23 01:46 Urine Protein Neg (Negative) 08/23/23 01:46 Urine Glucose (UA) Norm (Normal) 08/23/23 01:46 Urine Ketones Negative (Negative) 08/23/23 01:46 Urine Blood Neg (Negative) 08/23/23 01:46 Urine Nitrate Negative (Negative) 08/23/23 01:46 Urine Bilirubin Neg (Negative) 08/23/23 01:46 Urine Urobilinogen Neg mg/dL (Negative) 08/23/23 01:46 Ur Leukocyte Esterase Negative (Negative) 08/23/23 01:46 Digoxin 0.3 ng/mL (0.6-1.2) L 08/22/23 23:57 All radiology interpretation(s) finalized by discharge Discharge Plan Discharge Patient Disposition: Home Clinical Impression: Edema, Atrial fibrillation with tachycardic ventricular rate CHF (congestive heart failure) Qualifiers: Heart failure type: diastolic Heart failure chronicity: acute on chronic Q ualified Code(s): I50.33 - Acute on chronic diastolic (congestive) heart failure Condition: Stable Prescriptions: New Lasix 20 mg tablet 20 mg PO DAILY PRN (Reason: edema) Qty: 7 0RF Rx Instructions: 1/2 tablet if more than a 5 pound weight gain over 3 days potassium chloride 10 mEq capsule, extended release 10 meq PO DAILY Qty: 10 0RF Rx Instructions: 1 capsule taken on the day that you take your diuretic No Action Eliquis 2.5 mg tablet 2.5 mg PO BID Qty: 60 5RF Hold Instructions: Resume on 12/05/21. start on december 05 multivitamin Tablet 1 tab PO DAILY ascorbic acid (vitamin C) [Vitamin C] 1,000 mg Tablet 1,000 mg PO QAM atorvastatin 40 mg Tablet 40 mg PO BEDTIME Qty: 30 0RF albuterol sulfate 90 mcg/actuation HFA aerosol inhaler 2 inh inhalation Q6H PRN (Reason: shortness of breath or wheezing) Qty: 8.5 0RF aspirin 81 mg Tablet,Delayed Release (Dr/Ec) 81 mg PO QAM metoprolol tartrate 50 mg Tablet 50 mg PO Q12H Qty: 90 0RF amlodipine 5 mg tablet 5 mg PO QAM tramadol 50 mg tablet 25 - 50 mg PO BID PRN (Reason: Pain, Severe) furosemide 20 mg tablet 20 mg PO DAILY PRN (Reason: Edema) digoxin 125 mcg (0.125 mg) tablet 125 mcg PO .EVERY 2 DAYS magnesium oxide 250 mg magnesium tablet 250 mg PO QAM tiotropium bromide [Spiriva with HandiHaler] 18 mcg capsule, w/inhalation device 1 cap inhalation DAILY Discharge Orders: Discharge ED (Routine); Ordered 08/23/23 Ordered By: Yonny Shrestha Referrals: Kana,Dionne, STOP ATT[facility]ER [Primary Care Provider] - Discharge Diet: Low Salt Discharge Activity: Resume usual activity Patient Instructions: Opioid Safety, Pain Management Activity Restrictions/Additional Instructions: Activity Restrictions/Additional Instructions: Thank you for choosing [facility] for your healthcare needs today. Please realize that you were seen in the Emergency Department and that we are providing you with an emergency medical screening exam and this may not be a complete and all inclusive of all the testing and or medical work-up that you may need to determine your ailment or severity of your illness. It is very important that you follow-up as instructed with your Primary care provider or Specialist for additional evaluation and to discuss your medical treatment plan. Coding Level of Care Code ED Skin Carver for Meghann Jack
[2023-08-23 02:31] LABS: Troponin 5 2HR 12.21 ng/L (0-10); Troponin 5 2HR Delta 0.21 ABS# (0-10)
[2023-08-23] MEDS: digoxin 250 mcg/ml INJ 2 mL IVP (02:48)
[2023-08-23] MEDS: FUROsemide 10 mg/mL SDV 4mL 40 MG IVP (02:48)
[2023-08-23 03:30] VITALS: PULSE 149; RESP 31
[2023-08-23] MEDS: digoxin 250 mcg Tablet PO (04:18)
[2023-08-23 04:27] VITALS: BP 137/91; PULSE 112; RESP 22; O2SAT 92
== END 2023-08-23 04:29 | disposition home or self-care (01) ==
PROVIDERS: Emergency Provider Internal Medicine; PCP Nurse Practitioner Family
DX: I48.20 Chronic atrial fibrillation, unspecified (principal); I11.0 Hypertensive heart disease with heart failure; I50.33 Acute on chronic diastolic (congestive) heart failure; Z79.01 Long term (current) use of anticoagulants; Z79.82 Long term (current) use of aspirin; Z87.891 Personal history of nicotine dependence; J44.9 Chronic obstructive pulmonary disease, unspecified; I25.2 Old myocardial infarction; Z86.73 Personal history of transient ischemic attack (TIA), and cerebral infarction without residual deficits; E78.5 Hyperlipidemia, unspecified; I25.10 Atherosclerotic heart disease of native coronary artery without angina pectoris; I43 Cardiomyopathy in diseases classified elsewhere
CPT/HCPCS: 36415; 71045; 80053; 80162; 81003; 83880; 84484; 85025; 85610; 96374; 96375; 99285; J1160; J1940